=== PATIENT | female | born 1950 | race Caucasian/White ===

== ENCOUNTER → 2016-12-15 | Outpatient (CLI) | payer MEDICARE, BC ==
--- NOTE | 2016-12-15 15:48 | US ---
EXAMINATION: Renal ultrasound HISTORY: Urinary tract infection COMPARISON: CT dated 11/09/2016 TECHNIQUE: Grayscale and color Doppler images obtained of the kidneys and bladder. FINDINGS: The right kidney measures at least 11.4 cm and the left kidney measures at least 11.1 cm p ole-to-pole without evidence of hydronephrosis. No perinephric fluid collections or renal masses kimani aterally. Renal cortical echotexture is normal. Normal color Doppler flow. Bilateral urine jets are noted. IMPRESSION: Unremarkable renal ultrasound.
== END ==
LOC: MW.US 09:24
PROVIDERS: ATTEND Internal Medicine Infectious Disease
DX: N39.0 Urinary tract infection, site not specified (principal)
CPT/HCPCS: 76775; 76775-26

== ENCOUNTER 2017-03-19 16:16 | Emergency (ER) | payer MEDICARE, BC ==
[2017-03-19 16:35] VITALS: BP 159/82
[2017-03-19] MEDS ORDERED: Proparacaine 0.5% Ophth Soln 15 ML Bottle ONE (16:36)
[2017-03-19] MEDS ORDERED: Erythromycin Base 0.5% Ophth Oint 1 GM Tube EYEBOTH ONE (16:46)
--- NOTE | 2017-03-19 16:46 | EDM.PDOC ---
ED HPI GENERAL MEDICAL PROBLEM - General Chief Complaint: Eye Problems Stated Complaint: PT RT EYE SWOLLEN Time Seen by Provider: 03/19/17 16:36 - History of Present Illness INITIAL COMMENTS - FREE TEXT/NARRATIVE: HISTORY AND PHYSICAL: History of present illness: Patient 66-year-old white female presents with concern of possible corneal abrasion right eye she does not recall any trauma or any foreign body but states she awoke with this discomfort in her right eye since then the whole day. Review of systems: As per history of present illness and below otherwise all systems reviewed and negative. Past medical history: As per history of present illness and as reviewed below otherwise noncontributory. Surgical history: As per history of present illness and as reviewed below otherwise noncontributory. Social history: No reported history of drug or alcohol abuse. Family history: As per history of present illness and as reviewed below otherwise noncontributory. Physical exam: HEENT: Atraumatic, normocephalic, pupils reactive, negative for conjunctival pallor or scleral icterus, mucous membranes moist, throat clear, neck supple, nontender, trachea midline. Patient is noted to have a corneal abrasion at the 9 :00 position with fluoroscein uptake anterior chambers clear lid eversion was negative for foreign Lungs: Clear to auscultation, breath sounds equal bilaterally, chest nontender. Heart: S1S2, regular, negative for clicks, rubs, or JVD. Abdomen: Soft, nondistended, nontender. Negative for masses or hepatosplenomegaly. Negative for costovertebral tenderness. Pelvis: Stable nontender. Genitourinary: Deferred. Rectal: Deferred. Extremities: Atraumatic, negative for cords or calf pain. Neurovascular unremarkable. Neuro: Awake, alert, oriented. Cranial nerves II through XII unremarkable. Cerebellum unremarkable. Motor and sensory unremarkable throughout. Exam nonfocal. Diagnostics: See above Therapeutics: Erythromycin ophthalmic ointment Impression: #1 corneal abrasion right eye Definitive disposition and diagnosis as appropriate pending reevaluation and review of above. Right Eye Pain Score (Numeric/FACES): 4 - Related Data Allergies Allergy/AdvReac Type Severity Reaction Status Date / Time cefuroxime axetil Allergy Intermediate Rash Verified 03/19/17 16:29 [From Ceftin] celecoxib [From Celebrex] Allergy Rash Verified 03/19/17 16:29 ciprofloxacin Allergy Rash Verified 03/19/17 16:29 codeine Allergy Rash Verified 03/19/17 16:29 hydrocodone Allergy Rash Verified 03/19/17 16:29 Penicillins Allergy Cannot Verified 03/19/17 16:29 Remember Home Meds: Home Meds ALPRAZolam [Xanax] 0.25 mg PO BID 11/09/16 [History] Meloxicam 15 mg PO DAILY 11/09/16 [History] Omeprazole 40 mg PO DAILY 11/09/16 [History] Ondansetron [Zofran ODT] 8 mg PO Q4H 11/09/16 [History] Triamterene/Hydrochlorothiazid [Triamterene-HCTZ 37.5-25 MG] 37.5 each PO DAILY 11/09/16 [History] Zolpidem [Ambien] 5 mg PO BEDTIME 11/09/16 [History] buPROPion [Wellbutrin SR] 300 mg PO DAILY 11/09/16 [History] traMADol HCl [Tramadol HCl] 50 mg PO Q4HR PRN 11/09/16 [History] Doxycycline Calcium [IMW: Doxycycline] 100 mg PO BID 7 Days 11/11/16 [Rx] Loperamide [Imodium] 2 mg PO ASDIRECTED PRN #10 cap 11/11/16 [Rx] metroNIDAZOLE 500 mg PO TID 10 Days 11/11/16 [Rx] Estradiol [Estrace Vaginal] 1 applic VAG BEDTIME 03/19/17 [History] Past Medical History HEENT History: Reports: Cataract Cardiovascular History: Reports: Hypertension Gastrointestinal History: Reports: Irritable Bowel Syndrome Musculoskeletal History: Reports: Osteoarthritis Other Musculoskeletal History: joint pain, polyneuropathy, Psychiatric History: Reports: Anxiety Endocrine/Metabolic History: Reports: None Hematologic History: Reports: None Immunologic History: Reports: None Oncologic (Cancer) History: Reports: None Dermatologic History: Reports: Eczema - Infectious Disease History Infectious Disease History: Reports: Chicken Pox - Past Surgical History Head Surgeries/Procedures: Reports: None HEENT Surgical History: Reports: Cataract Surgery GI Surgical History: Reports: None Female Surgical History: Reports: Hysterectomy, Tubal Ligation Oncologic Surgical History: Reports: None Dermatological Surgical History: Reports: Skin Biopsy Social & Family History - Family History Family Medical History: Noncontributory Neurological: Reports: Neuropathy, Peripheral, Other (See Below) Other Neurological Family History: Temporal arteritis- Polymyalgic Giant cell. Polymyositis Immunologic: Reports: None Dermatologic: Reports: None Oncologic: Reports: None - Tobacco Use Smoking Status *Q: Former Smoker Used Tobacco, but Quit: No Second Hand Smoke Exposure: No - Caffeine Use Caffeine Use: Reports: Soda, Tea - Recreational Drug Use Recreational Drug Use: No ED ROS GENERAL - Review of Systems Review Of Systems: ROS reveals no pertinent complaints other than HPI. ED EXAM GENERAL W FULL EYE - Physical Exam Exam: See Below (See dictation) Course - Vital Signs Last Recorded V/S: Last Vital Signs Temp 36.7 C 03/19/17 16:32 Pulse 76 03/19/17 16:32 Resp 16 03/19/17 16:32 BP 159/82 H 03/19/17 16:32 Pulse Ox 95 03/19/17 16:32 - Orders/Labs/Meds Meds: Medications Discontinued Medications Generic Name Dose Route Start Last Admin Trade Name Freq PRN Reason Stop Dose Admin Proparacaine HCl Confirm 03/19/17 16:36 Proparacaine 0.5% Ophth Soln Administered 03/19/17 16:37 Dose 15 ml .ROUTE .STK-MED ONE Departure - Departure Time of Disposition: 16:45 Disposition: Home, Self-Care 01 Condition: good Clinical Impression: Corneal abrasion - Discharge Information Forms: ED Department Discharge Additional Instructions: The following information is given to patients seen in the emergency department who are being discharged to home. This information is to outline your options for follow-up care. We provide all patients seen in our emergency department with a follow-up referral. The need for follow-up, as well as the timing and circumstances, are variable depending upon the specifics of your emergency department visit. If you don't have a primary care physician on staff, we will provide you with a referral. We always advise you to contact your personal physician following an emergency department visit to inform them of the circumstance of the visit and for follow-up with them and/or the need for any referrals to a consulting specialist. The emergency department will also refer you to a specialist when appropriate. This referral assures that you have the opportunity for followup care with a specialist. All of these measure are taken in an effort to provide you with optimal care, which includes your followup. Under all circumstances we always encourage you to contact your private physician who remains a resource for coordinating your care. When calling for followup care, please make the office aware that this follow-up is from your recent emergency room visit. If for any reason you are refused follow-up, please contact the [facility] emergency department at and asked to speak to the emergency department charge nurse. Erythromycin ophthalmic ointment as direct Followup ophthalmology on Tuesday Motrin or Tylenol as directed return as needed as discussed
[2017-03-19] MEDS ORDERED: Proparacaine 0.5% Ophth Soln 15 ML Bottle EYERT ONE (17:14)
== END 2017-03-19 17:16 | disposition home or self-care (01) ==
LOC: MW.ED 16:16
DX: S05.01XA Injury of conjunctiva and corneal abrasion without foreign body, right eye, initial encounter (principal); I10 Essential (primary) hypertension; F41.9 Anxiety disorder, unspecified; Z98.51 Tubal ligation status; Z98.49 Cataract extraction status, unspecified eye; Z90.710 Acquired absence of both cervix and uterus; Z87.891 Personal history of nicotine dependence; Z79.899 Other long term (current) drug therapy; Z88.0 Allergy status to penicillin; Z88.1 Allergy status to other antibiotic agents; Z88.5 Allergy status to narcotic agent; Z88.8 Allergy status to other drugs, medicaments and biological substances; X58.XXXA Exposure to other specified factors, initial encounter
CPT/HCPCS: 99283; A9270

== ENCOUNTER 2017-04-27 16:08 | Emergency (ER) | payer MEDICARE, BC ==
--- NOTE | 2017-04-27 16:41 | EDM.PDOC ---
ED HPI GENERAL MEDICAL PROBLEM - General Chief Complaint: ENT Problem Stated Complaint: EAR PAIN/POSSIBLE BLADDER INFECTION Time Seen by Provider: 04/27/17 16:20 Source of Information: Reports: Patient History Limitations: Reports: No Limitations - History of Present Illness INITIAL COMMENTS - FREE TEXT/NARRATIVE: History of present illness: 66 year old female comes in complaining of bilateral ear pain as well as concern that she might have a UTI. Patient indicates that she has chronic arthritis and so it's hard to determine if she has one now she started to feel generally unwell and has a bit of a backache. Review of systems: As per history of present illness and below otherwise all systems reviewed and negative. Past medical history: As per history of present illness and as reviewed below otherwise noncontributory. Surgical history: As per history of present illness and as reviewed below otherwise noncontributory. Social history: No reported history of drug or alcohol abuse. Family history: As per history of present illness and as reviewed below otherwise noncontributory. Physical exam: HEENT: Atraumatic, normocephalic, pupils reactive, negative for conjunctival pallor or scleral icterus, mucous membranes moist, bilateral TMs noted to be red and dull with canals irritated, throat clear, neck supple, nontender, trachea midline. Lungs: Clear to auscultation, breath sounds equal bilaterally, chest nontender. Heart: S1S2, regular, negative for clicks, rubs, or JVD. Abdomen: Soft, nondistended, nontender. Negative for masses or hepatosplenomegaly. Positive for costovertebral tenderness. Pelvis: Stable nontender. Genitourinary: Deferred. Rectal: Deferred. Extremities: Atraumatic, negative for cords or calf pain. Neurovascular unremarkable. Neuro: Awake, alert, oriented. Cranial nerves II through XII unremarkable. Cerebellum unremarkable. Motor and sensory unremarkable throughout. Exam nonfocal. Diagnostics: [UA,] Therapeutics: [] Impression: [UTI, bilateral otitis media] Plan: [antiBiotics] Definitive disposition and diagnosis as appropriate pending reevaluation and review of above. lower back Pain Score (Numeric/FACES): 3 - Related Data Allergies Allergy/AdvReac Type Severity Reaction Status Date / Time cefuroxime axetil Allergy Intermediate Rash Verified 04/27/17 16:23 [From Ceftin] celecoxib [From Celebrex] Allergy Rash Verified 04/27/17 16:23 ciprofloxacin Allergy Rash Verified 04/27/17 16:23 codeine Allergy Rash Verified 04/27/17 16:23 hydrocodone Allergy Rash Verified 04/27/17 16:23 Penicillins Allergy Cannot Verified 04/27/17 16:23 Remember Home Meds: Home Meds ALPRAZolam [Xanax] 0.25 mg PO BID 11/09/16 [History] Meloxicam 15 mg PO DAILY 11/09/16 [History] Omeprazole 40 mg PO DAILY 11/09/16 [History] Ondansetron [Zofran ODT] 8 mg PO Q4H 11/09/16 [History] Triamterene/Hydrochlorothiazid [Triamterene-HCTZ 37.5-25 MG] 37.5 each PO DAILY 11/09/16 [History] Zolpidem [Ambien] 5 mg PO BEDTIME 11/09/16 [History] buPROPion [Wellbutrin SR] 300 mg PO DAILY 11/09/16 [History] traMADol HCl [Tramadol HCl] 50 mg PO Q4HR PRN 11/09/16 [History] Doxycycline Calcium [IMW: Doxycycline] 100 mg PO BID 7 Days 11/11/16 [Rx] Loperamide [Imodium] 2 mg PO ASDIRECTED PRN #10 cap 11/11/16 [Rx] metroNIDAZOLE 500 mg PO TID 10 Days 11/11/16 [Rx] Estradiol [Estrace Vaginal] 1 applic VAG BEDTIME 03/19/17 [History] Azithromycin [IJD: Azithromycin] 250 mg PO DAILY #6 tab 04/27/17 [Rx] Nitrofurantoin Monohyd/M-Cryst [Macrobid 100 mg Capsule] 100 mg PO BID #20 capsule 04/27/17 [Rx] Past Medical History - Past Health History Medical/Surgical History: Denies Medical/Surgical History HEENT History: Reports: Cataract Cardiovascular History: Reports: Hypertension Gastrointestinal History: Reports: Irritable Bowel Syndrome [employer] History: Reports: Musculoskeletal History: Reports: Osteoarthritis Other Musculoskeletal History: joint pain, polyneuropathy, Psychiatric History: Reports: Anxiety Endocrine/Metabolic History: Reports: None Hematologic History: Reports: None Immunologic History: Reports: None Oncologic (Cancer) History: Reports: None Dermatologic History: Reports: Eczema - Infectious Disease History Infectious Disease History: Reports: Chicken Pox - Past Surgical History Head Surgeries/Procedures: Reports: None HEENT Surgical History: Reports: Cataract Surgery GI Surgical History: Reports: None Female Surgical History: Reports: Hysterectomy, Tubal Ligation Oncologic Surgical History: Reports: None Dermatological Surgical History: Reports: Skin Biopsy Social & Family History - Family History Family Medical History: Noncontributory Neurological: Reports: Neuropathy, Peripheral, Other (See Below) Other Neurological Family History: Temporal arteritis- Polymyalgic Giant cell. Polymyositis Immunologic: Reports: None Dermatologic: Reports: None Oncologic: Reports: None - Tobacco Use Smoking Status *Q: Never Smoker Used Tobacco, but Quit: No Second Hand Smoke Exposure: No - Caffeine Use Caffeine Use: Reports: Tea - Recreational Drug Use Recreational Drug Use: No ED ROS GENERAL - Review of Systems Review Of Systems: See Below (History of present illness) ED EXAM, GENERAL - Physical Exam Exam: See Below (See history of present illness) Course - Vital Signs Last Recorded V/S: Last Vital Signs Temp 36.4 C 04/27/17 16:24 Pulse 71 04/27/17 16:24 Resp 18 04/27/17 16:24 BP 156/79 H 04/27/17 16:24 Pulse Ox 95 04/27/17 16:24 - Orders/Labs/Meds Labs: Laboratory Tests 04/27/17 04/27/17 04/27/17 Range/Units 16:30 18:00 18:00 WBC 13.75 H (4.0-11.0) K/uL RBC 4.67 (4.30-5.90) M/uL Hgb 14.0 (12.0-16.0) g/dL Hct 41.1 (36.0-46.0) % MCV 88.0 (80.0-98.0) fL MCH 30.0 (27.0-32.0) pg MCHC 34.1 (31.0-37.0) g/dL RDW Std Deviation 40.6 (28.0-62.0) fl RDW Coeff of Samson 13 (11.0-15.0) % Plt Count 120 L (150-400) K/uL MPV 10.30 (7.40-12.00) fL Neut % (Auto) 70.3 (48.0-80.0) % Lymph % (Auto) 20.7 (16.0-40.0) % Duval % (Auto) 5.2 (0.0-15.0) % Eos % (Auto) 3.5 (0.0-7.0) % Baso % (Auto) 0.3 (0.0-1.5) % Neut # (Auto) 9.7 H (1.4-5.7) K/uL Lymph # (Auto) 2.9 H (0.6-2.4) K/uL Duval # (Auto) 0.7 (0.0-0.8) K/uL Eos # (Auto) 0.5 (0.0-0.7) K/uL Baso # (Auto) 0.0 (0.0-0.1) K/uL Nucleated RBC % 0.0 /100WBC Nucleated RBCs # 0 K/uL Sodium 139 (136-146) mmol/L Potassium 3.5 (3.5-5.1) mmol/L Chloride 105 (98-110) mmol/L Carbon Dioxide 26 (21-31) mmol/L BUN 22 (6.0-23.0) mg/dL Creatinine 0.8 (0.6-1.5) mg/dL Est Cr Clr Drug Dosing 64.76 mL/min Estimated GFR (MDRD) > 60.0 ml/min Glucose 88 (60-110) mg/dL Calcium 8.8 (8.8-10.8) mg/dL Total Bilirubin 0.3 (0.1-1.5) mg/dL AST 51 H (5-40) IU/L ALT 69 H (8-54) IU/L Alkaline Phosphatase 125 (40-150) Total Protein 7.0 (6.0-8.0) g/dL Albumin 4.0 (3.4-4.8) g/dL Globulin 3.0 (2.0-3.5) g/dL Albumin/Globulin Ratio 1.3 (1.3-2.8) Urine Color YELLOW Urine Appearance CLEAR Urine pH 6.0 (5.0-8.0) Ur Specific Paisley 1.020 (1.001-1.035) Urine Protein NEGATIVE (NEGATIVE) mg/dL Urine Glucose (UA) NEGATIVE (NEGATIVE) mg/dL Urine Ketones NEGATIVE (NEGATIVE) mg/dL Urine Occult Blood SMALL H (NEGATIVE) Urine Nitrite POSITIVE H (NEGATIVE) Urine Bilirubin NEGATIVE (NEGATIVE) Urine Urobilinogen 0.2 (<2.0) EU/dL Ur Leukocyte Esterase NEGATIVE (NEGATIVE) Urine RBC 0-2 (0-2/HPF) Urine WBC 1-3 (0-5/HPF) Ur Epithelial Cells MANY (NONE-FEW) Urine Bacteria 1+ H (NEGATIVE) 04/27/17 Range/Units 18:55 WBC (4.0-11.0) K/uL RBC (4.30-5.90) M/uL Hgb (12.0-16.0) g/dL Hct (36.0-46.0) % MCV (80.0-98.0) fL MCH (27.0-32.0) pg MCHC (31.0-37.0) g/dL RDW Std Deviation (28.0-62.0) fl RDW Coeff of Samson (11.0-15.0) % Plt Count (150-400) K/uL MPV (7.40-12.00) fL Neut % (Auto) (48.0-80.0) % Lymph % (Auto) (16.0-40.0) % Duval % (Auto) (0.0-15.0) % Eos % (Auto) (0.0-7.0) % Baso % (Auto) (0.0-1.5) % Neut # (Auto) (1.4-5.7) K/uL Lymph # (Auto) (0.6-2.4) K/uL Duval # (Auto) (0.0-0.8) K/uL Eos # (Auto) (0.0-0.7) K/uL Baso # (Auto) (0.0-0.1) K/uL Nucleated RBC % /100WBC Nucleated RBCs # K/uL Sodium (136-146) mmol/L Potassium (3.5-5.1) mmol/L Chloride (98-110) mmol/L Carbon Dioxide (21-31) mmol/L BUN (6.0-23.0) mg/dL Creatinine (0.6-1.5) mg/dL Est Cr Clr Drug Dosing mL/min Estimated GFR (MDRD) ml/min Glucose (60-110) mg/dL Calcium (8.8-10.8) mg/dL Total Bilirubin (0.1-1.5) mg/dL AST (5-40) IU/L ALT (8-54) IU/L Alkaline Phosphatase (40-150) Total Protein (6.0-8.0) g/dL Albumin (3.4-4.8) g/dL Globulin (2.0-3.5) g/dL Albumin/Globulin Ratio (1.3-2.8) Urine Color YELLOW Urine Appearance CLEAR Urine pH 6.0 (5.0-8.0) Ur Specific Paisley 1.015 (1.001-1.035) Urine Protein NEGATIVE (NEGATIVE) mg/dL Urine Glucose (UA) NEGATIVE (NEGATIVE) mg/dL Urine Ketones NEGATIVE (NEGATIVE) mg/dL Urine Occult Blood SMALL H (NEGATIVE) Urine Nitrite POSITIVE H (NEGATIVE) Urine Bilirubin NEGATIVE (NEGATIVE) Urine Urobilinogen 0.2 (<2.0) EU/dL Ur Leukocyte Esterase NEGATIVE (NEGATIVE) Urine RBC 1-3 (0-2/HPF) Urine WBC 0-1 (0-5/HPF) Ur Epithelial Cells FEW (NONE-FEW) Urine Bacteria FEW (NEGATIVE) Meds: Medications Discontinued Medications Generic Name Dose Route Start Last Admin Trade Name Freq PRN Reason Stop Dose Admin Sodium Chloride 1,000 mls @ 999 mls/hr 04/27/17 17:40 04/27/17 18:01 Normal Saline IV 04/27/17 18:40 999 mls/hr STAT ONE Administration Departure - Departure Time of Disposition: 19:40 Disposition: Home, Self-Care 01 Condition: Good Clinical Impression: Otitis media - Discharge Information Prescriptions: Azithromycin [IJD: Azithromycin] 250 mg PO DAILY #6 tab Nitrofurantoin Monohyd/M-Cryst [Macrobid 100 mg Capsule] 100 mg PO BID #20 capsule Forms: ED Department Discharge Additional Instructions: The following information is given to patients seen in the emergency department who are being discharged to home. This information is to outline your options for follow-up care. We provide all patients seen in our emergency department with a follow-up referral. The need for follow-up, as well as the timing and circumstances, are variable depending upon the specifics of your emergency department visit. If you don't have a primary care physician on staff, we will provide you with a referral. We always advise you to contact your personal physician following an emergency department visit to inform them of the circumstance of the visit and for follow-up with them and/or the need for any referrals to a consulting specialist. The emergency department will also refer you to a specialist when appropriate. This referral assures that you have the opportunity for follow-up care with a specialist. All of these measure are taken in an effort to provide you with optimal care, which includes your follow-up. Under all circumstances we always encourage you to contact your private physician who remains a resource for coordinating your care. When calling for follow-up care, please make the office aware that this follow-up is from your recent emergency room visit. If for any reason you are refused follow-up, please contact the [facility] Emergency Department at and asked to speak to the emergency department charge nurse. Take medication as directed Hydrate as much as possible Follow up with primary care provider one to 2 days Return to ED as needed as discussed
[2017-04-27] MEDS ORDERED: Sodium Chloride 0.9% 1,000 ML IV ONE (17:40)
[2017-04-27 18:36] LABS: CHLORIDE,CL 105 mmol/L (98-110); SODIUM,NA 139 mmol/L (136-146)
[2017-04-27 20:14] VITALS: BP 168/83
== END 2017-04-27 20:02 | disposition home or self-care (01) ==
LOC: MW.ED 16:08
DX: N39.0 Urinary tract infection, site not specified (principal); H66.93 Otitis media, unspecified, bilateral; I10 Essential (primary) hypertension; M19.90 Unspecified osteoarthritis, unspecified site; F32.9 Major depressive disorder, single episode, unspecified; Z98.49 Cataract extraction status, unspecified eye; Z98.51 Tubal ligation status; Z90.710 Acquired absence of both cervix and uterus; Z79.899 Other long term (current) drug therapy; Z88.0 Allergy status to penicillin; Z88.1 Allergy status to other antibiotic agents; Z88.8 Allergy status to other drugs, medicaments and biological substances; Z88.5 Allergy status to narcotic agent
CPT/HCPCS: 80053; 81001; 85025; 96360; 99283; J7040

== ENCOUNTER 2017-10-28 12:48 | Emergency (ER) | payer MEDICARE, BC ==
[2017-10-28 13:02] VITALS: BP 168/84
--- NOTE | 2017-10-28 13:44 | EDM.PDOC ---
ED HPI GENERAL MEDICAL PROBLEM - General Chief Complaint: ENT Problem Stated Complaint: NOSE BLEED Time Seen by Provider: 10/28/17 13:30 Source of Information: Reports: Patient History Limitations: Reports: No Limitations - History of Present Illness INITIAL COMMENTS - FREE TEXT/NARRATIVE: HISTORY AND PHYSICAL: History of present illness: [Patient comes to the emergency room complaining of a bloody nose that started about 90 minutes ago. She has been unable to get the bleeding to stop. Has a history of nasal hemorrhage several years ago. Does not have a headache. Does not take any blood thinners. Has not made any medication changes. Denies blurred vision and double vision. Has no other complaints or concerns.] Review of systems: As per history of present illness and below otherwise all systems reviewed and negative. Past medical history: As per history of present illness and as reviewed below otherwise noncontributory. Surgical history: As per history of present illness and as reviewed below otherwise noncontributory. Social history: No reported history of drug or alcohol abuse. Family history: As per history of present illness and as reviewed below otherwise noncontributory. Physical exam: HEENT: Atraumatic, normocephalic. Due to the amount of bleeding from L nare, am unable to accurately identify the area of bleeding. Heart: RRR, normal S1, S2. Lungs: CTA bilaterally. Extremities: Atraumatic. Neurovascular unremarkable. Neuro: Awake, alert, oriented. Motor and sensory unremarkable throughout. Exam nonfocal. Impression: [epistaxis] Plan: [Case is discussed with Dr. Melissa Gonzalez who is on-call for ENT. She agrees to see the patient in her clinic for evaluation. The patient is given directions to Dr. Gonzalez's clinic and instructed to follow-up immediately. She is in agreement with today's plan.] Definitive disposition and diagnosis as appropriate pending reevaluation and review of above. - Related Data Allergies Allergy/AdvReac Type Severity Reaction Status Date / Time cefuroxime axetil Allergy Intermediate Rash Verified 04/27/17 16:23 [From Ceftin] celecoxib [From Celebrex] Allergy Rash Verified 04/27/17 16:23 ciprofloxacin Allergy Rash Verified 04/27/17 16:23 codeine Allergy Rash Verified 04/27/17 16:23 hydrocodone Allergy Rash Verified 04/27/17 16:23 Home Meds: Home Meds Meloxicam 15 mg PO DAILY 11/09/16 [History] Triamterene/Hydrochlorothiazid [Triamterene-HCTZ 37.5-25 MG] 37.5 each PO DAILY 11/09/16 [History] Zolpidem [Ambien] 5 mg PO BEDTIME 11/09/16 [History] buPROPion [Wellbutrin SR] 300 mg PO DAILY 11/09/16 [History] traMADol HCl [Tramadol HCl] 50 mg PO Q4HR PRN 11/09/16 [History] Loperamide [Imodium] 2 mg PO ASDIRECTED PRN #10 cap 11/11/16 [Rx] Estradiol [Estrace Vaginal] 1 applic VAG BEDTIME 03/19/17 [History] Diclofenac Sodium [Voltaren] 75 mg PO BIDMEALS 10/28/17 [History] Diclofenac/Benzalkonium Chlor [Ds Prep Seb] 1 unit TOP ASDIRECTED 10/28/17 [ History] Fluticasone Propionate [Flonase Allergy Relief] 9.9 ml NS BID 10/28/17 [History] Past Medical History - Past Health History Medical/Surgical History: Denies Medical/Surgical History HEENT History: Reports: Cataract Cardiovascular History: Reports: Hypertension Gastrointestinal History: Reports: Irritable Bowel Syndrome Genitourinary History: Reports: UTI, Recurrent 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: Musculoskeletal History: Reports: Osteoarthritis Other Musculoskeletal History: joint pain, polyneuropathy, Psychiatric History: Reports: Anxiety Endocrine/Metabolic History: Reports: None Hematologic History: Reports: None Immunologic History: Reports: None Oncologic (Cancer) History: Reports: None Dermatologic History: Reports: Eczema - Infectious Disease History Infectious Disease History: Reports: Chicken Pox - Past Surgical History Head Surgeries/Procedures: Reports: None HEENT Surgical History: Reports: Cataract Surgery GI Surgical History: Reports: Appendectomy Female Surgical History: Reports: Hysterectomy, Tubal Ligation Oncologic Surgical History: Reports: None Dermatological Surgical History: Reports: Skin Biopsy Social & Family History - Family History Family Medical History: Noncontributory Neurological: Reports: Neuropathy, Peripheral, Other (See Below) Other Neurological Family History: Temporal arteritis- Polymyalgic Giant cell. Polymyositis Immunologic: Reports: None Dermatologic: Reports: None Oncologic: Reports: None - Tobacco Use Smoking Status *Q: Former Smoker Used Tobacco, but Quit: Yes Month Tobacco Last Used: 1997 Second Hand Smoke Exposure: No - Caffeine Use Caffeine Use: Reports: Tea - Recreational Drug Use Recreational Drug Use: No ED ROS ENT - Review of Systems Review Of Systems: ROS reveals no pertinent complaints other than HPI. ED EXAM, ENT - Physical Exam Exam: See Below Course - Vital Signs Last Recorded V/S: Last Vital Signs Temp 98.2 F 10/28/17 13:00 Pulse 87 10/28/17 13:00 Resp 12 10/28/17 13:00 BP 168/84 H 10/28/17 13:00 Pulse Ox 97 10/28/17 13:00 Departure - Departure Time of Disposition: 13:50 Disposition: Home, Self-Care 01 Condition: Good Clinical Impression: Epistaxis - Discharge Information Instructions: Nosebleed, [id number] Referrals: Josh Jane MD [Primary Care Provider] - Forms: ED Department Discharge Additional Instructions: The following information is given to patients seen in the emergency department who are being discharged to home. This information is to outline your options for follow-up care. We provide all patients seen in our emergency department with a follow-up referral. The need for follow-up, as well as the timing and circumstances, are variable depending upon the specifics of your emergency department visit. If you don't have a primary care physician on staff, we will provide you with a referral. We always advise you to contact your personal physician following an emergency department visit to inform them of the circumstance of the visit and for follow-up with them and/or the need for any referrals to a consulting specialist. The emergency department will also refer you to a specialist when appropriate. This referral assures that you have the opportunity for follow-up care with a specialist. All of these measure are taken in an effort to provide you with optimal care, which includes your follow-up. Under all circumstances we always encourage you to contact your private physician who remains a resource for coordinating your care. When calling for follow-up care, please make the office aware that this follow-up is from your recent emergency room visit. If for any reason you are refused follow-up, please contact the [facility] emergency department at and asked to speak to the emergency department charge nurse. [facility] Specialty care- ENT [address] [place] [id number] Follow-up with Dr. Gonzalez at the above listed clinic immediately for evaluation.
== END 2017-10-28 13:57 | disposition home or self-care (01) ==
LOC: MW.ED 12:48
DX: R04.0 Epistaxis (principal); I10 Essential (primary) hypertension; F41.9 Anxiety disorder, unspecified; Z87.891 Personal history of nicotine dependence; Z79.899 Other long term (current) drug therapy; Z88.1 Allergy status to other antibiotic agents; Z88.5 Allergy status to narcotic agent; Z88.8 Allergy status to other drugs, medicaments and biological substances
CPT/HCPCS: 99282; 99283

== ENCOUNTER 2017-12-15 14:28 | Emergency (ER) | payer MEDICARE, BC ==
[2017-12-15] MEDS ORDERED: Bacitracin Oint 1 GM U/D Packet TOP ONE (14:59)
[2017-12-15] MEDS ORDERED: Diphtheria,Pertussis(Acell),Tetanus Vaccine 0.5 ML Syringe IM ONE (14:59)
[2017-12-15 15:04] VITALS: BP 174/99
--- NOTE | 2017-12-15 15:08 | EDM.PDOC ---
ED HPI GENERAL MEDICAL PROBLEM - General Chief Complaint: Laceration Stated Complaint: SCISSORS THROUGH HAND Time Seen by Provider: 12/15/17 14:54 - History of Present Illness INITIAL COMMENTS - FREE TEXT/NARRATIVE: HISTORY AND PHYSICAL: History of present illness: The patient is a 67-year-old female who is unsure of her last tetanus shot and believes it was in 2007 and presents after puncturing her left index finger with a wire spinner. She was cutting plastic stays off something and slipped off of one of the plastic stays and the tool went into her left index finger near the PIP joint. There was some bleeding but is currently well controlled and she was concerned about the wound. The patient says she has no other injuries and is right-hand dominant. Patient is currently on Augmentin for a sinus infection and has 8 days left of this antibiotic. She otherwise has been in good health and eating and drinking normally. The patient has some slight tingling to the ulnar aspect of her index finger where the wound is but she is able to flex and extend and has normal strength. Review of systems: As per history of present illness and below otherwise all systems reviewed and negative. Past medical history: As per history of present illness and as reviewed below otherwise noncontributory. Surgical history: As per history of present illness and as reviewed below otherwise noncontributory. Social history: No reported history of drug or alcohol abuse. Family history: As per history of present illness and as reviewed below otherwise noncontributory. Physical exam: Gen.: Well-developed well-nourished female who is nontoxic and has nasal quality to voice. Vital signs are noted by me HEENT: Atraumatic, normocephalic, negative for conjunctival pallor or scleral icterus, mucous membranes moist, throat clear, neck supple, nontender, trachea midline. Lungs: Clear to auscultation, breath sounds equal bilaterally, chest nontender. Heart: S1S2, regular rhythm slightly tachycardic rate on my evaluation Abdomen: Soft, nondistended, nontender. NABS Pelvis: Deferred Genitourinary: Deferred. Rectal: Deferred. Extremities: Atraumatic full range of motion of all extremities with the exception of the left index finger where there are 2 puncture marley seen on the ulnar aspect of the left index finger at the PIP joint, there is no gross bleeding or swelling appreciated and there is only minimal tenderness in this region. The bones appear to be intact with no defects or tenderness and the patient is able to flex and extend against resistance without deficits. The legs are, negative for cords or calf pain. Neurovascular unremarkable. Neuro: Awake, alert, oriented. Cranial nerves II through XII unremarkable. Cerebellum unremarkable. Motor and sensory unremarkable throughout. Exam nonfocal. Diagnostics: X-ray left index finger Therapeutics: Tdap, wound care I discussed with the patient that she would normally have to be placed on antibiotics but as she is on Augmentin and that will cover the puncture wound and I advised her to continue and finish the next 8 days of this antibiotic. I will also give her referral to our hand specialist Impression: Puncture wound of left index finger, already on antibiotics for sinusitis Definitive disposition and diagnosis as appropriate pending reevaluation and review of above. Left 2-Index finger Pain Score (Numeric/FACES): 3 - Related Data Allergies Allergy/AdvReac Type Severity Reaction Status Date / Time cefuroxime axetil Allergy Intermediate Rash Verified 12/15/17 14:55 [From Ceftin] celecoxib [From Celebrex] Allergy Rash Verified 12/15/17 14:55 ciprofloxacin Allergy Rash Verified 12/15/17 14:55 codeine Allergy Rash Verified 12/15/17 14:55 hydrocodone Allergy Rash Verified 12/15/17 14:55 Home Meds: Home Meds Meloxicam 15 mg PO DAILY 11/09/16 [History] Triamterene/Hydrochlorothiazid [Triamterene-HCTZ 37.5-25 MG] 37.5 each PO DAILY 11/09/16 [History] Zolpidem [Ambien] 5 mg PO BEDTIME 11/09/16 [History] buPROPion [Wellbutrin SR] 300 mg PO DAILY 11/09/16 [History] traMADol HCl [Tramadol HCl] 50 mg PO Q4HR PRN 11/09/16 [History] Loperamide [Imodium] 2 mg PO ASDIRECTED PRN #10 cap 11/11/16 [Rx] Estradiol [Estrace Vaginal] 1 applic VAG BEDTIME 03/19/17 [History] Diclofenac Sodium [Voltaren] 75 mg PO BIDMEALS 10/28/17 [History] Diclofenac/Benzalkonium Chlor [Ds Prep Seb] 1 unit TOP ASDIRECTED 10/28/17 [ History] Fluticasone Propionate [Flonase Allergy Relief] 9.9 ml NS BID 10/28/17 [History] Past Medical History - Past Health History Medical/Surgical History: Denies Medical/Surgical History HEENT History: Reports: Cataract Cardiovascular History: Reports: Hypertension Gastrointestinal History: Reports: Irritable Bowel Syndrome Genitourinary History: Reports: UTI, Recurrent 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: Musculoskeletal History: Reports: Osteoarthritis Other Musculoskeletal History: joint pain, polyneuropathy, Psychiatric History: Reports: Anxiety Endocrine/Metabolic History: Reports: None Hematologic History: Reports: None Immunologic History: Reports: None Oncologic (Cancer) History: Reports: None Dermatologic History: Reports: Eczema - Infectious Disease History Infectious Disease History: Reports: Chicken Pox - Past Surgical History Head Surgeries/Procedures: Reports: None HEENT Surgical History: Reports: Cataract Surgery GI Surgical History: Reports: Appendectomy Female Surgical History: Reports: Hysterectomy, Tubal Ligation Oncologic Surgical History: Reports: None Dermatological Surgical History: Reports: Skin Biopsy Social & Family History - Family History Family Medical History: Noncontributory Neurological: Reports: Neuropathy, Peripheral, Other (See Below) Other Neurological Family History: Temporal arteritis- Polymyalgic Giant cell. Polymyositis Immunologic: Reports: None Dermatologic: Reports: None Oncologic: Reports: None - Tobacco Use Smoking Status *Q: Former Smoker Used Tobacco, but Quit: Yes Month Tobacco Last Used: 1997 Second Hand Smoke Exposure: No - Caffeine Use Caffeine Use: Reports: Tea - Recreational Drug Use Recreational Drug Use: No ED ROS GENERAL - Review of Systems Review Of Systems: ROS reveals no pertinent complaints other than HPI. ED EXAM, SKIN/RASH Exam: See Below (See dictation) Course - Vital Signs Last Recorded V/S: Last Vital Signs Temp 36.2 C 12/15/17 14:49 Pulse 75 12/15/17 14:49 Resp 20 12/15/17 14:49 BP 174/99 H 12/15/17 15:03 Pulse Ox 95 12/15/17 14:49 - Orders/Labs/Meds Orders: Active Orders 24 hr Category Date Time Status Communication Order [RC] STAT Care 12/15/17 14:59 Active Vaccines to be Administered [RC] PER UNIT ROUTINE Care 12/15/17 14:59 Active Meds: Medications Discontinued Medications Generic Name Dose Route Start Last Admin Trade Name Freq PRN Reason Stop Dose Admin Bacitracin 1 dose 12/15/17 14:59 12/15/17 15:12 Bacitracin Oint 1 Gm TOP 12/15/17 15:00 1 dose ONETIME ONE Administration Diphtheria/Tetanus/Acell Pertussis 0.5 ml 12/15/17 14:59 12/15/17 15:12 Adacel IM 12/15/17 15:00 0.5 ml .ONCE ONE Administration Departure - Departure Time of Disposition: 15:38 Disposition: Home, Self-Care 01 Condition: Good Clinical Impression: Puncture wound of left index finger - Discharge Information Referrals: Josh Jane MD [Primary Care Provider] - Forms: ED Department Discharge Additional Instructions: The following information is given to patients seen in the emergency department who are being discharged to home. This information is to outline your options for follow-up care. We provide all patients seen in our emergency department with a follow-up referral. The need for follow-up, as well as the timing and circumstances, are variable depending upon the specifics of your emergency department visit. If you don't have a primary care physician on staff, we will provide you with a referral. We always advise you to contact your personal physician following an emergency department visit to inform them of the circumstance of the visit and for follow-up with them and/or the need for any referrals to a consulting specialist. The emergency department will also refer you to a specialist when appropriate. This referral assures that you have the opportunity for followup care with a specialist. All of these measure are taken in an effort to provide you with optimal care, which includes your followup. Under all circumstances we always encourage you to contact your private physician who remains a resource for coordinating your care. When calling for followup care, please make the office aware that this follow-up is from your recent emergency room visit. If for any reason you are refused follow-up, please contact the [facility] emergency department at and ask to speak to the emergency department charge nurse. [facility] Specialty clinic-Plastic Surgery and Hand Surgery [address] [id number] Please keep finger clean and dry, cleanse with mild soap and water pat dry and apply bacitracin to the puncture wounds. Please continue and finish the Augmentin that you're on for years sinusitis as this will also cover any potential finger infection. Please call and follow-up with our hand specialist Dr. Garcia next few days and return to ER as needed and as discussed. - My Orders Last 24 Hours: My Active Orders 12/15/17 14:59 Communication Order [RC] STAT Vaccines to be Administered [RC] PER UNIT ROUTINE - Assessment/Plan Last 24 Hours: My Active Orders 12/15/17 14:59 Communication Order [RC] STAT Vaccines to be Administered [RC] PER UNIT ROUTINE
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
== END 2017-12-15 15:48 | disposition home or self-care (01) ==
LOC: MW.ED 14:28
DX: S61.231A Puncture wound without foreign body of left index finger without damage to nail, initial encounter (principal); I10 Essential (primary) hypertension; Z88.8 Allergy status to other drugs, medicaments and biological substances; Z88.1 Allergy status to other antibiotic agents; Z88.5 Allergy status to narcotic agent; Z79.899 Other long term (current) drug therapy; Z23 Encounter for immunization; Z87.891 Personal history of nicotine dependence; W26.8XXA Contact with other sharp object(s), not elsewhere classified, initial encounter
CPT/HCPCS: 73140-26-F1; 73140-F1; 90471; 90715; 99283; 99283-25

== ENCOUNTER 2017-12-28 18:55 | Emergency (ER) | payer MEDICARE, BC ==
--- NOTE | 2017-12-28 19:29 | EDM.PDOC ---
ED HPI GENERAL MEDICAL PROBLEM - General Chief Complaint: ENT Problem Stated Complaint: SINUS INFECTION Time Seen by Provider: 12/28/17 19:29 - History of Present Illness INITIAL COMMENTS - FREE TEXT/NARRATIVE: HISTORY AND PHYSICAL: History of present illness: [67-year-old female was in emergency department with chief complaint of headache and sinus congestion 2 days with past medical history of chronic sinus disease. Patient states that approximately a week and half ago she went [facility]. She was given a prescription for Bactrim. States that she seemed to be doing somewhat better on the Bactrim but finished prescription approximate 2 days ago. Since then she has had return of her sinus congestion and headache. Patient states that she has a history of chronic sinus disease and has had repeated episodes of sinusitis. She denies any fever, chills, malaise, nausea, diarrhea, sore throat, abdominal pain, leg pain, calf swelling , chest pain, palpitations, shortness of breath, syncopal episodes, or focal neurologic deficits. On exam bilateral tympanic membranes are retracted and she did have a little bit of old dark blood present in the left ear canal.] Review of systems: As per history of present illness and below otherwise all systems reviewed and negative. Past medical history: As per history of present illness and as reviewed below otherwise noncontributory. Surgical history: As per history of present illness and as reviewed below otherwise noncontributory. Social history: No reported history of drug or alcohol abuse. Family history: As per history of present illness and as reviewed below otherwise noncontributory. Physical exam: HEENT: Atraumatic, normocephalic, pupils reactive, negative for conjunctival pallor or scleral icterus, mucous membranes moist, throat clear, neck supple, nontender, trachea midline. Retracted TM's bilaterally. Lungs: Clear to auscultation, breath sounds equal bilaterally, chest nontender. Heart: S1S2, regular, negative for clicks, rubs, or JVD. Abdomen: Soft, nondistended, nontender. Negative for masses or hepatosplenomegaly. Negative for costovertebral tenderness. Pelvis: Stable nontender. Genitourinary: Deferred. Rectal: Deferred. Extremities: Atraumatic, negative for cords or calf pain. Neurovascular unremarkable. Neuro: Awake, alert, oriented. Cranial nerves II through XII unremarkable. Cerebellum unremarkable. Motor and sensory unremarkable throughout. Exam nonfocal. Diagnostics: [] Therapeutics: [Flonase and Afrin 2 puffs each nostril twice daily and Augmentin.] Impression: [Sinusitis] Plan: [Will treat with Augmentin secondary to history of chronic sinus infections and most likely recent failure of Bactrim. Advised patient to see her PCP Dr. Jane and possibly schedule a follow-up with an early childhood director. She should take her Afrin and Flonase twice daily 2 puffs each nostril. Did advise patient that if she continues to use the Afrin on a daily basis she will have rebound congestion. She should return to emergency department if she has any new or worsening symptoms.] headache Pain Score (Numeric/FACES): 8 - Related Data Allergies Allergy/AdvReac Type Severity Reaction Status Date / Time cefuroxime axetil Allergy Intermediate Rash Verified 12/15/17 14:55 [From Ceftin] azithromycin Allergy Rash Verified 12/28/17 19:08 celecoxib [From Celebrex] Allergy Rash Verified 12/15/17 14:55 ciprofloxacin Allergy Rash Verified 12/15/17 14:55 codeine Allergy Vomiting Verified 12/28/17 19:08 hydrocodone Allergy Rash Verified 12/15/17 14:55 Home Meds: Home Meds Meloxicam 15 mg PO DAILY 11/09/16 [History] Triamterene/Hydrochlorothiazid [Triamterene-HCTZ 37.5-25 MG] 37.5 mg PO DAILY [History] Zolpidem [Ambien] 5 mg PO BEDTIME 11/09/16 [History] traMADol HCl [Tramadol HCl] 50 mg PO Q4HR PRN 11/09/16 [History] Loperamide [Imodium] 2 mg PO ASDIRECTED PRN #10 cap 11/11/16 [Rx] Estradiol [Estrace Vaginal] 1 applic VAG BEDTIME 03/19/17 [History] Diclofenac/Benzalkonium Chlor [Ds Prep Seb] 1 unit TOP ASDIRECTED 10/28/17 [ History] Amoxicillin/Clavulanate K [Augmentin 500-125 MG] 1 tab PO BID #14 tab 12/28/17 [ Rx] Past Medical History - Past Health History Medical/Surgical History: Denies Medical/Surgical History HEENT History: Reports: Cataract Cardiovascular History: Reports: Hypertension Gastrointestinal History: Reports: Irritable Bowel Syndrome Genitourinary History: Reports: UTI, Recurrent 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: Musculoskeletal History: Reports: Osteoarthritis Other Musculoskeletal History: joint pain, polyneuropathy, Psychiatric History: Reports: Anxiety Endocrine/Metabolic History: Reports: None Hematologic History: Reports: None Immunologic History: Reports: None Oncologic (Cancer) History: Reports: None Dermatologic History: Reports: Eczema - Infectious Disease History Infectious Disease History: Reports: Chicken Pox - Past Surgical History Head Surgeries/Procedures: Reports: None HEENT Surgical History: Reports: Cataract Surgery Cardiovascular Surgical History: Reports: None GI Surgical History: Reports: Appendectomy, Cholecystectomy Female Surgical History: Reports: Hysterectomy, Tubal Ligation Oncologic Surgical History: Reports: None Dermatological Surgical History: Reports: Skin Biopsy Social & Family History - Family History Family Medical History: Noncontributory Neurological: Reports: Neuropathy, Peripheral, Other (See Below) Other Neurological Family History: Temporal arteritis- Polymyalgic Giant cell. Polymyositis Immunologic: Reports: None Dermatologic: Reports: None Oncologic: Reports: None - Tobacco Use Smoking Status *Q: Former Smoker Used Tobacco, but Quit: Yes Month/Year Tobacco Last Used: 20years Second Hand Smoke Exposure: No - Caffeine Use Caffeine Use: Reports: Tea - Recreational Drug Use Recreational Drug Use: No ED ROS GENERAL - Review of Systems Review Of Systems: See Below ED EXAM, GENERAL - Physical Exam Exam: See Below Course - Vital Signs Last Recorded V/S: Last Vital Signs Temp 97.4 F 12/28/17 19:04 Pulse 93 12/28/17 19:04 Resp 20 12/28/17 19:04 BP 164/91 H 12/28/17 19:04 Pulse Ox 93 L 12/28/17 19:04 Departure - Departure Time of Disposition: 20:06 Disposition: Home, Self-Care 01 Condition: Good Clinical Impression: Sinusitis, acute - Discharge Information Prescriptions: Amoxicillin/Clavulanate K [Augmentin 500-125 MG] 1 tab PO BID #14 tab Referrals: PCP,None [Primary Care Provider] - Forms: ED Department Discharge Additional Instructions: My general discharge The following information is given to patients seen in the emergency department who are being discharged to home. This information is to outline your options for follow-up care. We provide all patients seen in our emergency department with a follow-up referral. The need for follow-up, as well as the timing and circumstances, are variable depending upon the specifics of your emergency department visit. If you don't have a primary care physician on staff, we will provide you with a referral. We always advise you to contact your personal physician following an emergency department visit to inform them of the circumstance of the visit and for follow-up with them and/or the need for any referrals to a consulting specialist. The emergency department will also refer you to a specialist when appropriate. This referral assures that you have the opportunity for follow-up care with a specialist. All of these measure are taken in an effort to provide you with optimal care, which includes your follow-up. Under all circumstances we always encourage you to contact your private physician who remains a resource for coordinating your care. When calling for follow-up care, please make the office aware that this follow-up is from your recent emergency room visit. If for any reason you are refused follow-up, please contact the [facility] Emergency Department at and asked to speak to the emergency department charge nurse. [address] [address]
[2017-12-28 20:35] VITALS: BP 149/88
== END 2017-12-28 20:37 | disposition home or self-care (01) ==
LOC: MW.ED 18:55
DX: J01.90 Acute sinusitis, unspecified (principal); I10 Essential (primary) hypertension; Z79.899 Other long term (current) drug therapy; Z88.5 Allergy status to narcotic agent; Z87.891 Personal history of nicotine dependence
CPT/HCPCS: 99283

== ENCOUNTER 2018-12-04 14:42 | Emergency (ER) | payer MEDICARE, BC ==
[2018-12-04 14:50] VITALS: BP 176/87
--- NOTE | 2018-12-04 14:50 | EDM.PDOC ---
ED HPI GENERAL MEDICAL PROBLEM - General Chief Complaint: Lower Extremity Injury/Pain Stated Complaint: AMB LEFT KNEE ISSUE Time Seen by Provider: 12/04/18 14:48 Source of Information: Reports: Patient History Limitations: Reports: No Limitations - History of Present Illness INITIAL COMMENTS - FREE TEXT/NARRATIVE: HISTORY AND PHYSICAL: History of present illness: Patient is a 68-year-old female brought in by the EMS with concerns of her left knee locking up while walking outside prior to arrival. She states she has a known history of knee issues and is in the process of workup right now for a total knee replacement. She states that she does not desire imaging she's had this done recently and just would like an knee immobilizer. Patient denies injury to the area, inflammation/swelling of the area, fever, chills. Denies any numbness or tingling to the distal extremity. Upon arrival to the ED she states that it "unlocked" and she is able to move it but does have pain. She states she is able to ambulate normally without difficulty. Patient denies any health history. Review of systems: As per history of present illness and below otherwise all systems reviewed and negative. Past medical history: As per history of present illness and as reviewed below otherwise noncontributory. Surgical history: As per history of present illness and as reviewed below otherwise noncontributory. Social history: See social history for further information Family history: As per history of present illness and as reviewed below otherwise noncontributory. Physical exam: General: Patient is alert, oriented, and in no acute distress. She is lying comfortably on exam table. HEENT: Atraumatic, normocephalic, pupils equal and reactive bilaterally, negative for conjunctival pallor or scleral icterus, mucous membranes moist, TMs normal bilaterally, throat clear, neck supple, nontender, trachea midline. No drooling or trismus noted. No meningeal signs. No hot potato voice noted. Lungs: Clear to auscultation, breath sounds equal bilaterally, chest nontender. Heart: S1S2, regular rate and rhythm without overt murmur Abdomen: Soft, nondistended, nontender. Negative for masses or hepatosplenomegaly. Negative for costovertebral tenderness. Pelvis: Stable nontender. Genitourinary: Deferred. Rectal: Deferred. Skin: Intact, warm, dry. No lesions or rashes noted. Extremities: Patient does have pain with range of motion of the left knee but is able to perform this. There is no swelling or erythema. Patient has full sensation upper extremities bilaterally to light touch. Dorsalis pedis and posterior tibial pulses are grossly intact bilaterally. There is no swelling to either knee. Atraumatic, negative for cords or calf pain. Neurovascular unremarkable. Neuro: Awake, alert, oriented. Cranial nerves II through XII unremarkable. Cerebellum unremarkable. Motor and sensory unremarkable throughout. Exam nonfocal. Notes: On exam, patient does have pain with range of motion but is able to do this. On conversation with patient and she does not desire any imaging as she is already had recent imaging. She states she just desires a knee immobilizer. Patient is up and ambulating in room, weightbearing appropriately. Supportive care measures were reviewed and discussed. Voices understanding and is agreeable to plan of care. Denies any further questions or concerns at this time. Diagnostics: none Therapeutics: knee immobilizer Prescription: none Impression: Left knee pain, unspecified Plan: 1. You can use knee immobilizer in order to help with discomfort of knee. 2. Continue to use her home pain medications for pain or discomfort. He could also use Tylenol or ibuprofen. 3. You can ice the knee 15 minutes on 15 minutes off as needed for pain or discomfort. 4. Follow-up with your primary care provider or your orthopedic's for definitive treatment. 5. Return to the ED as needed and as discussed. Definitive disposition and diagnosis as appropriate pending reevaluation and review of above. left knee Pain Score (Numeric/FACES): 0 - Related Data Allergies Allergy/AdvReac Type Severity Reaction Status Date / Time cefuroxime axetil Allergy Intermediate Rash Verified 12/04/18 14:49 [From Ceftin] azithromycin Allergy Rash Verified 12/04/18 14:49 celecoxib [From Celebrex] Allergy Rash Verified 12/04/18 14:49 ciprofloxacin Allergy Rash Verified 12/04/18 14:49 codeine Allergy Vomiting Verified 12/04/18 14:49 hydrocodone Allergy Hives Verified 12/04/18 14:49 some metals Allergy Hives Uncoded 12/04/18 14:49 Home Meds: Home Meds Meloxicam 15 mg PO DAILY 11/09/16 [History] Zolpidem [Ambien] 5 mg PO BEDTIME PRN 11/09/16 [History] traMADol HCl [Tramadol HCl] 50 mg PO Q4HR PRN 11/09/16 [History] Loperamide [Imodium] 2 mg PO ASDIRECTED PRN #10 cap 11/11/16 [Rx] Estradiol [Estrace 0.01% Vaginal Crm] 1 applic VAG BEDTIME 03/19/17 [History] Acetaminophen [Tylenol] 1 - 2 tab PO ASDIRECTED PRN 08/21/18 [History] Betamethasone Valerate [Valisone 0.1% Crm] 1 applic TOP ASDIRECTED 08/21/18 [ History] Diclofenac Sodium [Voltaren 1% Gel] 1 applic TOP ASDIRECTED PRN 08/21/18 [ History] Fluticasone Propionate [Flonase Allergy Relief] 1 spray NASBOTH DAILY PRN [History] Losartan Potassium 100 mg PO DAILY 08/21/18 [History] Otc Acid Video Coordinator 1 dose PO ASDIRECTED PRN 08/21/18 [History] Sertraline HCl 50 mg PO DAILY 08/21/18 [History] Past Medical History - Past Health History Medical/Surgical History: Denies Medical/Surgical History HEENT History: Reports: Cataract Other HEENT History: wears reading glasses, top denture, 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 Cardiovascular History: Reports: Hypertension Respiratory History: Reports: None Gastrointestinal History: Reports: Irritable Bowel Syndrome Other Gastrointestinal History: occasional heartburn Genitourinary History: Reports: UTI, Recurrent 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: Musculoskeletal History: Reports: Osteoarthritis Other Musculoskeletal History: joint pain, polyneuropathy, Neurological History: Reports: None Psychiatric History: Reports: Anxiety Endocrine/Metabolic History: Reports: None Hematologic History: Reports: None Immunologic History: Reports: None Oncologic (Cancer) History: Reports: None Dermatologic History: Reports: Eczema - Infectious Disease History Infectious Disease History: Reports: Chicken Pox - Past Surgical History Other Female Surgeries/Procedures: adhesions Social & Family History - Family History Family Medical History: Noncontributory Neurological: Reports: Neuropathy, Peripheral, Other (See Below) Other Neurological Family History: Temporal arteritis- Polymyalgic Giant cell. Polymyositis Immunologic: Reports: None Dermatologic: Reports: None Oncologic: Reports: None - Caffeine Use Caffeine Use: Reports: None Review of Systems - Review of Systems Review Of Systems: ROS reveals no pertinent complaints other than HPI. ED EXAM, GENERAL - Physical Exam Exam: See Below (see dictation) Course - Vital Signs Last Recorded V/S: Last Vital Signs Temp 98.3 F 12/04/18 14:47 Pulse 77 12/04/18 14:47 Resp 16 12/04/18 14:47 BP 176/87 H 12/04/18 14:47 Pulse Ox 94 L 12/04/18 14:47 - Orders/Labs/Meds Orders: Active Orders 24 hr Category Date Time Status DME for Discharge [COMM] Stat Oth 12/04/18 14:58 Ordered Departure - Departure Time of Disposition: 15:10 Disposition: Home, Self-Care 01 Clinical Impression: Knee pain Qualifiers: Chronicity: unspecified Laterality: left Qualified Code(s): M25.562 - Pain in left knee - Discharge Information Instructions: Knee Pain, Adult Referrals: Josh Jane MD [Primary Care Provider] - Forms: ED Department Discharge Additional Instructions: The following information is given to patients seen in the emergency department who are being discharged to home. This information is to outline your options for follow-up care. We provide all patients seen in our emergency department with a follow-up referral. The need for follow-up, as well as the timing and circumstances, are variable depending upon the specifics of your emergency department visit. If you don't have a primary care physician on staff, we will provide you with a referral. We always advise you to contact your personal physician following an emergency department visit to inform them of the circumstance of the visit and for follow-up with them and/or the need for any referrals to a consulting specialist. The emergency department will also refer you to a specialist when appropriate. This referral assures that you have the opportunity for follow-up care with a specialist. All of these measure are taken in an effort to provide you with optimal care, which includes your follow-up. Under all circumstances we always encourage you to contact your private physician who remains a resource for coordinating your care. When calling for follow-up care, please make the office aware that this follow-up is from your recent emergency room visit. If for any reason you are refused follow-up, please contact the [facility] Emergency Department at and asked to speak to the emergency department charge nurse. JESSICA [facility] [address] [place] [address] [facility] [address] [place] [id number] [facility] Professional Building [address], [address] [place] [address] 1. You can use knee immobilizer in order to help with discomfort of knee. 2. Continue to use her home pain medications for pain or discomfort. He could also use Tylenol or ibuprofen. 3. You can ice the knee 15 minutes on 15 minutes off as needed for pain or discomfort. 4. Follow-up with your primary care provider or your orthopedic's for definitive treatment. 5. Return to the ED as needed and as discussed. - My Orders Last 24 Hours: My Active Orders 12/04/18 14:58 DME for Discharge [COMM] Stat - Assessment/Plan Last 24 Hours: My Active Orders 12/04/18 14:58 DME for Discharge [COMM] Stat
== END 2018-12-04 15:18 | disposition home or self-care (01) ==
LOC: MW.ED 14:42
DX: M25.562 Pain in left knee (principal); I10 Essential (primary) hypertension; F41.9 Anxiety disorder, unspecified; Z88.5 Allergy status to narcotic agent; Z88.8 Allergy status to other drugs, medicaments and biological substances; Z88.1 Allergy status to other antibiotic agents; Z79.899 Other long term (current) drug therapy
CPT/HCPCS: 99283

== ENCOUNTER 2019-01-15 16:51 | Emergency (ER) | payer MEDICARE, BC ==
--- NOTE | 2019-01-15 17:12 | EDM.PDOC ---
ED HPI GENERAL MEDICAL PROBLEM - General Chief Complaint: Upper Extremity Injury/Pain Stated Complaint: SPOKE TO NURSE Time Seen by Provider: 01/15/19 17:00 Source of Information: Reports: Patient History Limitations: Reports: No Limitations - History of Present Illness INITIAL COMMENTS - FREE TEXT/NARRATIVE: History of present illness: []Patient noticed left hand swelling yesterday that has as colored and worsened today. She called her doctor who recommended she come in to the emergency room to rule out a blood clot. She denies any trauma she states she does have low platelets and denies any pain. She has not had any trauma to that hand. Review of systems: As per history of present illness and below otherwise all systems reviewed and negative. Past medical history: As per history of present illness and as reviewed below otherwise noncontributory. Surgical history: As per history of present illness and as reviewed below otherwise noncontributory. Social history: No reported history of drug or alcohol abuse. Family history: As per history of present illness and as reviewed below otherwise noncontributory. Physical exam: General: Well developed, well nourished in NAD HEENT: Atraumatic, normocephalic, pupils reactive, negative for conjunctival pallor or scleral icterus, mucous membranes moist, throat clear, neck supple, nontender, trachea midline. Lungs: Clear to auscultation, breath sounds equal bilaterally, chest nontender. Heart: S1S2, regular, negative for clicks, rubs, or JVD. Abdomen: NABS, Soft, nondistended, nontender. Negative for masses or hepatosplenomegaly. Negative for costovertebral tenderness. Pelvis: Stable nontender. Genitourinary: Deferred. Rectal: Deferred. Extremities: Dorsal left hand with bluish discoloration, no tenderness to palpation, no edema, moves fingers and sensation is intact. negative for cords or calf pain. Neurovascular unremarkable. Neuro: Awake, alert, oriented. Cranial nerves II through XII unremarkable. Cerebellum unremarkable. Motor and sensory unremarkable throughout. Exam nonfocal. Skin:warm and dry Diagnostics: CBC platelet count stable at 83 Therapeutics: Tone wrap to hand ED Course: Unremarkable Impression: Hematoma left hand, thrombocytopenia Prescriptions: None Plan: Elevate hand use compression dressing to control bleeding follow-up with primary care later this week. Your symptoms worsen or change. Definitive disposition and diagnosis as appropriate pending reevaluation and review of above. - Related Data Allergies Allergy/AdvReac Type Severity Reaction Status Date / Time cefuroxime axetil Allergy Intermediate Rash Verified 01/15/19 17:06 [From Ceftin] azithromycin Allergy Rash Verified 01/15/19 17:06 celecoxib [From Celebrex] Allergy Rash Verified 01/15/19 17:06 ciprofloxacin Allergy Rash Verified 01/15/19 17:06 codeine Allergy Vomiting Verified 01/15/19 17:06 hydrocodone Allergy Hives Verified 01/15/19 17:06 some metals Allergy Hives Uncoded 01/15/19 17:06 Home Meds: Home Meds Meloxicam 15 mg PO DAILY 11/09/16 [History] Zolpidem [Ambien] 5 mg PO BEDTIME PRN 11/09/16 [History] traMADol HCl [Tramadol HCl] 50 mg PO Q4HR PRN 11/09/16 [History] Loperamide [Imodium] 2 mg PO ASDIRECTED PRN #10 cap 11/11/16 [Rx] Estradiol [Estrace 0.01% Vaginal Crm] 1 applic VAG BEDTIME 03/19/17 [History] Acetaminophen [Tylenol] 1 - 2 tab PO ASDIRECTED PRN 08/21/18 [History] Betamethasone Valerate [Valisone 0.1% Crm] 1 applic TOP ASDIRECTED 08/21/18 [ History] Diclofenac Sodium [Voltaren 1% Gel] 1 applic TOP ASDIRECTED PRN 08/21/18 [ History] Fluticasone Propionate [Flonase Allergy Relief] 1 spray NASBOTH DAILY PRN [History] Losartan Potassium 100 mg PO DAILY 08/21/18 [History] Otc Acid Shoemaker Custom 1 dose PO ASDIRECTED PRN 08/21/18 [History] Sertraline HCl 50 mg PO DAILY 08/21/18 [History] Past Medical History - Past Health History Medical/Surgical History: Denies Medical/Surgical History HEENT History: Reports: Cataract Other HEENT History: wears reading glasses, top denture, 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 Cardiovascular History: Reports: Hypertension Respiratory History: Reports: None Gastrointestinal History: Reports: Irritable Bowel Syndrome Other Gastrointestinal History: occasional heartburn Genitourinary History: Reports: UTI, Recurrent 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: Musculoskeletal History: Reports: Osteoarthritis Other Musculoskeletal History: joint pain, polyneuropathy, Neurological History: Reports: None Psychiatric History: Reports: Anxiety Endocrine/Metabolic History: Reports: None Hematologic History: Reports: None Immunologic History: Reports: None Oncologic (Cancer) History: Reports: None Dermatologic History: Reports: Eczema - Infectious Disease History Infectious Disease History: Reports: Chicken Pox - Past Surgical History Other Female Surgeries/Procedures: adhesions Social & Family History - Family History Family Medical History: Noncontributory Neurological: Reports: Neuropathy, Peripheral, Other (See Below) Other Neurological Family History: Temporal arteritis- Polymyalgic Giant cell. Polymyositis Immunologic: Reports: None Dermatologic: Reports: None Oncologic: Reports: None - Caffeine Use Caffeine Use: Reports: None Review of Systems - Review of Systems Review Of Systems: ROS reveals no pertinent complaints other than HPI. ED EXAM, GENERAL - Physical Exam Exam: See Below (See history of present illness) Course - Vital Signs Last Recorded V/S: Last Vital Signs Temp 97.8 F 01/15/19 17:06 Pulse 81 01/15/19 17:06 Resp 16 01/15/19 17:06 BP 170/100 H 01/15/19 17:06 Pulse Ox 92 L 01/15/19 17:06 - Orders/Labs/Meds Labs: Laboratory Tests 01/15/19 Range/Units 17:13 WBC 12.45 H (4.0-11.0) K/uL RBC 5.19 (4.30-5.90) M/uL Hgb 15.2 (12.0-16.0) g/dL Hct 44.0 (36.0-46.0) % MCV 84.8 (80.0-98.0) fL MCH 29.3 (27.0-32.0) pg MCHC 34.5 (31.0-37.0) g/dL RDW Std Deviation 40.6 (28.0-62.0) fl RDW Coeff of Samson 13 (11.0-15.0) % Plt Count 83 L (150-400) K/uL MPV 10.60 (7.40-12.00) fL Neut % (Auto) 69.4 (48.0-80.0) % Lymph % (Auto) 22.9 (16.0-40.0) % [place] % (Auto) 4.7 (0.0-15.0) % Eos % (Auto) 2.6 (0.0-7.0) % Baso % (Auto) 0.4 (0.0-1.5) % Neut # (Auto) 8.7 H (1.4-5.7) K/uL Lymph # (Auto) 2.9 H (0.6-2.4) K/uL [place] # (Auto) 0.6 (0.0-0.8) K/uL Eos # (Auto) 0.3 (0.0-0.7) K/uL Baso # (Auto) 0.1 (0.0-0.1) K/uL Nucleated RBC % 0.0 /100WBC Nucleated RBCs # 0 K/uL Departure - Departure Time of Disposition: 17:41 Disposition: Home, Self-Care 01 Condition: Good Clinical Impression: Hematoma and contusion, Thrombocytopenia - Discharge Information *PRESCRIPTION DRUG MONITORING PROGRAM REVIEWED*: No *COPY OF PRESCRIPTION DRUG MONITORING REPORT IN PATIENT CLARIBEL: No Referrals: PCP,Unknown [Primary Care Provider] - Forms: ED Department Discharge Additional Instructions: The following information is given to patients seen in the emergency department who are being discharged to home. This information is to outline your options for follow-up care. We provide all patients seen in our emergency department with a follow-up referral. The need for follow-up, as well as the timing and circumstances, are variable depending upon the specifics of your emergency department visit. If you don't have a primary care physician on staff, we will provide you with a referral. We always advise you to contact your personal physician following an emergency department visit to inform them of the circumstance of the visit and for follow-up with them and/or the need for any referrals to a consulting specialist. The emergency department will also refer you to a specialist when appropriate. This referral assures that you have the opportunity for follow-up care with a specialist. All of these measure are taken in an effort to provide you with optimal care, which includes your follow-up. Under all circumstances we always encourage you to contact your private physician who remains a resource for coordinating your care. When calling for follow-up care, please make the office aware that this follow-up is from your recent emergency room visit. If for any reason you are refused follow-up, please contact the [facility] Emergency Department at and asked to speak to the emergency department charge nurse. [facility] [place] [id number]
[2019-01-15 17:52] VITALS: BP 149/96
== END 2019-01-15 17:50 | disposition home or self-care (01) ==
LOC: MW.ED 16:51
DX: D69.6 Thrombocytopenia, unspecified (principal); I10 Essential (primary) hypertension; F41.9 Anxiety disorder, unspecified; M19.90 Unspecified osteoarthritis, unspecified site; Z79.899 Other long term (current) drug therapy; Z88.1 Allergy status to other antibiotic agents; Z88.5 Allergy status to narcotic agent
CPT/HCPCS: 36415; 85025; 99282

== ENCOUNTER 2019-01-17 21:22 | Inpatient (IN) | payer MEDICARE, BC ==
[2019-01-17] MEDS ORDERED: Sodium Chloride 0.9% 2.5 ML Syringe FLUSH PRN (21:33)
[2019-01-17] MEDS ORDERED: Ondansetron 4 MG/2 ML SDV IVPUSH ONE (21:33)
[2019-01-17] MEDS ORDERED: Sodium Chloride 0.9% 1,000 ML IV ONE (21:33)
[2019-01-17] MEDS ORDERED: Sodium Chloride 0.9% 10 ML Syringe FLUSH PRN (21:33)
--- NOTE | 2019-01-17 21:39 | EDM.PDOC ---
ED HPI GENERAL MEDICAL PROBLEM - General Chief Complaint: Gastrointestinal Problem Stated Complaint: VOMITING Time Seen by Provider: 01/17/19 21:23 - History of Present Illness INITIAL COMMENTS - FREE TEXT/NARRATIVE: HISTORY AND PHYSICAL: History of present illness: The patient is a 60-year-old female with a history of thrombocytopenia since 2016 for which she has never been given a reason why she has it despite multiple tests including a recent bone marrow biopsy in November and follow-up with our oncology clinic and who was seen here 3 days ago for swelling of her left hand. On that date she did have labs drawn which showed a platelet count of 83 which was stable from a prior test results and according to the patient she was told by a provider that she had a urinary tract infection and was given antibiotics. She thinks it was nitrofurantoin and she has been taking that antibiotic. She states she's also taking an [id number] medication for UTI symptoms. According to the computer that was not done by Dr. Carmona. Please see below for more information regarding this antibiotic treatment The patient says she was very busy yesterday helping a friend and she did feel hot and felt somewhat run down and thinks she probably had a fever yesterday. Today she still has had fevers along with a dry cough but no runny nose or sore throat. She has no chest pain and no shortness of breath and no abdominal pain but she has had nausea and vomiting 4 times and each time she throws up she has some watery stools with it. She is not having diarrhea without vomiting. The stool was not black or bloody and she has had 4 episodes of each today. She has not taken any [id number] medications for these symptoms. She says she has no urinary complaints currently and no abdominal pain no flank pain and she is not lightheaded or dizzy. On my evaluation her O2 sat on room air is 88-89 but she says she does not feel short of breath and when she is doing activities. She has no discrete chest pain and with her dry cough she has no discomfort. The patient did get her flu shot this year The patient did not formally take her temperature at home that she can give me an exact number but she just said that she felt hot. Upon further investigation by nursing the patient was given the antibiotic, Macrobid, by a provider at [facility] Review of systems: As per history of present illness and below otherwise all systems reviewed and negative. Past medical history: As per history of present illness and as reviewed below otherwise noncontributory. Surgical history: As per history of present illness and as reviewed below otherwise noncontributory. Social history: No reported history of drug or alcohol abuse. Family history: As per history of present illness and as reviewed below otherwise noncontributory. Physical exam: General: Well-developed well-nourished female who is not breathless on my evaluation vital signs are noted by me. It was reported to us by EMS that her temp was 103 on the thermometer but when it was retaken here in the ED it was only 99. O2 sat on room air on my evaluation was 88-89% but on oxygen came up to 93% HEENT: Atraumatic, normocephalic, pupils reactive, negative for conjunctival pallor or scleral icterus, mucous membranes moist, throat clear, neck supple, nontender, trachea midline. There is no cervical adenopathy or nuchal rigidity Lungs: Clear to auscultation, breath sounds equal bilaterally, chest nontender. There is no wheezing stridor or work of breathing Heart: S1S2, regular rhythm and subtly tachycardic rate of my evaluation but no overt murmurs Abdomen: Soft, nondistended, nontender. Negative for masses or hepatosplenomegaly. Negative for costovertebral tenderness. Pelvis: Stable nontender. Genitourinary: Deferred. Rectal: Deferred. Extremities: Atraumatic, negative for cords or calf pain. Neurovascular unremarkable. Neuro: Awake, alert, oriented. Cranial nerves II through XII unremarkable. Cerebellum unremarkable. Motor and sensory unremarkable throughout. Exam nonfocal. Diagnostics: CBC CMP amylase lipase UA with reflex test x-ray influenza swab lactic acid stool for culture blood cultures 2 Therapeutics: IV IV fluids Zosyn The patient has not produced a stool sample here in the ED so I will inform the hospitalist of that and according to the lab they are having difficulties with the lactic acid assay and that is also still pending. Discussed with the patient all testing results and my concerns. Currently her tachycardia has resolved but her O2 sat on 3 L is still 92%. She overall looks improved but in light of her jump a WBC count and her clinical presentation and we'll plan for admission. I will discuss with the hospitalist antibiotic therapy as the patient has an allergy to fluoroquinolones and cephalosporins. 2318: Case is discussed with Dr. Valdez who would like me to give Zosyn. He is aware that the patient did not produce a stool sample and he is concerned about her history of C. difficile and would like those precautions to be in place for this admission. He is also aware the lactic acid assay is not working at this time. The patient is comfortable with admission and I will give Zosyn and maintenance fluids here as well as oral fluids Impression: Fever/early left lower lobe pneumonia, persistent UTI, vomiting and diarrhea, leukocytosis, history of thrombocytopenia stable Definitive disposition and diagnosis as appropriate pending reevaluation and review of above. - Related Data Allergies Allergy/AdvReac Type Severity Reaction Status Date / Time cefuroxime axetil Allergy Intermediate Rash Verified 01/17/19 23:00 [From Ceftin] azithromycin Allergy Rash Verified 01/17/19 23:00 celecoxib [From Celebrex] Allergy Rash Verified 01/17/19 23:00 ciprofloxacin Allergy Rash Verified 01/17/19 23:00 codeine Allergy Vomiting Verified 01/17/19 23:00 hydrocodone Allergy Hives Verified 01/17/19 23:00 some metals Allergy Hives Uncoded 01/17/19 23:00 Home Meds: Home Meds Meloxicam 15 mg PO DAILY 11/09/16 [History] Zolpidem [Ambien] 5 mg PO BEDTIME PRN 11/09/16 [History] traMADol HCl [Tramadol HCl] 50 mg PO Q4HR PRN 11/09/16 [History] Loperamide [Imodium] 2 mg PO ASDIRECTED PRN #10 cap 11/11/16 [Rx] Estradiol [Estrace 0.01% Vaginal Crm] 1 applic VAG BEDTIME 03/19/17 [History] Betamethasone Valerate [Valisone 0.1% Crm] 1 applic TOP ASDIRECTED 08/21/18 [ History] Diclofenac Sodium [Voltaren 1% Gel] 1 applic TOP ASDIRECTED PRN 08/21/18 [ History] Fluticasone Propionate [Flonase Allergy Relief] 1 spray NASBOTH DAILY PRN [History] Losartan Potassium 100 mg PO DAILY 08/21/18 [History] Otc Acid Desk Operator 1 dose PO ASDIRECTED PRN 08/21/18 [History] Desvenlafaxine [Khedezla] 50 mg PO DAILY 01/17/19 [History] Past Medical History - Past Health History Medical/Surgical History: Denies Medical/Surgical History HEENT History: Reports: Cataract Other HEENT History: wears reading glasses, top denture, 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 Cardiovascular History: Reports: Hypertension Respiratory History: Reports: None Gastrointestinal History: Reports: Irritable Bowel Syndrome Other Gastrointestinal History: occasional heartburn Genitourinary History: Reports: UTI, Recurrent 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: Musculoskeletal History: Reports: Osteoarthritis Other Musculoskeletal History: joint pain, polyneuropathy, Neurological History: Reports: None Psychiatric History: Reports: Anxiety Endocrine/Metabolic History: Reports: None Hematologic History: Reports: None Immunologic History: Reports: None Oncologic (Cancer) History: Reports: None Dermatologic History: Reports: Eczema - Infectious Disease History Infectious Disease History: Reports: Chicken Pox - Past Surgical History Other Female Surgeries/Procedures: adhesions Social & Family History - Family History Family Medical History: Noncontributory Neurological: Reports: Neuropathy, Peripheral, Other (See Below) Other Neurological Family History: Temporal arteritis- Polymyalgic Giant cell. Polymyositis Immunologic: Reports: None Dermatologic: Reports: None Oncologic: Reports: None - Caffeine Use Caffeine Use: Reports: None ED ROS GENERAL - Review of Systems Review Of Systems: ROS reveals no pertinent complaints other than HPI. ED EXAM, GENERAL - Physical Exam Exam: See Below (See dictation) Course - Vital Signs Last Recorded V/S: Last Vital Signs Temp 37.6 C 01/17/19 23:02 Pulse 93 01/17/19 23:02 Resp 18 01/17/19 23:02 BP 117/70 01/17/19 23:02 Pulse Ox 92 L 01/17/19 23:02 - Orders/Labs/Meds Orders: Active Orders 24 hr Category Date Time Status Patient Status [ADT] Stat ADT 01/17/19 23:21 Ordered Cardiac Monitoring [RC] . DIRECTED Care 01/17/19 21:32 Active Oxygen Therapy, ED [RC] ASDIRECTED Care 01/17/19 21:32 Active Pulse Oximetry [RC] ASDIRECTED Care 01/17/19 21:32 Active CULTURE BLOOD [BC] Stat Lab 01/17/19 21:55 Received CULTURE BLOOD [BC] Stat Lab 01/17/19 22:01 Received CULTURE STOOL + CAMPY+SHIGATOX [RM] Stat Lab 01/17/19 21:35 Ordered CULTURE URINE [RM] Stat Lab 01/17/19 22:12 Received LACTATE WITH REFLEX [BG] Stat Lab 01/17/19 21:21 Received Piperacillin/Tazobactam [Piperacil-Tazobact] 3.375 gm Med 01/17/19 23:21 Ordered Sodium Chloride 0.9% [Normal Saline] 50 ml IV ONETIME Sodium Chloride 0.9% @ 125 MLS/HR (1,000ml) Med 01/17/19 23:30 Ordered Sodium Chloride 0.9% [Normal Saline] 1,000 ml IV ASDIRECTED Sodium Chloride 0.9% [Saline Flush] Med 01/17/19 21:33 Active 10 ml FLUSH ASDIRECTED PRN Sodium Chloride 0.9% [Saline Flush] Med 01/17/19 21:33 Active 2.5 ml FLUSH ASDIRECTED PRN Blood Culture x2 Reflex Set [OM.PC] Stat Oth 01/17/19 21:33 Ordered Saline Lock Insert [OM.PC] Stat Oth 01/17/19 21:32 Ordered Medication Orders Sodium Chloride (Saline Flush) 10 ml FLUSH ASDIRECTED PRN PRN Reason: Keep Vein Open Sodium Chloride (Saline Flush) 2.5 ml FLUSH ASDIRECTED PRN PRN Reason: Keep Vein Open Labs: Laboratory Tests 01/17/19 01/17/19 01/17/19 Range/Units 21:21 21:21 22:12 WBC 21.31 H (4.0-11.0) K/uL RBC 5.04 (4.30-5.90) M/uL Hgb 14.7 (12.0-16.0) g/dL Hct 43.3 (36.0-46.0) % MCV 85.9 (80.0-98.0) fL MCH 29.2 (27.0-32.0) pg MCHC 33.9 (31.0-37.0) g/dL RDW Std Deviation 42.2 (28.0-62.0) fl RDW Coeff of Samson 14 (11.0-15.0) % Plt Count 84 L (150-400) K/uL MPV 10.90 (7.40-12.00) fL Neut % (Auto) 90.5 H (48.0-80.0) % Lymph % (Auto) 1.9 L (16.0-40.0) % [place] % (Auto) 4.0 (0.0-15.0) % Eos % (Auto) 3.6 (0.0-7.0) % Baso % (Auto) 0.0 (0.0-1.5) % Neut # (Auto) 19.3 H (1.4-5.7) K/uL Lymph # (Auto) 0.4 L (0.6-2.4) K/uL [place] # (Auto) 0.9 H (0.0-0.8) K/uL Eos # (Auto) 0.8 H (0.0-0.7) K/uL Baso # (Auto) 0.0 (0.0-0.1) K/uL Nucleated RBC % 0.0 /100WBC Nucleated RBCs # 0 K/uL Sodium 136 (136-145) mmol/L Potassium 3.9 (3.5-5.1) mmol/L Chloride 102 (98-107) mmol/L Carbon Dioxide 22.6 (21.0-32.0) mmol/L BUN 23 H (7.0-18.0) mg/dL Creatinine 1.1 H (0.6-1.0) mg/dL Est Cr Clr Drug Dosing 45.82 mL/min Estimated GFR (MDRD) 49.4 ml/min Glucose 113 H (74-106) mg/dL Calcium 8.5 (8.5-10.1) mg/dL Total Bilirubin 0.5 (0.2-1.0) mg/dL AST 28 (15-37) IU/L ALT 29 (14-63) IU/L Alkaline Phosphatase 101 (46-116) U/L Total Protein 6.4 (6.4-8.2) g/dL Albumin 3.3 L (3.4-5.0) g/dL Globulin 3.1 (2.6-4.0) g/dL Albumin/Globulin Ratio 1.1 (0.9-1.6) Amylase 17 L (25-115) U/L Lipase 53 L (73-393) U/L Urine Color ORANGE Urine Appearance SLT CLOUDY Urine pH 5.0 (5.0-8.0) Ur Specific [place] <= 1.005 (1.001-1.035) Urine Protein 100 H (NEGATIVE) mg/dL Urine Glucose (UA) 250 H (NEGATIVE) mg/dL Urine Ketones TRACE H (NEGATIVE) mg/dL Urine Occult Blood NEGATIVE (NEGATIVE) Urine Nitrite POSITIVE H (NEGATIVE) Urine Bilirubin NEGATIVE (NEGATIVE) Urine Urobilinogen >=8.0 H (<2.0) EU/dL Ur Leukocyte Esterase SMALL H (NEGATIVE) Urine RBC 1-3 (0-2/HPF) Urine WBC 1-3 (0-5/HPF) Ur Epithelial Cells MANY (NONE-FEW) Urine Bacteria RARE (NEGATIVE) Urinalysis Comment Meds: Medications Generic Name Dose Route Start Last Admin Trade Name Freq PRN Reason Stop Dose Admin Sodium Chloride 10 ml 01/17/19 21:33 Saline Flush FLUSH ASDIRECTED PRN Keep Vein Open Sodium Chloride 2.5 ml 01/17/19 21:33 Saline Flush FLUSH ASDIRECTED PRN Keep Vein Open Discontinued Medications Generic Name Dose Route Start Last Admin Trade Name Freq PRN Reason Stop Dose Admin Sodium Chloride 1,000 mls @ 999 mls/hr 01/17/19 21:33 01/17/19 21:59 Normal Saline IV 01/17/19 22:33 999 mls/hr STAT ONE Administration Ondansetron HCl 4 mg 01/17/19 21:33 01/17/19 21:59 Zofran IVPUSH 01/17/19 21:34 4 mg ONETIME ONE Administration Departure - Departure Time of Disposition: 23:13 Disposition: Admitted As Inpatient 66 Condition: Good Clinical Impression: UTI, Urinary tract infectious disease Pneumonia Qualifiers: Pneumonia type: due to unspecified organism Laterality: left Lung location: lower lobe of lung Qualified Code(s): J18.1 - Lobar pneumonia, unspecified organism - Discharge Information Referrals: Josh Jane MD [Primary Care Provider] - Forms: ED Department Discharge - My Orders Last 24 Hours: My Active Orders 01/17/19 21:21 LACTATE WITH REFLEX [BG] Stat 01/17/19 21:32 Cardiac Monitoring [RC] . DIRECTED Oxygen Therapy, ED [RC] ASDIRECTED Pulse Oximetry [RC] ASDIRECTED Saline Lock Insert [OM.PC] Stat 01/17/19 21:33 Sodium Chloride 0.9% [Saline Flush] 10 ml FLUSH ASDIRECTED PRN Sodium Chloride 0.9% [Saline Flush] 2.5 ml FLUSH ASDIRECTED PRN Blood Culture x2 Reflex Set [OM.PC] Stat 01/17/19 21:35 CULTURE STOOL + CAMPY+SHIGATOX [RM] Stat 01/17/19 21:55 CULTURE BLOOD [BC] Stat 01/17/19 22:01 CULTURE BLOOD [BC] Stat 01/17/19 22:12 CULTURE URINE [RM] Stat 01/17/19 23:21 Patient Status [ADT] Stat Piperacillin/Tazobactam [Piperacil-Tazobact] 3.375 gm Sodium Chloride 0.9% [ Normal Saline] 50 ml IV ONETIME 01/17/19 23:30 Sodium Chloride 0.9% @ 125 MLS/HR (1,000ml) Sodium Chloride 0.9% [Normal Saline ] 1,000 ml IV ASDIRECTED - Assessment/Plan Last 24 Hours: My Active Orders 01/17/19 21:21 LACTATE WITH REFLEX [BG] Stat 01/17/19 21:32 Cardiac Monitoring [RC] . DIRECTED Oxygen Therapy, ED [RC] ASDIRECTED Pulse Oximetry [RC] ASDIRECTED Saline Lock Insert [OM.PC] Stat 01/17/19 21:33 Sodium Chloride 0.9% [Saline Flush] 10 ml FLUSH ASDIRECTED PRN Sodium Chloride 0.9% [Saline Flush] 2.5 ml FLUSH ASDIRECTED PRN Blood Culture x2 Reflex Set [OM.PC] Stat 01/17/19 21:35 CULTURE STOOL + CAMPY+SHIGATOX [RM] Stat 01/17/19 21:55 CULTURE BLOOD [BC] Stat 01/17/19 22:01 CULTURE BLOOD [BC] Stat 01/17/19 22:12 CULTURE URINE [RM] Stat 01/17/19 23:21 Patient Status [ADT] Stat Piperacillin/Tazobactam [Piperacil-Tazobact] 3.375 gm Sodium Chloride 0.9% [ Normal Saline] 50 ml IV ONETIME 01/17/19 23:30 Sodium Chloride 0.9% @ 125 MLS/HR (1,000ml) Sodium Chloride 0.9% [Normal Saline ] 1,000 ml IV ASDIRECTED
--- NOTE | 2019-01-17 22:05 | CR ---
INDICATION: vomiting, diarrhea CHEST, PA AND LATERAL Upright PA and lateral radiographs of the chest were performed. Comparison: 11/09/2016. The lungs appear clear and there are no definite pleural effusions. Heart size and pulmonary vasculature appear normal. Visualized bones show no acute findings. IMPRESSION: No acute intrathoracic abnormality identified. HANNAH HUIZAR MD [facility] Dictated by: Bryan Huizar MD @ 01/17/2019 22:04:28 (Electronically Signed)
[2019-01-17] MEDS ORDERED: Piperacillin/Tazobactam 3.375 GM in Sodium Chloride 0.9% 50 ML IV ONE (23:21)
[2019-01-17] MEDS: Sodium Chloride 0.9% 1,000 ML IV SCH (23:33)
[2019-01-18] MEDS ORDERED: Ondansetron 4 MG/2 ML SDV IVPUSH PRN (00:21)
[2019-01-18] MEDS: traMADol 50 MG Tab PO PRN ×4 (00:46→23:38)
[2019-01-18] MEDS: Piperacillin/Tazobactam 3.375 GM in Sodium Chloride 0.9% 50 ML IV SCH ×4 (05:22→23:38)
[2019-01-18] MEDS: Sodium Chloride 0.9% 1,000 ML IV SCH (08:40)
--- NOTE | 2019-01-18 08:46 | PCM.HP ---
H&P History of Present Illness - General Date of Service: 01/18/19 Admit Problem/Dx: Admission Diagnosis/Problem Admission Diagnosis/Problem Pneumonia Source of Information: Patient History Limitations: Reports: No Limitations - History of Present Illness Initial Comments - Free Text/Narative: This 68 year old female with pmh of thrombocytopenia, HTN and hx of c diff infection presented to the ED last evening with complaints of N/V, diarrhea and overall not feeling well. She reports on Tuesday she was seen at a walk in clinic and given Macrobid for UTI and she started taking that. Over the weekend she started feeling hot flashes and just overall not feeling well. He friend felt she was labored in breathing when they were walking. She reports she started having nausea and vomiting on Tuesday along with loose stools. She denies abdominal pain. No urinary symptoms. Denies cough. But rpeorts generalized malaise and body aches. She denies recent travel and no questionable foods. She denies sob or chest pain. In the ED significant leukocytosis noted at 21,310. Platelets 83,000 (baseline) , Lactate 2.1. BUN 23, Cr 1.1 UA reealed +nitrite small leukoctye esterase, WBC 1-3 and rare bacteria. BP 110-115/50s. CXR negative. Influenza swab negative. Stool cultures pending.She was treated with IVFs and started on Zosyn due to allergies for possible UTI and acute respiratory failure due to hypoxia noted on arrival and throughout ED stay andCAP. Thrombocytopenia is being worked up by Dr Fowler. Left Leg Pain Score (Numeric/FACES): 5 - Related Data Allergies/Adverse Reactions: Allergies Allergy/AdvReac Type Severity Reaction Status Date / Time cefuroxime axetil Allergy Intermediate Rash Verified 01/17/19 23:00 [From Ceftin] azithromycin Allergy Rash Verified 01/17/19 23:00 celecoxib [From Celebrex] Allergy Rash Verified 01/17/19 23:00 ciprofloxacin Allergy Rash Verified 01/17/19 23:00 codeine Allergy Vomiting Verified 01/17/19 23:00 hydrocodone Allergy Hives Verified 01/17/19 23:00 some metals Allergy Hives Uncoded 01/17/19 23:00 Home Medications: Home Meds Meloxicam 15 mg PO DAILY 11/09/16 [History] Zolpidem [Ambien] 5 mg PO BEDTIME PRN 11/09/16 [History] traMADol HCl [Tramadol HCl] 50 mg PO Q4HR PRN 11/09/16 [History] Loperamide [Imodium] 2 mg PO ASDIRECTED PRN #10 cap 11/11/16 [Rx] Estradiol [Estrace 0.01% Vaginal Crm] 1 applic VAG BEDTIME 03/19/17 [History] Betamethasone Valerate [Valisone 0.1% Crm] 1 applic TOP ASDIRECTED 08/21/18 [ History] Diclofenac Sodium [Voltaren 1% Gel] 1 applic TOP ASDIRECTED PRN 08/21/18 [ History] Fluticasone Propionate [Flonase Allergy Relief] 1 spray NASBOTH DAILY PRN [History] Losartan Potassium 100 mg PO DAILY 08/21/18 [History] Otc Acid Sales Data Analyst 1 dose PO ASDIRECTED PRN 08/21/18 [History] Desvenlafaxine [Khedezla] 50 mg PO DAILY 01/17/19 [History] Past Medical History - Past Health History Medical/Surgical History: Denies Medical/Surgical History HEENT History: Reports: Cataract Other HEENT History: wears reading glasses, top denture, 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 Denies: Afib, Blood Clots/VTE/ DVT, GA Respiratory History: Reports: None. 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 Denies: CVA, TIA Psychiatric History: Reports: Anxiety Endocrine/Metabolic History: Reports: None Hematologic History: Reports: None Other Hematologic History: low platelets Immunologic History: Reports: None Oncologic (Cancer) History: Reports: None Dermatologic History: Reports: Eczema - Infectious Disease History Infectious Disease History: Reports: C-Difficile, Chicken Pox - Past Surgical History Other Female Surgeries/Procedures: adhesions Oncologic Surgical History: Reports: Bone Marrow Aspiration (thrombocytopenia) Social & Family History - Family History Family Medical History: Noncontributory Neurological: Reports: Neuropathy, Peripheral, Other (See Below) Other Neurological Family History: Temporal arteritis- Polymyalgic Giant cell. Polymyositis Immunologic: Reports: None Dermatologic: Reports: None Oncologic: Reports: None - Tobacco Use Smoking Status *Q: Former Smoker Used Tobacco, but Quit: Yes Month/Year Tobacco Last Used: 40 years ago Second Hand Smoke Exposure: No - Caffeine Use Caffeine Use: Reports: Soda, Tea - Recreational Drug Use Recreational Drug Use: No H&P Review of Systems - Review of Systems: Review Of Systems: See Below General: Reports: Fever, Chills, Malaise, Decreased Appetite HEENT: Denies: Headaches, Sinus Congestion, Sore Throat Pulmonary: Reports: No Symptoms. Denies: Shortness of Breath, Cough Cardiovascular: Reports: No Symptoms. Denies: Chest Pain, Palpitations, Orthopnea, Edema Gastrointestinal: Reports: Diarrhea, Nausea, Vomiting. Denies: Abdominal Pain, Black Stool, Bloody Stool Genitourinary: Reports: No Symptoms. Denies: Dysuria, Frequency, Burning Musculoskeletal: Reports: No Symptoms Skin: Reports: Bruising (L hand, ) Neurological: Reports: No Symptoms Hematologic/Lymphatic: Reports: No Symptoms Immunologic: Reports: No Symptoms Exam - Exam Exam: See Below - Vital Signs Vital Signs: Last Vital Signs Temp 99.1 F 01/18/19 08:00 Pulse 87 01/18/19 08:00 Resp 16 01/18/19 08:00 BP 113/53 L 01/18/19 08:00 Pulse Ox 92 L 01/18/19 08:00 Weight: 81.783 kg - Exam General: Alert, Oriented, Cooperative HEENT: Conjunctiva Clear, Mucosa Moist & [place], Posterior Pharynx Clear Neck: Supple, Trachea Midline Lungs: Normal Respiratory Effort, Decreased Breath Sounds (bibasilar). No: Crackles, Wheezing Cardiovascular: Regular Rate, Regular Rhythm, Normal S1, Normal S2 GI/Abdominal Exam: Normal Bowel Sounds, Soft, Non-Tender Extremities: Normal Inspection, Normal Range of Motion, Non-Tender, No Pedal Edema Skin: Ecchymosis (L hand secondary to previous lab draw.) Neuro Extensive - Mental Status: Alert, Oriented x3 Neuro Extensive - Motor, Sensory, Reflexes: CN II-XII Intact Psychiatric: Alert, Normal Affect, Normal Mood - Patient Data Lab Results Last 24 hrs: Laboratory Results - last 24 hr 01/17/19 01/17/19 01/17/19 Range/Units 21:21 21:21 21:21 WBC 21.31 H (4.0-11.0) K/uL RBC 5.04 (4.30-5.90) M/uL Hgb 14.7 (12.0-16.0) g/dL Hct 43.3 (36.0-46.0) % MCV 85.9 (80.0-98.0) fL MCH 29.2 (27.0-32.0) pg MCHC 33.9 (31.0-37.0) g/dL RDW Std Deviation 42.2 (28.0-62.0) fl RDW Coeff of Samson 14 (11.0-15.0) % Plt Count 84 L (150-400) K/uL MPV 10.90 (7.40-12.00) fL Neut % (Auto) 90.5 H (48.0-80.0) % Lymph % (Auto) 1.9 L (16.0-40.0) % [place] % (Auto) 4.0 (0.0-15.0) % Eos % (Auto) 3.6 (0.0-7.0) % Baso % (Auto) 0.0 (0.0-1.5) % Neut # (Auto) 19.3 H (1.4-5.7) K/uL Lymph # (Auto) 0.4 L (0.6-2.4) K/uL [place] # (Auto) 0.9 H (0.0-0.8) K/uL Eos # (Auto) 0.8 H (0.0-0.7) K/uL Baso # (Auto) 0.0 (0.0-0.1) K/uL Nucleated RBC % 0.0 /100WBC Nucleated RBCs # 0 K/uL Lactate 2.1 H (0.20-2.00) mmol/L Sodium 136 (136-145) mmol/L Potassium 3.9 (3.5-5.1) mmol/L Chloride 102 (98-107) mmol/L Carbon Dioxide 22.6 (21.0-32.0) mmol/L BUN 23 H (7.0-18.0) mg/dL Creatinine 1.1 H (0.6-1.0) mg/dL Est Cr Clr Drug Dosing 45.82 mL/min Estimated GFR (MDRD) 49.4 ml/min Glucose 113 H (74-106) mg/dL Calcium 8.5 (8.5-10.1) mg/dL Total Bilirubin 0.5 (0.2-1.0) mg/dL AST 28 (15-37) IU/L ALT 29 (14-63) IU/L Alkaline Phosphatase 101 (46-116) U/L Total Protein 6.4 (6.4-8.2) g/dL Albumin 3.3 L (3.4-5.0) g/dL Globulin 3.1 (2.6-4.0) g/dL Albumin/Globulin Ratio 1.1 (0.9-1.6) Amylase 17 L (25-115) U/L Lipase 53 L (73-393) U/L Urine Color Urine Appearance Urine pH (5.0-8.0) Ur Specific [place] (1.001-1.035) Urine Protein (NEGATIVE) mg/dL Urine Glucose (UA) (NEGATIVE) mg/dL Urine Ketones (NEGATIVE) mg/dL Urine Occult Blood (NEGATIVE) Urine Nitrite (NEGATIVE) Urine Bilirubin (NEGATIVE) Urine Urobilinogen (<2.0) EU/dL Ur Leukocyte Esterase (NEGATIVE) Urine RBC (0-2/HPF) Urine WBC (0-5/HPF) Ur Epithelial Cells (NONE-FEW) Urine Bacteria (NEGATIVE) Urinalysis Comment 01/17/19 01/18/19 01/18/19 Range/Units 22:12 03:35 03:35 WBC 20.94 H (4.0-11.0) K/uL RBC 4.68 (4.30-5.90) M/uL Hgb 13.7 (12.0-16.0) g/dL Hct 41.1 (36.0-46.0) % MCV 87.8 (80.0-98.0) fL MCH 29.3 (27.0-32.0) pg MCHC 33.3 (31.0-37.0) g/dL RDW Std Deviation 42.9 (28.0-62.0) fl RDW Coeff of Samson 13 (11.0-15.0) % Plt Count 85 L (150-400) K/uL MPV 10.50 (7.40-12.00) fL Neut % (Auto) (48.0-80.0) % Lymph % (Auto) (16.0-40.0) % [place] % (Auto) (0.0-15.0) % Eos % (Auto) (0.0-7.0) % Baso % (Auto) (0.0-1.5) % Neut # (Auto) (1.4-5.7) K/uL Lymph # (Auto) (0.6-2.4) K/uL [place] # (Auto) (0.0-0.8) K/uL Eos # (Auto) (0.0-0.7) K/uL Baso # (Auto) (0.0-0.1) K/uL Nucleated RBC % 0.0 /100WBC Nucleated RBCs # 0 K/uL Lactate (0.20-2.00) mmol/L Sodium 138 (136-145) mmol/L Potassium 4.3 (3.5-5.1) mmol/L Chloride 105 (98-107) mmol/L Carbon Dioxide 26.3 (21.0-32.0) mmol/L BUN 18 (7.0-18.0) mg/dL Creatinine 1.1 H (0.6-1.0) mg/dL Est Cr Clr Drug Dosing 45.82 mL/min Estimated GFR (MDRD) 49.4 ml/min Glucose 107 H (74-106) mg/dL Calcium 7.8 L (8.5-10.1) mg/dL Total Bilirubin (0.2-1.0) mg/dL AST (15-37) IU/L ALT (14-63) IU/L Alkaline Phosphatase (46-116) U/L Total Protein (6.4-8.2) g/dL Albumin (3.4-5.0) g/dL Globulin (2.6-4.0) g/dL Albumin/Globulin Ratio (0.9-1.6) Amylase (25-115) U/L Lipase (73-393) U/L Urine Color ORANGE Urine Appearance SLT CLOUDY Urine pH 5.0 (5.0-8.0) Ur Specific [place] <= 1.005 (1.001-1.035) Urine Protein 100 H (NEGATIVE) mg/dL Urine Glucose (UA) 250 H (NEGATIVE) mg/dL Urine Ketones TRACE H (NEGATIVE) mg/dL Urine Occult Blood NEGATIVE (NEGATIVE) Urine Nitrite POSITIVE H (NEGATIVE) Urine Bilirubin NEGATIVE (NEGATIVE) Urine Urobilinogen >=8.0 H (<2.0) EU/dL Ur Leukocyte Esterase SMALL H (NEGATIVE) Urine RBC 1-3 (0-2/HPF) Urine WBC 1-3 (0-5/HPF) Ur Epithelial Cells MANY (NONE-FEW) Urine Bacteria RARE (NEGATIVE) Urinalysis Comment 01/18/19 Range/Units 03:35 WBC (4.0-11.0) K/uL RBC (4.30-5.90) M/uL Hgb (12.0-16.0) g/dL Hct (36.0-46.0) % MCV (80.0-98.0) fL MCH (27.0-32.0) pg MCHC (31.0-37.0) g/dL RDW Std Deviation (28.0-62.0) fl RDW Coeff of Samson (11.0-15.0) % Plt Count (150-400) K/uL MPV (7.40-12.00) fL Neut % (Auto) (48.0-80.0) % Lymph % (Auto) (16.0-40.0) % [place] % (Auto) (0.0-15.0) % Eos % (Auto) (0.0-7.0) % Baso % (Auto) (0.0-1.5) % Neut # (Auto) (1.4-5.7) K/uL Lymph # (Auto) (0.6-2.4) K/uL [place] # (Auto) (0.0-0.8) K/uL Eos # (Auto) (0.0-0.7) K/uL Baso # (Auto) (0.0-0.1) K/uL Nucleated RBC % /100WBC Nucleated RBCs # K/uL Lactate 1.3 (0.20-2.00) mmol/L Sodium (136-145) mmol/L Potassium (3.5-5.1) mmol/L Chloride (98-107) mmol/L Carbon Dioxide (21.0-32.0) mmol/L BUN (7.0-18.0) mg/dL Creatinine (0.6-1.0) mg/dL Est Cr Clr Drug Dosing mL/min Estimated GFR (MDRD) ml/min Glucose (74-106) mg/dL Calcium (8.5-10.1) mg/dL Total Bilirubin (0.2-1.0) mg/dL AST (15-37) IU/L ALT (14-63) IU/L Alkaline Phosphatase (46-116) U/L Total Protein (6.4-8.2) g/dL Albumin (3.4-5.0) g/dL Globulin (2.6-4.0) g/dL Albumin/Globulin Ratio (0.9-1.6) Amylase (25-115) U/L Lipase (73-393) U/L Urine Color Urine Appearance Urine pH (5.0-8.0) Ur Specific [place] (1.001-1.035) Urine Protein (NEGATIVE) mg/dL Urine Glucose (UA) (NEGATIVE) mg/dL Urine Ketones (NEGATIVE) mg/dL Urine Occult Blood (NEGATIVE) Urine Nitrite (NEGATIVE) Urine Bilirubin (NEGATIVE) Urine Urobilinogen (<2.0) EU/dL Ur Leukocyte Esterase (NEGATIVE) Urine RBC (0-2/HPF) Urine WBC (0-5/HPF) Ur Epithelial Cells (NONE-FEW) Urine Bacteria (NEGATIVE) Urinalysis Comment Result Diagrams: 01/18/19 03:35 01/18/19 03:35 Michael Results Last 24 hrs: Microbiology 01/17/19 22:03 Influenza Type A Antigen Screen - Final Nasopharyngeal Swab NEGATIVE INFLUENZA A VIRUS AG Influenza Type B Antigen Screen - Final NEGATIVE INFLUENZA B VIRUS AG *Q Meaningful Use (ADM) - VTE *Q VTE Pharmacological Contraindications *Q: Thrombocytopenia - Problem List (1) Nausea & vomiting SNOMED Code(s): 49516401 ICD Code: R11.2 - NAUSEA WITH VOMITING, UNSPECIFIED Status: Acute Current Visit: Yes Qualifiers: Vomiting Intractability: unspecified (2) Diarrhea SNOMED Code(s): 42946761 ICD Code: R19.7 - DIARRHEA, UNSPECIFIED Status: Acute Current Visit: Yes (3) Pneumonia SNOMED Code(s): 568470544 ICD Code: J18.9 - PNEUMONIA, UNSPECIFIED ORGANISM Status: Acute Priority : High Current Visit: Yes Qualifiers: Pneumonia type: due to unspecified organism Laterality: left Lung location: lower lobe of lung Qualified Code(s): J18.1 - Lobar pneumonia, unspecified organism (4) UTI, Urinary tract infectious disease SNOMED Code(s): 05341089 ICD Code: N39.0 - URINARY TRACT INFECTION, SITE NOT SPECIFIED Status: Acute Current Visit: Yes (5) C. difficile diarrhea SNOMED Code(s): 7204449775371 ICD Code: A04.7 - ENTEROCOLITIS DUE TO CLOSTRIDIUM DIFFICILE * DO NOT USE * Status: Acute Priority: High Current Visit: No (6) Dehydration SNOMED Code(s): 72711426 ICD Code: E86.0 - DEHYDRATION Status: Acute Priority: High Current Visit: No Problem List Initiated/Reviewed/Updated: Yes Orders Last 24hrs: Active Orders 24 hr Category Date Time Status Patient Status [ADT] Stat ADT 01/17/19 23:21 Active Cardiac Monitoring [RC] . DIRECTED Care 01/17/19 21:32 Active Oxygen Therapy [RC] PRN Care 01/18/19 00:21 Active Oxygen Therapy, ED [RC] ASDIRECTED Care 01/17/19 21:32 Active Pulse Oximetry [RC] ASDIRECTED Care 01/17/19 21:32 Active Up ad Rose [RC] ASDIRECTED Care 01/18/19 00:21 Active VTE/DVT Education [RC] PER UNIT ROUTINE Care 01/18/19 00:21 Active Vital Signs [RC] Q4H Care 01/18/19 00:21 Active Clear Liquid Diet [DIET] Diet 01/18/19 Breakfast Active CULTURE BLOOD [BC] Stat Lab 01/17/19 21:55 Received CULTURE BLOOD [BC] Stat Lab 01/17/19 22:01 Received CULTURE STOOL + CAMPY+SHIGATOX [RM] Stat Lab 01/17/19 21:35 Ordered CULTURE URINE [RM] Stat Lab 01/17/19 22:12 Received Clostridium Difficile [CDIFF TOX A+B] [OP] Routine Lab 01/18/19 00:19 Ordered Ondansetron [Zofran] Med 01/18/19 00:21 Active 4 mg IVPUSH Q4H PRN Piperacillin/Tazobactam [Piperacil-Tazobact] 3.375 gm Med 01/18/19 06:00 Active Sodium Chloride 0.9% [Normal Saline] 50 ml IV Q6H Sodium Chloride 0.9% [Normal Saline] 1,000 ml Med 01/17/19 23:30 Active IV ASDIRECTED Sodium Chloride 0.9% [Saline Flush] Med 01/17/19 21:33 Active 10 ml FLUSH ASDIRECTED PRN Sodium Chloride 0.9% [Saline Flush] Med 01/17/19 21:33 Active 2.5 ml FLUSH ASDIRECTED PRN Zaleplon [Sonata] Med 01/18/19 00:40 Active 5 mg PO BEDTIME PRN traMADol [Ultram] Med 01/18/19 00:35 Active 50 mg PO Q4HR PRN Blood Culture x2 Reflex Set [OM.PC] Stat Ot 01/17/19 21:33 Ordered Saline Lock Insert [OM.PC] Stat Ot 01/17/19 21:32 Ordered Medication Orders Sodium Chloride (Normal Saline) 1,000 mls @ 125 mls/hr IV ASDIRECTED [facility] Last Admin: 01/18/19 08:40 Dose: 125 mls/hr Infusion: 01/18/19 07:33 Dose: 125 mls/hr Admin: 01/17/19 23:33 Dose: 125 mls/hr Piperacillin Sod/Tazobactam (Sod 3.375 gm/ Sodium Chloride) 50 mls @ 100 mls/ hr IV Q6H [facility] Last Admin: 01/18/19 05:22 Dose: 100 mls/hr Ondansetron HCl (Zofran) 4 mg IVPUSH Q4H PRN PRN Reason: Nausea Sodium Chloride (Saline Flush) 10 ml FLUSH ASDIRECTED PRN PRN Reason: Keep Vein Open Sodium Chloride (Saline Flush) 2.5 ml FLUSH ASDIRECTED PRN PRN Reason: Keep Vein Open Tramadol HCl (Ultram) 50 mg PO Q4HR PRN PRN Reason: Pain Last Admin: 01/18/19 08:37 Dose: 50 mg Admin: 01/18/19 00:46 Dose: 50 mg Zaleplon (Sonata) 5 mg PO BEDTIME PRN PRN Reason: Insomnia Last Admin: 01/18/19 00:47 Dose: 5 mg Assessment/Plan Comment:: This 68 year old female admitted with leukocytosis, N/V diarrhea and suspected UTI acute respiratory failure and CAP 1. CAP: CT reveals possible consolidation to LLL, continue Zosyn due to multiple abx allergies. Denies cough or SOB. Hypoxia improved, on RA this afternoon. BC pending. Monitor 2. UTI: UC pending. No symptoms. Monitor. Zosyn as above 3. Diarrhea: still awaiting sample to be collected, mixed with urine each time. Will empirically treat with Vancomycin PO due to hx of Cdiff and recent antibiotic use. Vanco PO 125 mg QID started today. Abdominal CT negative. 4. HTN: Holding PO meds, monitor. Dehydration, continue IVFs for now. 5. Thrombocytopenia: Stable, will monitor. VTE prophylaxis: SCDS only. Dispo: 2 days pending improvement.
--- NOTE | 2019-01-18 11:48 | CT ---
CT of the abdomen and pelvis without contrast. HISTORY: Nausea and vomiting TECHNIQUE: Axial CT images were obtained of the abdomen and pelvis without contrast. Coronal and sagittal reconstructions obtained. FINDINGS: There is atelectasis within the lung bases, and a component of consolidation within the left lung base is not excluded. Trace bilateral pleural effusions. The liver, spleen, adrenal glands, and pancreas appear unremarkable for noncontrast examination. Cholecystectomy clips are noted. There is no bulky retroperitoneal lymphadenopathy. No abdominal ascites. Punctate nonobstructing right renal stone. Stable prominent right extrarenal pelvis. The large and small bowel are normal in caliber without evidence of obstruction. There is no bulky pelvic lymphadenopathy. No free fluid. No free air. The urinary bladder appears normal. Grade 1 anterolisthesis of L5 on S1. Otherwise no suspicious osseous abnormalities identified. IMPRESSION: 1. Left basilar atelectasis and/or infiltrate with trace bilateral pleural effusions. 2. Punctate nonobstructing right renal stone.
[2019-01-18] MEDS: Vancomycin 25 MG/ML Compounding Kit PO SCH ×3 (13:24→23:38)
[2019-01-19] MEDS: Sodium Chloride 0.9% 1,000 ML IV SCH (04:32)
[2019-01-19] MEDS: Vancomycin 25 MG/ML Compounding Kit PO SCH (06:03)
[2019-01-19] MEDS: Piperacillin/Tazobactam 3.375 GM in Sodium Chloride 0.9% 50 ML IV SCH ×2 (06:03→11:31)
[2019-01-19 06:46] LABS: CHLORIDE,CL 109 mmol/L (98-107); SODIUM,NA 143 mmol/L (136-145)
[2019-01-19 09:39] VITALS: BP 94/49
[2019-01-19] MEDS: traMADol 50 MG Tab PO PRN (10:55)
--- NOTE | 2019-01-19 11:27 | PCM.DCSUM1 ---
<Marisela Rodriguez M - Last Filed: 01/19/19 12:25> Discharge Summary - Hospital Course Brief History: This 68 year old female with pmh of thrombocytopenia, HTN and hx of c diff infection presented to the ED last evening with complaints of N/V, diarrhea and overall not feeling well. She reports on Tuesday she was seen at a walk in clinic and given Macrobid for UTI and she started taking that. Over the weekend she started feeling hot flashes and just overall not feeling well. He friend felt she was labored in breathing when they were walking. She reports she started having nausea and vomiting on Tuesday along with loose stools. She denies abdominal pain. No urinary symptoms. Denies cough. But rpeorts generalized malaise and body aches. She denies recent travel and no questionable foods. She denies sob or chest pain. In the ED significant leukocytosis noted at 21,310. Platelets 83,000 (baseline), Lactate 2.1. BUN 23, Cr 1.1 UA reealed +nitrite small leukoctye esterase, WBC 1-3 and rare bacteria. BP 110-115/50s. CXR negative. Influenza swab negative. Stool cultures pending.She was treated with IVFs and started on Zosyn due to allergies for possible UTI and acute respiratory failure due to hypoxia noted on arrival and throughout ED stay andCAP. Thrombocytopenia is being worked up by Dr Fowler. Diagnosis: Stroke: No - Discharge Data Discharge Date: 01/19/19 Discharge Disposition: Home, Self-Care 01 Condition: Good - Discharge Diagnosis/Problem(s) (1) Nausea & vomiting SNOMED Code(s): 96120008 ICD Code: R11.2 - NAUSEA WITH VOMITING, UNSPECIFIED Status: Acute Qualifiers: Vomiting Intractability: unspecified (2) Diarrhea SNOMED Code(s): 47526415 ICD Code: R19.7 - DIARRHEA, UNSPECIFIED Status: Acute (3) Pneumonia SNOMED Code(s): 076784453 ICD Code: J18.9 - PNEUMONIA, UNSPECIFIED ORGANISM Status: Acute Priority : High Qualifiers: Pneumonia type: due to unspecified organism Laterality: left Lung location: lower lobe of lung Qualified Code(s): J18.1 - Lobar pneumonia, unspecified organism (4) UTI, Urinary tract infectious disease SNOMED Code(s): 26932407 ICD Code: N39.0 - URINARY TRACT INFECTION, SITE NOT SPECIFIED Status: Acute (5) C. difficile diarrhea SNOMED Code(s): 5217738124834 ICD Code: A04.7 - ENTEROCOLITIS DUE TO CLOSTRIDIUM DIFFICILE * DO NOT USE * Status: Acute Priority: High (6) Dehydration SNOMED Code(s): 11423330 ICD Code: E86.0 - DEHYDRATION Status: Acute Priority: High - Patient Instructions Diet: Regular Diet as Tolerated Activity: As Tolerated Other/Special Instructions: Hold Losartan for now, check BP daily. Once it starts to elevated, restart - Discharge Plan *PRESCRIPTION DRUG MONITORING PROGRAM REVIEWED*: Not Applicable *COPY OF PRESCRIPTION DRUG MONITORING REPORT IN PATIENT CLARIBEL: Not Applicable Prescriptions/Med Rec: Amoxicillin/Clavulanate K [Augmentin 875-125 MG] 1 tab PO BID #14 tablet Home Medications: Home Meds Meloxicam 15 mg PO DAILY 11/09/16 [History] Zolpidem [Ambien] 5 mg PO BEDTIME PRN 11/09/16 [History] traMADol HCl [Tramadol HCl] 50 mg PO Q4HR PRN 11/09/16 [History] Loperamide [Imodium] 2 mg PO ASDIRECTED PRN #10 cap 11/11/16 [Rx] Estradiol [Estrace 0.01% Vaginal Crm] 1 applic VAG BEDTIME 03/19/17 [History] Betamethasone Valerate [Valisone 0.1% Crm] 1 applic TOP ASDIRECTED 08/21/18 [ History] Diclofenac Sodium [Voltaren 1% Gel] 1 applic TOP ASDIRECTED PRN 08/21/18 [ History] Fluticasone Propionate [Flonase Allergy Relief] 1 spray NASBOTH DAILY PRN [History] Otc Acid Timber Sizer 1 dose PO ASDIRECTED PRN 08/21/18 [History] Desvenlafaxine [Khedezla] 50 mg PO DAILY 01/17/19 [History] Amoxicillin/Clavulanate K [Augmentin 875-125 MG] 1 tab PO BID #14 tablet [Rx] Losartan Potassium 100 mg PO DAILY #0 01/19/19 [Rx] Patient Handouts: Amoxicillin; Clavulanic Acid tablets, Urinary Tract Infection , Adult, [id number], Community-Acquired Pneumonia, Adult, [id number] Referrals: [facility] [Outside] Josh Jane MD [Primary Care Provider] - 01/29/19 12:30 pm - Discharge Summary/Plan Comment DC Time >30 min.: No Discharge Summary/Plan Comment: Discahrge Diagnoses: CAP Diarrhea Dehydration Thrombocytopenia HTN Hx Cdiff Baylee was admited secondary to leukocytosis and hypoxia. Hypoxia resolved, she has been weaned to RA. Leukocytosis has improved from 21,000 to 15,000. She is afebrile. She is tolerating diet well and is requesting discharge home today. Stool cultures all negative, including Cdiff. She is feeling better. She denies dizziness or lightheadedness when up. BP has been 100 SBP, she was instructed during acute illness to hold her Losartan and monitor BP at home, which she verbalized understanding and agreed to do. CT was completed yesterday, which showed LLL infiltrate and no acute findings in her abdomen, she was kept on Zosyn due to allergies. Today she will be discharged home on Augmentin for 6 more days. She is to return to ED or clinic if concerns should arise. Follow up with PCP as scheduled. - General Info Date of Service: 01/19/19 Admission Dx/Problem (Free Text: Admission Diagnosis/Problem Admission Diagnosis/Problem Pneumonia Subjective Update: Feeling better today and is requesting discharge home. No chest pain, SOB or palpitations. No lightheadedness or dizziness. She is sitting on the edge of her bed fixing her hair. Diarrhea continues slightly, but is improving. Functional Status: Reports: Pain Controlled, Tolerating Diet, Ambulating, Urinating - Review of Systems General: Reports: No Symptoms. Denies: Fever, Weakness, Fatigue, Malaise Pulmonary: Reports: No Symptoms. Denies: Shortness of Breath Cardiovascular: Reports: No Symptoms. Denies: Chest Pain Gastrointestinal: Reports: Diarrhea, Flatus. Denies: Abdominal Pain, Nausea, Vomiting Genitourinary: Reports: No Symptoms. Denies: Dysuria, Frequency, Burning Musculoskeletal: Reports: No Symptoms Skin: Reports: No Symptoms Neurological: Reports: No Symptoms Psychiatric: Reports: No Symptoms - Patient Data Vitals - Most Recent: Last Vital Signs Temp 97.5 F 01/19/19 08:00 Pulse 65 04/05/19 08:00 Resp 18 01/19/19 08:00 BP 94/49 L 01/19/19 08:00 Pulse Ox 92 L 01/19/19 08:00 Weight - Most Recent: 81.783 kg I&O - Last 24 hours: Intake & Output 01/18/19 01/19/19 01/19/19 22:59 06:59 14:59 Intake Total 1200 600 Output Total 1400 Balance -200 600 Lab Results - Last 24 hrs: Laboratory Results - last 24 hr 01/19/19 01/19/19 Range/Units 05:50 05:50 WBC 15.30 H (4.0-11.0) K/uL RBC 4.22 L (4.30-5.90) M/uL Hgb 12.1 (12.0-16.0) g/dL Hct 36.9 (36.0-46.0) % MCV 87.4 (80.0-98.0) fL MCH 28.7 (27.0-32.0) pg MCHC 32.8 (31.0-37.0) g/dL RDW Std Deviation 43.6 (28.0-62.0) fl RDW Coeff of Samson 14 (11.0-15.0) % Plt Count 76 L (150-400) K/uL MPV 10.00 (7.40-12.00) fL Neut % (Auto) 78.8 (48.0-80.0) % Lymph % (Auto) 7.2 L (16.0-40.0) % Villalba % (Auto) 4.3 (0.0-15.0) % Eos % (Auto) 9.6 H (0.0-7.0) % Baso % (Auto) 0.1 (0.0-1.5) % Neut # (Auto) 12.1 H (1.4-5.7) K/uL Lymph # (Auto) 1.1 (0.6-2.4) K/uL [place] # (Auto) 0.7 (0.0-0.8) K/uL Eos # (Auto) 1.5 H (0.0-0.7) K/uL Baso # (Auto) 0.0 (0.0-0.1) K/uL Nucleated RBC % 0.0 /100WBC Nucleated RBCs # 0 K/uL Sodium 143 (136-145) mmol/L Potassium 3.7 (3.5-5.1) mmol/L Chloride 109 H (98-107) mmol/L Carbon Dioxide 27.0 (21.0-32.0) mmol/L BUN 10 (7.0-18.0) mg/dL Creatinine 0.9 (0.6-1.0) mg/dL Est Cr Clr Drug Dosing 56.00 mL/min Estimated GFR (MDRD) > 60.0 ml/min Glucose 106 (74-106) mg/dL Calcium 7.9 L (8.5-10.1) mg/dL Magnesium 2.3 (1.8-2.4) mg/dL DONTE Results - Last 24 hrs: Microbiology 01/17/19 22:12 Urine Culture - Final Urine, Clean Catch MIXED NISHA 10,000-100,000 CFU/ML 01/17/19 22:01 Aerobic Blood Culture - Preliminary Blood - Venous - Lab Draw NO GROWTH AFTER 1 DAY Anaerobic Blood Culture - Preliminary NO GROWTH AFTER 1 DAY 01/17/19 21:55 Aerobic Blood Culture - Preliminary Blood - Venous NO GROWTH AFTER 1 DAY Anaerobic Blood Culture - Preliminary NO GROWTH AFTER 1 DAY 01/17/19 19:05 Campylobacter Antigen Assay - Final Stool / Feces NEGATIVE CAMPYLOBACTER AG 01/18/19 19:05 Clostridium difficile Toxin A & B - Final Stool / Feces Negative for C.Diff Toxin/AG Med Orders - Current: Current Medications Sodium Chloride (Normal Saline) 1,000 mls @ 125 mls/hr IV ASDIRECTED [facility] Last Admin: 01/19/19 04:32 Dose: 125 mls/hr Piperacillin Sod/Tazobactam (Sod 3.375 gm/ Sodium Chloride) 50 mls @ 100 mls/ hr IV Q6H [facility] Last Admin: 01/19/19 06:03 Dose: 100 mls/hr Ondansetron HCl (Zofran) 4 mg IVPUSH Q4H PRN PRN Reason: Nausea Sodium Chloride (Saline Flush) 10 ml FLUSH ASDIRECTED PRN PRN Reason: Keep Vein Open Sodium Chloride (Saline Flush) 2.5 ml FLUSH ASDIRECTED PRN PRN Reason: Keep Vein Open Tramadol HCl (Ultram) 50 mg PO Q4HR PRN PRN Reason: Pain Last Admin: 01/19/19 10:55 Dose: 50 mg Zaleplon (Sonata) 5 mg PO BEDTIME PRN PRN Reason: Insomnia Last Admin: 01/18/19 00:47 Dose: 5 mg Discontinued Medications Sodium Chloride (Normal Saline) 1,000 mls @ 999 mls/hr IV STAT ONE Stop: 01/17/19 22:33 Last Admin: 01/17/19 21:59 Dose: 999 mls/hr Piperacillin Sod/Tazobactam (Sod 3.375 gm/ Sodium Chloride) 50 mls @ 100 mls/ hr IV ONETIME ONE Stop: 01/17/19 23:50 Last Admin: 01/17/19 23:34 Dose: 100 mls/hr Ondansetron HCl (Zofran) 4 mg IVPUSH ONETIME ONE Stop: 01/17/19 21:34 Last Admin: 01/17/19 21:59 Dose: 4 mg Vancomycin HCl (First-Vancomycin 25 Compounding Kit) 125 mg PO QID TAY Last Admin: 01/19/19 06:03 Dose: 125 mg - Exam General: Reports: Alert, Oriented, Cooperative, No Acute Distress Lungs: Reports: Clear to Auscultation, Normal Respiratory Effort Cardiovascular: Reports: Regular Rate, Regular Rhythm GI/Abdominal Exam: Normal Bowel Sounds, Soft, Non-Tender Back Exam: Reports: Normal Inspection, Full Range of Motion Extremities: Normal Inspection, Normal Range of Motion, Non-Tender, No Pedal Edema Skin: Reports: Ecchymosis (L hand bruise) Neurological: Reports: No New Focal Deficit Psy/Mental Status: Reports: Alert, Normal Affect, Normal Mood *Q Meaningful Use (DIS) - VTE *Q VTE Pharmacological Contraindications *Q: Thrombocytopenia <Michoacano Valdez J - Last Filed: 01/22/19 19:07> - Patient Data Vitals - Most Recent: Last Vital Signs Temp 36.4 C 01/19/19 08:00 Pulse 65 01/19/19 08:00 Resp 18 01/19/19 08:00 BP 94/49 L 01/19/19 08:00 Pulse Ox 92 L 01/19/19 08:00 DONTE Results - Last 24 hrs: Microbiology 01/17/19 22:01 Aerobic Blood Culture - Preliminary Blood - Venous - Lab Draw NO GROWTH AFTER 4 DAYS Anaerobic Blood Culture - Preliminary NO GROWTH AFTER 4 DAYS 01/17/19 21:55 Aerobic Blood Culture - Preliminary Blood - Venous NO GROWTH AFTER 4 DAYS Anaerobic Blood Culture - Preliminary NO GROWTH AFTER 4 DAYS Med Orders - Current: Current Medications Discontinued Medications Sodium Chloride (Normal Saline) 1,000 mls @ 999 mls/hr IV STAT ONE Stop: 01/17/19 22:33 Last Admin: 01/17/19 21:59 Dose: 999 mls/hr Piperacillin Sod/Tazobactam (Sod 3.375 gm/ Sodium Chloride) 50 mls @ 100 mls/ hr IV ONETIME ONE Stop: 01/17/19 23:50 Last Admin: 01/17/19 23:34 Dose: 100 mls/hr Sodium Chloride (Normal Saline) 1,000 mls @ 125 mls/hr IV ASDIRECTED TAY Last Admin: 01/19/19 04:32 Dose: 125 mls/hr Piperacillin Sod/Tazobactam (Sod 3.375 gm/ Sodium Chloride) 50 mls @ 100 mls/ hr IV Q6H TAY Last Admin: 01/19/19 11:31 Dose: 100 mls/hr Ondansetron HCl (Zofran) 4 mg IVPUSH ONETIME ONE Stop: 01/17/19 21:34 Last Admin: 01/17/19 21:59 Dose: 4 mg Ondansetron HCl (Zofran) 4 mg IVPUSH Q4H PRN PRN Reason: Nausea Sodium Chloride (Saline Flush) 10 ml FLUSH ASDIRECTED PRN PRN Reason: Keep Vein Open Sodium Chloride (Saline Flush) 2.5 ml FLUSH ASDIRECTED PRN PRN Reason: Keep Vein Open Tramadol HCl (Ultram) 50 mg PO Q4HR PRN PRN Reason: Pain Last Admin: 01/19/19 10:55 Dose: 50 mg Vancomycin HCl (First-Vancomycin 25 Compounding Kit) 125 mg PO QID TAY Last Admin: 01/19/19 06:03 Dose: 125 mg Zaleplon (Sonata) 5 mg PO BEDTIME PRN PRN Reason: Insomnia Last Admin: 01/18/19 00:47 Dose: 5 mg - Free Text/Narrative Note: I have examined the patient. I have discussed findings and treatment plan with resident. I agree with the assessment and plan outlined in the following resident's note.
== END 2019-01-19 12:45 | disposition home or self-care (01) | DRG 371 ==
LOC: MW.ED 21:22 → MW.MS 23:28
PROVIDERS: ADMIT Internal Medicine; ATTEND Internal Medicine
DX: A04.72 Enterocolitis due to Clostridium difficile, not specified as recurrent (principal); J18.1 Lobar pneumonia, unspecified organism; J96.01 Acute respiratory failure with hypoxia; N39.0 Urinary tract infection, site not specified; E86.0 Dehydration; I10 Essential (primary) hypertension; D69.6 Thrombocytopenia, unspecified; H91.91 Unspecified hearing loss, right ear; M19.90 Unspecified osteoarthritis, unspecified site; F41.9 Anxiety disorder, unspecified; M19.91 Primary osteoarthritis, unspecified site; Z88.1 Allergy status to other antibiotic agents; Z88.8 Allergy status to other drugs, medicaments and biological substances; Z88.5 Allergy status to narcotic agent; Z91.048 Other nonmedicinal substance allergy status; Z87.440 Personal history of urinary (tract) infections; Z87.891 Personal history of nicotine dependence
CPT/HCPCS: 36415; 71046; 71046-26; 74176; 74176-26; 80048; 80053; 81001; 82150; 83605; 83690; 83735; 85025; 85027; 87040; 87046; 87086; 87324; 87804; 87899; 96361; 96365; 96375; 99285-25; A9270-GY; J2405; J2543; J7040; J7050

== ENCOUNTER 2019-01-25 09:08 | Inpatient (IN) | payer MEDICARE, BC ==
[2019-01-25] MEDS ORDERED: methylPREDNISolone Sodium Succinate 125 MG/2 ML SDV IVPUSH ONE (09:10)
--- NOTE | 2019-01-25 09:12 | EDM.PDOC ---
ED HPI GENERAL MEDICAL PROBLEM - General Stated Complaint: SOB Time Seen by Provider: 01/25/19 09:11 Source of Information: Reports: Patient - History of Present Illness INITIAL COMMENTS - FREE TEXT/NARRATIVE: HISTORY AND PHYSICAL: History of present illness: [Patient arrives via EMS recently discharged from hospital one week prior for pneumonia 82% on room air prior to neb treatments, no current distress while here in the emergency room however with speaking she does drop into the mid 80s ] Review of systems: As per history of present illness and below otherwise all systems reviewed and negative. Past medical history: As per history of present illness and as reviewed below otherwise noncontributory. Surgical history: As per history of present illness and as reviewed below otherwise noncontributory. Social history: No reported history of drug or alcohol abuse. Family history: As per history of present illness and as reviewed below otherwise noncontributory. Physical exam: HEENT: Atraumatic, normocephalic, pupils reactive, negative for conjunctival pallor or scleral icterus, mucous membranes moist, throat clear, neck supple, nontender, trachea midline. Lungs: Clear to auscultation, breath sounds equal bilaterally, chest nontender. Heart: S1S2, regular, negative for clicks, rubs, or JVD. Abdomen: Soft, nondistended, nontender. Negative for masses or hepatosplenomegaly. Negative for costovertebral tenderness. Pelvis: Stable nontender. Genitourinary: Deferred. Rectal: Deferred. Extremities: Atraumatic, negative for cords or calf pain. Neurovascular unremarkable. Neuro: Awake, alert, oriented. Cranial nerves II through XII unremarkable. Cerebellum unremarkable. Motor and sensory unremarkable throughout. Exam nonfocal. Diagnostics: [CBC CMP troponin lipase d-dimer blood cultures 2 EKG Chest 1 view] CT angiography Therapeutics: [Normal saline Solu-Medrol DuoNeb provided via EMS] Zosyn Impression: [Hypoxia Shortness of breath Bibasilar infiltrates Recent admission for pneumonia] Definitive disposition and diagnosis as appropriate pending reevaluation and review of above. - Related Data Allergies Allergy/AdvReac Type Severity Reaction Status Date / Time cefuroxime axetil Allergy Intermediate Rash Verified 01/25/19 09:20 [From Ceftin] azithromycin Allergy Rash Verified 01/25/19 09:20 celecoxib [From Celebrex] Allergy Rash Verified 01/25/19 09:20 ciprofloxacin Allergy Rash Verified 01/25/19 09:20 codeine Allergy Vomiting Verified 01/25/19 09:20 hydrocodone Allergy Hives Verified 01/25/19 09:20 some metals Allergy Hives Uncoded 01/25/19 09:20 Home Meds: Home Meds Amoxicillin/Potassium Clav [Amox-Clav 875-125 mg Tablet] 1 tab PO BID 01/25/19 [ History] Desvenlafaxine [Desvenlafaxine ER] 1 tab PO DAILY 01/25/19 [History] Fluticasone Propionate [Flonase Allergy Relief] 1 spray RONDA BID 01/25/19 [ History] Meloxicam 1 tab PO DAILY 01/25/19 [History] Zolpidem [Ambien] 5 mg PO ASDIRECTED PRN 01/25/19 [History] traMADol [Ultram] 1 tab PO QID 01/25/19 [History] Past Medical History - Past Health History Medical/Surgical History: Denies Medical/Surgical History HEENT History: Reports: Cataract Other HEENT History: wears reading glasses, top denture, 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 Denies: Afib, Blood Clots/VTE/ DVT, MT Respiratory History: Reports: None. Denies: COPD, SOB Gastrointestinal History: Reports: Irritable Bowel Syndrome Other Gastrointestinal History: occasional heartburn Genitourinary History: Reports: UTI, Recurrent [employer]ICIAN History: Reports: Musculoskeletal History: Reports: Osteoarthritis Other Musculoskeletal History: joint pain, polyneuropathy, Neurological History: Reports: None. Denies: CVA, TIA Psychiatric History: Reports: Anxiety Endocrine/Metabolic History: Reports: None Hematologic History: Reports: None Other Hematologic History: low platelets Immunologic History: Reports: None Oncologic (Cancer) History: Reports: None Dermatologic History: Reports: Eczema - Infectious Disease History Infectious Disease History: Reports: C-Difficile, Chicken Pox - Past Surgical History Other Female Surgeries/Procedures: adhesions Oncologic Surgical History: Reports: Bone Marrow Aspiration (thrombocytopenia) Social & Family History - Family History Family Medical History: Noncontributory Neurological: Reports: Neuropathy, Peripheral, Other (See Below) Other Neurological Family History: Temporal arteritis- Polymyalgic Giant cell. Polymyositis Immunologic: Reports: None Dermatologic: Reports: None Oncologic: Reports: None - Caffeine Use Caffeine Use: Reports: Soda, Tea ED ROS GENERAL - Review of Systems Review Of Systems: See Below ED EXAM, GENERAL - Physical Exam Exam: See Below Course - Vital Signs Last Recorded V/S: Last Vital Signs Temp 97.4 F 01/25/19 10:32 Pulse 80 01/25/19 11:28 Resp 20 01/25/19 11:28 BP 106/48 L 01/25/19 11:28 Pulse Ox 94 L 01/25/19 11:28 - Orders/Labs/Meds Orders: Active Orders 24 hr Category Date Time Status EKG Documentation Completion [RC] STAT Care 01/25/19 09:13 Active CULTURE BLOOD [BC] Stat Lab 01/25/19 09:22 Received CULTURE BLOOD [BC] Stat Lab 01/25/19 09:23 Received CULTURE URINE [RM] Stat Lab 01/25/19 10:15 Received Sodium Chloride 0.9% [Normal Saline] 1,000 ml Med 01/25/19 09:15 Active IV STAT Blood Culture x2 Reflex Set [OM.PC] Stat Oth 01/25/19 09:15 Ordered Medication Orders Sodium Chloride (Normal Saline) 1,000 mls @ 125 mls/hr IV STAT TAY Last Admin: 01/25/19 09:27 Dose: 125 mls/hr Labs: Laboratory Tests 01/25/19 01/25/19 01/25/19 Range/Units 09:14 09:14 09:14 WBC 39.38 H (4.0-11.0) K/uL RBC 5.21 (4.30-5.90) M/uL Hgb 15.2 (12.0-16.0) g/dL Hct 44.8 (36.0-46.0) % MCV 86.0 (80.0-98.0) fL MCH 29.2 (27.0-32.0) pg MCHC 33.9 (31.0-37.0) g/dL RDW Std Deviation 41.1 (28.0-62.0) fl RDW Coeff of Samson 13 (11.0-15.0) % Plt Count 109 L (150-400) K/uL MPV 10.00 (7.40-12.00) fL Add Manual Diff YES Neutrophils % (Manual) 51 (48.0-80.0) % Band Neutrophils % 41 % Lymphocytes % (Manual) 1 L (16.0-40.0) % Monocytes % (Manual) 3 (0.0-15.0) % Eosinophils % (Manual) 2 (0.0-7.0) % Metamyelocytes % 2 % Nucleated RBC % 0.0 /100WBC Absolute Seg Neuts 20.1 H (1.4-5.7) Band Neutrophils # 16.1 Lymphocytes # (Manual) 0.4 L (0.6-2.4) Monocytes # (Manual) 1.2 H (0.0-0.8) Eosinophils # (Manual) 0.8 H (0.0-0.7) Absolute Metamyelocyte 0.8 Nucleated RBCs # 0 K/uL Vacuolated Monocytes MODERATE Platelet Estimate DECREASED D-Dimer, Quantitative 3.83 H (0.0-0.50) mg/L FEU Sodium 137 (136-145) mmol/L Potassium 4.0 (3.5-5.1) mmol/L Chloride 102 (98-107) mmol/L Carbon Dioxide 23.0 (21.0-32.0) mmol/L BUN 24 H (7.0-18.0) mg/dL Creatinine 1.4 H (0.6-1.0) mg/dL Est Cr Clr Drug Dosing TNP Estimated GFR (MDRD) 37.4 ml/min Glucose 101 (74-106) mg/dL Calcium 8.6 (8.5-10.1) mg/dL Total Bilirubin 0.6 (0.2-1.0) mg/dL AST 20 (15-37) IU/L ALT 28 (14-63) IU/L Alkaline Phosphatase 88 (46-116) U/L Troponin I < 0.050 (0.000-0.056) ng/mL Total Protein 6.3 L (6.4-8.2) g/dL Albumin 3.0 L (3.4-5.0) g/dL Globulin 3.3 (2.6-4.0) g/dL Albumin/Globulin Ratio 0.9 (0.9-1.6) Lipase 71 L (73-393) U/L Urine Color Urine Appearance Urine pH (5.0-8.0) Ur Specific [place] (1.001-1.035) Urine Protein (NEGATIVE) mg/dL Urine Glucose (UA) (NEGATIVE) mg/dL Urine Ketones (NEGATIVE) mg/dL Urine Occult Blood (NEGATIVE) Urine Nitrite (NEGATIVE) Urine Bilirubin (NEGATIVE) Urine Ictotest Urine Urobilinogen (<2.0) EU/dL Ur Leukocyte Esterase (NEGATIVE) Urine RBC (0-2/HPF) Urine WBC (0-5/HPF) Ur Epithelial Cells (NONE-FEW) Amorphous Sediment (NEGATIVE) Urine Bacteria (NEGATIVE) Urine Mucus (NONE-MOD) 01/25/19 Range/Units 10:15 WBC (4.0-11.0) K/uL RBC (4.30-5.90) M/uL Hgb (12.0-16.0) g/dL Hct (36.0-46.0) % MCV (80.0-98.0) fL MCH (27.0-32.0) pg MCHC (31.0-37.0) g/dL RDW Std Deviation (28.0-62.0) fl RDW Coeff of Samson (11.0-15.0) % Plt Count (150-400) K/uL MPV (7.40-12.00) fL Add Manual Diff Neutrophils % (Manual) (48.0-80.0) % Band Neutrophils % % Lymphocytes % (Manual) (16.0-40.0) % Monocytes % (Manual) (0.0-15.0) % Eosinophils % (Manual) (0.0-7.0) % Metamyelocytes % % Nucleated RBC % /100WBC Absolute Seg Neuts (1.4-5.7) Band Neutrophils # Lymphocytes # (Manual) (0.6-2.4) Monocytes # (Manual) (0.0-0.8) Eosinophils # (Manual) (0.0-0.7) Absolute Metamyelocyte Nucleated RBCs # K/uL Vacuolated Monocytes Platelet Estimate D-Dimer, Quantitative (0.0-0.50) mg/L FEU Sodium (136-145) mmol/L Potassium (3.5-5.1) mmol/L Chloride (98-107) mmol/L Carbon Dioxide (21.0-32.0) mmol/L BUN (7.0-18.0) mg/dL Creatinine (0.6-1.0) mg/dL Est Cr Clr Drug Dosing Estimated GFR (MDRD) ml/min Glucose (74-106) mg/dL Calcium (8.5-10.1) mg/dL Total Bilirubin (0.2-1.0) mg/dL AST (15-37) IU/L ALT (14-63) IU/L Alkaline Phosphatase (46-116) U/L Troponin I (0.000-0.056) ng/mL Total Protein (6.4-8.2) g/dL Albumin (3.4-5.0) g/dL Globulin (2.6-4.0) g/dL Albumin/Globulin Ratio (0.9-1.6) Lipase (73-393) U/L Urine Color YELLOW Urine Appearance CLEAR Urine pH 5.5 (5.0-8.0) Ur Specific [place] 1.015 (1.001-1.035) Urine Protein TRACE H (NEGATIVE) mg/dL Urine Glucose (UA) NEGATIVE (NEGATIVE) mg/dL Urine Ketones TRACE H (NEGATIVE) mg/dL Urine Occult Blood NEGATIVE (NEGATIVE) Urine Nitrite POSITIVE H (NEGATIVE) Urine Bilirubin SMALL H (NEGATIVE) Urine Ictotest POSITIVE Urine Urobilinogen 1.0 (<2.0) EU/dL Ur Leukocyte Esterase NEGATIVE (NEGATIVE) Urine RBC RARE (0-2/HPF) Urine WBC 2-4 (0-5/HPF) Ur Epithelial Cells MANY (NONE-FEW) Amorphous Sediment LIGHT (NEGATIVE) Urine Bacteria 1+ H (NEGATIVE) Urine Mucus MODERATE (NONE-MOD) Meds: Medications Generic Name Dose Route Start Last Admin Trade Name Freq PRN Reason Stop Dose Admin Sodium Chloride 1,000 mls @ 125 mls/hr 01/25/19 09:15 01/25/19 09:27 Normal Saline IV 125 mls/hr STAT TAY Administration Discontinued Medications Generic Name Dose Route Start Last Admin Trade Name Freq PRN Reason Stop Dose Admin Piperacillin Sod/Tazobactam 50 mls @ 100 mls/hr 01/25/19 09:24 01/25/19 09:44 Sod 3.375 gm/ Sodium Chloride IV 01/25/19 09:53 100 mls/hr ONETIME ONE Administration Iopamidol 100 ml 01/25/19 11:27 01/25/19 11:28 Isovue Multipack-370 (76%) IVPUSH 01/25/19 11:28 40 ml ONETIME STA Administration Ketorolac Tromethamine 30 mg 01/25/19 10:30 01/25/19 10:36 Toradol IVPUSH 01/25/19 10:31 30 mg ONETIME ONE Administration Methylprednisolone Sodium Succinate 125 mg 01/25/19 09:10 01/25/19 09:27 Solu-Medrol IVPUSH 01/25/19 09:11 125 mg ONETIME ONE Administration Departure - Departure Time of Disposition: 12:04 Disposition: Admitted As Inpatient 66 Condition: Fair Clinical Impression: Hypoxia Pneumonia Qualifiers: Pneumonia type: due to unspecified organism Laterality: left Lung location: lower lobe of lung Qualified Code(s): J18.1 - Lobar pneumonia, unspecified organism - Discharge Information Referrals: Josh Jane MD [Primary Care Provider] - - My Orders Last 24 Hours: My Active Orders 01/25/19 09:13 EKG Documentation Completion [RC] STAT 01/25/19 09:15 Sodium Chloride 0.9% [Normal Saline] 1,000 ml IV STAT Blood Culture x2 Reflex Set [OM.PC] Stat 01/25/19 09:22 CULTURE BLOOD [BC] Stat 01/25/19 09:23 CULTURE BLOOD [BC] Stat 01/25/19 10:15 CULTURE URINE [RM] Stat - Assessment/Plan Last 24 Hours: My Active Orders 01/25/19 09:13 EKG Documentation Completion [RC] STAT 01/25/19 09:15 Sodium Chloride 0.9% [Normal Saline] 1,000 ml IV STAT Blood Culture x2 Reflex Set [OM.PC] Stat 01/25/19 09:22 CULTURE BLOOD [BC] Stat 01/25/19 09:23 CULTURE BLOOD [BC] Stat 01/25/19 10:15 CULTURE URINE [RM] Stat
[2019-01-25] MEDS ORDERED: Sodium Chloride 0.9% 1,000 ML IV SCH (09:15)
[2019-01-25] MEDS ORDERED: Piperacillin/Tazobactam 3.375 GM in Sodium Chloride 0.9% 50 ML IV ONE (09:24)
--- NOTE | 2019-01-25 09:59 | CR ---
EXAMINATION: Portable chest radiograph. HISTORY: Shortness of breath. FINDINGS: The trachea is midline. The cardiomediastinal silhouette is within normal limits. Mild left basilar atelectasis and/or infiltrate. No pleural effusion or pneumothorax. Osseous structures appear unremarkable. IMPRESSION: Mild left basilar atelectasis and/or infiltrate.
[2019-01-25 10:15] LABS: CHLORIDE,CL 102 mmol/L (98-107); SODIUM,NA 137 mmol/L (136-145)
[2019-01-25] MEDS ORDERED: Ketorolac 30 MG/ML SDV IVPUSH ONE (10:30)
[2019-01-25] MEDS ORDERED: Iopamidol 755 MG/ML 500 ML Multipack Bottle IVPUSH STA (11:27)
--- NOTE | 2019-01-25 11:41 | CT ---
EXAMINATION: CTA chest HISTORY: Positive d-dimer COMPARISON: Radiographs dated 01/25/2019 TECHNIQUE: Axial CT imaging obtained through the chest following the administration of 40 mL of Isovue-370 in the right antecubital fossa. Coronal and sagittal reconstructions obtained. FINDINGS: There is atelectasis/infiltrate within the lung bases, left greater than right. Trace left pleural effusion is noted. No pneumothorax. The heart is normal in size without a pericardial effusion. Thoracic aorta is normal in caliber. The main and central pulmonary arteries are patent without evidence of a pulmonary embolism. Mildly prominent mediastinal and hilar lymph nodes are noted, possibly reactive. No axillary lymphadenopathy. The visualized images of the upper abdomen appear normal. No suspicious osseous abnormalities identified. Visualized images of the upper abdomen appear normal. IMPRESSION: 1. Bibasilar atelectasis/infiltrate, left greater than right. 2. Trace left pleural effusion. 3. No pulmonary embolism identified. 4. Borderline mediastinal and hilar lymphadenopathy, possibly reactive.
[2019-01-25] MEDS ORDERED: Ondansetron 4 MG/2 ML SDV IVPUSH PRN (13:21)
[2019-01-25] MEDS ORDERED: Meropenem 1 GM in Sodium Chloride 0.9% 100 ML IV SCH (13:30)
--- NOTE | 2019-01-25 13:35 | PCM.HP ---
<Marisela Rodriguez M - Last Filed: 01/25/19 13:50> H&P History of Present Illness - General Date of Service: 01/25/19 Admit Problem/Dx: Admission Diagnosis/Problem Admission Diagnosis/Problem Hypoxia Source of Information: Patient History Limitations: Reports: No Limitations - History of Present Illness Initial Comments - Free Text/Narative: This 68 year old female with pmh of recent CAP, thrombocytopenia, HTN, and hx of cdiff infection presented the ED today with concerns of not feeling well. She was discharged from the hospital 6 days ago with antibiotics for CAP. She reports she initially felt ok, then started feeling ill again. She reports she has been having some fever chills at home, cough, and shortness of breath along with fatigue. She reports diarrhea is gone and she is having her normal loose stools. She denies sinus congestion, no neck pain, no sore throat. She denies chest pain or palpitations. No abdominal pain. She does report mild dysuria and frequency. No skin rashes. She reports she feels she is eating ok and drinking ok. No Nausea or vomiting. She has known thrombocytopenia and is being evaluated by Dr Fowler [facility]. In the ED, leukocytosis noted at 39,308, platelets 109,000, D Dimer 3.83. BUN 24 , and Cr 1.4. Ua +nitrite, + bacteria, many epithelial cells. CXR revealed mild L basilar atelectasis/infiltrate. CT angio obtained due to D dimer being elevated, this revealed bibasilar infiltrate L >R, with trace L pleural effusion and NO PE noted. BC and UC pending in ED. She was treated with Zosyn, IVFs. She was noted to be hypoxic in the 80s on arrival. Place on Oxygen via FL with improvement of sats to mid 90s. She will be admitted with acute hypoxic respiratory failure and pneumonia. PCP, Dr Jane. - Related Data Allergies/Adverse Reactions: Allergies Allergy/AdvReac Type Severity Reaction Status Date / Time cefuroxime axetil Allergy Intermediate Rash Verified 01/25/19 09:20 [From Ceftin] azithromycin Allergy Rash Verified 01/25/19 09:20 celecoxib [From Celebrex] Allergy Rash Verified 01/25/19 09:20 ciprofloxacin Allergy Rash Verified 01/25/19 09:20 codeine Allergy Vomiting Verified 01/25/19 09:20 hydrocodone Allergy Hives Verified 01/25/19 09:20 some metals Allergy Hives Uncoded 01/25/19 09:20 Home Medications: Home Meds Amoxicillin/Potassium Clav [Amox-Clav 875-125 mg Tablet] 1 tab PO BID 01/25/19 [ History] Desvenlafaxine [Desvenlafaxine ER] 1 tab PO DAILY 01/25/19 [History] Diclofenac Sodium [Voltaren 1%] 1 gram TOP BID PRN 01/25/19 [History] Fluticasone Propionate [Flonase Allergy Relief] 1 spray RONDA DAILY 01/25/19 [ History] Meloxicam 1 tab PO DAILY 01/25/19 [History] Zolpidem [Ambien] 5 mg PO ASDIRECTED PRN 01/25/19 [History] traMADol [Ultram] 1 tab PO QID PRN 01/25/19 [History] Past Medical History - Past Health History Medical/Surgical History: Denies Medical/Surgical History HEENT History: Reports: Cataract Other HEENT History: wears reading glasses, top denture, 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 Denies: Afib, Blood Clots/VTE/ DVT, GA Respiratory History: Reports: None. Denies: COPD, SOB Gastrointestinal History: Reports: Irritable Bowel Syndrome Other Gastrointestinal History: occasional heartburn Genitourinary History: Reports: UTI, Recurrent [employer] History: Reports: Musculoskeletal History: Reports: Osteoarthritis Other Musculoskeletal History: joint pain, polyneuropathy, Neurological History: Reports: None. Denies: CVA, TIA Psychiatric History: Reports: Anxiety Endocrine/Metabolic History: Reports: None Hematologic History: Reports: None Other Hematologic History: low platelets Immunologic History: Reports: None Oncologic (Cancer) History: Reports: None Dermatologic History: Reports: Eczema - Infectious Disease History Infectious Disease History: Reports: C-Difficile, Chicken Pox - Past Surgical History Other Female Surgeries/Procedures: adhesions Oncologic Surgical History: Reports: Bone Marrow Aspiration (thrombocytopenia) Social & Family History - Family History Family Medical History: Noncontributory Neurological: Reports: Neuropathy, Peripheral, Other (See Below) Other Neurological Family History: Temporal arteritis- Polymyalgic Giant cell. Polymyositis Immunologic: Reports: None Dermatologic: Reports: None Oncologic: Reports: None - Tobacco Use Smoking Status *Q: Former Smoker Used Tobacco, but Quit: Yes Month/Year Tobacco Last Used: 1984 - Caffeine Use Caffeine Use: Reports: Soda, Tea - Alcohol Use Alcohol Use History: No - Recreational Drug Use Recreational Drug Use: No - Living Situation & Occupation Living situation: Reports: with Family Occupation: Retired H&P Review of Systems - Review of Systems: Review Of Systems: See Below General: Reports: Fever, Chills, Malaise, Fatigue HEENT: Reports: No Symptoms. Denies: Headaches, Sinus Congestion, Sore Throat, Visual Changes Pulmonary: Reports: Shortness of Breath, Cough. Denies: Sputum, Hemoptysis Cardiovascular: Reports: No Symptoms. Denies: Chest Pain, Palpitations, Edema, Lightheadedness Gastrointestinal: Reports: No Symptoms. Denies: Abdominal Pain, Black Stool, Bloody Stool, Diarrhea, Decreased Appetite, Nausea, Vomiting Genitourinary: Reports: Dysuria, Frequency, Burning Musculoskeletal: Reports: No Symptoms Skin: Reports: Bruising (L hand, continues to heal) Psychiatric: Reports: No Symptoms Neurological: Reports: No Symptoms Hematologic/Lymphatic: Reports: No Symptoms Immunologic: Reports: No Symptoms Exam - Exam Exam: See Below - Vital Signs Vital Signs: Last Vital Signs Temp 97.4 F 01/25/19 10:32 Pulse 80 01/25/19 11:28 Resp 20 01/25/19 11:28 BP 106/48 L 01/25/19 11:28 Pulse Ox 94 L 01/25/19 11:28 Weight: 81.647 kg - Exam Quality Assessment: Supplemental Oxygen General: Alert, Oriented, Cooperative HEENT: Conjunctiva Clear, Mucosa Moist & [place], Posterior Pharynx Clear, Pupils Reactive Neck: Supple, Full Range of Motion (no nuchal rigidity) Lungs: Normal Respiratory Effort, Decreased Breath Sounds, Crackles (fine crackle bibasilar). No: Wheezing Cardiovascular: Regular Rate, Regular Rhythm GI/Abdominal Exam: Normal Bowel Sounds, Soft, Non-Tender, No Distention, No Mass Back Exam: Normal Inspection, Full Range of Motion Extremities: Normal Inspection, Normal Range of Motion, Non-Tender, No Pedal Edema, Normal Capillary Refill Skin: Ecchymosis (L hand bruising from previous lab poke, healing.) Neuro Extensive - Mental Status: Alert, Oriented x3 Neuro Extensive - Motor, Sensory, Reflexes: CN II-XII Intact Psychiatric: Alert, Normal Affect, Normal Mood - Patient Data Lab Results Last 24 hrs: Laboratory Results - last 24 hr 01/25/19 01/25/19 01/25/19 Range/Units 09:14 09:14 09:14 WBC 39.38 H (4.0-11.0) K/uL RBC 5.21 (4.30-5.90) M/uL Hgb 15.2 (12.0-16.0) g/dL Hct 44.8 (36.0-46.0) % MCV 86.0 (80.0-98.0) fL MCH 29.2 (27.0-32.0) pg MCHC 33.9 (31.0-37.0) g/dL RDW Std Deviation 41.1 (28.0-62.0) fl RDW Coeff of Samson 13 (11.0-15.0) % Plt Count 109 L (150-400) K/uL MPV 10.00 (7.40-12.00) fL Add Manual Diff YES Neutrophils % (Manual) 51 (48.0-80.0) % Band Neutrophils % 41 % Lymphocytes % (Manual) 1 L (16.0-40.0) % Monocytes % (Manual) 3 (0.0-15.0) % Eosinophils % (Manual) 2 (0.0-7.0) % Metamyelocytes % 2 % Nucleated RBC % 0.0 /100WBC Absolute Seg Neuts 20.1 H (1.4-5.7) Band Neutrophils # 16.1 Lymphocytes # (Manual) 0.4 L (0.6-2.4) Monocytes # (Manual) 1.2 H (0.0-0.8) Eosinophils # (Manual) 0.8 H (0.0-0.7) Absolute Metamyelocyte 0.8 Nucleated RBCs # 0 K/uL Vacuolated Monocytes MODERATE Platelet Estimate DECREASED D-Dimer, Quantitative 3.83 H (0.0-0.50) mg/L FEU Sodium 137 (136-145) mmol/L Potassium 4.0 (3.5-5.1) mmol/L Chloride 102 (98-107) mmol/L Carbon Dioxide 23.0 (21.0-32.0) mmol/L BUN 24 H (7.0-18.0) mg/dL Creatinine 1.4 H (0.6-1.0) mg/dL Est Cr Clr Drug Dosing TNP Estimated GFR (MDRD) 37.4 ml/min Glucose 101 (74-106) mg/dL Calcium 8.6 (8.5-10.1) mg/dL Total Bilirubin 0.6 (0.2-1.0) mg/dL AST 20 (15-37) IU/L ALT 28 (14-63) IU/L Alkaline Phosphatase 88 (46-116) U/L Troponin I < 0.050 (0.000-0.056) ng/mL Total Protein 6.3 L (6.4-8.2) g/dL Albumin 3.0 L (3.4-5.0) g/dL Globulin 3.3 (2.6-4.0) g/dL Albumin/Globulin Ratio 0.9 (0.9-1.6) Lipase 71 L (73-393) U/L Urine Color Urine Appearance Urine pH (5.0-8.0) Ur Specific [place] (1.001-1.035) Urine Protein (NEGATIVE) mg/dL Urine Glucose (UA) (NEGATIVE) mg/dL Urine Ketones (NEGATIVE) mg/dL Urine Occult Blood (NEGATIVE) Urine Nitrite (NEGATIVE) Urine Bilirubin (NEGATIVE) Urine Ictotest Urine Urobilinogen (<2.0) EU/dL Ur Leukocyte Esterase (NEGATIVE) Urine RBC (0-2/HPF) Urine WBC (0-5/HPF) Ur Epithelial Cells (NONE-FEW) Amorphous Sediment (NEGATIVE) Urine Bacteria (NEGATIVE) Urine Mucus (NONE-MOD) 01/25/19 Range/Units 10:15 WBC (4.0-11.0) K/uL RBC (4.30-5.90) M/uL Hgb (12.0-16.0) g/dL Hct (36.0-46.0) % MCV (80.0-98.0) fL MCH (27.0-32.0) pg MCHC (31.0-37.0) g/dL RDW Std Deviation (28.0-62.0) fl RDW Coeff of Samson (11.0-15.0) % Plt Count (150-400) K/uL MPV (7.40-12.00) fL Add Manual Diff Neutrophils % (Manual) (48.0-80.0) % Band Neutrophils % % Lymphocytes % (Manual) (16.0-40.0) % Monocytes % (Manual) (0.0-15.0) % Eosinophils % (Manual) (0.0-7.0) % Metamyelocytes % % Nucleated RBC % /100WBC Absolute Seg Neuts (1.4-5.7) Band Neutrophils # Lymphocytes # (Manual) (0.6-2.4) Monocytes # (Manual) (0.0-0.8) Eosinophils # (Manual) (0.0-0.7) Absolute Metamyelocyte Nucleated RBCs # K/uL Vacuolated Monocytes Platelet Estimate D-Dimer, Quantitative (0.0-0.50) mg/L FEU Sodium (136-145) mmol/L Potassium (3.5-5.1) mmol/L Chloride (98-107) mmol/L Carbon Dioxide (21.0-32.0) mmol/L BUN (7.0-18.0) mg/dL Creatinine (0.6-1.0) mg/dL Est Cr Clr Drug Dosing Estimated GFR (MDRD) ml/min Glucose (74-106) mg/dL Calcium (8.5-10.1) mg/dL Total Bilirubin (0.2-1.0) mg/dL AST (15-37) IU/L ALT (14-63) IU/L Alkaline Phosphatase (46-116) U/L Troponin I (0.000-0.056) ng/mL Total Protein (6.4-8.2) g/dL Albumin (3.4-5.0) g/dL Globulin (2.6-4.0) g/dL Albumin/Globulin Ratio (0.9-1.6) Lipase (73-393) U/L Urine Color YELLOW Urine Appearance CLEAR Urine pH 5.5 (5.0-8.0) Ur Specific [place] 1.015 (1.001-1.035) Urine Protein TRACE H (NEGATIVE) mg/dL Urine Glucose (UA) NEGATIVE (NEGATIVE) mg/dL Urine Ketones TRACE H (NEGATIVE) mg/dL Urine Occult Blood NEGATIVE (NEGATIVE) Urine Nitrite POSITIVE H (NEGATIVE) Urine Bilirubin SMALL H (NEGATIVE) Urine Ictotest POSITIVE Urine Urobilinogen 1.0 (<2.0) EU/dL Ur Leukocyte Esterase NEGATIVE (NEGATIVE) Urine RBC RARE (0-2/HPF) Urine WBC 2-4 (0-5/HPF) Ur Epithelial Cells MANY (NONE-FEW) Amorphous Sediment LIGHT (NEGATIVE) Urine Bacteria 1+ H (NEGATIVE) Urine Mucus MODERATE (NONE-MOD) Result Diagrams: 01/25/19 09:14 01/25/19 09:14 - Problem List (1) Acute respiratory failure with hypoxia SNOMED Code(s): 32238176, 717202959 ICD Code: J96.01 - ACUTE RESPIRATORY FAILURE WITH HYPOXIA Status: Acute Current Visit: Yes (2) Healthcare-associated pneumonia SNOMED Code(s): 639325141, 115270978 ICD Code: J18.9 - PNEUMONIA, UNSPECIFIED ORGANISM Status: Acute Current Visit: Yes (3) Dehydration SNOMED Code(s): 05376358 ICD Code: E86.0 - DEHYDRATION Status: Acute Priority: High Current Visit: No (4) Hypotension SNOMED Code(s): 15816327 ICD Code: I95.9 - HYPOTENSION, UNSPECIFIED Status: Acute Current Visit: Yes (5) DOROTHY (acute kidney injury) SNOMED Code(s): 78443195 ICD Code: N17.9 - ACUTE KIDNEY FAILURE, UNSPECIFIED Status: Acute Current Visit: Yes (6) Thrombocytopenia SNOMED Code(s): 577656591 ICD Code: D69.6 - THROMBOCYTOPENIA, UNSPECIFIED Status: Chronic Current Visit: No (7) HTN (hypertension) SNOMED Code(s): 34682669 ICD Code: I10 - ESSENTIAL (PRIMARY) HYPERTENSION Status: Chronic Current Visit: Yes Qualifiers: Hypertension type: essential hypertension Qualified Code(s): I10 - Essential (primary) hypertension Problem List Initiated/Reviewed/Updated: Yes Orders Last 24hrs: Active Orders 24 hr Category Date Time Status Admission Status [Patient Status] [ADT] Stat ADT 01/25/19 12:07 Active EKG Documentation Completion [RC] STAT Care 01/25/19 09:13 Active Intake and Output [RC] QSHIFT Care 01/25/19 13:22 Ordered May Shower [RC] ASDIRECTED Care 01/25/19 13:21 Ordered Oxygen Therapy [RC] PRN Care 01/25/19 13:21 Ordered RT Aerosol Therapy [RC] ASDIRECTED Care 01/25/19 13:23 Ordered RT Incentive Spirometry [RC] Q2HWA Care 01/25/19 13:21 Ordered Up ad Rose [RC] ASDIRECTED Care 01/25/19 13:21 Ordered VTE/DVT Education [RC] PER UNIT ROUTINE Care 01/25/19 13:21 Ordered Vital Signs [RC] Q4H Care 01/25/19 13:21 Ordered Respiratory Care Assess and Treatment [CONS] Routine Cons 01/25/19 13:21 Ordered Regular Diet [DIET] Diet 01/25/19 Lunch Ordered BASIC METABOLIC PANEL,BMP [CHEM] AM Lab 01/26/19 05:11 Ordered BASIC METABOLIC PANEL,BMP [CHEM] AM Lab 01/27/19 05:11 Ordered BASIC METABOLIC PANEL,BMP [CHEM] AM Lab 01/28/19 05:11 Ordered CBC WITH AUTO DIFF [HEME] AM Lab 01/26/19 05:11 Ordered CBC WITH AUTO DIFF [HEME] AM Lab 01/27/19 05:11 Ordered CBC WITH AUTO DIFF [HEME] AM Lab 01/28/19 05:11 Ordered CULTURE BLOOD [BC] Stat Lab 01/25/19 09:22 Received CULTURE BLOOD [BC] Stat Lab 01/25/19 09:23 Received CULTURE SPUTUM + SMEAR [RM] Stat Lab 01/25/19 13:21 Ordered CULTURE URINE [RM] Stat Lab 01/25/19 10:15 Received Acetaminophen [Tylenol] Med 01/25/19 13:21 Ordered 650 mg PO Q4H PRN Albuterol/Ipratropium [DuoNeb 3.0-0.5 MG/3 ML] Med 01/25/19 13:21 Ordered 3 ml NEB Q4HRRT PRN Desvenlafaxine [Desvenlafaxine ER] Med 01/26/19 09:00 Ordered 1 tab PO DAILY Fluticasone Propionate [Flonase Allergy Relief] Med 01/25/19 21:00 Ordered 1 spray RONDA BID Meropenem [Merrem] 1 gm Med 01/25/19 13:30 Ordered Sodium Chloride 0.9% [Normal Saline] 100 ml IV Q8H Ondansetron [Zofran] Med 01/25/19 13:21 Ordered 4 mg IVPUSH Q4H PRN Sodium Chloride 0.9% [Normal Saline] 1,000 ml Med 01/25/19 09:15 Active IV STAT Zolpidem Med 01/25/19 13:27 Ordered 5 mg PO ASDIRECTED PRN traMADol [Ultram] Med 01/25/19 18:00 Ordered 50 mg PO QID Blood Culture x2 Reflex Set [OM.PC] Stat Oth 01/25/19 09:15 Ordered Resuscitation Status Routine Resus Stat 01/25/19 13:21 Ordered Medication Orders Acetaminophen (Tylenol) 650 mg PO Q4H PRN PRN Reason: Pain (mild 1-3) Albuterol/Ipratropium (Duoneb 3.0-0.5 Mg/3 Ml) 3 ml NEB Q4HRRT PRN PRN Reason: Shortness Of Breath/wheezing Sodium Chloride (Normal Saline) 1,000 mls @ 125 mls/hr IV STAT TAY Last Admin: 01/25/19 09:27 Dose: 125 mls/hr Meropenem 1 gm/ Sodium (Chloride) 100 mls @ 200 mls/hr IV Q8H TAY Non-Formulary Medication (Desvenlafaxine [Desvenlafaxine Er]) 1 tab PO DAILY TAY Non-Formulary Medication (Fluticasone Propionate [Flonase Allergy Relief]) 1 spray RONDA BID TAY Non-Formulary Medication (Zolpidem) 5 mg PO ASDIRECTED PRN PRN Reason: Sleep Ondansetron HCl (Zofran) 4 mg IVPUSH Q4H PRN PRN Reason: Nausea Tramadol HCl (Ultram) 50 mg PO QID [facility] Assessment/Plan Comment:: This 68 year old female admitted with acute hypoxic respiratory failure and health care associated pneumonia 1. Acute hypoxic respiratory failure: Continue oxygen therapy. Stable currently on High flow NC. Nebulizers PRN, IS. Denies lung disease such as asthma, COPD or inhalation injury. 2. HCAP: Was treated with Zosyn last admission and sent home on Augmentin. Will start Meropenem 1 g every 8 hours and Vancomycin. BC pending. Sputum culture to be obtained 3. UTI: Sample has many epithelial cells, UC pending. Meropenem will cover as well. Monitor 4. DOROTHY: likely secondary to dehydration. NS 125 for now. monitor labwork in am. 5. Hypotension: related to dehydration, Hold antihypertensives. She reports she has not taken Losartan since discharge and reports BPs at home have been 130 SBP unsure of diastolic and HR in the 70s. 6. Thrombocytopenia: baseline is near 80,000. Will monitor with hydration. Again , work up with Dr Fowler. She reports bone marrow biopsy showed nothing. She is seeking a 2nd opinion per her report. VTE prophyalxis: No pharmacologic due to thrombocytopenia. SCDs and ambulation Dispo: 2-3 days pending improvement. Code Status: FULL CODE <Nabor Lee - Last Filed: 01/26/19 15:41> H&P History of Present Illness - General Admit Problem/Dx: Admission Diagnosis/Problem Admission Diagnosis/Problem Hypoxia - History of Present Illness Initial Comments - Free Text/Narative: I have seen and examined the patient independently of Marisela Rodriguez CNP. I have discussed the case with her. I have reviewed and agreed with the plan of treatment as outlined for this patient by her. Please see orders. Bilateral Foot Pain Score (Numeric/FACES): 2 Exam - Vital Signs Vital Signs: Last Vital Signs Temp 36.7 C 01/26/19 15:40 Pulse 83 01/26/19 15:40 Resp 16 01/26/19 15:40 BP 125/72 01/26/19 15:40 Pulse Ox 96 01/26/19 15:40 - Patient Data Lab Results Last 24 hrs: Laboratory Results - last 24 hr 01/26/19 01/26/19 Range/Units 05:00 05:00 WBC 41.82 H (4.0-11.0) K/uL RBC 4.22 L (4.30-5.90) M/uL Hgb 12.0 (12.0-16.0) g/dL Hct 36.4 (36.0-46.0) % MCV 86.3 (80.0-98.0) fL MCH 28.4 (27.0-32.0) pg MCHC 33.0 (31.0-37.0) g/dL RDW Std Deviation 42.5 (28.0-62.0) fl RDW Coeff of Samson 14 (11.0-15.0) % Plt Count 96 L (150-400) K/uL MPV 10.20 (7.40-12.00) fL Add Manual Diff YES Neutrophils % (Manual) 76 (48.0-80.0) % Band Neutrophils % 14 % Lymphocytes % (Manual) 9 L (16.0-40.0) % Eosinophils % (Manual) 1 (0.0-7.0) % Nucleated RBC % 0.0 /100WBC Absolute Seg Neuts 31.8 H (1.4-5.7) Band Neutrophils # 5.9 Lymphocytes # (Manual) 3.8 H (0.6-2.4) Eosinophils # (Manual) 0.4 (0.0-0.7) Nucleated RBCs # 0 K/uL Sodium 141 (136-145) mmol/L Potassium 4.4 (3.5-5.1) mmol/L Chloride 109 H (98-107) mmol/L Carbon Dioxide 22.2 (21.0-32.0) mmol/L BUN 26 H (7.0-18.0) mg/dL Creatinine 1.0 (0.6-1.0) mg/dL Est Cr Clr Drug Dosing 50.41 mL/min Estimated GFR (MDRD) 55.1 ml/min Glucose 168 H (74-106) mg/dL Calcium 8.1 L (8.5-10.1) mg/dL Result Diagrams: 01/26/19 05:00 01/26/19 05:00 Michael Results Last 24 hrs: Microbiology 01/25/19 09:23 Aerobic Blood Culture - Preliminary Blood - Venous - Lab Draw NO GROWTH AFTER 1 DAY Anaerobic Blood Culture - Preliminary NO GROWTH AFTER 1 DAY 01/25/19 09:22 Aerobic Blood Culture - Preliminary Blood - Venous NO GROWTH AFTER 1 DAY Anaerobic Blood Culture - Preliminary NO GROWTH AFTER 1 DAY Orders Last 24hrs: Active Orders 24 hr Category Date Time Status BASIC METABOLIC PANEL,BMP [CHEM] AM Lab 01/27/19 05:11 Ordered BASIC METABOLIC PANEL,BMP [CHEM] AM Lab 01/28/19 05:11 Ordered CBC WITH AUTO DIFF [HEME] AM Lab 01/27/19 05:11 Ordered CBC WITH AUTO DIFF [HEME] AM Lab 01/28/19 05:11 Ordered VANCOMYCIN TROUGH [CHEM] Routine Lab 01/27/19 01:30 Ordered Fluticasone Propionate [Flonase] Med 01/25/19 21:00 Active 0 gm RONDA BID Nicotine [Habitrol] Med 01/25/19 20:45 Active 14 mg TRDERM DAILY Patient's Own Medication [Ptom] Med 01/26/19 09:00 Active 1 each PO DAILY Patient's Own Medication [Ptom] Med 01/26/19 18:00 Active 1 each TOP QID PRN Medication Orders Acetaminophen (Tylenol) 650 mg PO Q4H PRN PRN Reason: Pain (mild 1-3) Last Admin: 01/25/19 18:43 Dose: 650 mg Albuterol/Ipratropium (Duoneb 3.0-0.5 Mg/3 Ml) 3 ml NEB Q4HRRT PRN PRN Reason: Shortness Of Breath/wheezing Last Admin: 01/26/19 09:08 Dose: 3 ml Admin: 01/25/19 20:19 Dose: 3 ml Fluticasone Propionate (Flonase) 0 gm RONDA BID [facility] Last Admin: 01/26/19 08:59 Dose: 1 spray Admin: 01/25/19 20:18 Dose: 1 spray Meropenem 1 gm/ Sodium (Chloride) 100 mls @ 200 mls/hr IV Q8H [facility] Last Admin: 01/26/19 14:18 Dose: 200 mls/hr Infusion: 01/26/19 05:40 Dose: 200 mls/hr Admin: 01/26/19 05:10 Dose: 200 mls/hr Infusion: 01/25/19 21:49 Dose: 200 mls/hr Admin: 01/25/19 21:19 Dose: 200 mls/hr Infusion: 01/25/19 14:56 Dose: 200 mls/hr Admin: 01/25/19 14:26 Dose: 200 mls/hr Sodium Chloride (Normal Saline) 1,000 mls @ 125 mls/hr IV ASDIRECTED [facility] Last Admin: 01/26/19 10:14 Dose: 125 mls/hr Infusion: 01/26/19 08:05 Dose: 125 mls/hr Admin: 01/26/19 00:05 Dose: 125 mls/hr Infusion: 01/25/19 22:29 Dose: 125 mls/hr Admin: 01/25/19 14:29 Dose: 125 mls/hr Vancomycin HCl 1.25 gm/ Sodium (Chloride) 250 mls @ 166.667 mls/hr IV Q12H [facility] Last Admin: 01/26/19 15:00 Dose: 166.667 mls/hr Infusion: 01/26/19 04:55 Dose: 166.667 mls/hr Admin: 01/26/19 03:25 Dose: 166.667 mls/hr Infusion: 01/25/19 16:45 Dose: 166.667 mls/hr Admin: 01/25/19 15:15 Dose: 166.667 mls/hr Nicotine (Habitrol) 14 mg TRDERM DAILY [facility] Last Admin: 01/26/19 08:58 Dose: 14 mg Admin: 01/25/19 21:18 Dose: 14 mg Ondansetron HCl (Zofran) 4 mg IVPUSH Q4H PRN PRN Reason: Nausea Desvenlafaxine [ Desvenlafaxine Er] 1 Tab 1 each PO DAILY [facility] Last Admin: 01/26/19 09:00 Dose: 1 each Zolpidem 5 Mg 1 each PO ASDIRECTED PRN PRN Reason: Sleep Last Admin: 01/26/19 00:04 Dose: 1 each Diclofenac Sodium 1% (Gel) 1 each TOP QID PRN PRN Reason: neuropathy Tramadol HCl (Ultram) 50 mg PO QID PRN PRN Reason: Pain Last Admin: 01/26/19 14:20 Dose: 50 mg Admin: 01/26/19 00:59 Dose: 50 mg Admin: 01/25/19 14:46 Dose: 50 mg Vancomycin HCl (Pharmacy To Dose - Vancomycin) 1 dose .XX ASDIRECTED [facility]
[2019-01-25] MEDS: Meropenem 1 GM in Sodium Chloride 0.9% 100 ML IV SCH ×2 (14:26→21:19)
[2019-01-25] MEDS: Sodium Chloride 0.9% 1,000 ML IV SCH (14:29)
[2019-01-25] MEDS: traMADol 50 MG Tab PO PRN (14:46)
[2019-01-25] MEDS ORDERED: traMADol 50 MG Tab PO SCH (18:00)
[2019-01-25] MEDS: Acetaminophen 325 MG Tab PO PRN (18:43)
[2019-01-25] MEDS ORDERED: Non-Formulary Medication 1 Each (Diclofenac Sodium 1 APPLIC) TOP PRN (19:47)
[2019-01-25] MEDS: Fluticasone Propionate Nasal Spray 16 GM Bottle NAS SCH (20:18)
[2019-01-25] MEDS: Albuterol/Ipratropium 3.0-0.5 MG/3 ML Neb Soln NEB PRN (20:19)
[2019-01-25] MEDS: Nicotine 14 MG/24 Hr Patch TRDERM SCH (21:18)
[2019-01-26] MEDS: Sodium Chloride 0.9% 1,000 ML IV SCH ×3 (00:05→20:52)
[2019-01-26] MEDS: traMADol 50 MG Tab PO PRN ×3 (00:59→20:05)
[2019-01-26] MEDS: Meropenem 1 GM in Sodium Chloride 0.9% 100 ML IV SCH ×3 (05:10→21:23)
[2019-01-26] MEDS: Nicotine 14 MG/24 Hr Patch TRDERM SCH (08:58)
[2019-01-26] MEDS: Fluticasone Propionate Nasal Spray 16 GM Bottle NAS SCH ×2 (08:59→20:05)
[2019-01-26] MEDS: DESVENLAFAXINE PO SCH (09:00)
[2019-01-26] MEDS: Albuterol/Ipratropium 3.0-0.5 MG/3 ML Neb Soln NEB PRN (09:08)
--- NOTE | 2019-01-26 11:22 | PCM.PN ---
- General Info Date of Service: 01/26/19 Admission Dx/Problem (Free Text): Admission Diagnosis/Problem Admission Diagnosis/Problem Hypoxia Subjective Update: The patient is a 68-year-old lady who had been admitted yesterday secondary to pneumonia. He also had a history of thrombocytopenia, hypertension and previous C. difficile infection. The patient had presented to the emergency department and was subsequently admitted as inpatient. The patient was discharged approximately one week ago with antibiotics. Today the patient says that she is feeling much better than she was yesterday and has denied any shortness of breath. She is also denied any fever or chills. The patient also says that she has been able to get some rest. She has denied any chest pain. She is also concerned about her history of chronic urinary tract infections. Functional Status: Reports: Pain Controlled - Review of Systems General: Reports: No Symptoms HEENT: Reports: No Symptoms Pulmonary: Reports: No Symptoms Cardiovascular: Reports: No Symptoms Gastrointestinal: Reports: No Symptoms Genitourinary: Reports: No Symptoms Musculoskeletal: Reports: No Symptoms Skin: Reports: No Symptoms Neurological: Reports: No Symptoms Psychiatric: Reports: No Symptoms - Patient Data Vitals - Most Recent: Last Vital Signs Temp 36.0 C 01/26/19 07:30 Pulse 79 01/26/19 07:30 Resp 14 01/26/19 07:30 BP 94/50 L 01/26/19 07:30 Pulse Ox 94 L 01/26/19 07:30 Weight - Most Recent: 81.647 kg I&O - Last 24 Hours: Intake & Output 01/25/19 01/26/19 01/26/19 22:59 06:59 14:59 Intake Total 664 2173 Output Total 1080 Balance 664 1093 Lab Results Last 24 Hours: Laboratory Results - last 24 hr 01/26/19 01/26/19 Range/Units 05:00 05:00 WBC 41.82 H (4.0-11.0) K/uL RBC 4.22 L (4.30-5.90) M/uL Hgb 12.0 (12.0-16.0) g/dL Hct 36.4 (36.0-46.0) % MCV 86.3 (80.0-98.0) fL MCH 28.4 (27.0-32.0) pg MCHC 33.0 (31.0-37.0) g/dL RDW Std Deviation 42.5 (28.0-62.0) fl RDW Coeff of Samson 14 (11.0-15.0) % Plt Count 96 L (150-400) K/uL MPV 10.20 (7.40-12.00) fL Add Manual Diff YES Neutrophils % (Manual) 76 (48.0-80.0) % Band Neutrophils % 14 % Lymphocytes % (Manual) 9 L (16.0-40.0) % Eosinophils % (Manual) 1 (0.0-7.0) % Nucleated RBC % 0.0 /100WBC Absolute Seg Neuts 31.8 H (1.4-5.7) Band Neutrophils # 5.9 Lymphocytes # (Manual) 3.8 H (0.6-2.4) Eosinophils # (Manual) 0.4 (0.0-0.7) Nucleated RBCs # 0 K/uL Sodium 141 (136-145) mmol/L Potassium 4.4 (3.5-5.1) mmol/L Chloride 109 H (98-107) mmol/L Carbon Dioxide 22.2 (21.0-32.0) mmol/L BUN 26 H (7.0-18.0) mg/dL Creatinine 1.0 (0.6-1.0) mg/dL Est Cr Clr Drug Dosing 50.41 mL/min Estimated GFR (MDRD) 55.1 ml/min Glucose 168 H (74-106) mg/dL Calcium 8.1 L (8.5-10.1) mg/dL Michael Results Last 24 Hours: Microbiology 01/25/19 09:23 Aerobic Blood Culture - Preliminary Blood - Venous - Lab Draw NO GROWTH AFTER 1 DAY Anaerobic Blood Culture - Preliminary NO GROWTH AFTER 1 DAY 01/25/19 09:22 Aerobic Blood Culture - Preliminary Blood - Venous NO GROWTH AFTER 1 DAY Anaerobic Blood Culture - Preliminary NO GROWTH AFTER 1 DAY Med Orders - Current: Current Medications Acetaminophen (Tylenol) 650 mg PO Q4H PRN PRN Reason: Pain (mild 1-3) Last Admin: 01/25/19 18:43 Dose: 650 mg Albuterol/Ipratropium (Duoneb 3.0-0.5 Mg/3 Ml) 3 ml NEB Q4HRRT PRN PRN Reason: Shortness Of Breath/wheezing Last Admin: 01/26/19 09:08 Dose: 3 ml Fluticasone Propionate (Flonase) 0 gm RONDA BID TAY Last Admin: 01/26/19 08:59 Dose: 1 spray Meropenem 1 gm/ Sodium (Chloride) 100 mls @ 200 mls/hr IV Q8H [facility]AY Last Admin: 01/26/19 05:10 Dose: 200 mls/hr Sodium Chloride (Normal Saline) 1,000 mls @ 125 mls/hr IV ASDIRECTED [facility] Last Admin: 01/26/19 10:14 Dose: 125 mls/hr Vancomycin HCl 1.25 gm/ Sodium (Chloride) 250 mls @ 166.667 mls/hr IV Q12H [facility] Last Admin: 01/26/19 03:25 Dose: 166.667 mls/hr Nicotine (Habitrol) 14 mg TRDERM DAILY [facility] Last Admin: 01/26/19 08:58 Dose: 14 mg Non-Formulary Medication (Diclofenac Sodium) 1 gram TOP BID PRN PRN Reason: neuropathy Ondansetron HCl (Zofran) 4 mg IVPUSH Q4H PRN PRN Reason: Nausea Desvenlafaxine [ Desvenlafaxine Er] 1 Tab 1 each PO DAILY [facility] Last Admin: 01/26/19 09:00 Dose: 1 each Zolpidem 5 Mg 1 each PO ASDIRECTED PRN PRN Reason: Sleep Last Admin: 01/26/19 00:04 Dose: 1 each Tramadol HCl (Ultram) 50 mg PO QID PRN PRN Reason: Pain Last Admin: 01/26/19 00:59 Dose: 50 mg Vancomycin HCl (Pharmacy To Dose - Vancomycin) 1 dose .XX ASDIRECTED [facility] Discontinued Medications Sodium Chloride (Normal Saline) 1,000 mls @ 125 mls/hr IV STAT [facility] Last Admin: 01/25/19 09:27 Dose: 125 mls/hr Piperacillin Sod/Tazobactam (Sod 3.375 gm/ Sodium Chloride) 50 mls @ 100 mls/ hr IV ONETIME ONE Stop: 01/25/19 09:53 Last Admin: 01/25/19 09:44 Dose: 100 mls/hr Meropenem 1 gm/ Sodium (Chloride) 100 mls @ 200 mls/hr IV Q8H [facility] Last Admin: 01/25/19 14:31 Dose: Not Given Iopamidol (Isovue Multipack-370 (76%)) 100 ml IVPUSH ONETIME STA Stop: 01/25/19 11:28 Last Admin: 01/25/19 11:28 Dose: 40 ml Ketorolac Tromethamine (Toradol) 30 mg IVPUSH ONETIME ONE Stop: 01/25/19 10:31 Last Admin: 01/25/19 10:36 Dose: 30 mg Methylprednisolone Sodium Succinate (Solu-Medrol) 125 mg IVPUSH ONETIME ONE Stop: 01/25/19 09:11 Last Admin: 01/25/19 09:27 Dose: 125 mg Non-Formulary Medication (Diclofenac Sodium) 1 applic TOP BID PRN PRN Reason: neuropathy Tramadol HCl (Ultram) 50 mg PO QID TAY - Exam Quality Assessment: No: Supplemental Oxygen General: Alert, Oriented, Cooperative, No Acute Distress HEENT: Pupils Equal, Pupils Reactive, EOMI. No: Mucous Membr. Moist/Burwell (Dry) Neck: Supple, Trachea Midline Lungs: Normal Respiratory Effort, Rales (Bibasilar) Cardiovascular: Regular Rate, Regular Rhythm GI/Abdominal Exam: Normal Bowel Sounds, Soft, No Distention (Female) Exam: Deferred Back Exam: Normal Inspection, Full Range of Motion Extremities: Normal Inspection, Normal Range of Motion, No Pedal Edema Skin: Warm, Dry, Intact Neurological: No New Focal Deficit Psy/Mental Status: Alert, Normal Affect, Normal Mood - Problem List & Annotations (1) Acute respiratory failure with hypoxia SNOMED Code(s): 14547045, 021855238 Code(s): J96.01 - ACUTE RESPIRATORY FAILURE WITH HYPOXIA Status: Resolved Priority: High Current Visit: Yes (2) Healthcare-associated pneumonia SNOMED Code(s): 013311077, 122913579 Code(s): J18.9 - PNEUMONIA, UNSPECIFIED ORGANISM Status: Acute Priority: High Current Visit: Yes (3) Hypotension SNOMED Code(s): 71273281 Code(s): I95.9 - HYPOTENSION, UNSPECIFIED Status: Resolved Current Visit : Yes Qualifiers: Hypotension type: orthostatic hypotension Qualified Code(s): I95.1 - Orthostatic hypotension (4) UTI, Urinary tract infectious disease SNOMED Code(s): 05535864 Code(s): N39.0 - URINARY TRACT INFECTION, SITE NOT SPECIFIED Status: Chronic Priority: Medium Current Visit: No - Problem List Review Problem List Initiated/Reviewed/Updated: Yes - My Orders Last 24 Hours: My Active Orders 01/25/19 14:30 Vancomycin 1.25 gm Sodium Chloride 0.9% [Normal Saline] 250 ml IV Q12H 01/25/19 20:45 Nicotine [Habitrol] 14 mg TRDERM DAILY 01/26/19 02:37 Diclofenac Sodium 1 gram TOP BID PRN 01/27/19 01:30 VANCOMYCIN TROUGH [CHEM] Routine - Plan Plan:: The patient is a 68-year-old lady who had been admitted secondary to acute hypoxic respiratory failure. The hypoxic respiratory failure has resolved. She is currently on room air. She will continue to be monitored for recurrence of her hypoxia. Also, the patient will be kept on her current antibiotics consisting of meropenem and vancomycin and his antibiotics will be descalated depending on cultures. She has been encouraged to ambulate. She will also be on SCD's for DVT prophylaxis and she has a history of thrombocytopenia which is chronic. She will be kept on her current diet as tolerated. I suspect discharge in 1-2 days. The patient also is on antibiotics which should take care of any sign of urinary tract infection as well. She'll likely need to have close follow -up with urology and/or primary care physician with regards to her chronic urinary tract infections. Repeat laboratory studies have been ordered.
[2019-01-27] MEDS: Meropenem 1 GM in Sodium Chloride 0.9% 100 ML IV SCH ×3 (05:09→22:17)
[2019-01-27] MEDS: Sodium Chloride 0.9% 1,000 ML IV SCH ×2 (05:13→14:19)
--- NOTE | 2019-01-27 06:40 | PCM.PN ---
- General Info Date of Service: 01/27/19 Admission Dx/Problem (Free Text): Admission Diagnosis/Problem Admission Diagnosis/Problem Hypoxia, UTI, PNA Subjective Update: The patient is a 68-year-old lady who had been admitted to acute hospitalization secondary to pneumonia. She has been doing much better today. The patient says that she has been breathing better. She feels like she can go home. The patient has denied any pain. No fever or chills. Her daughter is with her. The patient is still primarily concerned about chronic urinary tract infections and she is currently on antibiotics for that. Functional Status: Reports: Pain Controlled - Review of Systems General: Reports: No Symptoms HEENT: Reports: No Symptoms Pulmonary: Reports: No Symptoms Cardiovascular: Reports: No Symptoms Gastrointestinal: Reports: No Symptoms Genitourinary: Reports: No Symptoms Musculoskeletal: Reports: No Symptoms Skin: Reports: No Symptoms Neurological: Reports: No Symptoms Psychiatric: Reports: No Symptoms - Patient Data Vitals - Most Recent: Last Vital Signs Temp 36.4 C 01/27/19 03:08 Pulse 65 01/27/19 03:08 Resp 16 01/27/19 03:08 BP 123/74 01/27/19 03:08 Pulse Ox 91 L 01/27/19 03:08 Weight - Most Recent: 81.647 kg I&O - Last 24 Hours: Intake & Output 01/26/19 01/26/19 01/27/19 14:59 22:59 06:59 Intake Total 100 2096 1498 Output Total 1450 Balance 734 099 6393 Lab Results Last 24 Hours: Laboratory Results - last 24 hr 01/26/19 01/27/19 01/27/19 Range/Units 05:04 01:29 06:08 Smear Path Review SENT TO PATHOLOGY Sodium 145 (136-145) mmol/L Potassium 4.0 (3.5-5.1) mmol/L Chloride 111 H (98-107) mmol/L Carbon Dioxide 25.3 (21.0-32.0) mmol/L BUN 17 (7.0-18.0) mg/dL Creatinine 1.0 (0.6-1.0) mg/dL Est Cr Clr Drug Dosing 50.41 mL/min Estimated GFR (MDRD) 55.1 ml/min Glucose 93 (74-106) mg/dL Calcium 7.5 L (8.5-10.1) mg/dL Vancomycin Trough 14.9 H (5.0-10.0) ug/mL Michael Results Last 24 Hours: Microbiology 01/25/19 09:23 Aerobic Blood Culture - Preliminary Blood - Venous - Lab Draw NO GROWTH AFTER 1 DAY Anaerobic Blood Culture - Preliminary NO GROWTH AFTER 1 DAY 01/25/19 09:22 Aerobic Blood Culture - Preliminary Blood - Venous NO GROWTH AFTER 1 DAY Anaerobic Blood Culture - Preliminary NO GROWTH AFTER 1 DAY Med Orders - Current: Current Medications Acetaminophen (Tylenol) 650 mg PO Q4H PRN PRN Reason: Pain (mild 1-3) Last Admin: 01/25/19 18:43 Dose: 650 mg Albuterol/Ipratropium (Duoneb 3.0-0.5 Mg/3 Ml) 3 ml NEB Q4HRRT PRN PRN Reason: Shortness Of Breath/wheezing Last Admin: 01/26/19 09:08 Dose: 3 ml Fluticasone Propionate (Flonase) 0 gm RONDA BID [facility] Last Admin: 01/26/19 20:05 Dose: 1 spray Meropenem 1 gm/ Sodium (Chloride) 100 mls @ 200 mls/hr IV Q8H [facility] Last Admin: 01/27/19 05:09 Dose: 200 mls/hr Sodium Chloride (Normal Saline) 1,000 mls @ 125 mls/hr IV ASDIRECTED [facility] Last Admin: 01/27/19 05:13 Dose: 125 mls/hr Vancomycin HCl 1.25 gm/ Sodium (Chloride) 250 mls @ 166.667 mls/hr IV Q12H [facility] Last Admin: 01/27/19 03:06 Dose: 166.667 mls/hr Nicotine (Habitrol) 14 mg TRDERM DAILY [facility] Last Admin: 01/26/19 08:58 Dose: 14 mg Ondansetron HCl (Zofran) 4 mg IVPUSH Q4H PRN PRN Reason: Nausea Desvenlafaxine [ Desvenlafaxine Er] 1 Tab 1 each PO DAILY [facility] Last Admin: 01/26/19 09:00 Dose: 1 each Zolpidem 5 Mg 1 each PO ASDIRECTED PRN PRN Reason: Sleep Last Admin: 01/26/19 23:01 Dose: 1 each Diclofenac Sodium 1% (Gel) 1 each TOP QID PRN PRN Reason: neuropathy Tramadol HCl (Ultram) 50 mg PO QID PRN PRN Reason: Pain Last Admin: 01/26/19 20:05 Dose: 50 mg Vancomycin HCl (Pharmacy To Dose - Vancomycin) 1 dose .XX ASDIRECTED [facility] Discontinued Medications Sodium Chloride (Normal Saline) 1,000 mls @ 125 mls/hr IV STAT [facility] Last Admin: 01/25/19 09:27 Dose: 125 mls/hr Piperacillin Sod/Tazobactam (Sod 3.375 gm/ Sodium Chloride) 50 mls @ 100 mls/ hr IV ONETIME ONE Stop: 01/25/19 09:53 Last Admin: 01/25/19 09:44 Dose: 100 mls/hr Meropenem 1 gm/ Sodium (Chloride) 100 mls @ 200 mls/hr IV Q8H [facility] Last Admin: 01/25/19 14:31 Dose: Not Given Iopamidol (Isovue Multipack-370 (76%)) 100 ml IVPUSH ONETIME STA Stop: 01/25/19 11:28 Last Admin: 01/25/19 11:28 Dose: 40 ml Ketorolac Tromethamine (Toradol) 30 mg IVPUSH ONETIME ONE Stop: 01/25/19 10:31 Last Admin: 01/25/19 10:36 Dose: 30 mg Methylprednisolone Sodium Succinate (Solu-Medrol) 125 mg IVPUSH ONETIME ONE Stop: 01/25/19 09:11 Last Admin: 01/25/19 09:27 Dose: 125 mg Non-Formulary Medication (Diclofenac Sodium) 1 applic TOP BID PRN PRN Reason: neuropathy Tramadol HCl (Ultram) 50 mg PO QID [facility] - Exam Quality Assessment: No: Supplemental Oxygen General: Alert, Oriented, Cooperative, No Acute Distress HEENT: Pupils Equal, Pupils Reactive, EOMI, Mucous Membr. Moist/Marie Neck: Supple, Trachea Midline Lungs: Clear to Auscultation, Normal Respiratory Effort Cardiovascular: Regular Rate, Regular Rhythm GI/Abdominal Exam: Normal Bowel Sounds, Soft, Non-Tender, No Distention (Female) Exam: Deferred Back Exam: Normal Inspection, Full Range of Motion Extremities: Normal Inspection, Normal Range of Motion, No Pedal Edema Skin: Warm, Dry, Intact Neurological: No New Focal Deficit Psy/Mental Status: Alert, Normal Affect, Normal Mood - Problem List & Annotations (1) UTI, Urinary tract infectious disease SNOMED Code(s): 95945376 Code(s): N39.0 - URINARY TRACT INFECTION, SITE NOT SPECIFIED Status: Chronic Priority: Medium Current Visit: Yes (2) Acute respiratory failure with hypoxia SNOMED Code(s): 97128464, 831657001 Code(s): J96.01 - ACUTE RESPIRATORY FAILURE WITH HYPOXIA Status: Resolved Priority: High Current Visit: Yes (3) Healthcare-associated pneumonia SNOMED Code(s): 159352362, 822361683 Code(s): J18.9 - PNEUMONIA, UNSPECIFIED ORGANISM Status: Resolved Priority: High Current Visit: Yes (4) Hypotension SNOMED Code(s): 01414898 Code(s): I95.9 - HYPOTENSION, UNSPECIFIED Status: Resolved Current Visit : Yes Qualifiers: Hypotension type: orthostatic hypotension Qualified Code(s): I95.1 - Orthostatic hypotension - Problem List Review Problem List Initiated/Reviewed/Updated: Yes - My Orders Last 24 Hours: My Active Orders 01/26/19 18:00 Patient's Own Medication [Ptom] 1 each TOP QID PRN - Plan Plan:: The patient is a 68-year-old lady who had been admitted secondary to acute hypoxic respiratory failure. This is improved. The patient is concerned with regards to chronic urinary tract infection and her microbiology has grown out Enterobacter cloacae which is sensitive to multiple antibiotics. Patient unfortunately has allergies to most of the antibiotics which should be appropriate for this bacteria. For now the patient we continued on meropenem for now as she has been tolerating this antibiotic well. The patient is currently not on oxygen but she will have her vital signs monitored every shift. The patient did have marked leukocytosis and is currently pending a review of her peripheral blood smear. The patient will be discharged once her white blood cell count is normalized. The patient has also been recommended to continue with high doses of vitamin C to help prevent urinary tract infections. She should be appropriate for discharge tomorrow.
[2019-01-27] MEDS: Nicotine 14 MG/24 Hr Patch TRDERM SCH (09:07)
[2019-01-27] MEDS: Fluticasone Propionate Nasal Spray 16 GM Bottle NAS SCH ×2 (09:07→20:29)
[2019-01-27] MEDS: DESVENLAFAXINE PO SCH (09:08)
[2019-01-27] MEDS: traMADol 50 MG Tab PO PRN (19:12)
[2019-01-27] MEDS: Acetaminophen 325 MG Tab PO PRN (20:26)
[2019-01-28] MEDS: traMADol 50 MG Tab PO PRN (02:18)
[2019-01-28] MEDS: Sodium Chloride 0.9% 1,000 ML IV SCH (02:21)
[2019-01-28] MEDS: Meropenem 1 GM in Sodium Chloride 0.9% 100 ML IV SCH (05:51)
[2019-01-28 06:46] LABS: CHLORIDE,CL 108 mmol/L (98-107); SODIUM,NA 143 mmol/L (136-145)
[2019-01-28] MEDS: Nicotine 14 MG/24 Hr Patch TRDERM SCH (09:43)
[2019-01-28] MEDS: DESVENLAFAXINE PO SCH (09:45)
[2019-01-28] MEDS: Fluticasone Propionate Nasal Spray 16 GM Bottle NAS SCH (09:46)
[2019-01-28 09:48] VITALS: BP 152/58
--- NOTE | 2019-01-28 10:35 | PCM.DCSUM1 ---
Discharge Summary - Hospital Course HPI Initial Comments: Admitted secondary to respiratory failure and chronic urinary tract infection. Diagnosis: Stroke: No - Discharge Data Discharge Date: 01/28/19 Discharge Disposition: Home, Self-Care 01 Condition: Good - Discharge Diagnosis/Problem(s) (1) UTI, Urinary tract infectious disease SNOMED Code(s): 72490221 ICD Code: N39.0 - URINARY TRACT INFECTION, SITE NOT SPECIFIED Status: Chronic Priority: Medium (2) Acute respiratory failure with hypoxia SNOMED Code(s): 64668209, 452302317 ICD Code: J96.01 - ACUTE RESPIRATORY FAILURE WITH HYPOXIA Status: Resolved Priority: High (3) Healthcare-associated pneumonia SNOMED Code(s): 067740781, 267467461 ICD Code: J18.9 - PNEUMONIA, UNSPECIFIED ORGANISM Status: Resolved Priority: High (4) Hypotension SNOMED Code(s): 76197427 ICD Code: I95.9 - HYPOTENSION, UNSPECIFIED Status: Resolved Qualifiers: Hypotension type: orthostatic hypotension Qualified Code(s): I95.1 - Orthostatic hypotension - Patient Summary/Data Consults: Consultations 01/25/19 13:21 Respiratory Care Assess and Treatment [CONS] Routine Hospital Course: The patient is a 68-year-old lady who had a recent history of community- acquired pneumonia and a history of C. difficile infection. She also has a history of multiple urinary tract infections and is currently pending an evaluation with specialist at a tertiary care center for this. The patient is concerned with regards to chronic urinary tract infection and her microbiology has grown out Enterobacter cloacae which is sensitive to multiple antibiotics. Patient unfortunately has allergies to most of the antibiotics which should be appropriate for this bacteria. For now the patient we continued on meropenem for now as she has been tolerating this antibiotic well. The patient is currently not on oxygen but she will have her vital signs monitored every shift. The patient did have marked leukocytosis and is currently pending a review of her peripheral blood smear. The patient will be discharged once her white blood cell count is normalized. The patient has also been recommended to continue with high doses of vitamin C to help prevent urinary tract infections. She should be appropriate for discharge tomorrow. During hospitalization the patient had been kept on meropenem secondary to urinary culture which was growing out Enterobacter cloacae which was sensitive to meropenem. The sensitivity of the bacteria felt that other antibiotics would be effective as well. However, the most effective antibiotics could not be used secondary to the patient's allergy issues. The patient also has a history of intolerance of Bactrim. The bacteria did show resistance to Bactrim however, it is thought that the in vivo action of the Bactrim should be appropriate. He was also recommended that the patient give a try of anywhere between 2-5 g of ascorbic acid per day. This was recommended to help with acidification of her urinary tract. The patient has been placed on this with a recommendation to follow-up with her specialist. The patient had been doing well during hospitalization and she felt like she can go home safely. She is to have activity as tolerated. The patient also has been hemodynamically stable and her leukocytosis had improved to 15,000. She should follow-up with her primary care physician for this. She is stable and she is discharged from acute hospitalization with recommendations listed above. - Patient Instructions Diet: Heart Healthy Diet Activity: As Tolerated - Discharge Plan *PRESCRIPTION DRUG MONITORING PROGRAM REVIEWED*: No *COPY OF PRESCRIPTION DRUG MONITORING REPORT IN PATIENT CLARIBEL: No Prescriptions/Med Rec: Ascorbic Acid/Ascorbate Sodium [Vit C-Orin Hips 500 mg Chew Tb] 2 gm PO DAILY # 30 tab.chew Sulfamethoxazole/Trimethoprim [Bactrim 400-80 MG] 1 each PO BID #10 tablet Home Medications: Home Meds Desvenlafaxine [Desvenlafaxine ER] 1 tab PO DAILY 01/25/19 [History] Diclofenac Sodium [Voltaren 1% Gel] 1 gram TOP BID PRN 01/25/19 [History] Fluticasone Propionate [Flonase Allergy Relief] 1 spray RONDA DAILY 01/25/19 [ History] Meloxicam 1 tab PO DAILY 01/25/19 [History] Zolpidem [Ambien] 5 mg PO ASDIRECTED PRN 01/25/19 [History] traMADol [Ultram] 1 tab PO QID PRN 01/25/19 [History] Ascorbic Acid/Ascorbate Sodium [Vit C-Orin Hips 500 mg Chew Tb] 2 gm PO DAILY # 30 tab.chew 01/28/19 [Rx] Sulfamethoxazole/Trimethoprim [Bactrim 400-80 MG] 1 each PO BID #10 tablet 01/28 [Rx] Patient Handouts: Hypoxia, Ascorbic Acid, Vitamin C tablet, Leukocytosis, Urinary Tract Infection, Adult, Sulfamethoxazole; Trimethoprim, SMX-TMP tablets Referrals: [facility] [Outside] Dee Elmore DO [Ordering Only Provider] - (Please call on Tuesday, January 29 and schedule a follow up appointment. ) Josh Jane MD [Primary Care Provider] - (Please call on Tuesday, January 29 and schedule a follow up appointment for 5-7 days.) - Discharge Summary/Plan Comment DC Time >30 min.: Yes - General Info Date of Service: 01/28/19 Admission Dx/Problem (Free Text: Admission Diagnosis/Problem Admission Diagnosis/Problem Hypoxia, UTI, PNA Subjective Update: Doing much better today. She is anxious to go home. Functional Status: Reports: Pain Controlled - Review of Systems General: Reports: No Symptoms HEENT: Reports: No Symptoms Pulmonary: Reports: No Symptoms Cardiovascular: Reports: No Symptoms Gastrointestinal: Reports: No Symptoms Genitourinary: Reports: No Symptoms Musculoskeletal: Reports: No Symptoms Skin: Reports: No Symptoms Neurological: Reports: No Symptoms Psychiatric: Reports: No Symptoms - Patient Data Vitals - Most Recent: Last Vital Signs Temp 36.4 C 01/28/19 08:00 Pulse 56 L 01/28/19 08:00 Resp 16 01/28/19 08:00 BP 152/58 H 01/28/19 08:00 Pulse Ox 96 01/28/19 08:00 Weight - Most Recent: 81.647 kg I&O - Last 24 hours: Intake & Output 01/27/19 01/28/19 01/28/19 22:59 06:59 14:59 Intake Total 3374 2810 Output Total 2600 3350 Balance 774 -540 Lab Results - Last 24 hrs: Laboratory Results - last 24 hr 01/28/19 01/28/19 Range/Units 06:28 06:28 WBC 15.37 H (4.0-11.0) K/uL RBC 4.20 L (4.30-5.90) M/uL Hgb 12.1 (12.0-16.0) g/dL Hct 36.6 (36.0-46.0) % MCV 87.1 (80.0-98.0) fL MCH 28.8 (27.0-32.0) pg MCHC 33.1 (31.0-37.0) g/dL RDW Std Deviation 44.2 (28.0-62.0) fl RDW Coeff of Samson 14 (11.0-15.0) % Plt Count 108 L (150-400) K/uL MPV 9.60 (7.40-12.00) fL Add Manual Diff YES Neutrophils % (Manual) 48 (48.0-80.0) % Band Neutrophils % 3 % Lymphocytes % (Manual) 25 (16.0-40.0) % Monocytes % (Manual) 3 (0.0-15.0) % Eosinophils % (Manual) 20 H (0.0-7.0) % Basophils % (Manual) 1 (0.0-1.5) % Nucleated RBC % 0.0 /100WBC Absolute Seg Neuts 7.4 H (1.4-5.7) Band Neutrophils # 0.5 Lymphocytes # (Manual) 3.8 H (0.6-2.4) Monocytes # (Manual) 0.5 (0.0-0.8) Eosinophils # (Manual) 3.1 H (0.0-0.7) Basophils # (Manual) 0.2 H (0.0-0.1) Nucleated RBCs # 0 K/uL Sodium 143 (136-145) mmol/L Potassium 4.0 (3.5-5.1) mmol/L Chloride 108 H (98-107) mmol/L Carbon Dioxide 29.8 (21.0-32.0) mmol/L BUN 16 (7.0-18.0) mg/dL Creatinine 0.9 (0.6-1.0) mg/dL Est Cr Clr Drug Dosing 56.00 mL/min Estimated GFR (MDRD) > 60.0 ml/min Glucose 101 (74-106) mg/dL Calcium 7.8 L (8.5-10.1) mg/dL DONTE Results - Last 24 hrs: Microbiology 01/25/19 09:23 Aerobic Blood Culture - Preliminary Blood - Venous - Lab Draw NO GROWTH AFTER 3 DAYS Anaerobic Blood Culture - Preliminary NO GROWTH AFTER 3 DAYS 01/25/19 09:22 Aerobic Blood Culture - Preliminary Blood - Venous NO GROWTH AFTER 3 DAYS Anaerobic Blood Culture - Preliminary NO GROWTH AFTER 3 DAYS 01/25/19 10:15 Urine Culture - Final Urine, Clean Catch Enterobacter Cloacae Normal Urogenital Maria D Med Orders - Current: Current Medications Acetaminophen (Tylenol) 650 mg PO Q4H PRN PRN Reason: Pain (mild 1-3) Last Admin: 01/27/19 20:26 Dose: 650 mg Albuterol/Ipratropium (Duoneb 3.0-0.5 Mg/3 Ml) 3 ml NEB Q4HRRT PRN PRN Reason: Shortness Of Breath/wheezing Last Admin: 01/26/19 09:08 Dose: 3 ml Fluticasone Propionate (Flonase) 0 gm RONDA BID [facility] Last Admin: 01/28/19 09:46 Dose: 1 spray Meropenem 1 gm/ Sodium (Chloride) 100 mls @ 200 mls/hr IV Q8H [facility] Last Admin: 01/28/19 05:51 Dose: 200 mls/hr Sodium Chloride (Normal Saline) 1,000 mls @ 125 mls/hr IV ASDIRECTED [facility] Last Admin: 01/28/19 02:21 Dose: 125 mls/hr Vancomycin HCl 1.25 gm/ Sodium (Chloride) 250 mls @ 166.667 mls/hr IV Q12H [facility] Last Admin: 01/28/19 02:23 Dose: 166.667 mls/hr Nicotine (Habitrol) 14 mg TRDERM DAILY [facility] Last Admin: 01/28/19 09:43 Dose: Not Given Ondansetron HCl (Zofran) 4 mg IVPUSH Q4H PRN PRN Reason: Nausea Desvenlafaxine [ Desvenlafaxine Er] 1 Tab 1 each PO DAILY [facility] Last Admin: 01/28/19 09:45 Dose: 1 each Zolpidem 5 Mg 1 each PO ASDIRECTED PRN PRN Reason: Sleep Last Admin: 01/27/19 22:17 Dose: 1 each Diclofenac Sodium 1% (Gel) 1 each TOP QID PRN PRN Reason: neuropathy Tramadol HCl (Ultram) 50 mg PO QID PRN PRN Reason: Pain Last Admin: 01/28/19 02:18 Dose: 50 mg Vancomycin HCl (Pharmacy To Dose - Vancomycin) 1 dose .XX ASDIRECTED [facility] Discontinued Medications Sodium Chloride (Normal Saline) 1,000 mls @ 125 mls/hr IV STAT [facility] Last Admin: 01/25/19 09:27 Dose: 125 mls/hr Piperacillin Sod/Tazobactam (Sod 3.375 gm/ Sodium Chloride) 50 mls @ 100 mls/ hr IV ONETIME ONE Stop: 01/25/19 09:53 Last Admin: 01/25/19 09:44 Dose: 100 mls/hr Meropenem 1 gm/ Sodium (Chloride) 100 mls @ 200 mls/hr IV Q8H [facility] Last Admin: 01/25/19 14:31 Dose: Not Given Iopamidol (Isovue Multipack-370 (76%)) 100 ml IVPUSH ONETIME STA Stop: 01/25/19 11:28 Last Admin: 01/25/19 11:28 Dose: 40 ml Ketorolac Tromethamine (Toradol) 30 mg IVPUSH ONETIME ONE Stop: 01/25/19 10:31 Last Admin: 01/25/19 10:36 Dose: 30 mg Methylprednisolone Sodium Succinate (Solu-Medrol) 125 mg IVPUSH ONETIME ONE Stop: 01/25/19 09:11 Last Admin: 01/25/19 09:27 Dose: 125 mg Non-Formulary Medication (Diclofenac Sodium) 1 applic TOP BID PRN PRN Reason: neuropathy Tramadol HCl (Ultram) 50 mg PO QID [facility]AY - Exam Quality Assessment: Denies: Supplemental Oxygen General: Reports: Alert, Oriented, Cooperative, No Acute Distress HEENT: Reports: Pupils Equal, Pupils Reactive, EOMI Neck: Reports: Supple, Trachea Midline Lungs: Reports: Clear to Auscultation, Normal Respiratory Effort Cardiovascular: Reports: Regular Rate, Regular Rhythm GI/Abdominal Exam: Normal Bowel Sounds, Soft, Non-Tender, No Distention (Female) Exam: Deferred Rectal (Female) Exam: Deferred Back Exam: Reports: Normal Inspection, Full Range of Motion Extremities: Normal Inspection, Normal Range of Motion, No Pedal Edema Skin: Reports: Warm, Dry, Intact Neurological: Reports: No New Focal Deficit Psy/Mental Status: Reports: Alert, Normal Affect, Normal Mood
== END 2019-01-28 11:56 | disposition home or self-care (01) | DRG 193 ==
LOC: MW.ED 09:08 → MW.MS 12:33
PROVIDERS: ADMIT Internal Medicine; ATTEND Internal Medicine
DX: J18.1 Lobar pneumonia, unspecified organism (principal); R09.02 Hypoxemia; J96.01 Acute respiratory failure with hypoxia; N17.9 Acute kidney failure, unspecified; N39.0 Urinary tract infection, site not specified; B96.89 Other specified bacterial agents as the cause of diseases classified elsewhere; D69.6 Thrombocytopenia, unspecified; Y95 Nosocomial condition; E86.0 Dehydration; I95.1 Orthostatic hypotension; K58.9 Irritable bowel syndrome, unspecified; I10 Essential (primary) hypertension; M19.90 Unspecified osteoarthritis, unspecified site; G62.9 Polyneuropathy, unspecified; R06.02 Shortness of breath; F41.9 Anxiety disorder, unspecified; L30.9 Dermatitis, unspecified; Z88.1 Allergy status to other antibiotic agents; Z88.5 Allergy status to narcotic agent; Z88.8 Allergy status to other drugs, medicaments and biological substances; Z87.440 Personal history of urinary (tract) infections; Z91.048 Other nonmedicinal substance allergy status; Z79.899 Other long term (current) drug therapy; Z86.19 Personal history of other infectious and parasitic diseases; Z87.891 Personal history of nicotine dependence
CPT/HCPCS: 36415; 71045; 71275; 80053; 81001; 83690; 84484; 85025; 85379; 87040 ×2; 87086; 87088; 87186; 93005; 96361; 96365; 96375; 99285; J1885; J2543; J2930; J7040; J7050; Q9967; 80048; 80202; 88104; 94640; A9270-GY; J2185; J3370; J7030; J7620-GY

== ENCOUNTER 2019-02-02 21:32 | Emergency (ER) | payer MEDICARE, BC ==
--- NOTE | 2019-02-02 22:00 | EDM.PDOC ---
ED HPI GENERAL MEDICAL PROBLEM - General Chief Complaint: Gastrointestinal Problem Stated Complaint: UTI Time Seen by Provider: 02/02/19 22:00 Source of Information: Reports: Patient - History of Present Illness INITIAL COMMENTS - FREE TEXT/NARRATIVE: HISTORY AND PHYSICAL: History of present illness: [Patient with recent hospital admission for pneumonia on Bactrim for UTI is completed all antibiotics feeling better from that standpoint however is watery diarrhea no fever nausea vomiting chills sweats no chest pain shortness breath headache dizziness palpitation no urine symptoms ] Review of systems: As per history of present illness and below otherwise all systems reviewed and negative. Past medical history: As per history of present illness and as reviewed below otherwise noncontributory. Surgical history: As per history of present illness and as reviewed below otherwise noncontributory. Social history: No reported history of drug or alcohol abuse. Family history: As per history of present illness and as reviewed below otherwise noncontributory. Physical exam: HEENT: Atraumatic, normocephalic, pupils reactive, negative for conjunctival pallor or scleral icterus, mucous membranes moist, throat clear, neck supple, nontender, trachea midline. Lungs: Clear to auscultation, breath sounds equal bilaterally, chest nontender. Heart: S1S2, regular, negative for clicks, rubs, or JVD. Abdomen: Soft, nondistended, nontender. Negative for masses or hepatosplenomegaly. Negative for costovertebral tenderness. Pelvis: Stable nontender. Genitourinary: Deferred. Rectal: Deferred. Extremities: Atraumatic, negative for cords or calf pain. Neurovascular unremarkable. Neuro: Awake, alert, oriented. Cranial nerves II through XII unremarkable. Cerebellum unremarkable. Motor and sensory unremarkable throughout. Exam nonfocal. Diagnostics: [UA stool culture C. difficile guaiac ] Therapeutics:Trauma dissolved 500 by mouth 3 times a day #30 no refill first dose now Impression: C. difficile Recent history of pneumonia and UTI Chronic history of baseline [] Definitive disposition and diagnosis as appropriate pending reevaluation and review of above. - Related Data Allergies Allergy/AdvReac Type Severity Reaction Status Date / Time cefuroxime axetil Allergy Intermediate Rash Verified 02/02/19 21:51 [From Ceftin] azithromycin Allergy Rash Verified 02/02/19 21:51 celecoxib [From Celebrex] Allergy Rash Verified 02/02/19 21:51 ciprofloxacin Allergy Rash Verified 02/02/19 21:51 codeine Allergy Vomiting Verified 02/02/19 21:51 hydrocodone Allergy Hives Verified 02/02/19 21:51 some metals Allergy Hives Uncoded 02/02/19 21:51 Home Meds: Home Meds Desvenlafaxine [Desvenlafaxine ER] 1 tab PO DAILY 01/25/19 [History] Diclofenac Sodium [Voltaren 1% Gel] 1 gram TOP BID PRN 01/25/19 [History] Fluticasone Propionate [Flonase Allergy Relief] 1 spray RONDA DAILY 01/25/19 [ History] Meloxicam 0 tab PO DAILY 01/25/19 [History] Zolpidem [Ambien] 5 mg PO ASDIRECTED PRN 01/25/19 [History] traMADol [Ultram] 0 mg PO QID PRN 01/25/19 [History] Ascorbic Acid/Ascorbate Sodium [Vit C-Orin Hips 500 mg Chew Tb] 2 gm PO DAILY # 30 tab.chew 01/28/19 [Rx] Past Medical History - Past Health History Medical/Surgical History: Denies Medical/Surgical History HEENT History: Reports: Cataract Other HEENT History: wears reading glasses, top denture, 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 Denies: Afib, Blood Clots/VTE/ DVT, IN Respiratory History: Reports: None. Denies: COPD, SOB Gastrointestinal History: Reports: Irritable Bowel Syndrome Other Gastrointestinal History: occasional heartburn Genitourinary History: Reports: UTI, Recurrent GASTROENTEROLOGY NURSE History: Reports: Musculoskeletal History: Reports: Osteoarthritis Other Musculoskeletal History: joint pain, polyneuropathy, Neurological History: Reports: None. Denies: CVA, TIA Psychiatric History: Reports: Anxiety Endocrine/Metabolic History: Reports: None Hematologic History: Reports: None Other Hematologic History: low platelets Immunologic History: Reports: None Oncologic (Cancer) History: Reports: None Dermatologic History: Reports: Eczema - Infectious Disease History Infectious Disease History: Reports: C-Difficile, Chicken Pox - Past Surgical History Other Female Surgeries/Procedures: adhesions Oncologic Surgical History: Reports: Bone Marrow Aspiration (thrombocytopenia) Social & Family History - Family History Family Medical History: Noncontributory Neurological: Reports: Neuropathy, Peripheral, Other (See Below) Other Neurological Family History: Temporal arteritis- Polymyalgic Giant cell. Polymyositis Immunologic: Reports: None Dermatologic: Reports: None Oncologic: Reports: None - Caffeine Use Caffeine Use: Reports: Soda, Tea - Living Situation & Occupation Living situation: Reports: with Family Occupation: Retired ED ROS GENERAL - Review of Systems Review Of Systems: See Below ED EXAM, GENERAL - Physical Exam Exam: See Below Course - Vital Signs Last Recorded V/S: Last Vital Signs Temp 96.3 F 02/02/19 21:44 Pulse 77 02/02/19 22:49 Resp 18 02/02/19 22:49 BP 134/79 02/02/19 22:49 Pulse Ox 95 02/02/19 22:49 - Orders/Labs/Meds Orders: Active Orders 24 hr Category Date Time Status CULTURE STOOL + CAMPY+SHIGATOX [RM] Stat Lab 02/02/19 21:48 Results Isolation [COMM] Stat Oth 02/02/19 21:54 Ordered Labs: Laboratory Tests 02/02/19 Range/Units 22:00 Urine Color YELLOW Urine Appearance CLEAR Urine pH 5.5 (5.0-8.0) Ur Specific [place] 1.010 (1.001-1.035) Urine Protein NEGATIVE (NEGATIVE) mg/dL Urine Glucose (UA) NEGATIVE (NEGATIVE) mg/dL Urine Ketones NEGATIVE (NEGATIVE) mg/dL Urine Occult Blood TRACE-INTACT H (NEGATIVE) Urine Nitrite NEGATIVE (NEGATIVE) Urine Bilirubin NEGATIVE (NEGATIVE) Urine Urobilinogen 0.2 (<2.0) EU/dL Ur Leukocyte Esterase NEGATIVE (NEGATIVE) Urine RBC 0-2 (0-2/HPF) Urine WBC 0-1 (0-5/HPF) Ur Squamous Epith Cells FEW Urine Bacteria RARE (NEGATIVE) Urine Mucus LIGHT (NONE-MOD) Meds: Medications Discontinued Medications Generic Name Dose Route Start Last Admin Trade Name Freq PRN Reason Stop Dose Admin Metronidazole 500 mg 02/02/19 23:17 02/02/19 23:22 Metronidazole PO 02/02/19 23:18 500 mg ONETIME ONE Administration Departure - Departure Time of Disposition: 23:49 Disposition: Home, Self-Care 01 Condition: Good Clinical Impression: Clostridium difficile infection - Discharge Information Referrals: Josh Jane MD [Primary Care Provider] - Forms: ED Department Discharge Additional Instructions: Medications as prescribed Return if symptoms persist or worsen Follow-up with primary care in one week sooner as needed The following information is given to patients seen in the emergency department who are being discharged to home. This information is to outline your options for follow-up care. We provide all patients seen in our emergency department with a follow-up referral. The need for follow-up, as well as the timing and circumstances, are variable depending upon the specifics of your emergency department visit. If you don't have a primary care physician on staff, we will provide you with a referral. We always advise you to contact your personal physician following an emergency department visit to inform them of the circumstance of the visit and for follow-up with them and/or the need for any referrals to a consulting specialist. The emergency department will also refer you to a specialist when appropriate. This referral assures that you have the opportunity for follow-up care with a specialist. All of these measure are taken in an effort to provide you with optimal care, which includes your follow-up. Under all circumstances we always encourage you to contact your private physician who remains a resource for coordinating your care. When calling for follow-up care, please make the office aware that this follow-up is from your recent emergency room visit. If for any reason you are refused follow-up, please contact the [facility] emergency department at and asked to speak to the emergency department charge nurse. - My Orders Last 24 Hours: My Active Orders 02/02/19 21:48 CULTURE STOOL + CAMPY+SHIGATOX [RM] Stat 02/02/19 21:54 Isolation [COMM] Stat - Assessment/Plan Last 24 Hours: My Active Orders 02/02/19 21:48 CULTURE STOOL + CAMPY+SHIGATOX [RM] Stat 02/02/19 21:54 Isolation [COMM] Stat
[2019-02-02] MEDS ORDERED: metroNIDAZOLE 250 MG Tab PO ONE (23:17)
[2019-02-03 01:00] VITALS: BP 140/70
== END 2019-02-03 00:05 | disposition home or self-care (01) ==
LOC: MW.ED 21:32
DX: B96.89 Other specified bacterial agents as the cause of diseases classified elsewhere (principal); I10 Essential (primary) hypertension; Z87.01 Personal history of pneumonia (recurrent); Z87.440 Personal history of urinary (tract) infections; Z88.5 Allergy status to narcotic agent; Z88.1 Allergy status to other antibiotic agents; Z88.8 Allergy status to other drugs, medicaments and biological substances; Z79.899 Other long term (current) drug therapy
CPT/HCPCS: 81001; 82272; 87046; 87324; 99284; A9270; 87899

== ENCOUNTER 2019-02-21 14:31 | Observation (INO) | payer MEDICARE, BC ==
[2019-02-21] MEDS ORDERED: Albuterol/Ipratropium 3.0-0.5 MG/3 ML Neb Soln NEB ONE (14:46)
[2019-02-21] MEDS ORDERED: Sodium Chloride 0.9% 1,000 ML IV ONE (14:52)
[2019-02-21] MEDS ORDERED: methylPREDNISolone Sodium Succinate 125 MG/2 ML SDV IVPUSH ONE (14:53)
[2019-02-21] MEDS ORDERED: Ondansetron 4 MG/2 ML SDV IVPUSH ONE (15:08)
--- NOTE | 2019-02-21 15:08 | EDM.PDOC ---
ED HPI GENERAL MEDICAL PROBLEM - General Chief Complaint: General Stated Complaint: UTI Time Seen by Provider: 02/21/19 14:39 Source of Information: Reports: Patient History Limitations: Reports: No Limitations - History of Present Illness INITIAL COMMENTS - FREE TEXT/NARRATIVE: HISTORY AND PHYSICAL: History of present illness: Patient is a 68-year-old female presents to the ED today with concern of shortness of breath, cough 3 days. Patient states she was diagnosed with a urinary tract infection 3 days ago and is currently on Macrobid for this. Patient states she still has some burning with urination but there has been improvement of her symptoms since starting the antibiotic. Patient states she's also had some nausea but denies vomiting or abdominal pain. Patient states she does not currently smoke but she does have a history of heavy smoking in her past. Patient has been in the ED on several occasions over the past month for urinary tract infection, pneumonia, pancytopenia, and C. difficile infection. She has had a recent hospitalization stay for these. Patient states after her last ED appointment she has been feeling better with improvement of her symptoms, however, over the past 3 days she says her symptoms are returning. Patient denies fever, chills, chest pain. Denies headache, neck stiff ness, change in vision, syncope, or near syncope. Denies vomiting, abdominal pain, diarrhea, constipation, or dysuria. Has not noted any blood in urine or stool. Patient has been eating and drinking appropriately. Review of systems: As per history of present illness and below otherwise all systems reviewed and negative. Past medical history: As per history of present illness and as reviewed below otherwise noncontributory. Surgical history: As per history of present illness and as reviewed below otherwise noncontributory. Social history: See social history for further information Family history: As per history of present illness and as reviewed below otherwise noncontributory. Physical exam: General: Patient is alert, oriented, and in no acute distress. Patient laying comfortably on exam table. HEENT: Atraumatic, normocephalic, pupils equal and reactive bilaterally, negative for conjunctival pallor or scleral icterus, mucous membranes moist, TMs normal bilaterally, throat clear, neck supple, nontender, trachea midline. No drooling or trismus noted. No meningeal signs. No hot potato voice noted. Lungs: Clear to auscultation, breath sounds equal bilaterally, chest nontender. Dry cough elicited throughout exam. Heart: S1S2, regular rate and rhythm without overt murmur Abdomen: Soft, nondistended, nontender. Negative for masses or hepatosplenomegaly. Negative for costovertebral tenderness. Pelvis: Stable nontender. Genitourinary: Deferred. Rectal: Deferred. Skin: Intact, warm, dry. No lesions or rashes noted. Extremities: Atraumatic, negative for cords or calf pain. Neurovascular unremarkable. Neuro: Awake, alert, oriented. Cranial nerves II through XII unremarkable. Cerebellum unremarkable. Motor and sensory unremarkable throughout. Exam nonfocal. Notes: Dr. Carmona verbally involved in patient care. Patient is a 85% on room air prior to nebulizer, and in no acute distress and able to speak in full sentences clearly. Patient's oxygen increased to 92% on [address] Valdez consultation on patient and will admit to observation. Voices understanding and is agreeable to plan of care. Denies any further questions or concerns at this time. Diagnostics: CBC, CMP, influenza, troponin, UA, CTA, chest x-ray, EKG, lactate, blood cultures Therapeutics: DuoNeb, Solu-Medrol, saline, Zofran, Zosyn Impression: Hypoxia Shortness of breath Chronic history of baseline Urinary tract infection Pneumonia versus atelectasis History of recent C. difficile infection, pneumonia, urinary tract infection Plan: 1. Admit to observation to Dr. Valdez Definitive disposition and diagnosis as appropriate pending reevaluation and review of above. - Related Data Allergies Allergy/AdvReac Type Severity Reaction Status Date / Time cefuroxime axetil Allergy Intermediate Rash Verified 02/21/19 14:45 [From Ceftin] azithromycin Allergy Rash Verified 02/21/19 14:45 celecoxib [From Celebrex] Allergy Rash Verified 02/21/19 14:45 ciprofloxacin Allergy Rash Verified 02/21/19 14:45 codeine Allergy Vomiting Verified 02/21/19 14:45 hydrocodone Allergy Hives Verified 02/21/19 14:45 some metals Allergy Hives Uncoded 02/02/19 21:51 Home Meds: Home Meds Desvenlafaxine [Desvenlafaxine ER] 1 tab PO DAILY 01/25/19 [History] Diclofenac Sodium [Voltaren 1% Gel] 1 gram TOP BID PRN 01/25/19 [History] Fluticasone Propionate [Flonase Allergy Relief] 1 spray RONDA DAILY 01/25/19 [ History] Meloxicam 0 tab PO DAILY 01/25/19 [History] Zolpidem [Ambien] 5 mg PO ASDIRECTED PRN 01/25/19 [History] traMADol [Ultram] 0 mg PO QID PRN 01/25/19 [History] Ascorbic Acid/Ascorbate Sodium [Vit C-Orin Hips 500 mg Chew Tb] 2 gm PO DAILY # 30 tab.chew 01/28/19 [Rx] Past Medical History - Past Health History Medical/Surgical History: Denies Medical/Surgical History HEENT History: Reports: Cataract Other HEENT History: wears reading glasses, top denture, 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 Cardiovascular History: Reports: Hypertension Respiratory History: Reports: None Gastrointestinal History: Reports: Irritable Bowel Syndrome Other Gastrointestinal History: occasional heartburn Genitourinary History: Reports: UTI, Recurrent 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: Musculoskeletal History: Reports: Osteoarthritis Other Musculoskeletal History: joint pain, polyneuropathy, Neurological History: Reports: None Psychiatric History: Reports: Anxiety Endocrine/Metabolic History: Reports: None Hematologic History: Reports: None Other Hematologic History: low platelets Immunologic History: Reports: None Oncologic (Cancer) History: Reports: None Dermatologic History: Reports: Eczema - Infectious Disease History Infectious Disease History: Reports: Chicken Pox - Past Surgical History Other Female Surgeries/Procedures: adhesions Oncologic Surgical History: Reports: Bone Marrow Aspiration Social & Family History - Family History Family Medical History: Noncontributory Neurological: Reports: Neuropathy, Peripheral, Other (See Below) Other Neurological Family History: Temporal arteritis- Polymyalgic Giant cell. Polymyositis Immunologic: Reports: None Dermatologic: Reports: None Oncologic: Reports: None - Tobacco Use Smoking Status *Q: Never Smoker - Caffeine Use Caffeine Use: Reports: Soda, Tea - Recreational Drug Use Recreational Drug Use: No - Living Situation & Occupation Living situation: Reports: with Family Occupation: Retired ED ROS GENERAL - Review of Systems Review Of Systems: ROS reveals no pertinent complaints other than HPI. ED EXAM, GENERAL - Physical Exam Exam: See Below (See dictation) Course - Vital Signs Last Recorded V/S: Last Vital Signs Temp 36.6 C 02/21/19 15:20 Pulse 97 02/21/19 17:18 Resp 12 02/21/19 17:18 BP 126/55 L 02/21/19 17:18 Pulse Ox 94 L 02/21/19 17:18 - Orders/Labs/Meds Orders: Active Orders 24 hr Category Date Time Status Admission Status [Patient Status] [ADT] Stat ADT 02/21/19 17:25 Active EKG Documentation Completion [RC] STAT Care 02/21/19 14:52 Active RT Aerosol Therapy [RC] ASDIRECTED Care 02/21/19 14:46 Active CULTURE BLOOD [BC] Stat Lab 02/21/19 15:46 Received CULTURE BLOOD [BC] Stat Lab 02/21/19 16:10 Received CULTURE URINE [RM] Stat Lab 02/21/19 15:12 Received Piperacillin/Tazobactam [Piperacil-Tazobact] 3.375 gm Med 02/21/19 17:29 Active Sodium Chloride 0.9% [Normal Saline] 50 ml IV ONETIME Blood Culture x2 Reflex Set [OM.PC] Stat Oth 02/21/19 15:20 Ordered Medication Orders Piperacillin Sod/Tazobactam (Sod 3.375 gm/ Sodium Chloride) 50 mls @ 100 mls/ hr IV ONETIME ONE Stop: 02/21/19 17:58 Labs: Laboratory Tests 02/21/19 02/21/19 02/21/19 Range/Units 15:00 15:00 15:12 WBC 23.02 H (4.0-11.0) K/uL RBC 5.04 (4.30-5.90) M/uL Hgb 14.7 (12.0-16.0) g/dL Hct 44.5 (36.0-46.0) % MCV 88.3 (80.0-98.0) fL MCH 29.2 (27.0-32.0) pg MCHC 33.0 (31.0-37.0) g/dL RDW Std Deviation 43.9 (28.0-62.0) fl RDW Coeff of Samson 14 (11.0-15.0) % Plt Count 85 L (150-400) K/uL MPV 10.30 (7.40-12.00) fL Add Manual Diff YES Neutrophils % (Manual) 80 (48.0-80.0) % Band Neutrophils % 7 % Lymphocytes % (Manual) 1 L (16.0-40.0) % Eosinophils % (Manual) 12 H (0.0-7.0) % Nucleated RBC % 0.0 /100WBC Absolute Seg Neuts 18.4 H (1.4-5.7) Band Neutrophils # 1.6 Lymphocytes # (Manual) 0.2 L (0.6-2.4) Eosinophils # (Manual) 2.8 H (0.0-0.7) Nucleated RBCs # 0 K/uL Lactate (0.20-2.00) mmol/L Sodium 135 L (136-145) mmol/L Potassium 3.6 (3.5-5.1) mmol/L Chloride 98 (98-107) mmol/L Carbon Dioxide 25.8 (21.0-32.0) mmol/L BUN 20 H (7.0-18.0) mg/dL Creatinine 1.0 (0.6-1.0) mg/dL Est Cr Clr Drug Dosing 50.41 mL/min Estimated GFR (MDRD) 55.1 ml/min Glucose 105 (74-106) mg/dL Calcium 8.8 (8.5-10.1) mg/dL Total Bilirubin 1.3 H (0.2-1.0) mg/dL AST 16 (15-37) IU/L ALT 19 (14-63) IU/L Alkaline Phosphatase 79 (46-116) U/L Troponin I < 0.050 (0.000-0.056) ng/mL Total Protein 6.7 (6.4-8.2) g/dL Albumin 3.3 L (3.4-5.0) g/dL Globulin 3.4 (2.6-4.0) g/dL Albumin/Globulin Ratio 1.0 (0.9-1.6) Urine Color ORANGE Urine Appearance CLEAR Urine pH 5.0 (5.0-8.0) Ur Specific Silex <= 1.005 (1.001-1.035) Urine Protein 100 H (NEGATIVE) mg/dL Urine Glucose (UA) 250 H (NEGATIVE) mg/dL Urine Ketones TRACE H (NEGATIVE) mg/dL Urine Occult Blood NEGATIVE (NEGATIVE) Urine Nitrite POSITIVE H (NEGATIVE) Urine Bilirubin NEGATIVE (NEGATIVE) Urine Urobilinogen >=8.0 H (<2.0) EU/dL Ur Leukocyte Esterase SMALL H (NEGATIVE) Urine RBC 0-1 (0-2/HPF) Urine WBC 2-4 (0-5/HPF) Ur Epithelial Cells FEW (NONE-FEW) Urine Bacteria RARE (NEGATIVE) 02/21/19 Range/Units 15:46 WBC (4.0-11.0) K/uL RBC (4.30-5.90) M/uL Hgb (12.0-16.0) g/dL Hct (36.0-46.0) % MCV (80.0-98.0) fL MCH (27.0-32.0) pg MCHC (31.0-37.0) g/dL RDW Std Deviation (28.0-62.0) fl RDW Coeff of Samson (11.0-15.0) % Plt Count (150-400) K/uL MPV (7.40-12.00) fL Add Manual Diff Neutrophils % (Manual) (48.0-80.0) % Band Neutrophils % % Lymphocytes % (Manual) (16.0-40.0) % Eosinophils % (Manual) (0.0-7.0) % Nucleated RBC % /100WBC Absolute Seg Neuts (1.4-5.7) Band Neutrophils # Lymphocytes # (Manual) (0.6-2.4) Eosinophils # (Manual) (0.0-0.7) Nucleated RBCs # K/uL Lactate 1.9 (0.20-2.00) mmol/L Sodium (136-145) mmol/L Potassium (3.5-5.1) mmol/L Chloride (98-107) mmol/L Carbon Dioxide (21.0-32.0) mmol/L BUN (7.0-18.0) mg/dL Creatinine (0.6-1.0) mg/dL Est Cr Clr Drug Dosing mL/min Estimated GFR (MDRD) ml/min Glucose (74-106) mg/dL Calcium (8.5-10.1) mg/dL Total Bilirubin (0.2-1.0) mg/dL AST (15-37) IU/L ALT (14-63) IU/L Alkaline Phosphatase (46-116) U/L Troponin I (0.000-0.056) ng/mL Total Protein (6.4-8.2) g/dL Albumin (3.4-5.0) g/dL Globulin (2.6-4.0) g/dL Albumin/Globulin Ratio (0.9-1.6) Urine Color Urine Appearance Urine pH (5.0-8.0) Ur Specific Silex (1.001-1.035) Urine Protein (NEGATIVE) mg/dL Urine Glucose (UA) (NEGATIVE) mg/dL Urine Ketones (NEGATIVE) mg/dL Urine Occult Blood (NEGATIVE) Urine Nitrite (NEGATIVE) Urine Bilirubin (NEGATIVE) Urine Urobilinogen (<2.0) EU/dL Ur Leukocyte Esterase (NEGATIVE) Urine RBC (0-2/HPF) Urine WBC (0-5/HPF) Ur Epithelial Cells (NONE-FEW) Urine Bacteria (NEGATIVE) Meds: Medications Generic Name Dose Route Start Last Admin Trade Name Freq PRN Reason Stop Dose Admin Piperacillin Sod/Tazobactam 50 mls @ 100 mls/hr 02/21/19 17:29 Sod 3.375 gm/ Sodium Chloride IV 02/21/19 17:58 ONETIME ONE Discontinued Medications Generic Name Dose Route Start Last Admin Trade Name Freq PRN Reason Stop Dose Admin Albuterol/Ipratropium 3 ml 02/21/19 14:46 02/21/19 15:00 Duoneb 3.0-0.5 Mg/3 Ml NEB 02/21/19 14:47 3 ml ONETIME ONE Administration Sodium Chloride 1,000 mls @ 999 mls/hr 02/21/19 14:52 02/21/19 15:11 Normal Saline IV 02/21/19 15:52 999 mls/hr BOLUS ONE Administration Iopamidol 50 ml 02/21/19 16:36 02/21/19 16:37 Isovue Multipack-370 (76%) IVPUSH 02/21/19 16:37 50 ml ONETIME ONE Administration Methylprednisolone Sodium Succinate 125 mg 02/21/19 14:53 02/21/19 15:11 Solu-Medrol IVPUSH 02/21/19 14:54 125 mg ONETIME ONE Administration Ondansetron HCl 4 mg 02/21/19 15:08 02/21/19 15:18 Zofran IVPUSH 02/21/19 15:09 4 mg ONETIME ONE Administration Departure - Departure Time of Disposition: 17:28 Disposition: Refer to Observation Clinical Impression: Hypoxia, History of Clostridium difficile colitis Urinary tract infection Qualifiers: Urinary tract infection type: acute cystitis Hematuria presence: with hematuria Qualified Code(s): N30.01 - Acute cystitis with hematuria Pneumonia Qualifiers: Pneumonia type: due to unspecified organism Laterality: unspecified laterality Lung location: unspecified part of lung Qualified Code(s): J18.9 - Pneumonia, unspecified organism - Discharge Information Referrals: PCP,Unknown [Primary Care Provider] - Forms: ED Department Discharge - My Orders Last 24 Hours: My Active Orders 02/21/19 14:46 RT Aerosol Therapy [RC] ASDIRECTED 02/21/19 14:52 EKG Documentation Completion [RC] STAT 02/21/19 15:12 CULTURE URINE [RM] Stat 02/21/19 15:20 Blood Culture x2 Reflex Set [OM.PC] Stat 02/21/19 15:46 CULTURE BLOOD [BC] Stat 02/21/19 16:10 CULTURE BLOOD [BC] Stat 02/21/19 17:25 Admission Status [Patient Status] [ADT] Stat 02/21/19 17:29 Piperacillin/Tazobactam [Piperacil-Tazobact] 3.375 gm Sodium Chloride 0.9% [ Normal Saline] 50 ml IV ONETIME - Assessment/Plan Last 24 Hours: My Active Orders 02/21/19 14:46 RT Aerosol Therapy [RC] ASDIRECTED 02/21/19 14:52 EKG Documentation Completion [RC] STAT 02/21/19 15:12 CULTURE URINE [RM] Stat 02/21/19 15:20 Blood Culture x2 Reflex Set [OM.PC] Stat 02/21/19 15:46 CULTURE BLOOD [BC] Stat 02/21/19 16:10 CULTURE BLOOD [BC] Stat 02/21/19 17:25 Admission Status [Patient Status] [ADT] Stat 02/21/19 17:29 Piperacillin/Tazobactam [Piperacil-Tazobact] 3.375 gm Sodium Chloride 0.9% [ Normal Saline] 50 ml IV ONETIME
[2019-02-21 15:34] LABS: CHLORIDE,CL 98 mmol/L (98-107); SODIUM,NA 135 mmol/L (136-145)
[2019-02-21] MEDS ORDERED: Iopamidol 755 MG/ML 200 ML Multipack Bottle IVPUSH ONE (16:36)
--- NOTE | 2019-02-21 17:08 | CR ---
INDICATION: Chest pain. Shortness of breath. Dyspnea. COMPARISON: CT of the chest from earlier today and plain film of the chest from 01/25/2019 FINDINGS: PA and lateral views of the chest were obtained. There is a mild patchy infiltrate in the posterior left lung base, atelectasis versus pneumonia. This is consistent with appearance on CT and is increased compared to the previous chest radiograph. The minimal patchy infiltrate seen in the posterior right lung base on the CT is evident only on the lateral view. The heart remains normal in size. The mediastinum is normal in appearance. The osseous structures are normal in appearance for the patient`s age. IMPRESSION: Mild patchy infiltrate in the posterior left lung base and minimal patchy infiltrate in the posterior right lung base, consistent with appearance on today`s CT. Infiltrate in the posterior left lung base is increased compared to the chest radiograph from 01/25/2019. Dictated by Inder Mata MD @ Feb 21 2019 5:02PM Signed by Dr. Inder Mata @ Feb 21 2019 5:06PM
--- NOTE | 2019-02-21 17:13 | CT ---
INDICATION: Pain, shortness of breath TECHNIQUE: CT chest pulmonary angiogram acquired with IV contrast. 50 cc Isovue 370 COMPARISON: 01/25/2019 FINDINGS: Cardiovascular structures: Normal vascular enhancement of the pulmonary arteries, no sign of pulmonary embolism. Heart size is normal. No sign of aneurysm or dissection in the thoracic aorta. Mediastinum and sea: Mediastinal adenopathy. Lungs: Bilateral lower lobe airspace opacities. Pleura and pericardium: No effusions. Chest wall and axilla: No mass or adenopathy. Bones: No significant findings. Upper abdomen: Unremarkable. IMPRESSION: No evidence of pulmonary embolus. Bilateral lower lobe airspace opacities not significantly changed compared to 01/25/2019 and most likely represents atelectasis. Mediastinal adenopathy. Dictated by Abiodun Kurtz MD @ 02/21/2019 5:10:55 PM Please note that all CT scans at this facility use dose modulation, iterative reconstruction, and/or weight-based dosing when appropriate to reduce radiation dose to as low as reasonably achievable. Dictated by: Abiodun Kurtz MD @ 02/21/2019 17:11:03 (Electronically Signed)
[2019-02-21] MEDS ORDERED: Piperacillin/Tazobactam 3.375 GM in Sodium Chloride 0.9% 50 ML IV ONE (17:29)
[2019-02-21] MEDS ORDERED: Heparin Sodium 5,000 Units/ML Vial SUBCUT SCH (18:15)
[2019-02-21] MEDS ORDERED: Meropenem 1 GM in Sodium Chloride 0.9% 100 ML IV SCH ×2 (18:30→19:00)
[2019-02-21] MEDS ORDERED: Levofloxacin/Dextrose 5%-Water 750 MG in Premix Bag 1 BAG IV SCH (18:30)
--- NOTE | 2019-02-21 18:50 | PCM.HP ---
H&P History of Present Illness - General Date of Service: 02/21/19 Admit Problem/Dx: Admission Diagnosis/Problem Admission Diagnosis/Problem Urinary tract infection Source of Information: Patient History Limitations: Reports: No Limitations - History of Present Illness Initial Comments - Free Text/Narative: 68F hx of recurrent UTI, recent hospitalization for pneumonia, C. Diff infection that presented to the hospital for persistent dysuria. She was being treated as an outpatient for this issue by provider for macrobid. She tells me that this isn't working for her and her dysuria has persisted. She also now complains of cough, shortness of breath. No fever. No productive sputum, abdominal pain, nausea or vomiting. ER work up significant for leukocytosis, CXR for a R lung pneumonia, UA significant for UTI. Platelets 85. no pain Pain Score (Numeric/FACES): 0 - Related Data Allergies/Adverse Reactions: Allergies Allergy/AdvReac Type Severity Reaction Status Date / Time cefuroxime axetil Allergy Intermediate Rash Verified 02/21/19 14:45 [From Ceftin] azithromycin Allergy Rash Verified 02/21/19 14:45 celecoxib [From Celebrex] Allergy Rash Verified 02/21/19 14:45 ciprofloxacin Allergy Rash Verified 02/21/19 14:45 codeine Allergy Vomiting Verified 02/21/19 14:45 hydrocodone Allergy Hives Verified 02/21/19 14:45 some metals Allergy Hives Uncoded 02/02/19 21:51 Home Medications: Home Meds Desvenlafaxine [Desvenlafaxine ER] 50 mg PO DAILY 01/25/19 [History] Diclofenac Sodium [Voltaren 1% Gel] 1 gram TOP BID PRN 01/25/19 [History] Meloxicam 15 mg PO DAILY 01/25/19 [History] Zolpidem [Ambien] 5 mg PO ASDIRECTED PRN 01/25/19 [History] traMADol [Ultram] 50 mg PO QID PRN 01/25/19 [History] Estradiol [Estrace 0.01% Vaginal Crm] 1 applic VAG BEDTIME 02/21/19 [History] Losartan Potassium [Cozaar] 100 mg PO DAILY 02/21/19 [History] Past Medical History - Past Health History Medical/Surgical History: Denies Medical/Surgical History HEENT History: Reports: Cataract Other HEENT History: wears reading glasses, top denture, 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 Cardiovascular History: Reports: Hypertension Respiratory History: Reports: None Gastrointestinal History: Reports: Irritable Bowel Syndrome Other Gastrointestinal History: occasional heartburn Genitourinary History: Reports: UTI, Recurrent 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: Musculoskeletal History: Reports: Osteoarthritis Other Musculoskeletal History: joint pain, polyneuropathy, Neurological History: Reports: None Psychiatric History: Reports: Anxiety Endocrine/Metabolic History: Reports: None Hematologic History: Reports: None Other Hematologic History: low platelets Immunologic History: Reports: None Oncologic (Cancer) History: Reports: None Dermatologic History: Reports: Eczema - Infectious Disease History Infectious Disease History: Reports: Chicken Pox - Past Surgical History Other Female Surgeries/Procedures: adhesions Oncologic Surgical History: Reports: Bone Marrow Aspiration Social & Family History - Family History Family Medical History: Noncontributory Neurological: Reports: Neuropathy, Peripheral, Other (See Below) Other Neurological Family History: Temporal arteritis- Polymyalgic Giant cell. Polymyositis Immunologic: Reports: None Dermatologic: Reports: None Oncologic: Reports: None - Tobacco Use Smoking Status *Q: Never Smoker - Caffeine Use Caffeine Use: Reports: Soda, Tea - Recreational Drug Use Recreational Drug Use: No - Living Situation & Occupation Living situation: Reports: with Family Occupation: Retired H&P Review of Systems - Review of Systems: Review Of Systems: See Below General: Reports: No Symptoms HEENT: Reports: No Symptoms Pulmonary: Reports: Shortness of Breath, Cough. Denies: Pleuritic Chest Pain Cardiovascular: Reports: No Symptoms Gastrointestinal: Reports: No Symptoms Genitourinary: Reports: Dysuria, Burning Musculoskeletal: Reports: No Symptoms Skin: Reports: No Symptoms Neurological: Reports: No Symptoms Hematologic/Lymphatic: Reports: No Symptoms Immunologic: Reports: No Symptoms Exam - Exam Exam: See Below - Vital Signs Vital Signs: Last Vital Signs Temp 37.1 C 02/21/19 17:59 Pulse 87 02/21/19 17:59 Resp 20 02/21/19 17:59 BP 112/63 02/21/19 17:59 Pulse Ox 93 L 02/21/19 17:59 Weight: 83.4 kg - Exam General: Alert, Oriented, 4 HEENT: PERRLA, Hearing Intact, Mucosa Moist & [place], Nares Patent, Normal Nasal Septum, Posterior Pharynx Clear, Conjunctiva Clear, EOMI, EACs Clear, TMs Clear Neck: Supple, Trachea Midline, 2 Lungs: Clear to Auscultation, Normal Respiratory Effort Cardiovascular: Regular Rate, Regular Rhythm GI/Abdominal Exam: Normal Bowel Sounds, Soft, Non-Tender, No Organomegaly, No Distention, No Abnormal Bruit, No Mass, Pelvis Stable Back Exam: Normal Inspection, Full Range of Motion, NT Extremities: Normal Inspection Peripheral Pulses: 2+: Dorsalis Pedis (L), Dorsalis Pedis (R) Skin: Warm, Dry, Intact Neurological: Cranial Nerves Intact, Reflexes Equal Bilateral Neuro Extensive - Mental Status: Alert, Oriented x3, Normal Mood/Affect, Normal Cognition Neuro Extensive - Motor, Sensory, Reflexes: CN II-XII Intact, Normal Gait, Normal Reflexes DTR: 2+: Achilles (L), Achilles (R) Psychiatric: Alert - Patient Data Lab Results Last 24 hrs: Laboratory Results - last 24 hr 02/21/19 02/21/19 02/21/19 Range/Units 15:00 15:00 15:12 WBC 23.02 H (4.0-11.0) K/uL RBC 5.04 (4.30-5.90) M/uL Hgb 14.7 (12.0-16.0) g/dL Hct 44.5 (36.0-46.0) % MCV 88.3 (80.0-98.0) fL MCH 29.2 (27.0-32.0) pg MCHC 33.0 (31.0-37.0) g/dL RDW Std Deviation 43.9 (28.0-62.0) fl RDW Coeff of Samson 14 (11.0-15.0) % Plt Count 85 L (150-400) K/uL MPV 10.30 (7.40-12.00) fL Add Manual Diff YES Neutrophils % (Manual) 80 (48.0-80.0) % Band Neutrophils % 7 % Lymphocytes % (Manual) 1 L (16.0-40.0) % Eosinophils % (Manual) 12 H (0.0-7.0) % Nucleated RBC % 0.0 /100WBC Absolute Seg Neuts 18.4 H (1.4-5.7) Band Neutrophils # 1.6 Lymphocytes # (Manual) 0.2 L (0.6-2.4) Eosinophils # (Manual) 2.8 H (0.0-0.7) Nucleated RBCs # 0 K/uL Lactate (0.20-2.00) mmol/L Sodium 135 L (136-145) mmol/L Potassium 3.6 (3.5-5.1) mmol/L Chloride 98 (98-107) mmol/L Carbon Dioxide 25.8 (21.0-32.0) mmol/L BUN 20 H (7.0-18.0) mg/dL Creatinine 1.0 (0.6-1.0) mg/dL Est Cr Clr Drug Dosing 50.41 mL/min Estimated GFR (MDRD) 55.1 ml/min Glucose 105 (74-106) mg/dL Calcium 8.8 (8.5-10.1) mg/dL Total Bilirubin 1.3 H (0.2-1.0) mg/dL AST 16 (15-37) IU/L ALT 19 (14-63) IU/L Alkaline Phosphatase 79 (46-116) U/L Troponin I < 0.050 (0.000-0.056) ng/mL Total Protein 6.7 (6.4-8.2) g/dL Albumin 3.3 L (3.4-5.0) g/dL Globulin 3.4 (2.6-4.0) g/dL Albumin/Globulin Ratio 1.0 (0.9-1.6) Urine Color ORANGE Urine Appearance CLEAR Urine pH 5.0 (5.0-8.0) Ur Specific Palmer <= 1.005 (1.001-1.035) Urine Protein 100 H (NEGATIVE) mg/dL Urine Glucose (UA) 250 H (NEGATIVE) mg/dL Urine Ketones TRACE H (NEGATIVE) mg/dL Urine Occult Blood NEGATIVE (NEGATIVE) Urine Nitrite POSITIVE H (NEGATIVE) Urine Bilirubin NEGATIVE (NEGATIVE) Urine Urobilinogen >=8.0 H (<2.0) EU/dL Ur Leukocyte Esterase SMALL H (NEGATIVE) Urine RBC 0-1 (0-2/HPF) Urine WBC 2-4 (0-5/HPF) Ur Epithelial Cells FEW (NONE-FEW) Urine Bacteria RARE (NEGATIVE) 02/21/19 02/21/19 Range/Units 15:46 18:25 WBC (4.0-11.0) K/uL RBC (4.30-5.90) M/uL Hgb (12.0-16.0) g/dL Hct (36.0-46.0) % MCV (80.0-98.0) fL MCH (27.0-32.0) pg MCHC (31.0-37.0) g/dL RDW Std Deviation (28.0-62.0) fl RDW Coeff of Samson (11.0-15.0) % Plt Count (150-400) K/uL MPV (7.40-12.00) fL Add Manual Diff Neutrophils % (Manual) (48.0-80.0) % Band Neutrophils % % Lymphocytes % (Manual) (16.0-40.0) % Eosinophils % (Manual) (0.0-7.0) % Nucleated RBC % /100WBC Absolute Seg Neuts (1.4-5.7) Band Neutrophils # Lymphocytes # (Manual) (0.6-2.4) Eosinophils # (Manual) (0.0-0.7) Nucleated RBCs # K/uL Lactate 1.9 0.9 (0.20-2.00) mmol/L Sodium (136-145) mmol/L Potassium (3.5-5.1) mmol/L Chloride (98-107) mmol/L Carbon Dioxide (21.0-32.0) mmol/L BUN (7.0-18.0) mg/dL Creatinine (0.6-1.0) mg/dL Est Cr Clr Drug Dosing mL/min Estimated GFR (MDRD) ml/min Glucose (74-106) mg/dL Calcium (8.5-10.1) mg/dL Total Bilirubin (0.2-1.0) mg/dL AST (15-37) IU/L ALT (14-63) IU/L Alkaline Phosphatase (46-116) U/L Troponin I (0.000-0.056) ng/mL Total Protein (6.4-8.2) g/dL Albumin (3.4-5.0) g/dL Globulin (2.6-4.0) g/dL Albumin/Globulin Ratio (0.9-1.6) Urine Color Urine Appearance Urine pH (5.0-8.0) Ur Specific Palmer (1.001-1.035) Urine Protein (NEGATIVE) mg/dL Urine Glucose (UA) (NEGATIVE) mg/dL Urine Ketones (NEGATIVE) mg/dL Urine Occult Blood (NEGATIVE) Urine Nitrite (NEGATIVE) Urine Bilirubin (NEGATIVE) Urine Urobilinogen (<2.0) EU/dL Ur Leukocyte Esterase (NEGATIVE) Urine RBC (0-2/HPF) Urine WBC (0-5/HPF) Ur Epithelial Cells (NONE-FEW) Urine Bacteria (NEGATIVE) Result Diagrams: 02/21/19 15:00 02/21/19 15:00 Michael Results Last 24 hrs: Microbiology 02/21/19 15:05 Influenza Type A Antigen Screen - Final Nasopharyngeal Swab NEGATIVE INFLUENZA A VIRUS AG REFERENCE RANGE: NEGATIVE Influenza Type B Antigen Screen - Final NEGATIVE INFLUENZA B VIRUS AG REFERENCE RANGE: NEGATIVE Problem List Initiated/Reviewed/Updated: Yes Orders Last 24hrs: Active Orders 24 hr Category Date Time Status Admission Status [Patient Status] [ADT] Stat ADT 02/21/19 17:25 Active Antiembolic Devices [RC] PER UNIT ROUTINE Care 02/21/19 18:16 Active Cardiac Monitoring [RC] CONTINUOUS Care 02/21/19 18:15 Active EKG Documentation Completion [RC] STAT Care 02/21/19 14:52 Active Oxygen Therapy [RC] PRN Care 02/21/19 18:15 Active RT Aerosol Therapy [RC] ASDIRECTED Care 02/21/19 14:46 Active Up ad Rose [RC] ASDIRECTED Care 02/21/19 18:15 Active VTE/DVT Education [RC] PER UNIT ROUTINE Care 02/21/19 18:15 Active Vital Signs [RC] Q4H Care 02/21/19 18:15 Active Regular Diet [DIET] Diet 02/21/19 Breakfast Active BASIC METABOLIC PANEL,BMP [CHEM] AM Lab 02/22/19 05:11 Ordered CBC W/O DIFF,HEMOGRAM [HEME] AM Lab 02/22/19 05:11 Ordered CULTURE BLOOD [BC] Stat Lab 02/21/19 15:46 Received CULTURE BLOOD [BC] Stat Lab 02/21/19 16:10 Received CULTURE URINE [RM] Stat Lab 02/21/19 15:12 Received VANCOMYCIN TROUGH [CHEM] Timed Lab 02/23/19 07:00 Ordered Acetaminophen [Tylenol] Med 02/21/19 18:15 Active 650 mg PO Q4H PRN Heparin Sodium Med 02/21/19 18:15 Pending 5,000 units SUBCUT Q8H Levofloxacin/Dextrose 5%-Water [Levaquin in D5W 750 MG/ Med 02/21/19 18:30 Pending 150 ML] 750 mg Premix Bag 1 bag IV Q24H Pharmacy to Dose - Vancomycin Med 02/21/19 18:30 Pending 1 dose .XX ASDIRECTED Piperacillin/Tazobactam [Piperacil-Tazobact] 4.5 gm Med 02/22/19 00:00 Active Sodium Chloride 0.9% [Normal Saline] 100 ml IV Q6H Sodium Chloride 0.9% [Normal Saline] 1,000 ml Med 02/21/19 18:15 Active IV ASDIRECTED Vancomycin 2 gm Med 02/21/19 19:30 Active Sodium Chloride 0.9% [Normal Saline] 500 ml IV ONETIME Vancomycin [Vancocin] 1 gm Med 02/22/19 07:30 Active Sodium Chloride 0.9% [Normal Saline] 250 ml IV Q12H Blood Culture x2 Reflex Set [OM.PC] Stat Oth 02/21/19 15:20 Ordered Sequential Compression Device [OM.PC] Per Unit Routine Oth 02/21/19 18:16 Ordered Resuscitation Status Routine Resus Stat 02/21/19 18:15 Ordered Medication Orders Acetaminophen (Tylenol) 650 mg PO Q4H PRN PRN Reason: Pain (Mild 1-3)/fever Heparin Sodium (Porcine) (Heparin Sodium) 5,000 units SUBCUT Q8H [facility] Levofloxacin/Dextrose 750 mg/ (Premix) 150 mls @ 100 mls/hr IV Q24H [facility] Sodium Chloride (Normal Saline) 1,000 mls @ 125 mls/hr IV ASDIRECTED [facility] Piperacillin Sod/Tazobactam (Sod 4.5 gm/ Sodium Chloride) 100 mls @ 100 mls/hr IV Q6H [facility] Vancomycin HCl 2 gm/ Sodium (Chloride) 500 mls @ 250 mls/hr IV ONETIME ONE Stop: 02/21/19 21:29 Vancomycin HCl 1 gm/ Sodium (Chloride) 250 mls @ 166 mls/hr IV Q12H [facility] Vancomycin HCl (Pharmacy To Dose - Vancomycin) 1 dose .XX ASDIRECTED [facility] Assessment/Plan Comment:: Assessment: #1. R Lung pneumonia - Healthcare associated pneumonia #2. Hypoxic respiratory failure #3. UTI #4. History of recent hospitalization, C. diff infection #5. Leukocytosis #6. Thrombocytopenia Plan: #1. Admit for observation. Vitals per floor #2. IV Vanc, Zosyn, Levaquin. To cover UTI and Pneumonia. F/u on blood/urine cultures. IV NS 100m/h #3. Lactic acid repeat is 0.9 #4. Hold off on anticoagulation given thrombocytopenia #5. CBC/BMP tomorrow AM
[2019-02-21] MEDS ORDERED: Vancomycin 2 GM in Sodium Chloride 0.9% 500 ML IV ONE (19:30)
[2019-02-21] MEDS: Sodium Chloride 0.9% 1,000 ML IV SCH (19:32)
[2019-02-21] MEDS: Levofloxacin/Dextrose 5%-Water 750 MG in Premix Bag 1 BAG IV SCH (21:31)
[2019-02-21] MEDS: Acetaminophen 325 MG Tab PO PRN (22:54)
[2019-02-22] MEDS ORDERED: Piperacillin/Tazobactam 4.5 GM in Sodium Chloride 0.9% 100 ML IV SCH ×2
[2019-02-22] MEDS ORDERED: Vancomycin 2 GM in Sodium Chloride 0.9% 500 ML IV ONE (01:00)
[2019-02-22] MEDS: Piperacillin/Tazobactam 4.5 GM in Sodium Chloride 0.9% 100 ML IV SCH ×4 (05:31→20:40)
[2019-02-22] MEDS: traMADol 50 MG Tab PO PRN ×2 (10:31→20:39)
[2019-02-22] MEDS: Sodium Chloride 0.9% 1,000 ML IV SCH (13:39)
--- NOTE | 2019-02-22 15:36 | PCM.PN ---
- General Info Date of Service: 02/22/19 Subjective Update: Says she wasnt able to sleep over night because she doesn't like hospital beds. However, dysuria has subsided. She is on room air. denies any SOB. Mild cough persisting - Review of Systems General: Reports: Other (see hpi) - Patient Data Vitals - Most Recent: Last Vital Signs Temp 36 C 02/22/19 08:53 Pulse 62 02/22/19 08:53 Resp 18 02/22/19 08:53 BP 118/66 02/22/19 08:53 Pulse Ox 94 L 02/22/19 08:53 Weight - Most Recent: 83.733 kg I&O - Last 24 Hours: Intake & Output 02/22/19 02/22/19 02/22/19 06:59 14:59 22:59 Intake Total 1627 350 Output Total 1300 Balance 327 350 Lab Results Last 24 Hours: Laboratory Results - last 24 hr 02/21/19 02/21/19 02/21/19 Range/Units 15:00 15:12 15:46 WBC (4.0-11.0) K/uL RBC (4.30-5.90) M/uL Hgb (12.0-16.0) g/dL Hct (36.0-46.0) % MCV (80.0-98.0) fL MCH (27.0-32.0) pg MCHC (31.0-37.0) g/dL RDW Std Deviation (28.0-62.0) fl RDW Coeff of Samson (11.0-15.0) % Plt Count (150-400) K/uL MPV (7.40-12.00) fL Nucleated RBC % /100WBC Nucleated RBCs # K/uL Lactate 1.9 (0.20-2.00) mmol/L Sodium 135 L (136-145) mmol/L Potassium 3.6 (3.5-5.1) mmol/L Chloride 98 (98-107) mmol/L Carbon Dioxide 25.8 (21.0-32.0) mmol/L BUN 20 H (7.0-18.0) mg/dL Creatinine 1.0 (0.6-1.0) mg/dL Est Cr Clr Drug Dosing 50.41 mL/min Estimated GFR (MDRD) 55.1 ml/min Glucose 105 (74-106) mg/dL Calcium 8.8 (8.5-10.1) mg/dL Total Bilirubin 1.3 H (0.2-1.0) mg/dL AST 16 (15-37) IU/L ALT 19 (14-63) IU/L Alkaline Phosphatase 79 (46-116) U/L Troponin I < 0.050 (0.000-0.056) ng/mL Total Protein 6.7 (6.4-8.2) g/dL Albumin 3.3 L (3.4-5.0) g/dL Globulin 3.4 (2.6-4.0) g/dL Albumin/Globulin Ratio 1.0 (0.9-1.6) Urine RBC 0-1 (0-2/HPF) Urine WBC 2-4 (0-5/HPF) Ur Epithelial Cells FEW (NONE-FEW) Urine Bacteria RARE (NEGATIVE) 02/21/19 02/22/19 02/22/19 Range/Units 18:25 04:58 04:58 WBC 23.36 H (4.0-11.0) K/uL RBC 4.56 (4.30-5.90) M/uL Hgb 13.3 (12.0-16.0) g/dL Hct 40.7 (36.0-46.0) % MCV 89.3 (80.0-98.0) fL MCH 29.2 (27.0-32.0) pg MCHC 32.7 (31.0-37.0) g/dL RDW Std Deviation 44.3 (28.0-62.0) fl RDW Coeff of Samson 14 (11.0-15.0) % Plt Count 85 L (150-400) K/uL MPV 10.90 (7.40-12.00) fL Nucleated RBC % 0.0 /100WBC Nucleated RBCs # 0 K/uL Lactate 0.9 (0.20-2.00) mmol/L Sodium 139 (136-145) mmol/L Potassium 3.9 (3.5-5.1) mmol/L Chloride 105 (98-107) mmol/L Carbon Dioxide 20.7 L (21.0-32.0) mmol/L BUN 22 H (7.0-18.0) mg/dL Creatinine 1.1 H (0.6-1.0) mg/dL Est Cr Clr Drug Dosing 45.82 mL/min Estimated GFR (MDRD) 49.4 ml/min Glucose 209 H (74-106) mg/dL Calcium 8.6 (8.5-10.1) mg/dL Total Bilirubin (0.2-1.0) mg/dL AST (15-37) IU/L ALT (14-63) IU/L Alkaline Phosphatase (46-116) U/L Troponin I (0.000-0.056) ng/mL Total Protein (6.4-8.2) g/dL Albumin (3.4-5.0) g/dL Globulin (2.6-4.0) g/dL Albumin/Globulin Ratio (0.9-1.6) Urine RBC (0-2/HPF) Urine WBC (0-5/HPF) Ur Epithelial Cells (NONE-FEW) Urine Bacteria (NEGATIVE) Michael Results Last 24 Hours: Microbiology 02/21/19 15:05 Influenza Type A Antigen Screen - Final Nasopharyngeal Swab NEGATIVE INFLUENZA A VIRUS AG REFERENCE RANGE: NEGATIVE Influenza Type B Antigen Screen - Final NEGATIVE INFLUENZA B VIRUS AG REFERENCE RANGE: NEGATIVE Med Orders - Current: Current Medications Acetaminophen (Tylenol) 650 mg PO Q4H PRN PRN Reason: Pain (Mild 1-3)/fever Last Admin: 02/21/19 22:54 Dose: 650 mg Sodium Chloride (Normal Saline) 1,000 mls @ 100 mls/hr IV ASDIRECTED [facility] Last Admin: 02/22/19 13:39 Dose: 100 mls/hr Vancomycin HCl 1 gm/ Sodium (Chloride) 250 mls @ 166 mls/hr IV Q12H [facility] Last Admin: 02/22/19 13:31 Dose: 166 mls/hr Levofloxacin/Dextrose 750 mg/ (Premix) 150 mls @ 100 mls/hr IV Q24H [facility] Last Admin: 02/21/19 21:31 Dose: 100 mls/hr Piperacillin Sod/Tazobactam (Sod 4.5 gm/ Sodium Chloride) 100 mls @ 100 mls/hr IV Q6H [facility] Last Admin: 02/22/19 08:47 Dose: 100 mls/hr Zolpidem 5 Mg 5 each PO ASDIRECTED PRN PRN Reason: Sleep Tramadol HCl (Ultram) 50 mg PO QID PRN PRN Reason: Pain Last Admin: 02/22/19 10:31 Dose: 50 mg Vancomycin HCl (Pharmacy To Dose - Vancomycin) 1 dose .XX ASDIRECTED [facility] Discontinued Medications Albuterol/Ipratropium (Duoneb 3.0-0.5 Mg/3 Ml) 3 ml NEB ONETIME ONE Stop: 02/21/19 14:47 Last Admin: 02/21/19 15:00 Dose: 3 ml Heparin Sodium (Porcine) (Heparin Sodium) 5,000 units SUBCUT Q8H [facility] Last Admin: 02/21/19 19:20 Dose: Not Given Sodium Chloride (Normal Saline) 1,000 mls @ 999 mls/hr IV BOLUS ONE Stop: 02/21/19 15:52 Last Admin: 02/21/19 15:11 Dose: 999 mls/hr Piperacillin Sod/Tazobactam (Sod 3.375 gm/ Sodium Chloride) 50 mls @ 100 mls/ hr IV ONETIME ONE Stop: 02/21/19 17:58 Last Admin: 02/21/19 17:54 Dose: 100 mls/hr Meropenem 1 gm/ Sodium (Chloride) 100 mls @ 200 mls/hr IV Q8H [facility] Levofloxacin/Dextrose 750 mg/ (Premix) 150 mls @ 100 mls/hr IV Q24H [facility] Last Admin: 02/21/19 19:20 Dose: Not Given Piperacillin Sod/Tazobactam (Sod 4.5 gm/ Sodium Chloride) 100 mls @ 100 mls/hr IV Q6H [facility] Vancomycin HCl 2 gm/ Sodium (Chloride) 500 mls @ 250 mls/hr IV ONETIME ONE Stop: 02/21/19 21:29 Last Admin: 02/21/19 23:56 Dose: Not Given Meropenem 1 gm/ Sodium (Chloride) 100 mls @ 200 mls/hr IV Q8H [facility] Vancomycin HCl 2 gm/ Sodium (Chloride) 500 mls @ 250 mls/hr IV ONETIME ONE Stop: 02/22/19 02:59 Last Admin: 02/22/19 00:23 Dose: 250 mls/hr Iopamidol (Isovue Multipack-370 (76%)) 50 ml IVPUSH ONETIME ONE Stop: 02/21/19 16:37 Last Admin: 02/21/19 16:37 Dose: 50 ml Methylprednisolone Sodium Succinate (Solu-Medrol) 125 mg IVPUSH ONETIME ONE Stop: 02/21/19 14:54 Last Admin: 02/21/19 15:11 Dose: 125 mg Ondansetron HCl (Zofran) 4 mg IVPUSH ONETIME ONE Stop: 02/21/19 15:09 Last Admin: 02/21/19 15:18 Dose: 4 mg - Exam General: Alert, Oriented HEENT: Pupils Equal, Pupils Reactive, EOMI, Mucous Membr. Moist/[place] Neck: Supple Lungs: Clear to Auscultation, Normal Respiratory Effort Cardiovascular: Regular Rate, Regular Rhythm Extremities: Normal Inspection, Normal Range of Motion, Non-Tender, No Pedal Edema, Normal Capillary Refill Peripheral Pulses: 2+: Dorsalis Pedis (L), Dorsalis Pedis (R) - Problem List Review Problem List Initiated/Reviewed/Updated: Yes - My Orders Last 24 Hours: My Active Orders 02/21/19 18:15 Cardiac Monitoring [RC] CONTINUOUS Oxygen Therapy [RC] PRN Telemetry Monitoring [Cardiac Monitoring] [RC] Q8H Up ad Rose [RC] ASDIRECTED VTE/DVT Education [RC] PER UNIT ROUTINE Vital Signs [RC] Q4H Acetaminophen [Tylenol] 650 mg PO Q4H PRN Sodium Chloride 0.9% [Normal Saline] 1,000 ml IV ASDIRECTED Resuscitation Status Routine 02/21/19 18:16 Antiembolic Devices [RC] PER UNIT ROUTINE Sequential Compression Device [OM.PC] Per Unit Routine 02/21/19 18:30 Pharmacy to Dose - Vancomycin 1 dose .XX ASDIRECTED 02/21/19 19:00 Levofloxacin/Dextrose 5%-Water [Levaquin in D5W 750 MG/150 ML] 750 mg Premix Bag 1 bag IV Q24H 02/22/19 03:00 Piperacillin/Tazobactam [Piperacil-Tazobact] 4.5 gm Sodium Chloride 0.9% [ Normal Saline] 100 ml IV Q6H 02/22/19 10:11 Communication Order [RC] ROUTINE 02/22/19 13:00 Vancomycin [Vancocin] 1 gm Sodium Chloride 0.9% [Normal Saline] 250 ml IV Q12H - Plan Plan:: Assessment: #1. R Lung pneumonia - Healthcare associated pneumonia #2. Hypoxic respiratory failure #3. UTI #4. History of recent hospitalization, C. diff infection #5. Leukocytosis #6. Thrombocytopenia Plan: #1. Continue IV abx given persistent leukocytosis #2. Going through the chart she does have recurrent pneumonia, and an unexplained thrombocytopenia. A peripheral smear is unremarkable. 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
[2019-02-22] MEDS: Acetaminophen 325 MG Tab PO PRN (16:14)
[2019-02-22] MEDS: Levofloxacin/Dextrose 5%-Water 750 MG in Premix Bag 1 BAG IV SCH (18:34)
[2019-02-23] MEDS: Piperacillin/Tazobactam 4.5 GM in Sodium Chloride 0.9% 100 ML IV SCH ×4 (03:15→20:09)
[2019-02-23 05:42] LABS: CHLORIDE,CL 112 mmol/L (98-107); SODIUM,NA 145 mmol/L (136-145)
[2019-02-23] MEDS: Sodium Chloride 0.9% 1,000 ML IV SCH ×2 (07:10→20:09)
[2019-02-23] MEDS: traMADol 50 MG Tab PO PRN ×2 (12:19→18:40)
--- NOTE | 2019-02-23 13:27 | PCM.PN ---
- General Info Date of Service: 02/23/19 Subjective Update: Complaining of soft stool this AM. No abdominal pain. Otherwise feels better. No dysuria or shortness of breath/ cough. - Review of Systems General: Reports: Other (see hpi) - Patient Data Vitals - Most Recent: Last Vital Signs Temp 36.0 C 02/23/19 12:00 Pulse 69 02/23/19 12:00 Resp 20 02/23/19 12:00 BP 155/79 H 02/23/19 12:00 Pulse Ox 95 02/23/19 12:00 Weight - Most Recent: 83.733 kg I&O - Last 24 Hours: Intake & Output 02/22/19 02/23/19 02/23/19 22:59 06:59 14:59 Intake Total 2717 1396 100 Output Total 1500 1925 Balance 1217 -529 100 Lab Results Last 24 Hours: Laboratory Results - last 24 hr 02/23/19 02/23/19 Range/Units 04:55 04:55 WBC 20.90 H (4.0-11.0) K/uL RBC 4.13 L (4.30-5.90) M/uL Hgb 11.7 L (12.0-16.0) g/dL Hct 36.9 (36.0-46.0) % MCV 89.3 (80.0-98.0) fL MCH 28.3 (27.0-32.0) pg MCHC 31.7 (31.0-37.0) g/dL RDW Std Deviation 45.3 (28.0-62.0) fl RDW Coeff of Samson 14 (11.0-15.0) % Plt Count 122 L (150-400) K/uL MPV 10.60 (7.40-12.00) fL Add Manual Diff YES Neutrophils % (Manual) 65 (48.0-80.0) % Band Neutrophils % 11 % Lymphocytes % (Manual) 15 L (16.0-40.0) % Monocytes % (Manual) 6 (0.0-15.0) % Eosinophils % (Manual) 3 (0.0-7.0) % Nucleated RBC % 0.0 /100WBC Absolute Seg Neuts 13.6 H (1.4-5.7) Band Neutrophils # 2.3 Lymphocytes # (Manual) 3.1 H (0.6-2.4) Monocytes # (Manual) 1.3 H (0.0-0.8) Eosinophils # (Manual) 0.6 (0.0-0.7) Nucleated RBCs # 0 K/uL Sodium 145 (136-145) mmol/L Potassium 4.0 (3.5-5.1) mmol/L Chloride 112 H (98-107) mmol/L Carbon Dioxide 23.9 (21.0-32.0) mmol/L BUN 20 H (7.0-18.0) mg/dL Creatinine 0.9 (0.6-1.0) mg/dL Est Cr Clr Drug Dosing 56.00 mL/min Estimated GFR (MDRD) > 60.0 ml/min Glucose 108 H (74-106) mg/dL Calcium 8.0 L (8.5-10.1) mg/dL Michael Results Last 24 Hours: Microbiology 02/23/19 10:15 Clostridium difficile Toxin A & B - Final Stool / Feces Positive C. Diff Antigen 02/21/19 15:12 Urine Culture - Final Urine, Clean Catch MIXED NISHA 1,000-10,000 CFU/ML 02/21/19 16:10 Aerobic Blood Culture - Preliminary Blood - Venous - Lab Draw NO GROWTH AFTER 1 DAY Anaerobic Blood Culture - Preliminary NO GROWTH AFTER 1 DAY 02/21/19 15:46 Aerobic Blood Culture - Preliminary Blood - Venous NO GROWTH AFTER 1 DAY Anaerobic Blood Culture - Preliminary NO GROWTH AFTER 1 DAY Med Orders - Current: Current Medications Acetaminophen (Tylenol) 650 mg PO Q4H PRN PRN Reason: Pain (Mild 1-3)/fever Last Admin: 02/22/19 16:14 Dose: 650 mg Sodium Chloride (Normal Saline) 1,000 mls @ 100 mls/hr IV ASDIRECTED [facility] Last Admin: 02/23/19 07:10 Dose: 100 mls/hr Levofloxacin/Dextrose 750 mg/ (Premix) 150 mls @ 100 mls/hr IV Q24H [facility] Last Admin: 02/22/19 18:34 Dose: 100 mls/hr Piperacillin Sod/Tazobactam (Sod 4.5 gm/ Sodium Chloride) 100 mls @ 100 mls/hr IV Q6H [facility] Last Admin: 02/23/19 08:39 Dose: 100 mls/hr Losartan Potassium (Cozaar) 100 mg PO DAILY [facility] Zolpidem 5 Mg 5 each PO ASDIRECTED PRN PRN Reason: Sleep Last Admin: 02/22/19 22:01 Dose: 5 each Desvenlafaxine Er 50 (Mg) 1 each PO DAILY [facility] Estradiol 1 Applic 1 each VAG BEDTIME [facility] Tramadol HCl (Ultram) 50 mg PO QID PRN PRN Reason: Pain Last Admin: 02/23/19 12:19 Dose: 50 mg Vancomycin HCl (Pharmacy To Dose - Vancomycin) 1 dose .XX ASDIRECTED [facility] Discontinued Medications Albuterol/Ipratropium (Duoneb 3.0-0.5 Mg/3 Ml) 3 ml NEB ONETIME ONE Stop: 02/21/19 14:47 Last Admin: 02/21/19 15:00 Dose: 3 ml Heparin Sodium (Porcine) (Heparin Sodium) 5,000 units SUBCUT Q8H [facility] Last Admin: 02/21/19 19:20 Dose: Not Given Sodium Chloride (Normal Saline) 1,000 mls @ 999 mls/hr IV BOLUS ONE Stop: 02/21/19 15:52 Last Admin: 02/21/19 15:11 Dose: 999 mls/hr Piperacillin Sod/Tazobactam (Sod 3.375 gm/ Sodium Chloride) 50 mls @ 100 mls/ hr IV ONETIME ONE Stop: 02/21/19 17:58 Last Admin: 02/21/19 17:54 Dose: 100 mls/hr Meropenem 1 gm/ Sodium (Chloride) 100 mls @ 200 mls/hr IV Q8H [facility] Levofloxacin/Dextrose 750 mg/ (Premix) 150 mls @ 100 mls/hr IV Q24H [facility] Last Admin: 02/21/19 19:20 Dose: Not Given Piperacillin Sod/Tazobactam (Sod 4.5 gm/ Sodium Chloride) 100 mls @ 100 mls/hr IV Q6H [facility] Vancomycin HCl 2 gm/ Sodium (Chloride) 500 mls @ 250 mls/hr IV ONETIME ONE Stop: 02/21/19 21:29 Last Admin: 02/21/19 23:56 Dose: Not Given Vancomycin HCl 1 gm/ Sodium (Chloride) 250 mls @ 166 mls/hr IV Q12H [facility] Last Admin: 02/23/19 01:30 Dose: 166 mls/hr Meropenem 1 gm/ Sodium (Chloride) 100 mls @ 200 mls/hr IV Q8H [facility] Vancomycin HCl 2 gm/ Sodium (Chloride) 500 mls @ 250 mls/hr IV ONETIME ONE Stop: 02/22/19 02:59 Last Admin: 02/22/19 00:23 Dose: 250 mls/hr Iopamidol (Isovue Multipack-370 (76%)) 50 ml IVPUSH ONETIME ONE Stop: 02/21/19 16:37 Last Admin: 02/21/19 16:37 Dose: 50 ml Methylprednisolone Sodium Succinate (Solu-Medrol) 125 mg IVPUSH ONETIME ONE Stop: 02/21/19 14:54 Last Admin: 02/21/19 15:11 Dose: 125 mg Ondansetron HCl (Zofran) 4 mg IVPUSH ONETIME ONE Stop: 02/21/19 15:09 Last Admin: 02/21/19 15:18 Dose: 4 mg - Exam General: Alert, Oriented HEENT: Pupils Equal, Pupils Reactive, EOMI, Mucous Membr. Moist/[place] Lungs: Clear to Auscultation, Normal Respiratory Effort Cardiovascular: Regular Rate, Regular Rhythm GI/Abdominal Exam: Normal Bowel Sounds, Soft, Non-Tender, No Organomegaly, No Distention, No Abnormal Bruit, No Mass Back Exam: Normal Inspection, Full Range of Motion Extremities: Normal Inspection, Normal Range of Motion, Non-Tender, No Pedal Edema, Normal Capillary Refill Peripheral Pulses: 2+: Dorsalis Pedis (L), Dorsalis Pedis (R) - Problem List Review Problem List Initiated/Reviewed/Updated: Yes - My Orders Last 24 Hours: My Active Orders 02/23/19 09:27 Isolation [COMM] Stat 02/23/19 12:30 Patient's Own Medication [Ptom] 1 each PO DAILY 02/23/19 21:00 Patient's Own Medication [Ptom] 1 each VAG BEDTIME 02/24/19 05:11 BASIC METABOLIC PANEL,BMP [CHEM] AM CBC WITH AUTO DIFF [HEME] AM 02/24/19 09:00 Losartan [Cozaar] 100 mg PO DAILY 02/25/19 05:11 BASIC METABOLIC PANEL,BMP [CHEM] AM CBC WITH AUTO DIFF [HEME] AM - Plan Plan:: Assessment: #1. R Lung pneumonia - Healthcare associated pneumonia #2. Hypoxic respiratory failure #3. UTI #4. History of recent hospitalization, C. diff infection #5. Leukocytosis - improving #6. Thrombocytopenia Plan: #1. Stop vancomycin #2. Obtain stool c diff #3. Patient will require appointment with hematology and pulmonology upon discharge.
[2019-02-23] MEDS ORDERED: Ondansetron 4 MG/2 ML SDV IVPUSH PRN (16:18)
[2019-02-23] MEDS: Vancomycin 25 MG/ML Compounding Kit PO SCH ×2 (18:00→23:08)
[2019-02-23] MEDS: Levofloxacin/Dextrose 5%-Water 750 MG in Premix Bag 1 BAG IV SCH (18:39)
[2019-02-23] MEDS: Gabapentin 300 MG Cap PO SCH ×2 (20:09→21:34)
[2019-02-23] MEDS ORDERED: ESTRADIOL VAG SCH (21:00)
[2019-02-24] MEDS: traMADol 50 MG Tab PO PRN (01:04)
[2019-02-24] MEDS: Piperacillin/Tazobactam 4.5 GM in Sodium Chloride 0.9% 100 ML IV SCH ×2 (03:29→08:12)
[2019-02-24] MEDS: Vancomycin 25 MG/ML Compounding Kit PO SCH (06:01)
[2019-02-24] MEDS: Gabapentin 300 MG Cap PO SCH (06:01)
[2019-02-24 08:08] VITALS: BP 156/74
[2019-02-24] MEDS: Sodium Chloride 0.9% 1,000 ML IV SCH (08:10)
[2019-02-24] MEDS ORDERED: Losartan 50 MG Tab PO SCH (09:00)
--- NOTE | 2019-02-24 09:08 | PCM.DCSUM1 ---
Discharge Summary - Discharge Data Discharge Date: 02/24/19 Discharge Disposition: Home, Self-Care 01 Condition: Good - Patient Summary/Data Hospital Course: Patient was a 68F with history of recurrent UTI, recent hospitalization for pneumonia, C. Diff infection that presented to the hospital for persistent dysuria. She also reported subjective fevers, sweats and loose stools. She was being treated as an outpatient for this issue with macrobid. In the ED her work up was significant for a leukocytosis, CXR for a right lung pneumonia. The UA was suggestive of UTI. Her Platelets were 85 and she has a history or thrombocytopenia. She was treated with broad spectrum antibiotics due to concerns of health care associated pneumonia and gram negative carlin respiratory infection. This was tailored down to Levaquin with cultures did not grow anything specific. Her stool came back positive for C.diff so she was started on oral vancomycin. She is requesting discharge today. She is discharged with seven more days of Levaquin and a longer tapered dose of oral vancomycin. She was referred to hematology due to her history of thrombocytopenia and concern of recurrent infections. She did not want an infectious disease consult but requested a referral to pulmonology. - Patient Instructions Diet: Usual Diet as Tolerated Activity: As Tolerated Notify Provider of: Fever - Discharge Plan Prescriptions/Med Rec: Levofloxacin [Levaquin] 750 mg PO DAILY #7 tablet Vancomycin HCl 125 mg PO ASDIRECTED #68 capsule Home Medications: Home Meds Desvenlafaxine [Desvenlafaxine ER] 50 mg PO DAILY 01/25/19 [History] Diclofenac Sodium [Voltaren 1% Gel] 1 gram TOP BID PRN 01/25/19 [History] Meloxicam 15 mg PO DAILY 01/25/19 [History] Zolpidem [Ambien] 5 mg PO ASDIRECTED PRN 01/25/19 [History] traMADol [Ultram] 50 mg PO QID PRN 01/25/19 [History] Estradiol [Estrace 0.01% Vaginal Crm] 1 applic VAG BEDTIME 02/21/19 [History] Losartan Potassium [Cozaar] 100 mg PO DAILY 02/21/19 [History] Levofloxacin [Levaquin] 750 mg PO DAILY #7 tablet 02/24/19 [Rx] Vancomycin HCl 125 mg PO ASDIRECTED #68 capsule 02/24/19 [Rx] Referrals: [facility] [Outside] Josh Jane MD [Physician] - 03/06/19 10:45 am - Discharge Summary/Plan Comment DC Time >30 min.: No - Patient Data Vitals - Most Recent: Last Vital Signs Temp 36.1 C 02/24/19 08:00 Pulse 60 02/24/19 08:00 Resp 16 02/24/19 08:00 BP 156/74 H 02/24/19 08:08 Pulse Ox 95 02/24/19 08:00 Weight - Most Recent: 83.733 kg I&O - Last 24 hours: Intake & Output 02/23/19 02/24/19 02/24/19 22:59 06:59 14:59 Intake Total 1971 2156 100 Output Total 1350 2200 Balance 621 -44 100 Lab Results - Last 24 hrs: Laboratory Results - last 24 hr 02/24/19 02/24/19 Range/Units 06:14 06:14 WBC 15.35 H (4.0-11.0) K/uL RBC 4.77 (4.30-5.90) M/uL Hgb 13.4 (12.0-16.0) g/dL Hct 42.8 (36.0-46.0) % MCV 89.7 (80.0-98.0) fL MCH 28.1 (27.0-32.0) pg MCHC 31.3 (31.0-37.0) g/dL RDW Std Deviation 45.3 (28.0-62.0) fl RDW Coeff of Samson 14 (11.0-15.0) % Plt Count 142 L (150-400) K/uL MPV 10.00 (7.40-12.00) fL Add Manual Diff YES Neutrophils % (Manual) 46 L (48.0-80.0) % Lymphocytes % (Manual) 33 (16.0-40.0) % Monocytes % (Manual) 3 (0.0-15.0) % Eosinophils % (Manual) 17 H (0.0-7.0) % Metamyelocytes % 1 % Nucleated RBC % 0.0 /100WBC Absolute Seg Neuts 7.1 H (1.4-5.7) Lymphocytes # (Manual) 5.1 H (0.6-2.4) Monocytes # (Manual) 0.5 (0.0-0.8) Eosinophils # (Manual) 2.6 H (0.0-0.7) Absolute Metamyelocyte 0.2 Nucleated RBCs # 0 K/uL Sodium 145 (136-145) mmol/L Potassium 4.4 (3.5-5.1) mmol/L Chloride 108 H (98-107) mmol/L Carbon Dioxide 28.9 (21.0-32.0) mmol/L BUN 18 (7.0-18.0) mg/dL Creatinine 1.0 (0.6-1.0) mg/dL Est Cr Clr Drug Dosing 50.41 mL/min Estimated GFR (MDRD) 55.1 ml/min Glucose 89 (74-106) mg/dL Calcium 8.5 (8.5-10.1) mg/dL DONTE Results - Last 24 hrs: Microbiology 02/21/19 16:10 Aerobic Blood Culture - Preliminary Blood - Venous - Lab Draw NO GROWTH AFTER 2 DAYS Anaerobic Blood Culture - Preliminary NO GROWTH AFTER 2 DAYS 02/21/19 15:46 Aerobic Blood Culture - Preliminary Blood - Venous NO GROWTH AFTER 2 DAYS Anaerobic Blood Culture - Preliminary NO GROWTH AFTER 2 DAYS 02/23/19 10:15 Clostridium difficile Toxin A & B - Final Stool / Feces Positive C. Diff Antigen 02/21/19 15:12 Urine Culture - Final Urine, Clean Catch MIXED NISHA 1,000-10,000 CFU/ML Med Orders - Current: Current Medications Acetaminophen (Tylenol) 650 mg PO Q4H PRN PRN Reason: Pain (Mild 1-3)/fever Last Admin: 02/22/19 16:14 Dose: 650 mg Gabapentin (Neurontin) 300 mg PO TID [facility] Last Admin: 02/24/19 06:01 Dose: 300 mg Sodium Chloride (Normal Saline) 1,000 mls @ 100 mls/hr IV ASDIRECTED [facility] Last Admin: 02/24/19 08:10 Dose: 100 mls/hr Levofloxacin/Dextrose 750 mg/ (Premix) 150 mls @ 100 mls/hr IV Q24H [facility] Last Admin: 02/23/19 18:39 Dose: 100 mls/hr Piperacillin Sod/Tazobactam (Sod 4.5 gm/ Sodium Chloride) 100 mls @ 100 mls/hr IV Q6H [facility] Last Admin: 02/24/19 08:12 Dose: 100 mls/hr Losartan Potassium (Cozaar) 100 mg PO DAILY [facility] Last Admin: 02/24/19 08:08 Dose: 100 mg Ondansetron HCl (Zofran) 4 mg IVPUSH Q4H PRN PRN Reason: Nausea Last Admin: 02/23/19 16:50 Dose: 4 mg Desvenlafaxine Er 50 (Mg) 1 each PO DAILY [facility] Last Admin: 02/24/19 08:17 Dose: 1 each Tramadol HCl (Ultram) 50 mg PO QID PRN PRN Reason: Pain Last Admin: 02/24/19 01:04 Dose: 50 mg Vancomycin HCl (Pharmacy To Dose - Vancomycin) 1 dose .XX ASDIRECTED [facility] Vancomycin HCl (First-Vancomycin 25 Compounding Kit) 125 mg PO QID [facility] Last Admin: 02/24/19 06:01 Dose: 5 ml Zaleplon (Sonata) 5 mg PO BEDTIME PRN PRN Reason: SLEEP Last Admin: 02/23/19 21:37 Dose: 5 mg Discontinued Medications Albuterol/Ipratropium (Duoneb 3.0-0.5 Mg/3 Ml) 3 ml NEB ONETIME ONE Stop: 02/21/19 14:47 Last Admin: 02/21/19 15:00 Dose: 3 ml Heparin Sodium (Porcine) (Heparin Sodium) 5,000 units SUBCUT Q8H [facility] Last Admin: 02/21/19 19:20 Dose: Not Given Sodium Chloride (Normal Saline) 1,000 mls @ 999 mls/hr IV BOLUS ONE Stop: 02/21/19 15:52 Last Admin: 02/21/19 15:11 Dose: 999 mls/hr Piperacillin Sod/Tazobactam (Sod 3.375 gm/ Sodium Chloride) 50 mls @ 100 mls/ hr IV ONETIME ONE Stop: 02/21/19 17:58 Last Admin: 02/21/19 17:54 Dose: 100 mls/hr Meropenem 1 gm/ Sodium (Chloride) 100 mls @ 200 mls/hr IV Q8H [facility] Levofloxacin/Dextrose 750 mg/ (Premix) 150 mls @ 100 mls/hr IV Q24H [facility] Last Admin: 02/21/19 19:20 Dose: Not Given Piperacillin Sod/Tazobactam (Sod 4.5 gm/ Sodium Chloride) 100 mls @ 100 mls/hr IV Q6H [facility] Vancomycin HCl 2 gm/ Sodium (Chloride) 500 mls @ 250 mls/hr IV ONETIME ONE Stop: 02/21/19 21:29 Last Admin: 02/21/19 23:56 Dose: Not Given Vancomycin HCl 1 gm/ Sodium (Chloride) 250 mls @ 166 mls/hr IV Q12H [facility] Last Admin: 02/23/19 01:30 Dose: 166 mls/hr Meropenem 1 gm/ Sodium (Chloride) 100 mls @ 200 mls/hr IV Q8H [facility] Vancomycin HCl 2 gm/ Sodium (Chloride) 500 mls @ 250 mls/hr IV ONETIME ONE Stop: 02/22/19 02:59 Last Admin: 02/22/19 00:23 Dose: 250 mls/hr Iopamidol (Isovue Multipack-370 (76%)) 50 ml IVPUSH ONETIME ONE Stop: 02/21/19 16:37 Last Admin: 02/21/19 16:37 Dose: 50 ml Methylprednisolone Sodium Succinate (Solu-Medrol) 125 mg IVPUSH ONETIME ONE Stop: 02/21/19 14:54 Last Admin: 02/21/19 15:11 Dose: 125 mg Ondansetron HCl (Zofran) 4 mg IVPUSH ONETIME ONE Stop: 02/21/19 15:09 Last Admin: 02/21/19 15:18 Dose: 4 mg Zolpidem 5 Mg 5 each PO ASDIRECTED PRN PRN Reason: Sleep Last Admin: 02/22/19 22:01 Dose: 5 each
== END 2019-02-24 10:25 | disposition home or self-care (01) ==
LOC: MW.ED 14:31 → MW.MS 17:32
PROVIDERS: ADMIT Internal Medicine; ATTEND Internal Medicine
DX: N30.01 Acute cystitis with hematuria (principal); J18.9 Pneumonia, unspecified organism; J96.91 Respiratory failure, unspecified with hypoxia; I10 Essential (primary) hypertension; D69.6 Thrombocytopenia, unspecified; A04.72 Enterocolitis due to Clostridium difficile, not specified as recurrent; Z88.1 Allergy status to other antibiotic agents; Z88.6 Allergy status to analgesic agent; Z88.5 Allergy status to narcotic agent; Z91.09 Other allergy status, other than to drugs and biological substances; Z87.440 Personal history of urinary (tract) infections; Z87.891 Personal history of nicotine dependence; Z79.1 Long term (current) use of non-steroidal anti-inflammatories (NSAID); Z79.899 Other long term (current) drug therapy
CPT/HCPCS: 36415; 71046; 71275; 80048; 80053; 81001; 83605; 84484; 85025; 85027; 87040; 87086; 87324; 87804; 93005; 94640; 96361; 96365; 96366; 96367; 96375; 96376; 99285; A9270; G0378; J1956; J2405; J2543; J2930; J3370; J7030; J7040; J7050; Q9967; J7620-GY

== ENCOUNTER 2019-04-04 11:18 | Observation (INO) | payer MEDICARE, BC ==
[2019-04-04] MEDS ORDERED: Ondansetron 4 MG Tab.DIS PO PRN (11:31)
--- NOTE | 2019-04-04 13:00 | PCM.HP ---
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 She was recently started on Bactrim by her PCP yesterday for a UTI. She presented today to her PCP's clinic complaining of worsening shortness of breath, cough for the past 1-2 days. Endorses subjective fevers and chills. In clinic, she was found with O2 sat of 85% on RA. In addition, chest xray showed a lingular lobe pneumonia. She was directly admitted from clinic. Patient states that she was feeling fine until the past 1-2 days when she started getting more short of breath. She is a former smoker. Does not use inhalers at home. Endorses a non productive cough. No recent sick contacts. Denies any chest pain, abdominal pain. Endorses some dysuria and some loose stools. Lower Back Pain Score (Numeric/FACES): 7 - Related Data Allergies/Adverse Reactions: Allergies Allergy/AdvReac Type Severity Reaction Status Date / Time cefuroxime axetil Allergy Intermediate Rash Verified 04/04/19 13:17 [From Ceftin] azithromycin Allergy Rash Verified 04/04/19 13:17 celecoxib [From Celebrex] Allergy Rash Verified 04/04/19 13:17 ciprofloxacin Allergy Rash Verified 04/04/19 13:17 codeine Allergy Vomiting Verified 04/04/19 13:17 hydrocodone Allergy Hives Verified 04/04/19 13:17 some metals Allergy Hives Uncoded 04/04/19 13:17 Home Medications: Home Meds Desvenlafaxine [Desvenlafaxine ER] 50 mg PO DAILY 01/25/19 [History] Diclofenac Sodium [Voltaren 1% Gel] 1 gram TOP QID PRN 01/25/19 [History] Meloxicam 15 mg PO DAILY 01/25/19 [History] Zolpidem [Ambien] 5 mg PO BEDTIME PRN 01/25/19 [History] traMADol [Ultram] 50 mg PO QID PRN 01/25/19 [History] Estradiol [Estrace 0.01% Vaginal Crm] 1 applic VAG BEDTIME 02/21/19 [History] Losartan Potassium [Cozaar] 100 mg PO DAILY 02/21/19 [History] Betamethasone Valerate [Valisone 0.1% Crm] 15 gm TOP BID PRN MDD to affected area for irritatio 04/04/19 [History] Ciclopirox Olamine [Ciclopirox] 15 gm TP DAILY 04/04/19 [History] Past Medical History - Past Health History Medical/Surgical History: Denies Medical/Surgical History HEENT History: Reports: Cataract Other HEENT History: wears reading glasses, top denture, 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 Cardiovascular History: Reports: Hypertension Respiratory History: Reports: Pneumonia, Recurrent Gastrointestinal History: Reports: Irritable Bowel Syndrome Other Gastrointestinal History: occasional heartburn Genitourinary History: Reports: UTI, Recurrent MEMBER OF TECHNICAL STAFF History: Reports: , Other (See Below) Other OB/BYN History: tubal ligation Musculoskeletal History: Reports: Back Pain, Chronic Other Musculoskeletal History: joint pain, polyneuropathy, Neurological History: Reports: None Psychiatric History: Reports: Anxiety Endocrine/Metabolic History: Reports: None Hematologic History: Reports: None Other Hematologic History: low platelets Immunologic History: Reports: None, Other (See Below) Other Immunologic History: current 6 months treatment of IVIg infusions Oncologic (Cancer) History: Reports: None Dermatologic History: Reports: Eczema - Infectious Disease History Infectious Disease History: Reports: Chicken Pox, Measles - Past Surgical History HEENT Surgical History: Reports: None GI Surgical History: Reports: Appendectomy, Cholecystectomy, Colonoscopy, Other (See Below) Other GI Surgeries/Procedures: adhesions Other Female Surgeries/Procedures: adhesions Musculoskeletal Surgical History: Reports: None Oncologic Surgical History: Reports: Bone Marrow Aspiration Social & Family History - Family History Family Medical History: Noncontributory Neurological: Reports: Neuropathy, Peripheral, Other (See Below) Other Neurological Family History: Temporal arteritis- Polymyalgic Giant cell. Polymyositis Immunologic: Reports: None Dermatologic: Reports: None Oncologic: Reports: None - Tobacco Use Smoking Status *Q: Never Smoker Second Hand Smoke Exposure: No - Caffeine Use Caffeine Use: Reports: Soda, Tea - Alcohol Use Date of Last Drink: 04/04/18 - Recreational Drug Use Recreational Drug Use: No - Living Situation & Occupation Living situation: Reports: with Family Occupation: Retired H&P Review of Systems - Review of Systems: Review Of Systems: ROS reveals no pertinent complaints other than HPI. Exam - Exam Exam: See Below - Vital Signs Vital Signs: Last Vital Signs Temp 36.4 C 04/04/19 11:20 Pulse 91 04/04/19 11:20 Resp 16 04/04/19 11:20 BP 95/52 L 04/04/19 11:20 Pulse Ox 86 L 04/04/19 11:20 Weight: 80.5 kg - Exam Quality Assessment: Supplemental Oxygen General: Alert, Oriented, Cooperative HEENT: Conjunctiva Clear, Posterior Pharynx Clear Lungs: Other (bibasilar crackles. No wheezing. Good airflow bilaterally.) Cardiovascular: Regular Rate, Regular Rhythm GI/Abdominal Exam: Normal Bowel Sounds, Soft, Non-Tender, No Distention Extremities: Normal Inspection, No Pedal Edema Skin: Warm, Dry - Patient Data Result Diagrams: 04/04/19 13:07 04/04/19 13:07 Problem List Initiated/Reviewed/Updated: Yes Orders Last 24hrs: Active Orders 24 hr Category Date Time Status Patient Status [ADT] Routine ADT 04/04/19 11:31 Active Antiembolic Devices [RC] PER UNIT ROUTINE Care 04/04/19 11:33 Active Intake and Output [RC] Q12H Care 04/04/19 11:32 Active Oxygen Therapy [RC] PRN Care 04/04/19 11:31 Active RT Aerosol Therapy [RC] ASDIRECTED Care 04/04/19 11:43 Active Up ad Rose [RC] ASDIRECTED Care 04/04/19 11:31 Active VTE/DVT Education [RC] PER UNIT ROUTINE Care 04/04/19 11:31 Active Vital Signs [RC] Q4H Care 04/04/19 11:31 Active Regular Diet [DIET] Diet 04/04/19 Breakfast Active CXR [Chest 1V Frontal] [CR] Routine Exams 04/04/19 12:55 Ordered CBC WITH AUTO DIFF [HEME] Routine Lab 04/04/19 12:55 Ordered COMPREHENSIVE METABOLIC PN,CMP [CHEM] Routine Lab 04/04/19 12:55 Ordered MAGNESIUM [CHEM] Routine Lab 04/04/19 12:55 Ordered Acetaminophen [Tylenol Extra Strength] Med 04/04/19 11:44 Active 500 mg PO Q4H PRN Albuterol/Ipratropium [DuoNeb 3.0-0.5 MG/3 ML] Med 04/04/19 11:43 Active 3 ml NEB Q6H PRN Ondansetron [Zofran ODT] Med 04/04/19 11:31 Active 4 mg PO Q4H PRN Sequential Compression Device [OM.PC] Per Unit Routine Oth 04/04/19 11:32 Ordered Resuscitation Status Routine Resus Stat 04/04/19 11:31 Ordered Medication Orders Acetaminophen (Tylenol Extra Strength) 500 mg PO Q4H PRN PRN Reason: Pain Albuterol/Ipratropium (Duoneb 3.0-0.5 Mg/3 Ml) 3 ml NEB Q6H PRN PRN Reason: Shortness of Breath Ondansetron HCl (Zofran Odt) 4 mg PO Q4H PRN PRN Reason: nausea, able to take PO Assessment/Plan Comment:: A: 1. Lingular lobe pneumonia 2. Acute hypoxic respiratory failure 3. UTI 4. Leukocytosis 5. Thrombocytopenia 6. Acute kidney injury 7. Hypomagnesemia P: 1. Lingular lobe pneumonia- started levaquin 750 mg IV Q48H. Duonebs PRN. Supplemental O2, wean as tolerated. 2. UTI- will treat with Levaquin. Will get urine culture since UA at [facility] was positive for leukocyte esterase and nitrites. 3. DOROTHY- will hydrate with NS at 100 ml/hr. 4. Hypomagnesemia- will replace with MgS 2 g IV once. recheck tomorrow. dispo; 1-2 days. <Nabor Lee - Last Filed: 04/04/19 16:19> H&P History of Present Illness - General Admit Problem/Dx: Admission Diagnosis/Problem Admission Diagnosis/Problem Hypoxia I have seen and examined to patient independently of medical educator, Stewart Johnson MD. I have discussed the case for care of this patient with him. I have reviewed and approve of the plan of care as outlined by medical educator. Please see orders. Exam - Vital Signs Vital Signs: Last Vital Signs Temp 36.4 C 04/04/19 16:00 Pulse 89 04/04/19 16:00 Resp 16 04/04/19 16:00 BP 112/56 L 04/04/19 16:00 Pulse Ox 86 L 04/04/19 11:20 - Patient Data Lab Results Last 24 hrs: Laboratory Results - last 24 hr 04/04/19 04/04/19 04/04/19 Range/Units 13:07 13:07 13:07 WBC Cancelled 31.56 H RBC Cancelled 4.91 Hgb Cancelled 14.2 Hct Cancelled 42.3 MCV Cancelled 86.2 MCH Cancelled 28.9 MCHC Cancelled 33.6 RDW Std Deviation Cancelled 41.8 RDW Coeff of Samson Cancelled 13 Plt Count Cancelled 76 L MPV Cancelled 10.50 Neut % (Auto) Cancelled Lymph % (Auto) Cancelled [place] % (Auto) Cancelled Eos % (Auto) Cancelled Baso % (Auto) Cancelled Neut # (Auto) Cancelled Lymph # (Auto) Cancelled [place] # (Auto) Cancelled Eos # (Auto) Cancelled Baso # (Auto) Cancelled Add Manual Diff Cancelled YES Neutrophils % (Manual) Cancelled 90 H Band Neutrophils % Cancelled 3 Lymphocytes % (Manual) Cancelled 3 L Atypical Lymphs % Cancelled Immat Monocytes % (Man) Cancelled Monocytes % (Manual) Cancelled 1 Eosinophils % (Manual) Cancelled 2 Basophils % (Manual) Cancelled 1 Metamyelocytes % Cancelled Myelocytes % Cancelled Promyelocytes % Cancelled Blast Cells % Cancelled Plasma Cell % (Manual) Cancelled Nucleated RBC % Cancelled 0.0 Immature Gran # Cancelled Absolute Neutrophils Cancelled Absolute Seg Neuts Cancelled 28.4 H Band Neutrophils # Cancelled 0.9 Lymphocytes # (Manual) Cancelled 0.9 Immat Monocytes # Man Cancelled Monocytes # (Manual) Cancelled 0.3 Eosinophils # (Manual) Cancelled 0.6 Basophils # (Manual) Cancelled 0.3 H Absolute Metamyelocyte Cancelled Absolute Myelocytes Cancelled Absolute Promyelocytes Cancelled Absolute Plasma Cells Cancelled Nucleated RBCs Cancelled Nucleated RBCs # Cancelled 0 Differential Comment Cancelled Pathologist Review Cancelled Bilobed Neuts Cancelled Hypersegmented Neuts Cancelled Variant Lymphocytes Cancelled Atypical Lymphocytes Cancelled Abnormal Lymphocytes Cancelled Plasmacytoid Lymphs Cancelled Reactive Lymphocytes Cancelled Vacuolated Monocytes Cancelled Absolute Blast Cells Cancelled Smudge Cells Cancelled Toxic Granulation Cancelled Dohle Bodies Cancelled Pelger-Huet Cells Cancelled Megakaryocytic Frags Cancelled Ria Rods Cancelled WBC Morphology Comment Cancelled Platelet Estimate Cancelled Hypogranular Platelets Cancelled Platelet Agranulation Cancelled Clumped Platelets Cancelled Giant Platelets Cancelled Platelet Satelliting Cancelled Bizarre Platelets Cancelled Plt Morphology Comment Cancelled Polychromasia Cancelled Hypochromasia Cancelled Poikilocytosis Cancelled Basophilic Stippling Cancelled Anisocytosis Cancelled Microcytosis Cancelled Macrocytosis Cancelled Spherocytes Cancelled Micro Spherocytes Cancelled Pappenheimer Bodies Cancelled Siderocytes Cancelled Sickle Cells Cancelled Target Cells Cancelled Tear Drop Cells Cancelled Ovalocytes Cancelled Stomatocytes Cancelled Helmet Cells Cancelled [place]-Vaughn Bodies Cancelled [place] Rings Cancelled [place] Cells Cancelled Elliptocytes Cancelled Acanthocytes (Spur) Cancelled Rouleaux Cancelled Hemoglobin C Crystals Cancelled Schistocytes Cancelled RBC Morph Comment Cancelled Smear Path Review Cancelled Star Bodies Cancelled Sodium 132 L (136-145) mmol/L Potassium 3.6 (3.5-5.1) mmol/L Chloride 99 (98-107) mmol/L Carbon Dioxide 25.0 (21.0-32.0) mmol/L BUN 20 H (7.0-18.0) mg/dL Creatinine 1.1 H (0.6-1.0) mg/dL Est Cr Clr Drug Dosing 45.82 mL/min Estimated GFR (MDRD) 49.4 ml/min Glucose 99 (74-106) mg/dL Calcium 8.3 L (8.5-10.1) mg/dL Magnesium 1.7 L (1.8-2.4) mg/dL Total Bilirubin 1.0 (0.2-1.0) mg/dL AST 27 (15-37) IU/L ALT 22 (14-63) IU/L Alkaline Phosphatase 78 (46-116) U/L B-Natriuretic Peptide (<100) PG/ML Total Protein 6.2 L (6.4-8.2) g/dL Albumin 3.1 L (3.4-5.0) g/dL Globulin 3.1 (2.6-4.0) g/dL Albumin/Globulin Ratio 1.0 (0.9-1.6) Urine Color Urine Appearance Urine pH (5.0-8.0) Ur Specific [place] (1.001-1.035) Urine Protein (NEGATIVE) mg/dL Urine Glucose (UA) (NEGATIVE) mg/dL Urine Ketones (NEGATIVE) mg/dL Urine Occult Blood (NEGATIVE) Urine Nitrite (NEGATIVE) Urine Bilirubin (NEGATIVE) Urine Urobilinogen (<2.0) EU/dL Ur Leukocyte Esterase (NEGATIVE) Urine RBC (0-2/HPF) Urine WBC (0-5/HPF) Ur Epithelial Cells (NONE-FEW) Urine Bacteria (NEGATIVE) Bld Parasites Quantity Cancelled Slides for Path Review Cancelled 04/04/19 04/04/19 Range/Units 13:07 14:40 WBC RBC Hgb Hct MCV MCH MCHC RDW Std Deviation RDW Coeff of Samson Plt Count MPV Neut % (Auto) Lymph % (Auto) [place] % (Auto) Eos % (Auto) Baso % (Auto) Neut # (Auto) Lymph # (Auto) [place] # (Auto) Eos # (Auto) Baso # (Auto) Add Manual Diff Neutrophils % (Manual) Band Neutrophils % Lymphocytes % (Manual) Atypical Lymphs % Immat Monocytes % (Man) Monocytes % (Manual) Eosinophils % (Manual) Basophils % (Manual) Metamyelocytes % Myelocytes % Promyelocytes % Blast Cells % Plasma Cell % (Manual) Nucleated RBC % Immature Gran # Absolute Neutrophils Absolute Seg Neuts Band Neutrophils # Lymphocytes # (Manual) Immat Monocytes # Man Monocytes # (Manual) Eosinophils # (Manual) Basophils # (Manual) Absolute Metamyelocyte Absolute Myelocytes Absolute Promyelocytes Absolute Plasma Cells Nucleated RBCs Nucleated RBCs # Differential Comment Pathologist Review Bilobed Neuts Hypersegmented Neuts Variant Lymphocytes Atypical Lymphocytes Abnormal Lymphocytes Plasmacytoid Lymphs Reactive Lymphocytes Vacuolated Monocytes Absolute Blast Cells Smudge Cells Toxic Granulation Dohle Bodies Pelger-Huet Cells Megakaryocytic Frags Ria Rods WBC Morphology Comment Platelet Estimate Hypogranular Platelets Platelet Agranulation Clumped Platelets Giant Platelets Platelet Satelliting Bizarre Platelets Plt Morphology Comment Polychromasia Hypochromasia Poikilocytosis Basophilic Stippling Anisocytosis Microcytosis Macrocytosis Spherocytes Micro Spherocytes Pappenheimer Bodies Siderocytes Sickle Cells Target Cells Tear Drop Cells Ovalocytes Stomatocytes Helmet Cells [place]-Vaughn Bodies [place] Rings [place]o Cells Elliptocytes Acanthocytes (Spur) Rouleaux Hemoglobin C Crystals Schistocytes RBC Morph Comment Smear Path Review Star Bodies Sodium (136-145) mmol/L Potassium (3.5-5.1) mmol/L Chloride (98-107) mmol/L Carbon Dioxide (21.0-32.0) mmol/L BUN (7.0-18.0) mg/dL Creatinine (0.6-1.0) mg/dL Est Cr Clr Drug Dosing mL/min Estimated GFR (MDRD) ml/min Glucose (74-106) mg/dL Calcium (8.5-10.1) mg/dL Magnesium (1.8-2.4) mg/dL Total Bilirubin (0.2-1.0) mg/dL AST (15-37) IU/L ALT (14-63) IU/L Alkaline Phosphatase (46-116) U/L B-Natriuretic Peptide 17 (<100) PG/ML Total Protein (6.4-8.2) g/dL Albumin (3.4-5.0) g/dL Globulin (2.6-4.0) g/dL Albumin/Globulin Ratio (0.9-1.6) Urine Color YELLOW Urine Appearance CLEAR Urine pH 6.0 (5.0-8.0) Ur Specific [place] <= 1.005 (1.001-1.035) Urine Protein NEGATIVE (NEGATIVE) mg/dL Urine Glucose (UA) NEGATIVE (NEGATIVE) mg/dL Urine Ketones NEGATIVE (NEGATIVE) mg/dL Urine Occult Blood NEGATIVE (NEGATIVE) Urine Nitrite POSITIVE H (NEGATIVE) Urine Bilirubin NEGATIVE (NEGATIVE) Urine Urobilinogen 0.2 (<2.0) EU/dL Ur Leukocyte Esterase NEGATIVE (NEGATIVE) Urine RBC 0-2 (0-2/HPF) Urine WBC 0-2 (0-5/HPF) Ur Epithelial Cells OCCASIONAL (NONE-FEW) Urine Bacteria RARE (NEGATIVE) Bld Parasites Quantity Slides for Path Review Result Diagrams: 04/04/19 13:07 04/04/19 13:07 Orders Last 24hrs: Active Orders 24 hr Category Date Time Status Patient Status [ADT] Routine ADT 04/04/19 11:31 Active Antiembolic Devices [RC] PER UNIT ROUTINE Care 04/04/19 11:33 Active Intake and Output [RC] Q12H Care 04/04/19 11:32 Active Oxygen Therapy [RC] PRN Care 04/04/19 11:31 Active RT Aerosol Therapy [RC] ASDIRECTED Care 04/04/19 11:43 Active Up ad Rose [RC] ASDIRECTED Care 04/04/19 11:31 Active VTE/DVT Education [RC] PER UNIT ROUTINE Care 04/04/19 11:31 Active Vital Signs [RC] Q4H Care 04/04/19 11:31 Active Regular Diet [DIET] Diet 04/04/19 Breakfast Active Echo Comp wo Cont [US] Routine Exams 04/04/19 14:24 Ordered CBC W/O DIFF,HEMOGRAM [HEME] AM Lab 04/05/19 05:11 Ordered CDIFF TOX A+B [OP] Routine Lab 04/04/19 14:28 Ordered COMPREHENSIVE METABOLIC PN,CMP [CHEM] AM Lab 04/05/19 05:11 Ordered CULTURE BLOOD [BC] Stat Lab 04/04/19 14:45 Received CULTURE BLOOD [BC] Stat Lab 04/04/19 14:56 Received CULTURE URINE [RM] Routine Lab 04/04/19 14:40 Received MAGNESIUM [CHEM] AM Lab 04/05/19 05:11 Ordered Acetaminophen [Tylenol Extra Strength] Med 04/04/19 11:44 Active 500 mg PO Q4H PRN Albuterol/Ipratropium [DuoNeb 3.0-0.5 MG/3 ML] Med 04/04/19 11:43 Active 3 ml NEB Q6H PRN Levofloxacin/Dextrose 5%-Water [Levaquin in D5W 750 MG/ Med 04/04/19 14:00 Active 150 ML] 750 mg Premix Bag 1 bag IV Q48H Losartan [Cozaar] Med 04/04/19 15:30 Active 100 mg PO DAILY Ondansetron [Zofran ODT] Med 04/04/19 11:31 Active 4 mg PO Q4H PRN Patient's Own Medication [Ptom] Med 04/04/19 15:30 Active 1 each PO DAILY Sodium Chloride 0.9% [Normal Saline] 1,000 ml Med 04/04/19 14:39 Active IV NOW Zaleplon [Sonata] Med 04/04/19 14:23 Active 5 mg PO BEDTIME PRN traMADol [Ultram] Med 04/04/19 16:05 Active 50 mg PO QID PRN Blood Culture x2 Reflex Set [OM.PC] Stat Oth 04/04/19 14:28 Ordered Isolation [COMM] Stat Ot 04/04/19 14:28 Ordered Sequential Compression Device [OM.PC] Per Unit Routine Ot 04/04/19 11:32 Ordered Resuscitation Status Routine Resus Stat 04/04/19 11:31 Ordered Medication Orders Acetaminophen (Tylenol Extra Strength) 500 mg PO Q4H PRN PRN Reason: Pain Last Admin: 04/04/19 13:27 Dose: 500 mg Albuterol/Ipratropium (Duoneb 3.0-0.5 Mg/3 Ml) 3 ml NEB Q6H PRN PRN Reason: Shortness of Breath Levofloxacin/Dextrose 750 mg/ (Premix) 150 mls @ 100 mls/hr IV Q48H [facility] Last Admin: 04/04/19 14:48 Dose: 100 mls/hr Sodium Chloride (Normal Saline) 1,000 mls @ 100 mls/hr IV NOW STA Stop: 04/05/19 00:38 Last Admin: 04/04/19 14:48 Dose: 100 mls/hr Losartan Potassium (Cozaar) 100 mg PO DAILY [facility] Last Admin: 04/04/19 15:28 Dose: 100 mg Ondansetron HCl (Zofran Odt) 4 mg PO Q4H PRN PRN Reason: nausea, able to take PO Desvenlafaxine [ Desvenlafaxine Er] 50 Mg 1 each PO DAILY [facility] Last Admin: 04/04/19 15:25 Dose: Tramadol HCl (Ultram) 50 mg PO QID PRN PRN Reason: Pain Last Admin: 04/04/19 16:17 Dose: 50 mg Zaleplon (Sonata) 5 mg PO BEDTIME PRN PRN Reason: Sleep
[2019-04-04] MEDS: Acetaminophen 500 MG Tab PO PRN (13:27)
[2019-04-04] MEDS ORDERED: Levofloxacin/Dextrose 5%-Water 750 MG in Premix Bag 1 BAG IV SCH (14:00)
--- NOTE | 2019-04-04 14:38 | CR ---
EXAMINATION: Portable chest radiograph. HISTORY: Hypoxia. FINDINGS: The trachea is midline. The cardiomediastinal silhouette is within normal limits. Mild left basilar atelectasis/scarring. No pleural effusion or pneumothorax. Osseous structures appear unremarkable. IMPRESSION: No acute cardiopulmonary process.
[2019-04-04] MEDS ORDERED: Sodium Chloride 0.9% 1,000 ML IV STA (14:39)
[2019-04-04] MEDS: Desvenlafaxine [Desvenlafaxine Er] 50 MG PO SCH ×2 (15:25→17:53)
[2019-04-04] MEDS: Losartan 50 MG Tab PO SCH (15:28)
[2019-04-04] MEDS: traMADol 50 MG Tab PO PRN ×2 (16:17→22:17)
[2019-04-04] MEDS: Albuterol/Ipratropium 3.0-0.5 MG/3 ML Neb Soln NEB PRN (16:42)
[2019-04-04] MEDS ORDERED: Magnesium Sulfate/Water 2 GM in Premix Bag 1 BAG IV ONE (17:01)
[2019-04-04] MEDS ORDERED: Ketorolac 15 MG/ML SDV IVPUSH PRN (17:17)
[2019-04-05] MEDS: traMADol 50 MG Tab PO PRN ×2 (04:38→21:53)
[2019-04-05] MEDS ORDERED: Losartan 50 MG Tab PO SCH (09:00)
[2019-04-05] MEDS ORDERED: Desvenlafaxine [Desvenlafaxine Er] 50 MG PO SCH (09:00)
[2019-04-05] MEDS: Losartan 50 MG Tab PO SCH (09:52)
[2019-04-05] MEDS: Desvenlafaxine [Desvenlafaxine Er] 50 MG PO SCH (09:54)
[2019-04-05] MEDS: Albuterol/Ipratropium 3.0-0.5 MG/3 ML Neb Soln NEB PRN (10:04)
--- NOTE | 2019-04-05 10:59 | PCM.PN ---
<Stewart Dunbar - Last Filed: 04/05/19 11:31> - General Info Date of Service: 04/05/19 Subjective Update: No acute events overnight. States she feels better this morning. Breathing is better. No chest pain, abdominal pain, dysuria, diarrhea. - Patient Data Vitals - Most Recent: Last Vital Signs Temp 36.5 C 04/05/19 07:28 Pulse 83 04/05/19 07:28 Resp 16 04/05/19 07:28 BP 143/68 H 04/05/19 09:52 Pulse Ox 91 L 04/05/19 07:28 Weight - Most Recent: 80.5 kg I&O - Last 24 Hours: Intake & Output 04/04/19 04/05/19 04/05/19 22:59 06:59 14:59 Intake Total 732 1819 Output Total 300 1000 Balance 432 819 Lab Results Last 24 Hours: Laboratory Results - last 24 hr 04/04/19 04/04/19 04/04/19 Range/Units 13:07 13:07 13:07 WBC Cancelled 31.56 H RBC Cancelled 4.91 Hgb Cancelled 14.2 Hct Cancelled 42.3 MCV Cancelled 86.2 MCH Cancelled 28.9 MCHC Cancelled 33.6 RDW Std Deviation Cancelled 41.8 RDW Coeff of Samson Cancelled 13 Plt Count Cancelled 76 L MPV Cancelled 10.50 Neut % (Auto) Cancelled Lymph % (Auto) Cancelled [place] % (Auto) Cancelled Eos % (Auto) Cancelled Baso % (Auto) Cancelled Neut # (Auto) Cancelled Lymph # (Auto) Cancelled [place] # (Auto) Cancelled Eos # (Auto) Cancelled Baso # (Auto) Cancelled Add Manual Diff Cancelled YES Neutrophils % (Manual) Cancelled 90 H Band Neutrophils % Cancelled 3 Lymphocytes % (Manual) Cancelled 3 L Atypical Lymphs % Cancelled Immat Monocytes % (Man) Cancelled Monocytes % (Manual) Cancelled 1 Eosinophils % (Manual) Cancelled 2 Basophils % (Manual) Cancelled 1 Metamyelocytes % Cancelled Myelocytes % Cancelled Promyelocytes % Cancelled Blast Cells % Cancelled Plasma Cell % (Manual) Cancelled Nucleated RBC % Cancelled 0.0 Immature Gran # Cancelled Absolute Neutrophils Cancelled Absolute Seg Neuts Cancelled 28.4 H Band Neutrophils # Cancelled 0.9 Lymphocytes # (Manual) Cancelled 0.9 Immat Monocytes # Man Cancelled Monocytes # (Manual) Cancelled 0.3 Eosinophils # (Manual) Cancelled 0.6 Basophils # (Manual) Cancelled 0.3 H Absolute Metamyelocyte Cancelled Absolute Myelocytes Cancelled Absolute Promyelocytes Cancelled Absolute Plasma Cells Cancelled Nucleated RBCs Cancelled Nucleated RBCs # Cancelled 0 Differential Comment Cancelled Pathologist Review Cancelled Bilobed Neuts Cancelled Hypersegmented Neuts Cancelled Variant Lymphocytes Cancelled Atypical Lymphocytes Cancelled Abnormal Lymphocytes Cancelled Plasmacytoid Lymphs Cancelled Reactive Lymphocytes Cancelled Vacuolated Monocytes Cancelled Absolute Blast Cells Cancelled Smudge Cells Cancelled Toxic Granulation Cancelled Dohle Bodies Cancelled Pelger-Huet Cells Cancelled Megakaryocytic Frags Cancelled Ria Rods Cancelled WBC Morphology Comment Cancelled Platelet Estimate Cancelled Hypogranular Platelets Cancelled Platelet Agranulation Cancelled Clumped Platelets Cancelled Giant Platelets Cancelled Platelet Satelliting Cancelled Bizarre Platelets Cancelled Plt Morphology Comment Cancelled Polychromasia Cancelled Hypochromasia Cancelled Poikilocytosis Cancelled Basophilic Stippling Cancelled Anisocytosis Cancelled Microcytosis Cancelled Macrocytosis Cancelled Spherocytes Cancelled Micro Spherocytes Cancelled Pappenheimer Bodies Cancelled Siderocytes Cancelled Sickle Cells Cancelled Target Cells Cancelled Tear Drop Cells Cancelled Ovalocytes Cancelled Stomatocytes Cancelled Helmet Cells Cancelled [place] Bodies Cancelled [place] Rings Cancelled [place] Cells Cancelled Elliptocytes Cancelled Acanthocytes (Spur) Cancelled Rouleaux Cancelled Hemoglobin C Crystals Cancelled Schistocytes Cancelled RBC Morph Comment Cancelled Smear Path Review Cancelled Star Bodies Cancelled Sodium 132 L (136-145) mmol/L Potassium 3.6 (3.5-5.1) mmol/L Chloride 99 (98-107) mmol/L Carbon Dioxide 25.0 (21.0-32.0) mmol/L BUN 20 H (7.0-18.0) mg/dL Creatinine 1.1 H (0.6-1.0) mg/dL Est Cr Clr Drug Dosing 45.82 mL/min Estimated GFR (MDRD) 49.4 ml/min Glucose 99 (74-106) mg/dL Calcium 8.3 L (8.5-10.1) mg/dL Magnesium 1.7 L (1.8-2.4) mg/dL Total Bilirubin 1.0 (0.2-1.0) mg/dL AST 27 (15-37) IU/L ALT 22 (14-63) IU/L Alkaline Phosphatase 78 (46-116) U/L B-Natriuretic Peptide (<100) PG/ML Total Protein 6.2 L (6.4-8.2) g/dL Albumin 3.1 L (3.4-5.0) g/dL Globulin 3.1 (2.6-4.0) g/dL Albumin/Globulin Ratio 1.0 (0.9-1.6) Urine Color Urine Appearance Urine pH (5.0-8.0) Ur Specific [place] (1.001-1.035) Urine Protein (NEGATIVE) mg/dL Urine Glucose (UA) (NEGATIVE) mg/dL Urine Ketones (NEGATIVE) mg/dL Urine Occult Blood (NEGATIVE) Urine Nitrite (NEGATIVE) Urine Bilirubin (NEGATIVE) Urine Urobilinogen (<2.0) EU/dL Ur Leukocyte Esterase (NEGATIVE) Urine RBC (0-2/HPF) Urine WBC (0-5/HPF) Ur Epithelial Cells (NONE-FEW) Urine Bacteria (NEGATIVE) Bld Parasites Quantity Cancelled Slides for Path Review Cancelled 04/04/19 04/04/19 04/05/19 Range/Units 13:07 14:40 05:28 WBC 24.79 H RBC 4.61 Hgb 13.5 Hct 40.4 MCV 87.6 MCH 29.3 MCHC 33.4 RDW Std Deviation 43.4 RDW Coeff of Samson 14 Plt Count 73 L MPV 9.80 Neut % (Auto) Lymph % (Auto) [place] % (Auto) Eos % (Auto) Baso % (Auto) Neut # (Auto) Lymph # (Auto) [place] # (Auto) Eos # (Auto) Baso # (Auto) Add Manual Diff Neutrophils % (Manual) Band Neutrophils % Lymphocytes % (Manual) Atypical Lymphs % Immat Monocytes % (Man) Monocytes % (Manual) Eosinophils % (Manual) Basophils % (Manual) Metamyelocytes % Myelocytes % Promyelocytes % Blast Cells % Plasma Cell % (Manual) Nucleated RBC % 0.0 Immature Gran # Absolute Neutrophils Absolute Seg Neuts Band Neutrophils # Lymphocytes # (Manual) Immat Monocytes # Man Monocytes # (Manual) Eosinophils # (Manual) Basophils # (Manual) Absolute Metamyelocyte Absolute Myelocytes Absolute Promyelocytes Absolute Plasma Cells Nucleated RBCs Nucleated RBCs # 0 Differential Comment Pathologist Review Bilobed Neuts Hypersegmented Neuts Variant Lymphocytes Atypical Lymphocytes Abnormal Lymphocytes Plasmacytoid Lymphs Reactive Lymphocytes Vacuolated Monocytes Absolute Blast Cells Smudge Cells Toxic Granulation Dohle Bodies Pelger-Huet Cells Megakaryocytic Frags Ria Rods WBC Morphology Comment Platelet Estimate Hypogranular Platelets Platelet Agranulation Clumped Platelets Giant Platelets Platelet Satelliting Bizarre Platelets Plt Morphology Comment Polychromasia Hypochromasia Poikilocytosis Basophilic Stippling Anisocytosis Microcytosis Macrocytosis Spherocytes Micro Spherocytes Pappenheimer Bodies Siderocytes Sickle Cells Target Cells Tear Drop Cells Ovalocytes Stomatocytes Helmet Cells [place] Bodies [place] Rings Rodrigo Cells Elliptocytes Acanthocytes (Spur) Rouleaux Hemoglobin C Crystals Schistocytes RBC Morph Comment Smear Path Review Star Bodies Sodium (136-145) mmol/L Potassium (3.5-5.1) mmol/L Chloride (98-107) mmol/L Carbon Dioxide (21.0-32.0) mmol/L BUN (7.0-18.0) mg/dL Creatinine (0.6-1.0) mg/dL Est Cr Clr Drug Dosing mL/min Estimated GFR (MDRD) ml/min Glucose (74-106) mg/dL Calcium (8.5-10.1) mg/dL Magnesium (1.8-2.4) mg/dL Total Bilirubin (0.2-1.0) mg/dL AST (15-37) IU/L ALT (14-63) IU/L Alkaline Phosphatase (46-116) U/L B-Natriuretic Peptide 17 (<100) PG/ML Total Protein (6.4-8.2) g/dL Albumin (3.4-5.0) g/dL Globulin (2.6-4.0) g/dL Albumin/Globulin Ratio (0.9-1.6) Urine Color YELLOW Urine Appearance CLEAR Urine pH 6.0 (5.0-8.0) Ur Specific [place] <= 1.005 (1.001-1.035) Urine Protein NEGATIVE (NEGATIVE) mg/dL Urine Glucose (UA) NEGATIVE (NEGATIVE) mg/dL Urine Ketones NEGATIVE (NEGATIVE) mg/dL Urine Occult Blood NEGATIVE (NEGATIVE) Urine Nitrite POSITIVE H (NEGATIVE) Urine Bilirubin NEGATIVE (NEGATIVE) Urine Urobilinogen 0.2 (<2.0) EU/dL Ur Leukocyte Esterase NEGATIVE (NEGATIVE) Urine RBC 0-2 (0-2/HPF) Urine WBC 0-2 (0-5/HPF) Ur Epithelial Cells OCCASIONAL (NONE-FEW) Urine Bacteria RARE (NEGATIVE) Bld Parasites Quantity Slides for Path Review 04/05/19 Range/Units 05:28 WBC RBC Hgb Hct MCV MCH MCHC RDW Std Deviation RDW Coeff of Samson Plt Count MPV Neut % (Auto) Lymph % (Auto) [place] % (Auto) Eos % (Auto) Baso % (Auto) Neut # (Auto) Lymph # (Auto) [place] # (Auto) Eos # (Auto) Baso # (Auto) Add Manual Diff Neutrophils % (Manual) Band Neutrophils % Lymphocytes % (Manual) Atypical Lymphs % Immat Monocytes % (Man) Monocytes % (Manual) Eosinophils % (Manual) Basophils % (Manual) Metamyelocytes % Myelocytes % Promyelocytes % Blast Cells % Plasma Cell % (Manual) Nucleated RBC % Immature Gran # Absolute Neutrophils Absolute Seg Neuts Band Neutrophils # Lymphocytes # (Manual) Immat Monocytes # Man Monocytes # (Manual) Eosinophils # (Manual) Basophils # (Manual) Absolute Metamyelocyte Absolute Myelocytes Absolute Promyelocytes Absolute Plasma Cells Nucleated RBCs Nucleated RBCs # Differential Comment Pathologist Review Bilobed Neuts Hypersegmented Neuts Variant Lymphocytes Atypical Lymphocytes Abnormal Lymphocytes Plasmacytoid Lymphs Reactive Lymphocytes Vacuolated Monocytes Absolute Blast Cells Smudge Cells Toxic Granulation Dohle Bodies Pelger-Huet Cells Megakaryocytic Frags Ria Rods WBC Morphology Comment Platelet Estimate Hypogranular Platelets Platelet Agranulation Clumped Platelets Giant Platelets Platelet Satelliting Bizarre Platelets Plt Morphology Comment Polychromasia Hypochromasia Poikilocytosis Basophilic Stippling Anisocytosis Microcytosis Macrocytosis Spherocytes Micro Spherocytes Pappenheimer Bodies Siderocytes Sickle Cells Target Cells Tear Drop Cells Ovalocytes Stomatocytes Helmet Cells [place] Bodies [place] Rings [place] Cells Elliptocytes Acanthocytes (Spur) Rouleaux Hemoglobin C Crystals Schistocytes RBC Morph Comment Smear Path Review Star Bodies Sodium 131 L (136-145) mmol/L Potassium 4.1 (3.5-5.1) mmol/L Chloride 100 (98-107) mmol/L Carbon Dioxide 25.4 (21.0-32.0) mmol/L BUN 18 (7.0-18.0) mg/dL Creatinine 1.1 H (0.6-1.0) mg/dL Est Cr Clr Drug Dosing 45.82 mL/min Estimated GFR (MDRD) 49.4 ml/min Glucose 118 H (74-106) mg/dL Calcium 8.3 L (8.5-10.1) mg/dL Magnesium 2.4 (1.8-2.4) mg/dL Total Bilirubin 0.6 (0.2-1.0) mg/dL AST 19 (15-37) IU/L ALT 18 (14-63) IU/L Alkaline Phosphatase 73 (46-116) U/L B-Natriuretic Peptide (<100) PG/ML Total Protein 5.7 L (6.4-8.2) g/dL Albumin 2.6 L (3.4-5.0) g/dL Globulin 3.1 (2.6-4.0) g/dL Albumin/Globulin Ratio 0.8 L (0.9-1.6) Urine Color Urine Appearance Urine pH (5.0-8.0) Ur Specific [place] (1.001-1.035) Urine Protein (NEGATIVE) mg/dL Urine Glucose (UA) (NEGATIVE) mg/dL Urine Ketones (NEGATIVE) mg/dL Urine Occult Blood (NEGATIVE) Urine Nitrite (NEGATIVE) Urine Bilirubin (NEGATIVE) Urine Urobilinogen (<2.0) EU/dL Ur Leukocyte Esterase (NEGATIVE) Urine RBC (0-2/HPF) Urine WBC (0-5/HPF) Ur Epithelial Cells (NONE-FEW) Urine Bacteria (NEGATIVE) Bld Parasites Quantity Slides for Path Review Med Orders - Current: Current Medications Acetaminophen (Tylenol Extra Strength) 500 mg PO Q4H PRN PRN Reason: Pain Last Admin: 04/04/19 13:27 Dose: 500 mg Albuterol/Ipratropium (Duoneb 3.0-0.5 Mg/3 Ml) 3 ml NEB Q6H PRN PRN Reason: Shortness of Breath Last Admin: 04/05/19 10:04 Dose: 3 ml Levofloxacin/Dextrose 750 mg/ (Premix) 150 mls @ 100 mls/hr IV Q48H TAY Last Admin: 04/04/19 14:48 Dose: 100 mls/hr Ketorolac Tromethamine (Toradol) 15 mg IVPUSH Q6H PRN PRN Reason: Pain Stop: 04/09/19 17:17 Losartan Potassium (Cozaar) 100 mg PO DAILY [facility] Last Admin: 04/05/19 09:52 Dose: 100 mg Ondansetron HCl (Zofran Odt) 4 mg PO Q4H PRN PRN Reason: nausea, able to take PO Last Admin: 04/04/19 16:31 Dose: 4 mg Desvenlafaxine [ Desvenlafaxine Er] 50 Mg 1 each PO DAILY [facility] Last Admin: 04/05/19 09:54 Dose: 1 each Tramadol HCl (Ultram) 50 mg PO QID PRN PRN Reason: Pain Last Admin: 04/05/19 04:38 Dose: 50 mg Zaleplon (Sonata) 5 mg PO BEDTIME PRN PRN Reason: Sleep Last Admin: 04/04/19 22:18 Dose: 5 mg Discontinued Medications Sodium Chloride (Normal Saline) 1,000 mls @ 100 mls/hr IV NOW STA Stop: 04/05/19 00:38 Last Admin: 04/04/19 14:48 Dose: 100 mls/hr Magnesium Sulfate 2 gm/ Premix 50 mls @ 25 mls/hr IV ONETIME ONE Stop: 04/04/19 19:00 Last Admin: 04/04/19 17:41 Dose: 25 mls/hr Losartan Potassium (Cozaar) 100 mg PO DAILY [facility] Desvenlafaxine [ Desvenlafaxine Er] 50 Mg 1 each PO DAILY TAY - Exam General: Alert, Oriented, Cooperative, No Acute Distress Lungs: Other (bibasilar crackles, no wheezing) GI/Abdominal Exam: Normal Bowel Sounds, Soft, Non-Tender, No Distention Extremities: Normal Inspection, No Pedal Edema Skin: Warm, Dry - Problem List Review Problem List Initiated/Reviewed/Updated: Yes - My Orders Last 24 Hours: My Active Orders 04/04/19 11:31 Patient Status [ADT] Routine Oxygen Therapy [RC] PRN Up ad Rose [RC] ASDIRECTED VTE/DVT Education [RC] PER UNIT ROUTINE Vital Signs [RC] Q4H Ondansetron [Zofran ODT] 4 mg PO Q4H PRN Resuscitation Status Routine 04/04/19 11:32 Intake and Output [RC] Q12H Sequential Compression Device [OM.PC] Per Unit Routine 04/04/19 11:33 Antiembolic Devices [RC] PER UNIT ROUTINE 04/04/19 11:43 RT Aerosol Therapy [RC] ASDIRECTED Albuterol/Ipratropium [DuoNeb 3.0-0.5 MG/3 ML] 3 ml NEB Q6H PRN 04/04/19 11:44 Acetaminophen [Tylenol Extra Strength] 500 mg PO Q4H PRN 04/04/19 14:00 Levofloxacin/Dextrose 5%-Water [Levaquin in D5W 750 MG/150 ML] 750 mg Premix Bag 1 bag IV Q48H 04/04/19 14:23 Zaleplon [Sonata] 5 mg PO BEDTIME PRN 04/04/19 14:28 Blood Culture x2 Reflex Set [OM.PC] Stat Isolation [COMM] Stat 04/04/19 14:40 CULTURE URINE [RM] Routine 04/04/19 14:45 CULTURE BLOOD [BC] Stat 04/04/19 14:56 CULTURE BLOOD [BC] Stat 04/04/19 15:30 Losartan [Cozaar] 100 mg PO DAILY Patient's Own Medication [Ptom] 1 each PO DAILY 04/04/19 16:05 traMADol [Ultram] 50 mg PO QID PRN 04/04/19 17:17 Ketorolac [Toradol] 15 mg IVPUSH Q6H PRN 04/05/19 14:24 Echo Comp wo Cont [US] Routine - Plan Plan:: A: 1. Lingular lobe pneumonia 2. Acute hypoxic respiratory failure 3. UTI 4. Leukocytosis 5. Thrombocytopenia 6. Acute kidney injury 7. Hypomagnesemia, resolved P: 1. Lingular lobe pneumonia- Continue with Levaquin. Duonebs PRN. titrate O2 as tolerated. 2. UTI- pending urine culture. continue antibiotic. 3. DOROTHY, stable. continue monitoring. dispo: 1-2 days <Nabor Lee - Last Filed: 04/05/19 12:23> - General Info Admission Dx/Problem (Free Text): I have seen and examined to patient independently of medical support specialist, Stewart Johnson MD. I have discussed the case for care of this patient with him. I have reviewed and approve of the plan of care as outlined by medical support specialist. Please see orders. - Patient Data Vitals - Most Recent: Last Vital Signs Temp 36.2 C 04/05/19 11:27 Pulse 76 04/05/19 11:27 Resp 16 04/05/19 11:27 BP 94/48 L 04/05/19 11:27 Pulse Ox 92 L 04/05/19 11:27 I&O - Last 24 Hours: Intake & Output 04/04/19 04/05/19 04/05/19 22:59 06:59 14:59 Intake Total 732 1819 Output Total 300 1000 Balance 432 819 Lab Results Last 24 Hours: Laboratory Results - last 24 hr 04/04/19 04/04/19 04/04/19 Range/Units 13:07 13:07 13:07 WBC Cancelled 31.56 H RBC Cancelled 4.91 Hgb Cancelled 14.2 Hct Cancelled 42.3 MCV Cancelled 86.2 MCH Cancelled 28.9 MCHC Cancelled 33.6 RDW Std Deviation Cancelled 41.8 RDW Coeff of Samson Cancelled 13 Plt Count Cancelled 76 L MPV Cancelled 10.50 Neut % (Auto) Cancelled Lymph % (Auto) Cancelled [place] % (Auto) Cancelled Eos % (Auto) Cancelled Baso % (Auto) Cancelled Neut # (Auto) Cancelled Lymph # (Auto) Cancelled [place] # (Auto) Cancelled Eos # (Auto) Cancelled Baso # (Auto) Cancelled Add Manual Diff Cancelled YES Neutrophils % (Manual) Cancelled 90 H Band Neutrophils % Cancelled 3 Lymphocytes % (Manual) Cancelled 3 L Atypical Lymphs % Cancelled Immat Monocytes % (Man) Cancelled Monocytes % (Manual) Cancelled 1 Eosinophils % (Manual) Cancelled 2 Basophils % (Manual) Cancelled 1 Metamyelocytes % Cancelled Myelocytes % Cancelled Promyelocytes % Cancelled Blast Cells % Cancelled Plasma Cell % (Manual) Cancelled Nucleated RBC % Cancelled 0.0 Immature Gran # Cancelled Absolute Neutrophils Cancelled Absolute Seg Neuts Cancelled 28.4 H Band Neutrophils # Cancelled 0.9 Lymphocytes # (Manual) Cancelled 0.9 Immat Monocytes # Man Cancelled Monocytes # (Manual) Cancelled 0.3 Eosinophils # (Manual) Cancelled 0.6 Basophils # (Manual) Cancelled 0.3 H Absolute Metamyelocyte Cancelled Absolute Myelocytes Cancelled Absolute Promyelocytes Cancelled Absolute Plasma Cells Cancelled Nucleated RBCs Cancelled Nucleated RBCs # Cancelled 0 Differential Comment Cancelled Pathologist Review Cancelled Bilobed Neuts Cancelled Hypersegmented Neuts Cancelled Variant Lymphocytes Cancelled Atypical Lymphocytes Cancelled Abnormal Lymphocytes Cancelled Plasmacytoid Lymphs Cancelled Reactive Lymphocytes Cancelled Vacuolated Monocytes Cancelled Absolute Blast Cells Cancelled Smudge Cells Cancelled Toxic Granulation Cancelled Dohle Bodies Cancelled Pelger-Huet Cells Cancelled Megakaryocytic Frags Cancelled Ria Rods Cancelled WBC Morphology Comment Cancelled Platelet Estimate Cancelled Hypogranular Platelets Cancelled Platelet Agranulation Cancelled Clumped Platelets Cancelled Giant Platelets Cancelled Platelet Satelliting Cancelled Bizarre Platelets Cancelled Plt Morphology Comment Cancelled Polychromasia Cancelled Hypochromasia Cancelled Poikilocytosis Cancelled Basophilic Stippling Cancelled Anisocytosis Cancelled Microcytosis Cancelled Macrocytosis Cancelled Spherocytes Cancelled Micro Spherocytes Cancelled Pappenheimer Bodies Cancelled Siderocytes Cancelled Sickle Cells Cancelled Target Cells Cancelled Tear Drop Cells Cancelled Ovalocytes Cancelled Stomatocytes Cancelled Helmet Cells Cancelled [place] Bodies Cancelled [place] Rings Cancelled [place] Cells Cancelled Elliptocytes Cancelled Acanthocytes (Spur) Cancelled Rouleaux Cancelled Hemoglobin C Crystals Cancelled Schistocytes Cancelled RBC Morph Comment Cancelled Smear Path Review Cancelled Star Bodies Cancelled Sodium 132 L (136-145) mmol/L Potassium 3.6 (3.5-5.1) mmol/L Chloride 99 (98-107) mmol/L Carbon Dioxide 25.0 (21.0-32.0) mmol/L BUN 20 H (7.0-18.0) mg/dL Creatinine 1.1 H (0.6-1.0) mg/dL Est Cr Clr Drug Dosing 45.82 mL/min Estimated GFR (MDRD) 49.4 ml/min Glucose 99 (74-106) mg/dL Calcium 8.3 L (8.5-10.1) mg/dL Magnesium 1.7 L (1.8-2.4) mg/dL Total Bilirubin 1.0 (0.2-1.0) mg/dL AST 27 (15-37) IU/L ALT 22 (14-63) IU/L Alkaline Phosphatase 78 (46-116) U/L B-Natriuretic Peptide (<100) PG/ML Total Protein 6.2 L (6.4-8.2) g/dL Albumin 3.1 L (3.4-5.0) g/dL Globulin 3.1 (2.6-4.0) g/dL Albumin/Globulin Ratio 1.0 (0.9-1.6) Urine Color Urine Appearance Urine pH (5.0-8.0) Ur Specific [place] (1.001-1.035) Urine Protein (NEGATIVE) mg/dL Urine Glucose (UA) (NEGATIVE) mg/dL Urine Ketones (NEGATIVE) mg/dL Urine Occult Blood (NEGATIVE) Urine Nitrite (NEGATIVE) Urine Bilirubin (NEGATIVE) Urine Urobilinogen (<2.0) EU/dL Ur Leukocyte Esterase (NEGATIVE) Urine RBC (0-2/HPF) Urine WBC (0-5/HPF) Ur Epithelial Cells (NONE-FEW) Urine Bacteria (NEGATIVE) Bld Parasites Quantity Cancelled Slides for Path Review Cancelled 04/04/19 04/04/19 04/05/19 Range/Units 13:07 14:40 05:28 WBC 24.79 H RBC 4.61 Hgb 13.5 Hct 40.4 MCV 87.6 MCH 29.3 MCHC 33.4 RDW Std Deviation 43.4 RDW Coeff of Samson 14 Plt Count 73 L MPV 9.80 Neut % (Auto) Lymph % (Auto) [place] % (Auto) Eos % (Auto) Baso % (Auto) Neut # (Auto) Lymph # (Auto) [place] # (Auto) Eos # (Auto) Baso # (Auto) Add Manual Diff Neutrophils % (Manual) Band Neutrophils % Lymphocytes % (Manual) Atypical Lymphs % Immat Monocytes % (Man) Monocytes % (Manual) Eosinophils % (Manual) Basophils % (Manual) Metamyelocytes % Myelocytes % Promyelocytes % Blast Cells % Plasma Cell % (Manual) Nucleated RBC % 0.0 Immature Gran # Absolute Neutrophils Absolute Seg Neuts Band Neutrophils # Lymphocytes # (Manual) Immat Monocytes # Man Monocytes # (Manual) Eosinophils # (Manual) Basophils # (Manual) Absolute Metamyelocyte Absolute Myelocytes Absolute Promyelocytes Absolute Plasma Cells Nucleated RBCs Nucleated RBCs # 0 Differential Comment Pathologist Review Bilobed Neuts Hypersegmented Neuts Variant Lymphocytes Atypical Lymphocytes Abnormal Lymphocytes Plasmacytoid Lymphs Reactive Lymphocytes Vacuolated Monocytes Absolute Blast Cells Smudge Cells Toxic Granulation Dohle Bodies Pelger-Huet Cells Megakaryocytic Frags Ria Rods WBC Morphology Comment Platelet Estimate Hypogranular Platelets Platelet Agranulation Clumped Platelets Giant Platelets Platelet Satelliting Bizarre Platelets Plt Morphology Comment Polychromasia Hypochromasia Poikilocytosis Basophilic Stippling Anisocytosis Microcytosis Macrocytosis Spherocytes Micro Spherocytes Pappenheimer Bodies Siderocytes Sickle Cells Target Cells Tear Drop Cells Ovalocytes Stomatocytes Helmet Cells [place] Bodies [place] Rings Rodrigo Cells Elliptocytes Acanthocytes (Spur) Rouleaux Hemoglobin C Crystals Schistocytes RBC Morph Comment Smear Path Review Star Bodies Sodium (136-145) mmol/L Potassium (3.5-5.1) mmol/L Chloride (98-107) mmol/L Carbon Dioxide (21.0-32.0) mmol/L BUN (7.0-18.0) mg/dL Creatinine (0.6-1.0) mg/dL Est Cr Clr Drug Dosing mL/min Estimated GFR (MDRD) ml/min Glucose (74-106) mg/dL Calcium (8.5-10.1) mg/dL Magnesium (1.8-2.4) mg/dL Total Bilirubin (0.2-1.0) mg/dL AST (15-37) IU/L ALT (14-63) IU/L Alkaline Phosphatase (46-116) U/L B-Natriuretic Peptide 17 (<100) PG/ML Total Protein (6.4-8.2) g/dL Albumin (3.4-5.0) g/dL Globulin (2.6-4.0) g/dL Albumin/Globulin Ratio (0.9-1.6) Urine Color YELLOW Urine Appearance CLEAR Urine pH 6.0 (5.0-8.0) Ur Specific [place] <= 1.005 (1.001-1.035) Urine Protein NEGATIVE (NEGATIVE) mg/dL Urine Glucose (UA) NEGATIVE (NEGATIVE) mg/dL Urine Ketones NEGATIVE (NEGATIVE) mg/dL Urine Occult Blood NEGATIVE (NEGATIVE) Urine Nitrite POSITIVE H (NEGATIVE) Urine Bilirubin NEGATIVE (NEGATIVE) Urine Urobilinogen 0.2 (<2.0) EU/dL Ur Leukocyte Esterase NEGATIVE (NEGATIVE) Urine RBC 0-2 (0-2/HPF) Urine WBC 0-2 (0-5/HPF) Ur Epithelial Cells OCCASIONAL (NONE-FEW) Urine Bacteria RARE (NEGATIVE) Bld Parasites Quantity Slides for Path Review 04/05/19 Range/Units 05:28 WBC RBC Hgb Hct MCV MCH MCHC RDW Std Deviation RDW Coeff of Samson Plt Count MPV Neut % (Auto) Lymph % (Auto) [place] % (Auto) Eos % (Auto) Baso % (Auto) Neut # (Auto) Lymph # (Auto) [place] # (Auto) Eos # (Auto) Baso # (Auto) Add Manual Diff Neutrophils % (Manual) Band Neutrophils % Lymphocytes % (Manual) Atypical Lymphs % Immat Monocytes % (Man) Monocytes % (Manual) Eosinophils % (Manual) Basophils % (Manual) Metamyelocytes % Myelocytes % Promyelocytes % Blast Cells % Plasma Cell % (Manual) Nucleated RBC % Immature Gran # Absolute Neutrophils Absolute Seg Neuts Band Neutrophils # Lymphocytes # (Manual) Immat Monocytes # Man Monocytes # (Manual) Eosinophils # (Manual) Basophils # (Manual) Absolute Metamyelocyte Absolute Myelocytes Absolute Promyelocytes Absolute Plasma Cells Nucleated RBCs Nucleated RBCs # Differential Comment Pathologist Review Bilobed Neuts Hypersegmented Neuts Variant Lymphocytes Atypical Lymphocytes Abnormal Lymphocytes Plasmacytoid Lymphs Reactive Lymphocytes Vacuolated Monocytes Absolute Blast Cells Smudge Cells Toxic Granulation Dohle Bodies Pelger-Huet Cells Megakaryocytic Frags Ria Rods WBC Morphology Comment Platelet Estimate Hypogranular Platelets Platelet Agranulation Clumped Platelets Giant Platelets Platelet Satelliting Bizarre Platelets Plt Morphology Comment Polychromasia Hypochromasia Poikilocytosis Basophilic Stippling Anisocytosis Microcytosis Macrocytosis Spherocytes Micro Spherocytes Pappenheimer Bodies Siderocytes Sickle Cells Target Cells Tear Drop Cells Ovalocytes Stomatocytes Helmet Cells [place] Bodies [place] Rings Rodrigo Cells Elliptocytes Acanthocytes (Spur) Rouleaux Hemoglobin C Crystals Schistocytes RBC Morph Comment Smear Path Review Star Bodies Sodium 131 L (136-145) mmol/L Potassium 4.1 (3.5-5.1) mmol/L Chloride 100 (98-107) mmol/L Carbon Dioxide 25.4 (21.0-32.0) mmol/L BUN 18 (7.0-18.0) mg/dL Creatinine 1.1 H (0.6-1.0) mg/dL Est Cr Clr Drug Dosing 45.82 mL/min Estimated GFR (MDRD) 49.4 ml/min Glucose 118 H (74-106) mg/dL Calcium 8.3 L (8.5-10.1) mg/dL Magnesium 2.4 (1.8-2.4) mg/dL Total Bilirubin 0.6 (0.2-1.0) mg/dL AST 19 (15-37) IU/L ALT 18 (14-63) IU/L Alkaline Phosphatase 73 (46-116) U/L B-Natriuretic Peptide (<100) PG/ML Total Protein 5.7 L (6.4-8.2) g/dL Albumin 2.6 L (3.4-5.0) g/dL Globulin 3.1 (2.6-4.0) g/dL Albumin/Globulin Ratio 0.8 L (0.9-1.6) Urine Color Urine Appearance Urine pH (5.0-8.0) Ur Specific [place] (1.001-1.035) Urine Protein (NEGATIVE) mg/dL Urine Glucose (UA) (NEGATIVE) mg/dL Urine Ketones (NEGATIVE) mg/dL Urine Occult Blood (NEGATIVE) Urine Nitrite (NEGATIVE) Urine Bilirubin (NEGATIVE) Urine Urobilinogen (<2.0) EU/dL Ur Leukocyte Esterase (NEGATIVE) Urine RBC (0-2/HPF) Urine WBC (0-5/HPF) Ur Epithelial Cells (NONE-FEW) Urine Bacteria (NEGATIVE) Bld Parasites Quantity Slides for Path Review Med Orders - Current: Current Medications Acetaminophen (Tylenol Extra Strength) 500 mg PO Q4H PRN PRN Reason: Pain Last Admin: 04/04/19 13:27 Dose: 500 mg Albuterol/Ipratropium (Duoneb 3.0-0.5 Mg/3 Ml) 3 ml NEB Q6H PRN PRN Reason: Shortness of Breath Last Admin: 04/05/19 10:04 Dose: 3 ml Levofloxacin/Dextrose 750 mg/ (Premix) 150 mls @ 100 mls/hr IV Q48H TAY Last Admin: 04/04/19 14:48 Dose: 100 mls/hr Ketorolac Tromethamine (Toradol) 15 mg IVPUSH Q6H PRN PRN Reason: Pain Stop: 04/09/19 17:17 Losartan Potassium (Cozaar) 100 mg PO DAILY [facility] Last Admin: 04/05/19 09:52 Dose: 100 mg Ondansetron HCl (Zofran Odt) 4 mg PO Q4H PRN PRN Reason: nausea, able to take PO Last Admin: 04/04/19 16:31 Dose: 4 mg Desvenlafaxine [ Desvenlafaxine Er] 50 Mg 1 each PO DAILY [facility] Last Admin: 04/05/19 09:54 Dose: 1 each Tramadol HCl (Ultram) 50 mg PO QID PRN PRN Reason: Pain Last Admin: 04/05/19 04:38 Dose: 50 mg Zaleplon (Sonata) 5 mg PO BEDTIME PRN PRN Reason: Sleep Last Admin: 04/04/19 22:18 Dose: 5 mg Discontinued Medications Sodium Chloride (Normal Saline) 1,000 mls @ 100 mls/hr IV NOW STA Stop: 04/05/19 00:38 Last Admin: 04/04/19 14:48 Dose: 100 mls/hr Magnesium Sulfate 2 gm/ Premix 50 mls @ 25 mls/hr IV ONETIME ONE Stop: 04/04/19 19:00 Last Admin: 04/04/19 17:41 Dose: 25 mls/hr Losartan Potassium (Cozaar) 100 mg PO DAILY [facility] Desvenlafaxine [ Desvenlafaxine Er] 50 Mg 1 each PO DAILY [facility]
[2019-04-06 06:20] LABS: CHLORIDE,CL 105 mmol/L (98-107); SODIUM,NA 137 mmol/L (136-145)
[2019-04-06 08:05] VITALS: BP 111/56
--- NOTE | 2019-04-06 08:29 | PCM.DCSUM1 ---
<Stewart Dunbar - Last Filed: 04/06/19 08:24> Discharge Summary - Hospital Course Free Text/Narrative:: 68 y/o female admitted directly from her primary care physician's clinic. She was admitted for Left lingular pneumonia and UTI. Initial WBC of 31 which later went down to 11. She was started on Levaquin 750 mg IV Q48H. Urine culture results were pending. She did relatively well during this hospitalization. Her O2 saturation was in mid 90's on room air and afebrile. She was discharged home on Levaquin 750 mg PO Q48 for 3 doses and advised to follow-up with her PCP. - Discharge Data Discharge Date: 04/06/19 Discharge Disposition: Home, Self-Care 01 Condition: Good - Patient Summary/Data Consults: Consultations 04/05/19 13:57 Consult to Physical Therapy [PT Evaluation and Treatment] [CONS] Routine - Patient Instructions Diet: Regular Diet as Tolerated Activity: As Tolerated Notify Provider of: Fever, Increased Pain, Swelling and Redness, Nausea and/or Vomiting Other/Special Instructions: Discontinue your blood pressure medication for now until you see your primary care doctor and rechecks. - Discharge Plan *PRESCRIPTION DRUG MONITORING PROGRAM REVIEWED*: Not Applicable *COPY OF PRESCRIPTION DRUG MONITORING REPORT IN PATIENT CLARIBEL: Not Applicable Prescriptions/Med Rec: levoFLOXacin [Levaquin] 750 mg PO Q48H #3 tab Home Medications: Home Meds Desvenlafaxine [Desvenlafaxine ER] 50 mg PO DAILY 01/25/19 [History] Diclofenac Sodium [Voltaren 1% Gel] 1 gram TOP QID PRN 01/25/19 [History] Meloxicam 15 mg PO DAILY 01/25/19 [History] Zolpidem [Ambien] 5 mg PO BEDTIME PRN 01/25/19 [History] traMADol [Ultram] 50 mg PO QID PRN 01/25/19 [History] Estradiol [Estrace 0.01% Vaginal Crm] 1 applic VAG BEDTIME 02/21/19 [History] Betamethasone Valerate [Valisone 0.1% Crm] 15 gm TOP BID PRN MDD to affected area for irritatio 04/04/19 [History] Ciclopirox Olamine [Ciclopirox] 15 gm TP DAILY 04/04/19 [History] levoFLOXacin [Levaquin] 750 mg PO Q48H #3 tab 04/06/19 [Rx] Patient Handouts: Urinary Tract Infection, Adult, Levofloxacin tablets, Community-Acquired Pneumonia, Adult, [id number] Referrals: [facility] [Outside] Rochelle Manzano, OPTIMIZATION ANALYST [Ordering Only Provider] - 04/13/19 8:00 am - Discharge Summary/Plan Comment DC Time >30 min.: No - Patient Data Vitals - Most Recent: Last Vital Signs Temp 36.6 C 04/06/19 08:00 Pulse 62 04/06/19 08:00 Resp 17 04/06/19 08:00 BP 111/56 L 04/06/19 08:00 Pulse Ox 96 04/06/19 08:00 Weight - Most Recent: 80.5 kg I&O - Last 24 hours: Intake & Output 04/05/19 04/06/19 04/06/19 22:59 06:59 14:59 Intake Total 1130 500 Output Total 350 1300 Balance 780 -800 Lab Results - Last 24 hrs: Laboratory Results - last 24 hr 04/06/19 04/06/19 Range/Units 05:40 05:40 WBC 11.73 H (4.0-11.0) K/uL RBC 4.77 (4.30-5.90) M/uL Hgb 13.6 (12.0-16.0) g/dL Hct 41.8 (36.0-46.0) % MCV 87.6 (80.0-98.0) fL MCH 28.5 (27.0-32.0) pg MCHC 32.5 (31.0-37.0) g/dL RDW Std Deviation 43.2 (28.0-62.0) fl RDW Coeff of Samson 14 (11.0-15.0) % Plt Count 90 L (150-400) K/uL MPV 10.30 (7.40-12.00) fL Nucleated RBC % 0.0 /100WBC Nucleated RBCs # 0 K/uL Sodium 137 (136-145) mmol/L Potassium 4.2 (3.5-5.1) mmol/L Chloride 105 (98-107) mmol/L Carbon Dioxide 26.0 (21.0-32.0) mmol/L BUN 18 (7.0-18.0) mg/dL Creatinine 0.9 (0.6-1.0) mg/dL Est Cr Clr Drug Dosing 56.00 mL/min Estimated GFR (MDRD) > 60.0 ml/min Glucose 97 (74-106) mg/dL Calcium 8.8 (8.5-10.1) mg/dL DONTE Results - Last 24 hrs: Microbiology 04/04/19 14:56 Aerobic Blood Culture - Preliminary Blood - Venous - Lab Draw NO GROWTH AFTER 1 DAY Anaerobic Blood Culture - Preliminary NO GROWTH AFTER 1 DAY 04/04/19 14:45 Aerobic Blood Culture - Preliminary Blood - Venous NO GROWTH AFTER 1 DAY Anaerobic Blood Culture - Preliminary NO GROWTH AFTER 1 DAY Med Orders - Current: Current Medications Acetaminophen (Tylenol Extra Strength) 500 mg PO Q4H PRN PRN Reason: Pain Last Admin: 04/04/19 13:27 Dose: 500 mg Albuterol/Ipratropium (Duoneb 3.0-0.5 Mg/3 Ml) 3 ml NEB Q6H PRN PRN Reason: Shortness of Breath Last Admin: 04/05/19 10:04 Dose: 3 ml Levofloxacin/Dextrose 750 mg/ (Premix) 150 mls @ 100 mls/hr IV Q48H TAY Last Admin: 04/04/19 14:48 Dose: 100 mls/hr Ketorolac Tromethamine (Toradol) 15 mg IVPUSH Q6H PRN PRN Reason: Pain Stop: 04/09/19 17:17 Ondansetron HCl (Zofran Odt) 4 mg PO Q4H PRN PRN Reason: nausea, able to take PO Last Admin: 04/04/19 16:31 Dose: 4 mg Desvenlafaxine [ Desvenlafaxine Er] 50 Mg 1 each PO DAILY [facility] Last Admin: 04/05/19 09:54 Dose: 1 each Tramadol HCl (Ultram) 50 mg PO QID PRN PRN Reason: Pain Last Admin: 04/05/19 21:53 Dose: 50 mg Zaleplon (Sonata) 5 mg PO BEDTIME PRN PRN Reason: Sleep Last Admin: 04/05/19 21:59 Dose: 5 mg Discontinued Medications Sodium Chloride (Normal Saline) 1,000 mls @ 100 mls/hr IV NOW STA Stop: 04/05/19 00:38 Last Admin: 04/04/19 14:48 Dose: 100 mls/hr Magnesium Sulfate 2 gm/ Premix 50 mls @ 25 mls/hr IV ONETIME ONE Stop: 04/04/19 19:00 Last Admin: 04/04/19 17:41 Dose: 25 mls/hr Losartan Potassium (Cozaar) 100 mg PO DAILY [facility] Losartan Potassium (Cozaar) 100 mg PO DAILY [facility] Last Admin: 04/05/19 09:52 Dose: 100 mg Desvenlafaxine [ Desvenlafaxine Er] 50 Mg 1 each PO DAILY [facility] <Nabor Lee - Last Filed: 04/06/19 09:09> Discharge Summary - Hospital Course HPI Initial Comments: I have seen and examined to patient independently of medical reimbursement manager, Stewart Johnson MD. I have discussed the case for care of this patient with him. I have reviewed and approve of the plan of care as outlined by medical reimbursement manager. Please see orders. Follow-up with PCP. - Patient Summary/Data Consults: Consultations 04/05/19 13:57 Consult to Physical Therapy [PT Evaluation and Treatment] [CONS] Routine - Patient Data Vitals - Most Recent: Last Vital Signs Temp 36.6 C 04/06/19 08:00 Pulse 62 04/06/19 08:00 Resp 17 04/06/19 08:00 BP 111/56 L 04/06/19 08:00 Pulse Ox 96 04/06/19 08:00 I&O - Last 24 hours: Intake & Output 04/05/19 04/06/19 04/06/19 22:59 06:59 14:59 Intake Total 1130 500 Output Total 350 1300 Balance 780 -800 Lab Results - Last 24 hrs: Laboratory Results - last 24 hr 04/06/19 04/06/19 Range/Units 05:40 05:40 WBC 11.73 H (4.0-11.0) K/uL RBC 4.77 (4.30-5.90) M/uL Hgb 13.6 (12.0-16.0) g/dL Hct 41.8 (36.0-46.0) % MCV 87.6 (80.0-98.0) fL MCH 28.5 (27.0-32.0) pg MCHC 32.5 (31.0-37.0) g/dL RDW Std Deviation 43.2 (28.0-62.0) fl RDW Coeff of Samson 14 (11.0-15.0) % Plt Count 90 L (150-400) K/uL MPV 10.30 (7.40-12.00) fL Nucleated RBC % 0.0 /100WBC Nucleated RBCs # 0 K/uL Sodium 137 (136-145) mmol/L Potassium 4.2 (3.5-5.1) mmol/L Chloride 105 (98-107) mmol/L Carbon Dioxide 26.0 (21.0-32.0) mmol/L BUN 18 (7.0-18.0) mg/dL Creatinine 0.9 (0.6-1.0) mg/dL Est Cr Clr Drug Dosing 56.00 mL/min Estimated GFR (MDRD) > 60.0 ml/min Glucose 97 (74-106) mg/dL Calcium 8.8 (8.5-10.1) mg/dL DONTE Results - Last 24 hrs: Microbiology 04/04/19 14:56 Aerobic Blood Culture - Preliminary Blood - Venous - Lab Draw NO GROWTH AFTER 1 DAY Anaerobic Blood Culture - Preliminary NO GROWTH AFTER 1 DAY 04/04/19 14:45 Aerobic Blood Culture - Preliminary Blood - Venous NO GROWTH AFTER 1 DAY Anaerobic Blood Culture - Preliminary NO GROWTH AFTER 1 DAY Med Orders - Current: Current Medications Acetaminophen (Tylenol Extra Strength) 500 mg PO Q4H PRN PRN Reason: Pain Last Admin: 04/04/19 13:27 Dose: 500 mg Albuterol/Ipratropium (Duoneb 3.0-0.5 Mg/3 Ml) 3 ml NEB Q6H PRN PRN Reason: Shortness of Breath Last Admin: 04/05/19 10:04 Dose: 3 ml Levofloxacin/Dextrose 750 mg/ (Premix) 150 mls @ 100 mls/hr IV Q48H TAY Last Admin: 04/04/19 14:48 Dose: 100 mls/hr Ketorolac Tromethamine (Toradol) 15 mg IVPUSH Q6H PRN PRN Reason: Pain Stop: 04/09/19 17:17 Ondansetron HCl (Zofran Odt) 4 mg PO Q4H PRN PRN Reason: nausea, able to take PO Last Admin: 04/04/19 16:31 Dose: 4 mg Desvenlafaxine [ Desvenlafaxine Er] 50 Mg 1 each PO DAILY [facility] Last Admin: 04/05/19 09:54 Dose: 1 each Tramadol HCl (Ultram) 50 mg PO QID PRN PRN Reason: Pain Last Admin: 04/05/19 21:53 Dose: 50 mg Zaleplon (Sonata) 5 mg PO BEDTIME PRN PRN Reason: Sleep Last Admin: 04/05/19 21:59 Dose: 5 mg Discontinued Medications Sodium Chloride (Normal Saline) 1,000 mls @ 100 mls/hr IV NOW STA Stop: 04/05/19 00:38 Last Admin: 04/04/19 14:48 Dose: 100 mls/hr Magnesium Sulfate 2 gm/ Premix 50 mls @ 25 mls/hr IV ONETIME ONE Stop: 04/04/19 19:00 Last Admin: 04/04/19 17:41 Dose: 25 mls/hr Losartan Potassium (Cozaar) 100 mg PO DAILY [facility] Losartan Potassium (Cozaar) 100 mg PO DAILY [facility] Last Admin: 04/05/19 09:52 Dose: 100 mg Desvenlafaxine [ Desvenlafaxine Er] 50 Mg 1 each PO DAILY [facility]
[2019-04-06] MEDS: Acetaminophen 500 MG Tab PO PRN (08:55)
[2019-04-06] MEDS: Desvenlafaxine [Desvenlafaxine Er] 50 MG PO SCH (09:10)
--- NOTE | 2019-04-09 16:01 | ECHO ---
EXAM DATE: 04/04/19 PATIENT'S AGE: 68 The echocardiogram report can be seen in this patient's EMR (Electronic Medical Record) in the Reports section. The report has also been scanned into PACs. OSMEL
== END 2019-04-06 09:30 | disposition home or self-care (01) ==
LOC: MW.MS 11:18
PROVIDERS: ADMIT Internal Medicine; ATTEND Internal Medicine
DX: J96.01 Acute respiratory failure with hypoxia (principal); J18.1 Lobar pneumonia, unspecified organism; N39.0 Urinary tract infection, site not specified; D72.829 Elevated white blood cell count, unspecified; D69.6 Thrombocytopenia, unspecified; N17.9 Acute kidney failure, unspecified; E83.42 Hypomagnesemia; I10 Essential (primary) hypertension; F41.9 Anxiety disorder, unspecified; G62.9 Polyneuropathy, unspecified; Z79.899 Other long term (current) drug therapy; Z87.891 Personal history of nicotine dependence; Z88.1 Allergy status to other antibiotic agents; Z88.5 Allergy status to narcotic agent; Z88.8 Allergy status to other drugs, medicaments and biological substances; Z91.048 Other nonmedicinal substance allergy status; Z98.890 Other specified postprocedural states
CPT/HCPCS: 36415; 71045; 80048; 80053; 81001; 83735; 83880; 85025; 85027; 87040; 87086; 93306; 94640; 97161; A4217; A9270; J1956; J3475; J7040; 85007; 96361; 96365; 96375; G0378; G0379; J7620-GY

== ENCOUNTER 2020-02-22 20:29 | Emergency (ER) | payer MEDICARE, BC ==
--- NOTE | 2020-02-22 20:49 | EDM.PDOC ---
ED HPI GENERAL MEDICAL PROBLEM - General Chief Complaint: ENT Problem Stated Complaint: POSSIBLE RIGHT EYE PROBLEMS Time Seen by Provider: 02/22/20 20:49 Source of Information: Reports: Patient History Limitations: Reports: No Limitations - History of Present Illness INITIAL COMMENTS - FREE TEXT/NARRATIVE: HISTORY AND PHYSICAL: History of present illness: Patient is a 69-year-old female presents to the ED with complaint of right eye redness. Patient states she was talking on the phone this afternoon when she felt something "pop" and some discomfort in her eye. She states she saw that her eye was red and was worried that something was messed up for her cataract surgery 2 years ago and came to the ED. She denies any visual changes and has no other complaints at this time. Review of systems: As per history of present illness and below otherwise all systems reviewed and negative. Past medical history: As per history of present illness and as reviewed below otherwise noncontributory. Surgical history: As per history of present illness and as reviewed below otherwise noncontributory. Social history: No reported history of drug or alcohol abuse. Family history: As per history of present illness and as reviewed below otherwise noncontributory. Physical exam: General: Patient sitting comfortably in no acute distress and nontoxic appearing HEENT: Subconjunctival hemorrhage to the lateral right eye. Atraumatic, normocephalic, pupils reactive, negative for conjunctival pallor or scleral icterus, mucous membranes moist, throat clear, neck supple, nontender, trachea midline. No meningeal signs. Lungs: Clear to auscultation, breath sounds equal bilaterally, chest nontender. Heart: S1S2, regular, negative for clicks, rubs, or overt murmur. Abdomen: Soft, nondistended, nontender. Negative for masses or hepatosplenomegaly. Negative for costovertebral tenderness. No rigidity, rebound , guarding. Pelvis: Stable nontender. Genitourinary: Deferred. Rectal: Deferred. Extremities: Atraumatic, negative for cords or calf pain. Neurovascular unremarkable. Neuro: Awake, alert, oriented. Cranial nerves II through XII unremarkable. Cerebellum unremarkable. Motor and sensory unremarkable throughout. Exam nonfocal. Notes: Diagnostics: normal Therapeutics: none Prescriptions: none Impression: Subconjunctival hemorrhage Plan: Follow up with ophthalmology Return to ED As needed as discussed Definitive disposition and diagnosis as appropriate pending reevaluation and review of above. - Related Data Allergies Allergy/AdvReac Type Severity Reaction Status Date / Time cefuroxime axetil Allergy Intermediate Rash Verified 02/22/20 20:36 [From Ceftin] azithromycin Allergy Rash Verified 02/22/20 20:36 celecoxib [From Celebrex] Allergy Rash Verified 02/22/20 20:36 ciprofloxacin Allergy Rash Verified 02/22/20 20:36 codeine Allergy Vomiting Verified 02/22/20 20:36 hydrocodone Allergy Hives Verified 02/22/20 20:36 some metals Allergy Hives Uncoded 02/22/20 20:36 Home Meds: Home Meds Desvenlafaxine [Desvenlafaxine ER] 50 mg PO DAILY 01/25/19 [History] Diclofenac Sodium [Voltaren 1% Gel] 1 gram TOP QID PRN 01/25/19 [History] Meloxicam 15 mg PO DAILY 01/25/19 [History] Zolpidem [Ambien] 5 mg PO BEDTIME PRN 01/25/19 [History] traMADol [Ultram] 50 mg PO QID PRN 01/25/19 [History] Betamethasone Valerate [Valisone 0.1% Crm] 15 gm TOP BID PRN MDD to affected area for irritatio 04/04/19 [History] Ciclopirox Olamine [Ciclopirox] 15 gm TP DAILY 04/04/19 [History] levoFLOXacin [Levaquin] 750 mg PO Q48H #3 tab 04/06/19 [Rx] Past Medical History - Past Health History Medical/Surgical History: Denies Medical/Surgical History HEENT History: Reports: Cataract Other HEENT History: wears reading glasses, top denture, 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 Cardiovascular History: Reports: Hypertension Respiratory History: Reports: Pneumonia, Recurrent Gastrointestinal History: Reports: Irritable Bowel Syndrome Other Gastrointestinal History: occasional heartburn Genitourinary History: Reports: UTI, Recurrent MOTOR VEH[employer] History: Reports: , Other (See Below) 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 Musculoskeletal History: Reports: Back Pain, Chronic Other Musculoskeletal History: joint pain, polyneuropathy, Neurological History: Reports: None Psychiatric History: Reports: Anxiety Endocrine/Metabolic History: Reports: None Hematologic History: Reports: None Other Hematologic History: low platelets Immunologic History: Reports: None, Other (See Below) Other Immunologic History: current 6 months treatment of IVIg infusions Oncologic (Cancer) History: Reports: None Dermatologic History: Reports: Eczema - Infectious Disease History Infectious Disease History: Reports: Chicken Pox, Measles - Past Surgical History HEENT Surgical History: Reports: None GI Surgical History: Reports: Appendectomy, Cholecystectomy, Colonoscopy, Other (See Below) Other GI Surgeries/Procedures: adhesions Other Female Surgeries/Procedures: adhesions Musculoskeletal Surgical History: Reports: None Oncologic Surgical History: Reports: Bone Marrow Aspiration Social & Family History - Family History Family Medical History: Noncontributory Neurological: Reports: Neuropathy, Peripheral, Other (See Below) Other Neurological Family History: Temporal arteritis- Polymyalgic Giant cell. Polymyositis Immunologic: Reports: None Dermatologic: Reports: None Oncologic: Reports: None - Tobacco Use Smoking Status *Q: Never Smoker - Caffeine Use Caffeine Use: Reports: None - Recreational Drug Use Recreational Drug Use: No - Living Situation & Occupation Living situation: Reports: with Family Occupation: Retired ED ROS GENERAL - Review of Systems Review Of Systems: Comprehensive ROS is negative, except as noted in HPI. ED EXAM GENERAL W FULL EYE - Physical Exam Exam: See Below (see dictation) Course - Vital Signs Last Recorded V/S: Last Vital Signs Temp 97.1 F 02/22/20 20:39 Pulse 86 02/22/20 20:39 Resp 20 02/22/20 20:39 BP 156/88 H 02/22/20 20:39 Pulse Ox 96 02/22/20 20:39 Departure - Departure Time of Disposition: 20:49 Disposition: Home, Self-Care 01 Condition: Good Clinical Impression: Subconjunctival hemorrhage of right eye - Discharge Information Forms: ED Department Discharge Additional Instructions: The following information is given to patients seen in the emergency department who are being discharged to home. This information is to outline your options for follow-up care. We provide all patients seen in our emergency department with a follow-up referral. The need for follow-up, as well as the timing and circumstances, are variable depending upon the specifics of your emergency department visit. If you don't have a primary care physician on staff, we will provide you with a referral. We always advise you to contact your personal physician following an emergency department visit to inform them of the circumstance of the visit and for follow-up with them and/or the need for any referrals to a consulting specialist. The emergency department will also refer you to a specialist when appropriate. This referral assures that you have the opportunity for follow-up care with a specialist. All of these measure are taken in an effort to provide you with optimal care, which includes your follow-up. Under all circumstances we always encourage you to contact your private physician who remains a resource for coordinating your care. When calling for follow-up care, please make the office aware that this follow-up is from your recent emergency room visit. If for any reason you are refused follow-up, please contact the [facility] Emergency Department at and asked to speak to the emergency department charge nurse. [facility] [address] [place] [id number] [facility] [address] [place] [id number] Follow up with ophthalmology Return to ED as needed as discussed Sepsis Event Note - Evaluation Sepsis Screening Result: No Definite Risk - Focused Exam Vital Signs: Vital Signs Temp Pulse Resp BP Pulse Ox 02/22/20 20:39 97.1 F 86 20 156/88 H 96 Date Exam was Performed: 02/22/20 Time Exam was Performed: 20:51
[2020-02-22 21:07] VITALS: BP 136/65; PULSE 83
== END 2020-02-22 21:03 | disposition home or self-care (01) ==
LOC: MW.ED 20:29
DX: H11.31 Conjunctival hemorrhage, right eye (principal); I10 Essential (primary) hypertension; G62.9 Polyneuropathy, unspecified; F41.9 Anxiety disorder, unspecified; Z88.1 Allergy status to other antibiotic agents; Z88.5 Allergy status to narcotic agent; Z91.048 Other nonmedicinal substance allergy status; Z79.899 Other long term (current) drug therapy
CPT/HCPCS: 99283

== ENCOUNTER 2021-06-11 14:22 | Emergency (ER) | payer MEDICARE, BC ==
--- NOTE | 2021-06-11 15:04 | EDM.PDOC ---
ED HPI GENERAL MEDICAL PROBLEM - General Chief Complaint: Upper Extremity Injury/Pain Stated Complaint: LEFT ARM SWELLING/PAIN Time Seen by Provider: 06/11/21 14:41 Source of Information: Reports: Patient History Limitations: Reports: No Limitations - History of Present Illness INITIAL COMMENTS - FREE TEXT/NARRATIVE: 1-year-old female presents today for left elbow pain and swelling. She had a bug bite and was placed on Bactrim by her PMD. She was told that if he got worse come in. She has increased swelling to the arm. She has no fever chills no increased redness to the area. Patient otherwise has no other complaints. - Related Data Allergies Allergy/AdvReac Type Severity Reaction Status Date / Time cefuroxime axetil Allergy Intermediate Rash Verified 06/11/21 14:41 [From Ceftin] azithromycin Allergy Rash Verified 06/11/21 14:41 celecoxib [From Celebrex] Allergy Rash Verified 06/11/21 14:41 ciprofloxacin Allergy Rash Verified 06/11/21 14:41 codeine Allergy Vomiting Verified 06/11/21 14:41 hydrocodone Allergy Hives Verified 06/11/21 14:41 some metals Allergy Hives Uncoded 06/11/21 14:41 Home Meds: Home Meds Desvenlafaxine [Desvenlafaxine ER] 50 mg PO DAILY 01/25/19 [History] Diclofenac Sodium [Voltaren 1% Gel] 1 gram TOP QID PRN 01/25/19 [History] Meloxicam 15 mg PO DAILY 01/25/19 [History] Zolpidem [Ambien] 5 mg PO BEDTIME PRN 01/25/19 [History] traMADol [Ultram] 50 mg PO QID PRN 01/25/19 [History] Betamethasone Valerate [Valisone 0.1% Crm] 15 gm TOP BID PRN MDD to affected area for irritatio 04/04/19 [History] Ciclopirox Olamine [Ciclopirox] 15 gm TP DAILY 04/04/19 [History] levoFLOXacin [Levaquin] 750 mg PO Q48H #3 tab 04/06/19 [Rx] Sulfamethoxazole/Trimethoprim [Sulfamethoxazole-Tmp Ds Tablet] 1 tab PO ASDIRECTED 06/11/21 [History] clindamycin HCL [Clindamycin HCl] 450 mg PO TID 7 Days #21 capsule 06/11/21 [Rx] Past Medical History - Past Health History Medical/Surgical History: Denies Medical/Surgical History HEENT History: Reports: Cataract Other HEENT History: wears reading glasses, top denture, 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 Cardiovascular History: Reports: Hypertension Respiratory History: Reports: Pneumonia, Recurrent Gastrointestinal History: Reports: Irritable Bowel Syndrome Other Gastrointestinal History: occasional heartburn Genitourinary History: Reports: UTI, Recurrent SCREED OPERATOR History: Reports: , Other (See Below) Other SCREED OPERATOR History: tubal ligation Musculoskeletal History: Reports: Back Pain, Chronic Other Musculoskeletal History: joint pain, polyneuropathy, Neurological History: Reports: None Psychiatric History: Reports: Anxiety Endocrine/Metabolic History: Reports: None Hematologic History: Reports: None Other Hematologic History: low platelets Immunologic History: Reports: None, Other (See Below) Other Immunologic History: current 6 months treatment of IVIg infusions Oncologic (Cancer) History: Reports: None Dermatologic History: Reports: Eczema - Infectious Disease History Infectious Disease History: Reports: Chicken Pox, Measles - Past Surgical History Head Surgeries/Procedures: Reports: None HEENT Surgical History: Reports: None Cardiovascular Surgical History: Reports: None GI Surgical History: Reports: Appendectomy, Cholecystectomy, Colonoscopy, Other (See Below) Other GI Surgeries/Procedures: adhesions Female Surgical History: Reports: Hysterectomy, Tubal Ligation Other Female Surgeries/Procedures: adhesions Musculoskeletal Surgical History: Reports: None Oncologic Surgical History: Reports: Bone Marrow Aspiration Dermatological Surgical History: Reports: Skin Biopsy Social & Family History - Family History Family Medical History: No Pertinent Family History Neurological: Reports: Neuropathy, Peripheral, Other (See Below) Other Neurological Family History: Temporal arteritis- Polymyalgic Giant cell. Polymyositis Immunologic: Reports: None Dermatologic: Reports: None Oncologic: Reports: None - Tobacco Use Tobacco Use Status *Q: Never Tobacco User - Caffeine Use Caffeine Use: Reports: None - Recreational Drug Use Recreational Drug Use: No - Living Situation & Occupation Living situation: Reports: with Family Occupation: Retired Review of Systems - Review of Systems Review Of Systems: See Below Constitutional: Reports: No Symptoms Eyes: Reports: No Symptoms Ears: Reports: No Symptoms Nose: Reports: No Symptoms Mouth/Throat: Reports: No Symptoms Respiratory: Reports: No Symptoms Cardiovascular: Reports: No Symptoms GI/Abdominal: Reports: No Symptoms Genitourinary: Reports: No Symptoms Musculoskeletal: Reports: Joint Swelling Skin: Reports: No Symptoms Neurological: Reports: No Symptoms Psychiatric: Reports: No Symptoms ED EXAM, GENERAL - Physical Exam Exam: See Below Exam Limited By: No Limitations General Appearance: Alert, WD/WN, No Apparent Distress Respiratory/Chest: No Respiratory Distress, Lungs Clear, Normal Breath Sounds Cardiovascular: Normal Peripheral Pulses, Regular Rate, Rhythm GI/Abdominal: Normal Bowel Sounds, Soft, Non-Tender Extremities: Normal Inspection, Normal Range of Motion, Non-Tender, Joint Swelling Neurological: Alert, Oriented, Normal Cognition, Normal Gait Course - Vital Signs Last Recorded V/S: Last Vital Signs Temp 97.8 F 06/11/21 14:42 Pulse 76 06/11/21 14:42 Resp 16 06/11/21 14:42 BP 137/74 06/11/21 14:42 Pulse Ox 94 L 06/11/21 14:42 - Orders/Labs/Meds Labs: Laboratory Tests 06/11/21 06/11/21 Range/Units 15:43 15:43 WBC 12.10 H (4.0-11.0) K/uL RBC 5.39 (4.30-5.90) M/uL Hgb 15.5 (12.0-16.0) g/dL Hct 46.0 (36.0-46.0) % MCV 85.3 (80.0-98.0) fL MCH 28.8 (27.0-32.0) pg MCHC 33.7 (31.0-37.0) g/dL RDW Std Deviation 41.5 (28.0-62.0) fl RDW Coeff of Samson 13 (11.0-15.0) % Plt Count 55 L (150-400) K/uL MPV 10.60 (7.40-12.00) fL Neut % (Auto) 73.5 (48.0-80.0) % Lymph % (Auto) 14.7 L (16.0-40.0) % Dundy % (Auto) 6.6 (0.0-15.0) % Eos % (Auto) 5.0 (0.0-7.0) % Baso % (Auto) 0.2 (0.0-1.5) % Neut # (Auto) 8.9 H (1.4-5.7) K/uL Lymph # (Auto) 1.8 (0.6-2.4) K/uL Dundy # (Auto) 0.8 (0.0-0.8) K/uL Eos # (Auto) 0.6 (0.0-0.7) K/uL Baso # (Auto) 0.0 (0.0-0.1) K/uL Nucleated RBC % 0.0 /100WBC Nucleated RBCs # 0 K/uL Sodium 140 (136-145) mmol/L Potassium 4.6 (3.5-5.1) mmol/L Chloride 103 (98-107) mmol/L Carbon Dioxide 30.3 (21.0-32.0) mmol/L BUN 21 H (7.0-18.0) mg/dL Creatinine 0.9 (0.6-1.0) mg/dL Est Cr Clr Drug Dosing 54.45 mL/min Estimated GFR (MDRD) > 60.0 ml/min Glucose 74 (74-106) mg/dL Calcium 8.7 (8.5-10.1) mg/dL - Re-Assessments/Exams Free Text/Narrative Re-Assessment/Exam: 06/11/21 16:32 Ultrasound reviewed no DVT does show some edema around a bug bite area. Patient looks well does not seem to be spreading we will add Keflex and continue outpatient take antibiotics and ice the area as well. Departure - Departure Time of Disposition: 16:32 Disposition: Home, Self-Care 01 Condition: Good Clinical Impression: Bug bite, Cellulitis - Discharge Information *PRESCRIPTION DRUG MONITORING PROGRAM REVIEWED*: Not Applicable *COPY OF PRESCRIPTION DRUG MONITORING REPORT IN PATIENT CLARIBEL: Not Applicable Instructions: Cellulitis, Adult, [id number] Referrals: PCP,None [Primary Care Provider] - Forms: ED Department Discharge Additional Instructions: The following information is given to patients seen in the emergency department who are being discharged to home. This information is to outline your options for follow-up care. We provide all patients seen in our emergency department with a follow-up referral. The need for follow-up, as well as the timing and circumstances, are variable depending upon the specifics of your emergency department visit. If you don't have a primary care physician on staff, we will provide you with a referral. We always advise you to contact your personal physician following an emergency department visit to inform them of the circumstance of the visit and for follow-up with them and/or the need for any referrals to a consulting specialist. The emergency department will also refer you to a specialist when appropriate. This referral assures that you have the opportunity for follow-up care with a specialist. All of these measure are taken in an effort to provide you with optimal care, which includes your follow-up. Under all circumstances we always encourage you to contact your private physician who remains a resource for coordinating your care. When calling for follow-up care, please make the office aware that this follow-up is from your recent emergency room visit. If for any reason you are refused follow-up, please contact the [facility] Emergency Department at and asked to speak to the emergency department charge nurse. Please follow up with your primary care physician. If you do not have a primary care physician, see below: [facility] [address] [place] [phone] [facility] [address] [place] [phone] Seen today for increased swelling to your bug bite area. We have added additional antibiotics that should help treat an infection. You have no clots your arm and redness not swelling you had no systemic symptoms. If you develop any systemic symptoms such as fever chills or increased pain or redness please return to the ED otherwise continue to follow-up to primary care physician. Sepsis Event Note (ED) - Evaluation Sepsis Screening Result: No Definite Risk - Focused Exam Vital Signs: Vital Signs Temp Pulse Resp BP Pulse Ox 06/11/21 14:42 97.8 F 76 16 137/74 94 L - Assessment/Plan Plan: Patient is a 7-year-old female who presents today for left elbow pain and swelling. Patient has good range of motion and no point tenderness. States that the swelling yellow worse. We will obtain a DVT study of the left arm. We likely will add Keflex to patient's antibiotic regimen as well.
[2021-06-11 16:07] LABS: BLOOD UREA NITROGEN,BUN 21 mg/dL (7.0-18.0); CARBON DIOXIDE,CO2 30.3 mmol/L (21.0-32.0); CHLORIDE,CL 103 mmol/L (98-107); GLUCOSE RANDOM 74 mg/dL (74-106); POTASSIUM,K 4.6 mmol/L (3.5-5.1); SODIUM,NA 140 mmol/L (136-145)
--- NOTE | 2021-06-11 16:18 | US ---
INDICATION: Left upper extremity swelling. Bug bite. TECHNIQUE: Ultrasound venous duplex upper left extremity. Compression venous exam was performed using harp scale, color Doppler, and spectral Doppler imaging. COMPARISON: None FINDINGS: The left subclavian, and axillary veins are patent with normal waveforms. The brachial, basilic, and cephalic veins are fully compressible. The radial and ulnar veins are fully compressible. There is edema in the area of patient`s bug bite. No loculated fluid collection to suggest abscess. IMPRESSION: 1. Normal ultrasound of the left upper extremity veins. 2. Edema in the area of bug bite. Dictated by Ruperto Carvajal MD @ 06/11/2021 4:16:[address] Ruperto Carvajal @ Jun 11 2021 4:16PM
[2021-06-11 16:36] VITALS: BP 126/86; PULSE 78
== END 2021-06-11 16:39 | disposition home or self-care (01) ==
LOC: MW.ED 14:22
DX: S50.362A Insect bite (nonvenomous) of left elbow, initial encounter (principal); L03.114 Cellulitis of left upper limb; I10 Essential (primary) hypertension; W57.XXXA Bitten or stung by nonvenomous insect and other nonvenomous arthropods, initial encounter; Z91.048 Other nonmedicinal substance allergy status; Z88.5 Allergy status to narcotic agent; Z88.1 Allergy status to other antibiotic agents; Z79.899 Other long term (current) drug therapy
CPT/HCPCS: 36415; 80048; 85025; 93971-26-LT; 93971-LT; 99283-25

== ENCOUNTER 2021-08-26 08:49 | Inpatient (IN) | payer MEDICARE, BC ==
[2021-08-26] MEDS ORDERED: Sodium Chloride 0.9% 10 ML Syringe FLUSH PRN (09:19)
[2021-08-26] MEDS ORDERED: Lactated Ringers 1,000 ML IV ONE ×2 (09:19→10:27)
[2021-08-26] MEDS ORDERED: Sodium Chloride 0.9% 2.5 ML Syringe FLUSH PRN (09:19)
[2021-08-26] MEDS ORDERED: Piperacillin/Tazobactam 4.5 GM in Sodium Chloride 0.9% 100 ML IV ONE (09:19)
--- NOTE | 2021-08-26 09:28 | EDM.PDOC ---
ED HPI GENERAL MEDICAL PROBLEM - General Chief Complaint: Respiratory Problem Stated Complaint: FEVER,COUGH, SOB Time Seen by Provider: 08/26/21 09:25 Source of Information: Reports: Patient - History of Present Illness INITIAL COMMENTS - FREE TEXT/NARRATIVE: 71-year-old female presents complaining of not feeling well for 6 days in duration. She is having some cough. She has had shortness of breath since 3 days ago. She is also had some diarrhea recently over the last several days. She is currently being treated for a urinary tract infection with Bactrim. Patient was seen at the outside Covid clinic office for evaluation was found to be hypotensive at 88 systolic and hypoxic to 92% on 3 L. Patient has been vaccinated against Covid and booster. Patient denies any chest pain. There are no additional infectious complaints general Pain Score (Numeric/FACES): 4 - Related Data Allergies Allergy/AdvReac Type Severity Reaction Status Date / Time cefuroxime axetil Allergy Intermediate Rash Verified 08/26/21 09:02 [From Ceftin] azithromycin Allergy Rash Verified 08/26/21 09:02 celecoxib [From Celebrex] Allergy Rash Verified 08/26/21 09:02 ciprofloxacin Allergy Rash Verified 08/26/21 09:02 codeine Allergy Vomiting Verified 08/26/21 09:02 hydrocodone Allergy Hives Verified 08/26/21 09:02 some metals Allergy Hives Uncoded 08/26/21 09:02 Home Meds: Home Meds Desvenlafaxine [Desvenlafaxine ER] 50 mg PO DAILY 01/25/19 [History] Diclofenac Sodium [Voltaren 1% Gel] 1 gram TOP QID PRN 01/25/19 [History] Meloxicam 15 mg PO DAILY 01/25/19 [History] Zolpidem [Ambien] 5 mg PO BEDTIME PRN 01/25/19 [History] traMADol [Ultram] 50 mg PO QID PRN 01/25/19 [History] Betamethasone Valerate [Valisone 0.1% Crm] 15 gm TOP BID PRN MDD to affected area for irritatio 04/04/19 [History] Ciclopirox Olamine [Ciclopirox] 15 gm TP DAILY 04/04/19 [History] levoFLOXacin [Levaquin] 750 mg PO Q48H #3 tab 04/06/19 [Rx] Sulfamethoxazole/Trimethoprim [Sulfamethoxazole-Tmp Ds Tablet] 1 tab PO ASDIRECTED 06/11/21 [History] clindamycin HCL [Clindamycin HCl] 450 mg PO TID 7 Days #21 capsule 06/11/21 [Rx] Cyclobenzaprine [Flexeril] 10 mg PO Q8H PRN 08/26/21 [History] Past Medical History - Past Health History Medical/Surgical History: Denies Medical/Surgical History HEENT History: Reports: Cataract Other HEENT History: wears reading glasses, top denture, 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 Cardiovascular History: Reports: Hypertension Respiratory History: Reports: Pneumonia, Recurrent Gastrointestinal History: Reports: Irritable Bowel Syndrome Other Gastrointestinal History: occasional heartburn Genitourinary History: Reports: UTI, Recurrent COMPUGRAPH OPERATOR 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: Reports: , Other (See Below) Other COMPUGRAPH OPERATOR History: tubal ligation Musculoskeletal History: Reports: Back Pain, Chronic Other Musculoskeletal History: joint pain, polyneuropathy, Neurological History: Reports: None Psychiatric History: Reports: Anxiety Endocrine/Metabolic History: Reports: None Hematologic History: Reports: None Other Hematologic History: low platelets Immunologic History: Reports: None, Other (See Below) Other Immunologic History: current 6 months treatment of IVIg infusions Oncologic (Cancer) History: Reports: None Dermatologic History: Reports: Eczema - Infectious Disease History Infectious Disease History: Reports: Chicken Pox, Measles - Past Surgical History Head Surgeries/Procedures: Reports: None HEENT Surgical History: Reports: None Cardiovascular Surgical History: Reports: None GI Surgical History: Reports: Appendectomy, Cholecystectomy, Colonoscopy, Other (See Below) Other GI Surgeries/Procedures: adhesions Female Surgical History: Reports: Hysterectomy, Tubal Ligation Other Female Surgeries/Procedures: adhesions Musculoskeletal Surgical History: Reports: None Oncologic Surgical History: Reports: Bone Marrow Aspiration Dermatological Surgical History: Reports: Skin Biopsy Social & Family History - Family History Family Medical History: No Pertinent Family History Neurological: Reports: Neuropathy, Peripheral, Other (See Below) Other Neurological Family History: Temporal arteritis- Polymyalgic Giant cell. Polymyositis Immunologic: Reports: None Dermatologic: Reports: None Oncologic: Reports: None - Tobacco Use Tobacco Use Status *Q: Former Tobacco User Used Tobacco, but Quit: Yes Month/Year Tobacco Last Used: 1989 - Caffeine Use Caffeine Use: Reports: Soda, Tea - Recreational Drug Use Recreational Drug Use: No - Living Situation & Occupation Living situation: Reports: with Family Occupation: Retired ED ROS GENERAL - Review of Systems Review Of Systems: Comprehensive ROS is negative, except as noted in HPI. ED EXAM, GENERAL - Physical Exam Exam: See Below Free Text/Narrative:: CONSTITUTIONAL: moderate Distress SKIN: Warm, dry, and intact without rash HENT: Normocephalic, atraumatic, PULMONARY: Remittent rales. Mild tachypnea CARDIOVASCULAR: regular rate, No murmur, rubs, or gallops GASTROINTESTINAL: soft, nondistended, nontender NEUROLOGIC: normal speech, II-XII intact. light touch/5/5 power equal and symmetric in upper and lower extremities without deficit MUSCULOSKELETAL: no gross deformities, atraumatic PSYCHIATRIC: normal mood and affect ED RESPIRATORY PROCEDURES - Additional/Other Procedure(s) Other (Free Text) Procedure(s): Right IJ central line placement. The areas was sterilely prepped. 1% lidocaine was used to anesthetize the right side of the neck. Ultrasound guidance was used to place a 7-1/2 Urdu triple-lumen catheter at 15 cm at the skin. Patient tolerated the procedure well and there were no complications. This was placed under modified Seldinger technique. Chest x-ray after line placement shows no pneumothorax and the line in good position #1 Interpretation Time: 08:56 EKG Interpretation Comments: 83, normal sinus rhythm, nonspecific ST/T findings Course - Vital Signs Text/Narrative:: Patient states her allergy to cefuroxime was a little bit of a rash but no difficulty breathing or drop in blood pressure or other serious allergic reaction. Patient states she is not allergic to penicillin 12:[facility], [facility], [facility], [facility], [facility], [facility], [facility], [facility], [facility], [facility], [facility]. Unfortunately, no beds are avaiable at this time. 2:35pm Pt with SBP <70. Levophed started. Pt had already received 500 cc LR beyond 300 cc/kg 2:38: Differential diagnosis: Pneumonia, UTI, Covid, sepsis, volume depletion, C. difficile, gastroenteritis, other. Patient presents to the emergency department sent in for low blood pressure and hypoxia. Patient found to have pneumonia. Patient given 30 cc/kg fluid. Cultures have been sent and empiric antibiotics given. Patient had been treated for UTI and there also is some suggestion of perhaps a urinary infection. Patient with an elevated white blood cell count of 30 and Zosyn and Vanco given for empiric coverage. Patient is allergic to azithromycin and fluoroquinolone so doxycycline was given for atypicals. Patient also found to be in DOROTHY which hopefully will improve with volume resuscitation. Lactic acid is elevated. Patient evaluated multiple times throughout the ED course and did have improvement after IV fluids. The majority of the ED course at this point she has had systolic blood pressures in the 90 range. Patient did have some bouts intermittently when she was moving below 70 and Levophed started. We have contacted all available ICUs and there is nothing that is available [facility]. Patient will continue to be managed here until a bed becomes available Critical care: I spent 45 minutes of critical care time with this patient not including reportable procedures. There was an acute impairment of an organ system with a high probability of imminent or life threatening deterioration in the patient`s condition. Interventions and changes required in the course of therapy are located in the chart. Time involved was spent in direct patient care, reviewing ancillary data, old records, consulting with decision makers, EMS, other doctors, giving orders and documenting. Last Recorded V/S: Last Vital Signs Temp 36.4 C 08/26/21 14:46 Pulse 77 08/26/21 15:28 Resp 18 08/26/21 15:13 BP 111/51 L 08/26/21 15:28 Pulse Ox 97 08/26/21 15:28 - Orders/Labs/Meds Orders: Active Orders 24 hr Category Date Time Status Admission Status [Patient Status] [ADT] Stat ADT 08/26/21 15:48 Active Cardiac Monitoring [RC] . DIRECTED Care 08/26/21 09:19 Active Cardiac Monitoring [RC] . DIRECTED Care 08/26/21 15:48 Active Pulse Oximetry [RC] ASDIRECTED Care 08/26/21 09:19 Active COVID-19/FLU A+B/RSV [MOLEC] Stat Lab 08/26/21 09:21 Results CULTURE BLOOD [BC] Stat Lab 08/26/21 09:16 Received CULTURE BLOOD [BC] Stat Lab 08/26/21 09:40 Received LACTIC ACID [CHEM] Routine Lab 08/26/21 14:51 Received VANCOMYCIN TROUGH [CHEM] Timed Lab 08/29/21 14:15 Ordered Doxycycline [Vibramycin] 100 mg Med 08/26/21 13:42 Active Sodium Chloride 0.9% [Normal Saline AdvBag] 100 ml IV Q12H Norepinephrine Bit/0.9 % NaCl [Norepinephr-0.9% NaCl 4 Med 08/26/21 14:45 Active mg/250] 4 mg in 250 ml IV TITRATE Sodium Chloride 0.9% [Saline Flush] Med 08/26/21 09:19 Active 10 ml FLUSH ASDIRECTED PRN Sodium Chloride 0.9% [Saline Flush] Med 08/26/21 09:19 Active 2.5 ml FLUSH ASDIRECTED PRN VANCOmycin 1.25 GM/250 ML 1.25 gm Med 08/26/21 14:45 Active Premix Bag 1 bag IV Q24H Vancomycin [Vancocin 125 MG Capsule] Med 08/26/21 12:00 Active 250 mg PO QID Blood Culture x2 Reflex Set [OM.PC] Stat Oth 08/26/21 09:20 Ordered Saline Lock Insert [OM.PC] Stat Oth 08/26/21 09:19 Ordered Medication Orders Vancomycin HCl 1.25 gm/ Premix 250 mls @ 166.667 mls/hr IV Q24H [facility] Last Admin: 08/26/21 14:30 Dose: 166.667 mls/hr Documented by: TANNA Doxycycline Hyclate 100 mg/ (Sodium Chloride) 100 mls @ 100 mls/hr IV Q12H [facility] Last Admin: 08/26/21 14:29 Dose: 100 mls/hr Documented by: TANNA Norepinephrine Bitartrate (Norepinephr-0.9% Nacl 4 Mg/250) 4 mg in 250 mls @ 7.5 mls/hr IV TITRATE TAY; Protocol Last Titration: 08/26/21 15:12 Dose: 5 mcg/min, 18.75 mls/hr Documented by: Titration: 08/26/21 15:05 Dose: 4 mcg/min, 15 mls/hr Documented by: Titration: 08/26/21 14:52 Dose: 3 mcg/min, 11.25 mls/hr Documented by: Admin: 08/26/21 14:36 Dose: 2 mcg/min, 7.5 mls/hr Documented by: TANNA Sodium Chloride (Sodium Chloride 0.9% 10 Ml Syringe) 10 ml FLUSH ASDIRECTED PRN PRN Reason: Keep Vein Open Last Admin: 08/26/21 09:26 Dose: 10 ml Documented by: TANNA Sodium Chloride (Sodium Chloride 0.9% 2.5 Ml Syringe) 2.5 ml FLUSH ASDIRECTED PRN PRN Reason: Keep Vein Open Last Admin: 08/26/21 09:27 Dose: 2.5 ml Documented by: TANNA Vancomycin HCl (Vancomycin 125 Mg Cap) 250 mg PO QID TAY Last Admin: 08/26/21 12:39 Dose: 250 mg Documented by: TANNA Labs: Laboratory Tests 08/26/21 08/26/21 08/26/21 Range/Units 09:05 09:05 09:05 WBC 31.84 H (4.0-11.0) K/uL RBC 5.01 (4.30-5.90) M/uL Hgb 14.8 (12.0-16.0) g/dL Hct 44.3 (36.0-46.0) % MCV 88.4 (80.0-98.0) fL MCH 29.5 (27.0-32.0) pg MCHC 33.4 (31.0-37.0) g/dL RDW Std Deviation 45.7 (28.0-62.0) fl RDW Coeff of Samson 14 (11.0-15.0) % Plt Count 134 L (150-400) K/uL MPV 10.70 (7.40-12.00) fL Add Manual Diff YES Neutrophils % (Manual) 88 H (48.0-80.0) % Band Neutrophils % 5 % Lymphocytes % (Manual) 5 L (16.0-40.0) % Monocytes % (Manual) 2 (0.0-15.0) % Nucleated RBC % 0.0 /100WBC Absolute Seg Neuts 28.0 H (1.4-5.7) Band Neutrophils # 1.6 Lymphocytes # (Manual) 1.6 (0.6-2.4) Monocytes # (Manual) 0.6 (0.0-0.8) Nucleated RBCs # 0 K/uL INR Sodium 133 L (136-145) mmol/L Potassium 3.9 (3.5-5.1) mmol/L Chloride 97 L (98-107) mmol/L Carbon Dioxide 24.2 (21.0-32.0) mmol/L BUN 25 H (7.0-18.0) mg/dL Creatinine 2.5 H (0.6-1.0) mg/dL Est Cr Clr Drug Dosing 18.57 mL/min Estimated GFR (MDRD) 19.0 ml/min Glucose 129 H (74-106) mg/dL Lactic Acid (0.4-2.0) mmol/L Calcium 8.3 L (8.5-10.1) mg/dL Total Bilirubin 0.3 (0.2-1.0) mg/dL AST 19 (15-37) IU/L ALT 24 (14-63) IU/L Alkaline Phosphatase 131 H (46-116) U/L Troponin I < 0.050 (0.000-0.056) ng/mL B-Natriuretic Peptide 11 (<100) PG/ML Total Protein 6.7 (6.4-8.2) g/dL Albumin 2.4 L (3.4-5.0) g/dL Globulin 4.3 H (2.6-4.0) g/dL Albumin/Globulin Ratio 0.6 L (0.9-1.6) Lipase 22 L (73-393) U/L Urine Color Urine Appearance Urine pH (5.0-8.0) Ur Specific [place] (1.001-1.035) Urine Protein (NEGATIVE) mg/dL Urine Glucose (UA) (NEGATIVE) mg/dL Urine Ketones (NEGATIVE) mg/dL Urine Occult Blood (NEGATIVE) Urine Nitrite (NEGATIVE) Urine Bilirubin (NEGATIVE) Urine Urobilinogen (<2.0) EU/dL Ur Leukocyte Esterase (NEGATIVE) Urine RBC (0-2/HPF) Urine WBC (0-5/HPF) Ur Epithelial Cells (NONE-FEW) Urine Bacteria (NEGATIVE) Urine Mucus (NONE-MOD) SARS-CoV-2 RNA (LUIS) (NEGATIVE) 08/26/21 08/26/21 08/26/21 Range/Units 09:05 09:05 09:21 WBC (4.0-11.0) K/uL RBC (4.30-5.90) M/uL Hgb (12.0-16.0) g/dL Hct (36.0-46.0) % MCV (80.0-98.0) fL MCH (27.0-32.0) pg MCHC (31.0-37.0) g/dL RDW Std Deviation (28.0-62.0) fl RDW Coeff of Samson (11.0-15.0) % Plt Count (150-400) K/uL MPV (7.40-12.00) fL Add Manual Diff Neutrophils % (Manual) (48.0-80.0) % Band Neutrophils % % Lymphocytes % (Manual) (16.0-40.0) % Monocytes % (Manual) (0.0-15.0) % Nucleated RBC % /100WBC Absolute Seg Neuts (1.4-5.7) Band Neutrophils # Lymphocytes # (Manual) (0.6-2.4) Monocytes # (Manual) (0.0-0.8) Nucleated RBCs # K/uL INR 1.14 Sodium (136-145) mmol/L Potassium (3.5-5.1) mmol/L Chloride (98-107) mmol/L Carbon Dioxide (21.0-32.0) mmol/L BUN (7.0-18.0) mg/dL Creatinine (0.6-1.0) mg/dL Est Cr Clr Drug Dosing mL/min Estimated GFR (MDRD) ml/min Glucose (74-106) mg/dL Lactic Acid 2.5 H* (0.4-2.0) mmol/L Calcium (8.5-10.1) mg/dL Total Bilirubin (0.2-1.0) mg/dL AST (15-37) IU/L ALT (14-63) IU/L Alkaline Phosphatase (46-116) U/L Troponin I (0.000-0.056) ng/mL B-Natriuretic Peptide (<100) PG/ML Total Protein (6.4-8.2) g/dL Albumin (3.4-5.0) g/dL Globulin (2.6-4.0) g/dL Albumin/Globulin Ratio (0.9-1.6) Lipase (73-393) U/L Urine Color Urine Appearance Urine pH (5.0-8.0) Ur Specific [place] (1.001-1.035) Urine Protein (NEGATIVE) mg/dL Urine Glucose (UA) (NEGATIVE) mg/dL Urine Ketones (NEGATIVE) mg/dL Urine Occult Blood (NEGATIVE) Urine Nitrite (NEGATIVE) Urine Bilirubin (NEGATIVE) Urine Urobilinogen (<2.0) EU/dL Ur Leukocyte Esterase (NEGATIVE) Urine RBC (0-2/HPF) Urine WBC (0-5/HPF) Ur Epithelial Cells (NONE-FEW) Urine Bacteria (NEGATIVE) Urine Mucus (NONE-MOD) SARS-CoV-2 RNA (LUIS) NEGATIVE (NEGATIVE) 08/26/21 Range/Units 11:20 WBC (4.0-11.0) K/uL RBC (4.30-5.90) M/uL Hgb (12.0-16.0) g/dL Hct (36.0-46.0) % MCV (80.0-98.0) fL MCH (27.0-32.0) pg MCHC (31.0-37.0) g/dL RDW Std Deviation (28.0-62.0) fl RDW Coeff of Samson (11.0-15.0) % Plt Count (150-400) K/uL MPV (7.40-12.00) fL Add Manual Diff Neutrophils % (Manual) (48.0-80.0) % Band Neutrophils % % Lymphocytes % (Manual) (16.0-40.0) % Monocytes % (Manual) (0.0-15.0) % Nucleated RBC % /100WBC Absolute Seg Neuts (1.4-5.7) Band Neutrophils # Lymphocytes # (Manual) (0.6-2.4) Monocytes # (Manual) (0.0-0.8) Nucleated RBCs # K/uL INR Sodium (136-145) mmol/L Potassium (3.5-5.1) mmol/L Chloride (98-107) mmol/L Carbon Dioxide (21.0-32.0) mmol/L BUN (7.0-18.0) mg/dL Creatinine (0.6-1.0) mg/dL Est Cr Clr Drug Dosing mL/min Estimated GFR (MDRD) ml/min Glucose (74-106) mg/dL Lactic Acid (0.4-2.0) mmol/L Calcium (8.5-10.1) mg/dL Total Bilirubin (0.2-1.0) mg/dL AST (15-37) IU/L ALT (14-63) IU/L Alkaline Phosphatase (46-116) U/L Troponin I (0.000-0.056) ng/mL B-Natriuretic Peptide (<100) PG/ML Total Protein (6.4-8.2) g/dL Albumin (3.4-5.0) g/dL Globulin (2.6-4.0) g/dL Albumin/Globulin Ratio (0.9-1.6) Lipase (73-393) U/L Urine Color YELLOW Urine Appearance CLOUDY Urine pH 5.5 (5.0-8.0) Ur Specific [place] 1.015 (1.001-1.035) Urine Protein NEGATIVE (NEGATIVE) mg/dL Urine Glucose (UA) NEGATIVE (NEGATIVE) mg/dL Urine Ketones NEGATIVE (NEGATIVE) mg/dL Urine Occult Blood TRACE-INTACT H (NEGATIVE) Urine Nitrite NEGATIVE (NEGATIVE) Urine Bilirubin NEGATIVE (NEGATIVE) Urine Urobilinogen 0.2 (<2.0) EU/dL Ur Leukocyte Esterase LARGE H (NEGATIVE) Urine RBC NONE SEEN (0-2/HPF) Urine WBC 12-17 (0-5/HPF) Ur Epithelial Cells FEW (NONE-FEW) Urine Bacteria 2+ H (NEGATIVE) Urine Mucus LIGHT (NONE-MOD) SARS-CoV-2 RNA (LUIS) (NEGATIVE) Meds: Medications Generic Name Dose Route Start Last Admin Trade Name Freq PRN Reason Stop Dose Admin Vancomycin HCl 1.25 gm/ Premix 250 mls @ 166.667 mls/hr 08/26/21 14:45 08/26/21 14:30 IV 166.667 mls/hr Q24H TAY Administration Doxycycline Hyclate 100 mg/ 100 mls @ 100 mls/hr 08/26/21 13:42 08/26/21 14:29 Sodium Chloride IV 100 mls/hr Q12H TAY Administration Norepinephrine Bitartrate 4 mg in 250 mls @ 7.5 mls/hr 08/26/21 14:45 08/26/21 15:12 Norepinephr-0.9% Nacl 4 Mg/250 IV 5 mcg/min TITRATE TAY 18.75 mls/hr Titration Protocol 2 MCG/MIN Sodium Chloride 10 ml 08/26/21 09:19 08/26/21 09:26 Sodium Chloride 0.9% 10 Ml Syringe FLUSH 10 ml ASDIRECTED PRN Administration Keep Vein Open Sodium Chloride 2.5 ml 08/26/21 09:19 08/26/21 09:27 Sodium Chloride 0.9% 2.5 Ml Syringe FLUSH 2.5 ml ASDIRECTED PRN Administration Keep Vein Open Vancomycin HCl 250 mg 08/26/21 12:00 08/26/21 12:39 Vancomycin 125 Mg Cap PO 250 mg QID TAY Administration Discontinued Medications Generic Name Dose Route Start Last Admin Trade Name Freq PRN Reason Stop Dose Admin Acetaminophen 1,000 mg 08/26/21 13:18 08/26/21 13:24 Acetaminophen 500 Mg Tab PO 08/26/21 13:19 1,000 mg ONETIME ONE Administration Lactated Ringer's 1,000 mls @ 999 mls/hr 08/26/21 09:19 08/26/21 09:26 Ringers, Lactated IV 08/26/21 10:19 999 mls/hr .BOLUS ONE Administration Piperacillin Sod/Tazobactam 100 mls @ 100 mls/hr 08/26/21 09:19 08/26/21 09:29 Sod 4.5 gm/ Sodium Chloride IV 08/26/21 10:18 100 mls/hr ONETIME ONE Administration Lactated Ringer's 1,000 mls @ 999 mls/hr 08/26/21 10:27 08/26/21 10:38 Ringers, Lactated IV 08/26/21 11:27 999 mls/hr .BOLUS ONE Administration Lactated Ringer's 500 mls @ 999 mls/hr 08/26/21 10:29 08/26/21 10:38 Ringers, Lactated IV 08/26/21 10:59 999 mls/hr .BOLUS ONE Administration Lactated Ringer's 500 mls @ 999 mls/hr 08/26/21 13:26 08/26/21 14:00 Ringers, Lactated IV 08/26/21 13:56 999 mls/hr .BOLUS ONE Administration Doxycycline Hyclate 100 mg/ 100 mls @ 100 mls/hr 08/26/21 13:30 08/26/21 15:45 Sodium Chloride IV Not Given Q12H [facility] Vancomycin HCl 1.25 gm/ Premix 250 mls @ 166.667 mls/hr 08/26/21 13:45 IV 08/26/21 15:14 ONETIME ONE Vancomycin HCl 1 dose 08/26/21 13:27 08/26/21 14:10 Pharmacy To Dose - Vancomycin .XX 08/26/21 13:28 Not Given ONETIME ONE Departure - Departure Time of Disposition: 15:50 Disposition: Admitted As Inpatient 66 Clinical Impression: Sepsis, Hypotension, Hypoxia, DOROTHY (acute kidney injury) Pneumonia Qualifiers: Pneumonia type: due to unspecified organism Laterality: unspecified laterality Lung location: unspecified part of lung Qualified Code(s): J18.9 - Pneumonia, unspecified organism - Discharge Information Referrals: Yanni Alcocer NP [Primary Care Provider] - Forms: ED Department Discharge Sepsis Event Note (ED) - Evaluation Sepsis Screening Result: No Definite Risk - Focused Exam Vital Signs: Vital Signs Temp Temp Pulse Resp BP Pulse Ox 08/26/21 15:28 77 111/51 L 97 08/26/21 15:22 76 101/52 L 08/26/21 15:13 71 18 94/42 L 98 08/26/21 14:46 36.4 C 74 16 92/47 L 96 08/26/21 14:43 92 L 08/26/21 14:40 81/37 L 88 L 08/26/21 14:37 77 82/31 L 91 L 08/26/21 13:28 86 99/47 L 94 L 08/26/21 13:13 82 92/42 L 94 L 08/26/21 12:43 80 91/49 L 93 L 08/26/21 12:26 80 24 H 85/43 L 95 08/26/21 12:25 81 18 91/47 L 94 L 08/26/21 11:43 80 97/55 L 92 L 08/26/21 11:28 86 91/46 L 92 L 08/26/21 11:13 80 101/46 L 94 L 08/26/21 10:44 94 L 08/26/21 10:42 37.1 C 78 22 H 93/56 L 84 L 08/26/21 10:13 73 94/43 L 92 L 08/26/21 09:58 77 85/48 L 91 L 08/26/21 09:22 78 23 H 74/37 L 91 L 08/26/21 09:04 36.3 C 81 22 H 77/37 L 92 L - My Orders Last 24 Hours: My Active Orders 08/26/21 09:16 CULTURE BLOOD [BC] Stat 08/26/21 09:19 Cardiac Monitoring [RC] . DIRECTED Pulse Oximetry [RC] ASDIRECTED Sodium Chloride 0.9% [Saline Flush] 10 ml FLUSH ASDIRECTED PRN Sodium Chloride 0.9% [Saline Flush] 2.5 ml FLUSH ASDIRECTED PRN Saline Lock Insert [OM.PC] Stat 08/26/21 09:20 Blood Culture x2 Reflex Set [OM.PC] Stat 08/26/21 09:21 COVID-19/FLU A+B/RSV [MOLEC] Stat 08/26/21 09:40 CULTURE BLOOD [BC] Stat 08/26/21 12:00 Vancomycin [Vancocin 125 MG Capsule] 250 mg PO QID 08/26/21 13:42 Doxycycline [Vibramycin] 100 mg Sodium Chloride 0.9% [Normal Saline AdvBag] 100 ml IV Q12H 08/26/21 14:45 Norepinephrine Bit/0.9 % NaCl [Norepinephr-0.9% NaCl 4 mg/250] 4 mg in 250 ml IV TITRATE VANCOmycin 1.25 GM/250 ML 1.25 gm Premix Bag 1 bag IV Q24H 08/26/21 14:51 LACTIC ACID [CHEM] Routine 08/26/21 15:48 Admission Status [Patient Status] [ADT] Stat Cardiac Monitoring [RC] . DIRECTED - Assessment/Plan Last 24 Hours: My Active Orders 08/26/21 09:16 CULTURE BLOOD [BC] Stat 08/26/21 09:19 Cardiac Monitoring [RC] . DIRECTED Pulse Oximetry [RC] ASDIRECTED Sodium Chloride 0.9% [Saline Flush] 10 ml FLUSH ASDIRECTED PRN Sodium Chloride 0.9% [Saline Flush] 2.5 ml FLUSH ASDIRECTED PRN Saline Lock Insert [OM.PC] Stat 08/26/21 09:20 Blood Culture x2 Reflex Set [OM.PC] Stat 08/26/21 09:21 COVID-19/FLU A+B/RSV [MOLEC] Stat 08/26/21 09:40 CULTURE BLOOD [BC] Stat 08/26/21 12:00 Vancomycin [Vancocin 125 MG Capsule] 250 mg PO QID 08/26/21 13:42 Doxycycline [Vibramycin] 100 mg Sodium Chloride 0.9% [Normal Saline AdvBag] 100 ml IV Q12H 08/26/21 14:45 Norepinephrine Bit/0.9 % NaCl [Norepinephr-0.9% NaCl 4 mg/250] 4 mg in 250 ml IV TITRATE VANCOmycin 1.25 GM/250 ML 1.25 gm Premix Bag 1 bag IV Q24H 08/26/21 14:51 LACTIC ACID [CHEM] Routine 08/26/21 15:48 Admission Status [Patient Status] [ADT] Stat Cardiac Monitoring [RC] . DIRECTED
[2021-08-26 09:49] LABS: BLOOD UREA NITROGEN,BUN 25 mg/dL (7.0-18.0); CARBON DIOXIDE,CO2 24.2 mmol/L (21.0-32.0); CHLORIDE,CL 97 mmol/L (98-107); GLUCOSE RANDOM 129 mg/dL (74-106); LIPASE 22 U/L (73-393); POTASSIUM,K 3.9 mmol/L (3.5-5.1); SODIUM,NA 133 mmol/L (136-145)
--- NOTE | 2021-08-26 10:22 | CR ---
Indication: Chest pain and shortness of breath Comparison: Single-view chest April 04, 2019 Technique: Single AP view chest Findings: There is hyperinflation and chronic interstitial change. There is left basilar pleural effusion with adjacent compressive atelectasis versus infiltrates. The cardiac silhouette is mildly prominent. The bony thorax is grossly intact. Impression: Hyperinflation and chronic interstitial change with left basilar pleural effusion with adjacent compressive atelectasis versus infiltrates. Dictated by Louie Tee MD @ 08/26/2021 10:20:49 AM (Electronically Signed)
[2021-08-26] MEDS ORDERED: Lactated Ringers 500 ML IV ONE ×2 (10:29→13:26)
[2021-08-26] MEDS: Vancomycin 125 MG Cap PO SCH ×2 (12:39→18:49)
--- NOTE | 2021-08-26 13:14 | CR ---
INDICATION: Central line placement. TECHNIQUE: Upright portable AP image of the chest. COMPARISON: Chest x-ray from 9:41 a.m. today. FINDINGS: Lordotic projection. Interval placement of right jugular central line with tip in the SVC at the level of the azygos arch. Otherwise unchanged. IMPRESSION: Central line tip in the SVC at the level of the azygos arch. Dictated by Tulio Stallings MD @ 08/26/2021 1:12:28 PM (Electronically Signed)
[2021-08-26] MEDS ORDERED: Acetaminophen 500 MG Tab PO ONE (13:18)
[2021-08-26] MEDS ORDERED: Doxycycline 100 MG in Sodium Chloride 0.9% 100 ML IV SCH ×2 (13:30→13:42)
[2021-08-26] MEDS ORDERED: VANCOmycin 1.25 GM/250 ML 1.25 GM in Premix Bag 1 BAG IV ONE (13:45)
[2021-08-26] MEDS ORDERED: VANCOmycin 1.25 GM/250 ML 1.25 GM in Premix Bag 1 BAG IV SCH (14:45)
[2021-08-26] MEDS ORDERED: Piperacillin/Tazobactam 3.375 GM in Sodium Chloride 0.9% 50 ML IV SCH (17:15)
[2021-08-26] MEDS ORDERED: Piperacillin/Tazobactam 4.5 GM in Sodium Chloride 0.9% 100 ML IV SCH (17:15)
--- NOTE | 2021-08-26 17:42 | PCM.HP.2 ---
H&P History of Present Illness - General Date of Service: 08/26/21 Admit Problem/Dx: Admission Diagnosis/Problem Admission Diagnosis/Problem Sepsis - History of Present Illness Initial Comments - Free Text/Narative: The patient is a 71-year-old female, on day 1 of service, with a significant past medical history of hypertension, irritable bowel syndrome, and depression, who was admitted to the medical floor due to sepsis secondary to pneumonia as well as an ongoing urinary tract infection. On interview with the patient today, she states that for the past 7 days she has had increasing shortness of breath which is associated with an occasional dry cough. These respiratory symptoms are not associated with COVID-19 as she has had both vaccinations and has tested negative recently. She is also complaining of nonbloody diarrhea for the past 72 hours which does not cause any abdominal discomfort and is not associated with any other GI symptoms including nausea, vomiting, belching, bloating. The patient is currently being treated for urinary tract infection with Bactrim and admits that she still has some increased frequency and burning with urination. With respect to the patient's social history, she denies cigarette smoking, alcohol consumption, and recreational drug use. Her family history is noncontributory. She has allergies to cephalosporins, ciprofloxacin, and azithromycin. She has no other health concerns at this time. On CBC, her white blood cell count is 31.84, hemoglobin is 14.8, hematocrit is 44.3, platelet count is 134 On CMP, her sodium is 133, potassium 3.9, chloride is 97, carbon dioxide is 24.2, BUN is 25, creatinine is 2.5, lactic acid is 2.3 On chest x-ray, there is hyperinflation with chronic interstitial changes, compression atelectasis versus infiltrates are also seen representing a most likely pneumonia Urine analysis revealed large numbers of leukocyte esterase Troponins are negative and C. difficile is pending Within the emergency department, the patient was given two 1 L boluses of lactated Ringer's, two 500 mL boluses of lactated Ringer's, Zosyn IV and oral, Tylenol per oral route once, 2 blood cultures were also taken and sent off for analysis, and all the labs and imaging listed above were done. general Pain Score (Numeric/FACES): 4 - Related Data Allergies/Adverse Reactions: Allergies Allergy/AdvReac Type Severity Reaction Status Date / Time cefuroxime axetil Allergy Intermediate Rash Verified 08/26/21 09:02 [From Ceftin] azithromycin Allergy Rash Verified 08/26/21 09:02 celecoxib [From Celebrex] Allergy Rash Verified 08/26/21 09:02 ciprofloxacin Allergy Rash Verified 08/26/21 09:02 codeine Allergy Vomiting Verified 08/26/21 09:02 hydrocodone Allergy Hives Verified 08/26/21 09:02 some metals Allergy Hives Uncoded 08/26/21 09:02 Home Medications: Home Meds Desvenlafaxine [Desvenlafaxine ER] 50 mg PO DAILY 01/25/19 [History] Diclofenac Sodium [Voltaren 1% Gel] 1 gram TOP QID PRN 01/25/19 [History] Meloxicam 15 mg PO DAILY 01/25/19 [History] Zolpidem [Ambien] 5 mg PO BEDTIME PRN 01/25/19 [History] traMADol [Ultram] 50 mg PO QID PRN 01/25/19 [History] Betamethasone Valerate [Valisone 0.1% Crm] 15 gm TOP BID PRN MDD to affected area for irritatio 04/04/19 [History] Ciclopirox Olamine [Ciclopirox] 15 gm TP DAILY 04/04/19 [History] levoFLOXacin [Levaquin] 750 mg PO Q48H #3 tab 04/06/19 [Rx] Sulfamethoxazole/Trimethoprim [Sulfamethoxazole-Tmp Ds Tablet] 1 tab PO ASDIRECTED 06/11/21 [History] clindamycin HCL [Clindamycin HCl] 450 mg PO TID 7 Days #21 capsule 06/11/21 [Rx] Cyclobenzaprine [Flexeril] 10 mg PO Q8H PRN 08/26/21 [History] Past Medical History - Past Health History Medical/Surgical History: Denies Medical/Surgical History HEENT History: Reports: Cataract Other HEENT History: wears reading glasses, top denture, 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 Cardiovascular History: Reports: Hypertension Respiratory History: Reports: Pneumonia, Recurrent Gastrointestinal History: Reports: Irritable Bowel Syndrome Other Gastrointestinal History: occasional heartburn Genitourinary History: Reports: UTI, Recurrent [employer] ADMINISTRATOR History: Reports: , Other (See Below) Other OB/BYN History: tubal ligation Musculoskeletal History: Reports: Back Pain, Chronic Other Musculoskeletal History: joint pain, polyneuropathy, Neurological History: Reports: None Psychiatric History: Reports: Anxiety Endocrine/Metabolic History: Reports: None Hematologic History: Reports: None Other Hematologic History: low platelets Immunologic History: Reports: None, Other (See Below) Other Immunologic History: current 6 months treatment of IVIg infusions Oncologic (Cancer) History: Reports: None Dermatologic History: Reports: Eczema - Infectious Disease History Infectious Disease History: Reports: Chicken Pox, Measles - Past Surgical History Head Surgeries/Procedures: Reports: None HEENT Surgical History: Reports: None Cardiovascular Surgical History: Reports: None GI Surgical History: Reports: Appendectomy, Cholecystectomy, Colonoscopy, Other (See Below) Other GI Surgeries/Procedures: adhesions Female Surgical History: Reports: Hysterectomy, Tubal Ligation Other Female Surgeries/Procedures: adhesions Musculoskeletal Surgical History: Reports: None Oncologic Surgical History: Reports: Bone Marrow Aspiration Dermatological Surgical History: Reports: Skin Biopsy Social & Family History - Family History Family Medical History: No Pertinent Family History Neurological: Reports: Neuropathy, Peripheral, Other (See Below) Other Neurological Family History: Temporal arteritis- Polymyalgic Giant cell. Polymyositis Immunologic: Reports: None Dermatologic: Reports: None Oncologic: Reports: None - Tobacco Use Tobacco Use Status *Q: Former Tobacco User Used Tobacco, but Quit: Yes Month/Year Tobacco Last Used: 1989 - Caffeine Use Caffeine Use: Reports: Soda, Tea - Recreational Drug Use Recreational Drug Use: No - Living Situation & Occupation Living situation: Reports: with Family Occupation: Retired H&P Review of Systems - Review of Systems: Review Of Systems: See Below General: Reports: Chills, Weakness, Fatigue. Denies: Fever HEENT: Denies: Headaches, Sore Throat Pulmonary: Reports: Shortness of Breath, Cough Cardiovascular: Denies: Chest Pain, Palpitations Gastrointestinal: Reports: Diarrhea. Denies: Abdominal Pain Genitourinary: Reports: Dysuria, Frequency, Burning Neurological: Denies: Confusion, Dizziness Exam - Exam Exam: See Below - Vital Signs Vital Signs: Last Vital Signs Temp 97.6 F 08/26/21 14:46 Pulse 78 08/26/21 16:15 Resp 18 08/26/21 15:13 BP 115/54 L 08/26/21 16:15 Pulse Ox 96 08/26/21 16:15 Weight: 183 lb - Exam General: Alert, Oriented, Mild Distress HEENT: EOMI, Posterior Pharynx Clear, Other (Dry mucous membranes) Neck: Trachea Midline. No: Lymphadenopathy Lungs: Rales, Other (Tachypnea) Cardiovascular: Regular Rate, Regular Rhythm GI/Abdominal Exam: Normal Bowel Sounds, Soft, Non-Tender - Patient Data Lab Results Last 24 hrs: Laboratory Results - last 24 hr 08/26/21 08/26/21 08/26/21 Range/Units 09:05 09:05 09:05 WBC 31.84 H (4.0-11.0) K/uL RBC 5.01 (4.30-5.90) M/uL Hgb 14.8 (12.0-16.0) g/dL Hct 44.3 (36.0-46.0) % MCV 88.4 (80.0-98.0) fL MCH 29.5 (27.0-32.0) pg MCHC 33.4 (31.0-37.0) g/dL RDW Std Deviation 45.7 (28.0-62.0) fl RDW Coeff of Samson 14 (11.0-15.0) % Plt Count 134 L (150-400) K/uL MPV 10.70 (7.40-12.00) fL Add Manual Diff YES Neutrophils % (Manual) 88 H (48.0-80.0) % Band Neutrophils % 5 % Lymphocytes % (Manual) 5 L (16.0-40.0) % Monocytes % (Manual) 2 (0.0-15.0) % Nucleated RBC % 0.0 /100WBC Absolute Seg Neuts 28.0 H (1.4-5.7) Band Neutrophils # 1.6 Lymphocytes # (Manual) 1.6 (0.6-2.4) Monocytes # (Manual) 0.6 (0.0-0.8) Nucleated RBCs # 0 K/uL INR Sodium 133 L (136-145) mmol/L Potassium 3.9 (3.5-5.1) mmol/L Chloride 97 L (98-107) mmol/L Carbon Dioxide 24.2 (21.0-32.0) mmol/L BUN 25 H (7.0-18.0) mg/dL Creatinine 2.5 H (0.6-1.0) mg/dL Est Cr Clr Drug Dosing 18.57 mL/min Estimated GFR (MDRD) 19.0 ml/min Glucose 129 H (74-106) mg/dL Lactic Acid (0.4-2.0) mmol/L Calcium 8.3 L (8.5-10.1) mg/dL Total Bilirubin 0.3 (0.2-1.0) mg/dL AST 19 (15-37) IU/L ALT 24 (14-63) IU/L Alkaline Phosphatase 131 H (46-116) U/L Troponin I < 0.050 (0.000-0.056) ng/mL B-Natriuretic Peptide 11 (<100) PG/ML Total Protein 6.7 (6.4-8.2) g/dL Albumin 2.4 L (3.4-5.0) g/dL Globulin 4.3 H (2.6-4.0) g/dL Albumin/Globulin Ratio 0.6 L (0.9-1.6) Lipase 22 L (73-393) U/L Urine Color Urine Appearance Urine pH (5.0-8.0) Ur Specific Garland (1.001-1.035) Urine Protein (NEGATIVE) mg/dL Urine Glucose (UA) (NEGATIVE) mg/dL Urine Ketones (NEGATIVE) mg/dL Urine Occult Blood (NEGATIVE) Urine Nitrite (NEGATIVE) Urine Bilirubin (NEGATIVE) Urine Urobilinogen (<2.0) EU/dL Ur Leukocyte Esterase (NEGATIVE) Urine RBC (0-2/HPF) Urine WBC (0-5/HPF) Ur Epithelial Cells (NONE-FEW) Urine Bacteria (NEGATIVE) Urine Mucus (NONE-MOD) SARS-CoV-2 RNA (LUIS) (NEGATIVE) 08/26/21 08/26/21 08/26/21 Range/Units 09:05 09:05 09:21 WBC (4.0-11.0) K/uL RBC (4.30-5.90) M/uL Hgb (12.0-16.0) g/dL Hct (36.0-46.0) % MCV (80.0-98.0) fL MCH (27.0-32.0) pg MCHC (31.0-37.0) g/dL RDW Std Deviation (28.0-62.0) fl RDW Coeff of Samson (11.0-15.0) % Plt Count (150-400) K/uL MPV (7.40-12.00) fL Add Manual Diff Neutrophils % (Manual) (48.0-80.0) % Band Neutrophils % % Lymphocytes % (Manual) (16.0-40.0) % Monocytes % (Manual) (0.0-15.0) % Nucleated RBC % /100WBC Absolute Seg Neuts (1.4-5.7) Band Neutrophils # Lymphocytes # (Manual) (0.6-2.4) Monocytes # (Manual) (0.0-0.8) Nucleated RBCs # K/uL INR 1.14 Sodium (136-145) mmol/L Potassium (3.5-5.1) mmol/L Chloride (98-107) mmol/L Carbon Dioxide (21.0-32.0) mmol/L BUN (7.0-18.0) mg/dL Creatinine (0.6-1.0) mg/dL Est Cr Clr Drug Dosing mL/min Estimated GFR (MDRD) ml/min Glucose (74-106) mg/dL Lactic Acid 2.5 H* (0.4-2.0) mmol/L Calcium (8.5-10.1) mg/dL Total Bilirubin (0.2-1.0) mg/dL AST (15-37) IU/L ALT (14-63) IU/L Alkaline Phosphatase (46-116) U/L Troponin I (0.000-0.056) ng/mL B-Natriuretic Peptide (<100) PG/ML Total Protein (6.4-8.2) g/dL Albumin (3.4-5.0) g/dL Globulin (2.6-4.0) g/dL Albumin/Globulin Ratio (0.9-1.6) Lipase (73-393) U/L Urine Color Urine Appearance Urine pH (5.0-8.0) Ur Specific Garland (1.001-1.035) Urine Protein (NEGATIVE) mg/dL Urine Glucose (UA) (NEGATIVE) mg/dL Urine Ketones (NEGATIVE) mg/dL Urine Occult Blood (NEGATIVE) Urine Nitrite (NEGATIVE) Urine Bilirubin (NEGATIVE) Urine Urobilinogen (<2.0) EU/dL Ur Leukocyte Esterase (NEGATIVE) Urine RBC (0-2/HPF) Urine WBC (0-5/HPF) Ur Epithelial Cells (NONE-FEW) Urine Bacteria (NEGATIVE) Urine Mucus (NONE-MOD) SARS-CoV-2 RNA (LUIS) NEGATIVE (NEGATIVE) 08/26/21 08/26/21 Range/Units 11:20 14:51 WBC (4.0-11.0) K/uL RBC (4.30-5.90) M/uL Hgb (12.0-16.0) g/dL Hct (36.0-46.0) % MCV (80.0-98.0) fL MCH (27.0-32.0) pg MCHC (31.0-37.0) g/dL RDW Std Deviation (28.0-62.0) fl RDW Coeff of Samson (11.0-15.0) % Plt Count (150-400) K/uL MPV (7.40-12.00) fL Add Manual Diff Neutrophils % (Manual) (48.0-80.0) % Band Neutrophils % % Lymphocytes % (Manual) (16.0-40.0) % Monocytes % (Manual) (0.0-15.0) % Nucleated RBC % /100WBC Absolute Seg Neuts (1.4-5.7) Band Neutrophils # Lymphocytes # (Manual) (0.6-2.4) Monocytes # (Manual) (0.0-0.8) Nucleated RBCs # K/uL INR Sodium (136-145) mmol/L Potassium (3.5-5.1) mmol/L Chloride (98-107) mmol/L Carbon Dioxide (21.0-32.0) mmol/L BUN (7.0-18.0) mg/dL Creatinine (0.6-1.0) mg/dL Est Cr Clr Drug Dosing mL/min Estimated GFR (MDRD) ml/min Glucose (74-106) mg/dL Lactic Acid 2.3 H* (0.4-2.0) mmol/L Calcium (8.5-10.1) mg/dL Total Bilirubin (0.2-1.0) mg/dL AST (15-37) IU/L ALT (14-63) IU/L Alkaline Phosphatase (46-116) U/L Troponin I (0.000-0.056) ng/mL B-Natriuretic Peptide (<100) PG/ML Total Protein (6.4-8.2) g/dL Albumin (3.4-5.0) g/dL Globulin (2.6-4.0) g/dL Albumin/Globulin Ratio (0.9-1.6) Lipase (73-393) U/L Urine Color YELLOW Urine Appearance CLOUDY Urine pH 5.5 (5.0-8.0) Ur Specific Garland 1.015 (1.001-1.035) Urine Protein NEGATIVE (NEGATIVE) mg/dL Urine Glucose (UA) NEGATIVE (NEGATIVE) mg/dL Urine Ketones NEGATIVE (NEGATIVE) mg/dL Urine Occult Blood TRACE-INTACT H (NEGATIVE) Urine Nitrite NEGATIVE (NEGATIVE) Urine Bilirubin NEGATIVE (NEGATIVE) Urine Urobilinogen 0.2 (<2.0) EU/dL Ur Leukocyte Esterase LARGE H (NEGATIVE) Urine RBC NONE SEEN (0-2/HPF) Urine WBC 12-17 (0-5/HPF) Ur Epithelial Cells FEW (NONE-FEW) Urine Bacteria 2+ H (NEGATIVE) Urine Mucus LIGHT (NONE-MOD) SARS-CoV-2 RNA (LUIS) (NEGATIVE) Result Diagrams: 08/26/21 09:05 08/26/21 09:05 Sepsis Event Note - Evaluation Sepsis Screening Result: No Definite Risk - Focused Exam Vital Signs: Vital Signs Temp Temp Pulse Resp BP Pulse Ox 08/26/21 16:15 78 115/54 L 96 08/26/21 15:52 72 111/57 L 95 08/26/21 15:47 71 118/50 L 96 08/26/21 15:37 73 114/53 L 96 08/26/21 15:28 77 111/51 L 97 08/26/21 15:22 76 101/52 L 08/26/21 15:13 71 18 94/42 L 98 08/26/21 14:46 97.6 F 74 16 92/47 L 96 08/26/21 14:43 92 L 08/26/21 14:40 81/37 L 88 L 08/26/21 14:37 77 82/31 L 91 L 08/26/21 13:28 86 99/47 L 94 L 08/26/21 13:13 82 92/42 L 94 L 08/26/21 12:43 80 91/49 L 93 L 08/26/21 12:26 80 24 H 85/43 L 95 08/26/21 12:25 81 18 91/47 L 94 L 08/26/21 11:43 80 97/55 L 92 L 08/26/21 11:28 86 91/46 L 92 L 08/26/21 11:13 80 101/46 L 94 L 08/26/21 10:44 94 L 08/26/21 10:42 98.7 F 78 22 H 93/56 L 84 L 08/26/21 10:13 73 94/43 L 92 L 08/26/21 09:58 77 85/48 L 91 L 08/26/21 09:22 78 23 H 74/37 L 91 L 08/26/21 09:04 97.3 F 81 22 H 77/37 L 92 L - Problem List (1) Urinary tract infection SNOMED Code(s): 21850905 ICD Code: N39.0 - URINARY TRACT INFECTION, SITE NOT SPECIFIED Status: Acute Current Visit: No Qualifiers: Urinary tract infection type: acute cystitis Hematuria presence: with hematuria Qualified Code(s): N30.01 - Acute cystitis with hematuria (2) History of Clostridium difficile colitis SNOMED Code(s): 992236080, 496649540780179 ICD Code: Z86.19 - PERSONAL HISTORY OF OTHER INFECTIOUS AND PARASITIC DISEASES Status: Acute Current Visit: No (3) Sepsis SNOMED Code(s): 86018623 ICD Code: A41.9 - SEPSIS, UNSPECIFIED ORGANISM Status: Acute Current Visit: Yes (4) Hypotension SNOMED Code(s): 16707957 ICD Code: I95.9 - HYPOTENSION, UNSPECIFIED Status: Acute Current Visit: Yes (5) Pneumonia SNOMED Code(s): 452369014 ICD Code: J18.9 - PNEUMONIA, UNSPECIFIED ORGANISM Status: Acute Priority: High Current Visit: Yes Qualifiers: Pneumonia type: due to unspecified organism Laterality: unspecified laterality Lung location: unspecified part of lung Qualified Code(s): J18.9 - Pneumonia, unspecified organism (6) DOROTHY (acute kidney injury) SNOMED Code(s): 68757830, 42013432 ICD Code: N17.9 - ACUTE KIDNEY FAILURE, UNSPECIFIED Status: Acute Current Visit: Yes (7) Depression SNOMED Code(s): 02462036 ICD Code: F32.A - DEPRESSION, UNSPECIFIED Status: Acute Current Visit: Yes Problem List Initiated/Reviewed/Updated: Yes Orders Last 24hrs: Active Orders 24 hr Category Date Time Status Admission Status [Patient Status] [ADT] Stat ADT 08/26/21 15:48 Active Cardiac Monitoring [RC] . DIRECTED Care 08/26/21 09:19 Active Cardiac Monitoring [RC] . DIRECTED Care 08/26/21 15:48 Active Pulse Oximetry [RC] ASDIRECTED Care 08/26/21 09:19 Active Regular Diet [DIET] Diet 08/26/21 Dinner Active CBC WITH AUTO DIFF [HEME] AM Lab 08/27/21 05:11 Ordered CBC WITH AUTO DIFF [HEME] AM Lab 08/28/21 05:11 Ordered CBC WITH AUTO DIFF [HEME] AM Lab 08/29/21 05:11 Ordered CMP [COMPREHENSIVE METABOLIC PN,CMP] [CHEM] AM Lab 08/27/21 05:11 Ordered CMP [COMPREHENSIVE METABOLIC PN,CMP] [CHEM] AM Lab 08/28/21 05:11 Ordered CMP [COMPREHENSIVE METABOLIC PN,CMP] [CHEM] AM Lab 08/29/21 05:11 Ordered COVID-19/FLU A+B/RSV [MOLEC] Stat Lab 08/26/21 09:21 Results CULTURE BLOOD [BC] Stat Lab 08/26/21 09:16 Received CULTURE BLOOD [BC] Stat Lab 08/26/21 09:40 Received CULTURE URINE [MREF] Routine Lab 08/26/21 11:20 Received LACTIC ACID SEPSIS W/ REFLEX [LACTATE SEPSIS W/ REFLEX] Lab 08/26/21 19:00 Ordered [CHEM] Routine VANCOMYCIN TROUGH [CHEM] Timed Lab 08/29/21 14:15 Ordered Doxycycline [Vibramycin] 100 mg Med 08/26/21 13:42 Active Sodium Chloride 0.9% [Normal Saline AdvBag] 100 ml IV Q12H Enoxaparin [Lovenox] Med 08/26/21 17:15 Active 40 mg SUBCUT Q24H Norepinephrine Bit/0.9 % NaCl [Norepinephr-0.9% NaCl 4 Med 08/26/21 14:45 Active mg/250] 4 mg in 250 ml IV TITRATE Pantoprazole [ProTONIX IV] 40 mg Med 08/26/21 17:15 Active Sodium Chloride 0.9% [Normal Saline] 10 ml IV DAILY Patient's Own Medication [Ptom] Med 08/27/21 09:00 Active 1 each PO DAILY Pharmacy to Dose - Vancomycin Med 08/26/21 17:15 Active 1 dose .XX ASDIRECTED Piperacillin/Tazobactam [Piperacil-Tazobact] 3.375 gm Med 08/26/21 17:15 Active Sodium Chloride 0.9% [Normal Saline AdvBag] 50 ml IV Q6H Sodium Chloride 0.9% [Saline Flush] Med 08/26/21 09:19 Active 10 ml FLUSH ASDIRECTED PRN Sodium Chloride 0.9% [Saline Flush] Med 08/26/21 09:19 Active 2.5 ml FLUSH ASDIRECTED PRN VANCOmycin 1.25 GM/250 ML 1.25 gm Med 08/26/21 14:45 Active Premix Bag 1 bag IV Q24H Vancomycin [Vancocin 125 MG Capsule] Med 08/26/21 12:00 Active 250 mg PO QID Blood Culture x2 Reflex Set [OM.PC] Stat Oth 08/26/21 09:20 Ordered Saline Lock Insert [OM.PC] Stat Oth 08/26/21 09:19 Ordered Code Status [Resuscitation Status] Stat Resus Stat 08/26/21 17:00 Ordered Medication Orders Enoxaparin Sodium (Enoxaparin 40 Mg/0.4 Ml Syringe) 40 mg SUBCUT Q24H TAY Vancomycin HCl 1.25 gm/ Premix 250 mls @ 166.667 mls/hr IV Q24H [facility] Last Admin: 08/26/21 14:30 Dose: 166.667 mls/hr Documented by: TANNA Doxycycline Hyclate 100 mg/ (Sodium Chloride) 100 mls @ 100 mls/hr IV Q12H TAY Last Admin: 08/26/21 14:29 Dose: 100 mls/hr Documented by: TANNA Norepinephrine Bitartrate (Norepinephr-0.9% Nacl 4 Mg/250) 4 mg in 250 mls @ 7.5 mls/hr IV TITRATE [facility]; Protocol Last Titration: 08/26/21 15:12 Dose: 5 mcg/min, 18.75 mls/hr Documented by: Titration: 08/26/21 15:05 Dose: 4 mcg/min, 15 mls/hr Documented by: Titration: 08/26/21 14:52 Dose: 3 mcg/min, 11.25 mls/hr Documented by: Admin: 08/26/21 14:36 Dose: 2 mcg/min, 7.5 mls/hr Documented by: TANNA Piperacillin Sod/Tazobactam (Sod 3.375 gm/ Sodium Chloride) 50 mls @ 100 mls/hr IV Q6H [facility] Pantoprazole Sodium 40 mg/ (Sodium Chloride) 10 mls @ 300 mls/hr IV DAILY [facility] Desvenlafacine Er (50mg Tab) 1 each PO DAILY [facility] Sodium Chloride (Sodium Chloride 0.9% 10 Ml Syringe) 10 ml FLUSH ASDIRECTED PRN PRN Reason: Keep Vein Open Last Admin: 08/26/21 09:26 Dose: 10 ml Documented by: TANNA Sodium Chloride (Sodium Chloride 0.9% 2.5 Ml Syringe) 2.5 ml FLUSH ASDIRECTED PRN PRN Reason: Keep Vein Open Last Admin: 08/26/21 09:27 Dose: 2.5 ml Documented by: TANNA Vancomycin HCl (Vancomycin 125 Mg Cap) 250 mg PO QID [facility] Last Admin: 08/26/21 12:39 Dose: 250 mg Documented by: TANNA Vancomycin HCl (Pharmacy To Dose - Vancomycin) 1 dose .XX ASDIRECTED [facility] Assessment/Plan Comment:: Admit the patient to the medical floor, vitals per unit routine, activity up ad lala., regular diet, DVT prophylaxis with Lovenox 40 mg subcutaneously once a day, GI prophylaxis with pantoprazole 40 mg via IV route once a day, the patient is full code 1. Sepsis secondary to pneumonia -The patient is on Levophed, norepinephrine bitartrate drip in order to elevate blood pressure and reduce shock -The patient is on vancomycin 1.25 g per IV route every 24 hours -The patient is on doxycycline 100 mg per IV route every 12 hours -The patient is also been placed on Zosyn per IV route -We will continue to monitor the patient through daily CBC 2. Possible C. difficile infection -We will continue the patient on vancomycin per oral route as this formulation has been known to eradicate this infection -Results pending for C. difficile test 3. Ongoing urinary tract infection -The patient is on multiple antibiotics in hopes to eradicate this infection, list of antibiotics as per #1 4. DOROTHY -Patient has received multiple lactated Ringer boluses and we will monitor kidney function through daily CMP and treat accordingly 5. Past medical history of depression -We will continue the patient on her home dosage of Desvenlafaxine
[2021-08-26] MEDS: Enoxaparin 40 MG/0.4 ML Syringe SUBCUT SCH (18:04)
[2021-08-26] MEDS: Pantoprazole 40 MG in Sodium Chloride 0.9% 10 ML IV SCH (18:06)
[2021-08-26] MEDS ORDERED: Ampicillin/Sulbactam Na 3 GM in Sodium Chloride 0.9% 100 ML IV SCH (19:00)
[2021-08-26] MEDS: Ampicillin/Sulbactam Na 3 GM in Sodium Chloride 0.9% 100 ML IV SCH (19:55)
--- NOTE | 2021-08-26 20:43 | CT ---
Indication: Sepsis. Technique: Multiple contiguous axial images were obtained from the thoracic inlet through the upper abdomen without intravenous contrast enhancement. Please note that all CT scans at this facility use dose modulation, iterative reconstruction, and/or weight-based dosing when appropriate to reduce radiation dose to as low as reasonably achievable. Comparison: February 21, 2019. Findings: Bibasilar atelectasis is identified. Small bilateral pleural effusions are identified. A developing left lower lobe infiltrate is identified. No pneumothorax is identified. Enlarged mediastinal lymph nodes are identified, most likely reactive in nature. No axillary lymphadenopathy is identified. The heart is normal in size. No pericardial effusion is identified. The aorta is normal in caliber. The visualized portions of the unenhanced liver, spleen, pancreas, adrenals, left kidney are normal. Postoperative changes of the cholecystectomy are identified. Impression: Small bilateral pleural effusions. Developing left lower lobe infiltrate. Dependent atelectasis bilaterally. Please note that all CT scans at this facility use dose modulation, iterative reconstruction, and/or weight-based dosing when appropriate to reduce radiation dose to as low as reasonably achievable. Dictated by Dunia Monet MD @ 08/26/2021 8:42:54 PM (Electronically Signed)
--- NOTE | 2021-08-26 20:50 | CT ---
Indication: Sepsis. Technique: Multiple contiguous axial images were obtained from the lung bases through the symphysis pubis without intravenous contrast enhancement. Please note that all CT scans at this facility use dose modulation, iterative reconstruction, and/or weight-based dosing when appropriate to reduce radiation dose to as low as reasonably achievable. Comparison: January 18, 2019 Findings: Small bilateral pleural effusions are identified. Dependent atelectasis is identified. A developing left lower lobe infiltrate is identified. The unenhanced liver, spleen, pancreas, adrenals, and left kidney are normal. Right-sided hydronephrosis is identified. Right-sided hydroureter is identified. A duplicated right renal collecting system is identified. Hydroureter is of the duplicated ureters are identified to the level where they combine into a single ureter in the distal ureter. No ureteral stones are identified. A small nonobstructing right renal calculus is identified in the superior pole of the left superior kidney. In the pelvis, the urinary bladder is normal. No uterus is identified. The small and large bowel are normal in caliber. Mild diverticulosis is identified. There is no evidence of diverticulitis. The aorta is normal in caliber. No free fluid or free air is identified within the abdomen or pelvis. Degenerative changes of the spine are identified. No lytic or blastic lesions are identified. 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 The ureters are dilated to the level of the distal ureters where they become one. No stone or mass is identified. This is unchanged since 2019. Postsurgical changes of a cholecystectomy. Small bilateral pleural effusions. Developing left lower lobe infiltrate Please note that all CT scans at this facility use dose modulation, iterative reconstruction, and/or weight-based dosing when appropriate to reduce radiation dose to as low as reasonably achievable. Dictated by Dunia Monet MD @ 08/26/2021 8:49:05 PM (Electronically Signed)
[2021-08-26] MEDS ORDERED: Albuterol/Ipratropium 3.0-0.5 MG/3 ML Neb Soln NEB PRN (23:06)
[2021-08-26] MEDS: Melatonin 3 MG Tab PO PRN (23:29)
[2021-08-26] MEDS: Benzonatate 100 MG Cap PO PRN (23:30)
--- NOTE | 2021-08-27 00:20 | PN ---
THC Physician - Brief Progress [id number]/11/2021 00:13[facility] Loving Hailee pinedoEVANS - MAGUI ([facility] - HORTENCIA ELIZONDODate of Service 08/27/2021 00:13HPI/Events o f Note Case discussed with RN. 71 year old F admitted with sepatic shock/UTI/PNA. Received large vo lume resuscitiaion, as well as abx, and now on levo for hemodynamic support.Recs include: hemodynamic monitoring, fluids, wean pressors as tolerated, consider echo when available, supplemental O2 PRN, G I and DVT prophylaxis, emperic abx, follow cultures, trend LA, trend Cr and I+Os, replace lytes as ne eded, glycemic monitoring, pain control, neuro checks.Interventions Minor-Communication with other he althcare providers and/or family
[2021-08-27] MEDS ORDERED: Doxycycline 100 MG in Sodium Chloride 0.9% 100 ML IV SCH ×3 (01:35→07:49)
[2021-08-27] MEDS: Ampicillin/Sulbactam Na 3 GM in Sodium Chloride 0.9% 100 ML IV SCH ×2 (06:25→18:02)
[2021-08-27 07:02] LABS: CARBON DIOXIDE,CO2 27.7 mmol/L (21.0-32.0)
[2021-08-27] MEDS: DESVENLAFAXINE 50 MG PO SCH (08:30)
[2021-08-27] MEDS: Pantoprazole 40 MG in Sodium Chloride 0.9% 10 ML IV SCH (08:54)
[2021-08-27] MEDS: Benzonatate 100 MG Cap PO PRN (08:54)
--- NOTE | 2021-08-27 11:20 | PCM.PN ---
- General Info Date of Service: 08/27/21 Subjective Update: The patient is a 71-year-old female, on day 2 of service, with a significant past medical history of hypertension, irritable bowel syndrome, and depression, who was admitted to the medical floor due to sepsis secondary to pneumonia as well as an ongoing urinary tract infection. Upon interview with the patient today, she says that she feels much better today than upon admission. She is complaining of cough productive of clear sputum devoid of any mucus or blood and that this cough has kept her up most of the night. She would like some treatment for this. We will start her on Robitussin cough syrup. Her hemodynamics are doing much better while on Levophed. She has no other health concerns at this time. - Review of Systems General: Reports: Fatigue. Denies: Fever HEENT: Denies: Headaches, Sore Throat Pulmonary: Reports: Shortness of Breath, Cough Cardiovascular: Denies: Chest Pain, Palpitations Gastrointestinal: Denies: Abdominal Pain, Nausea, Vomiting Genitourinary: Denies: Dysuria - Patient Data Vitals - Most Recent: Last Vital Signs Temp 98.2 F 08/27/21 08:00 Pulse 69 08/26/21 21:58 Resp 19 08/27/21 09:00 BP 116/56 L 08/27/21 09:00 Pulse Ox 95 08/27/21 09:00 Weight - Most Recent: 192 lb I&O - Last 24 Hours: Intake & Output 08/26/21 08/27/21 08/27/21 22:59 06:59 14:59 Intake Total 640 Output Total 350 Balance 290 Lab Results Last 24 Hours: Laboratory Results - last 24 hr 08/26/21 08/26/21 08/26/21 Range/Units 09: 11:20 14:51 WBC (4.0-11.0) K/uL RBC (4.30-5.90) M/uL Hgb (12.0-16.0) g/dL Hct (36.0-46.0) % MCV (80.0-98.0) fL MCH (27.0-32.0) pg MCHC (31.0-37.0) g/dL RDW Std Deviation (28.0-62.0) fl RDW Coeff of Samson (11.0-15.0) % Plt Count (150-400) K/uL MPV (7.40-12.00) fL Add Manual Diff Neutrophils % (Manual) (48.0-80.0) % Band Neutrophils % % Lymphocytes % (Manual) (16.0-40.0) % Monocytes % (Manual) (0.0-15.0) % Eosinophils % (Manual) (0.0-7.0) % Nucleated RBC % /100WBC Absolute Seg Neuts (1.4-5.7) Band Neutrophils # Lymphocytes # (Manual) (0.6-2.4) Monocytes # (Manual) (0.0-0.8) Eosinophils # (Manual) (0.0-0.7) Nucleated RBCs # K/uL Sodium (136-145) mmol/L Potassium (3.5-5.1) mmol/L Chloride (98-107) mmol/L Carbon Dioxide (21.0-32.0) mmol/L BUN (7.0-18.0) mg/dL Creatinine (0.6-1.0) mg/dL Est Cr Clr Drug Dosing mL/min Estimated GFR (MDRD) ml/min Glucose (74-106) mg/dL Lactic Acid 2.3 H* (0.4-2.0) mmol/L Calcium (8.5-10.1) mg/dL Total Bilirubin (0.2-1.0) mg/dL AST (15-37) IU/L ALT (14-63) IU/L Alkaline Phosphatase (46-116) U/L Total Protein (6.4-8.2) g/dL Albumin (3.4-5.0) g/dL Globulin (2.6-4.0) g/dL Albumin/Globulin Ratio (0.9-1.6) Urine Color YELLOW Urine Appearance CLOUDY Urine pH 5.5 (5.0-8.0) Ur Specific [place] 1.015 (1.001-1.035) Urine Protein NEGATIVE (NEGATIVE) mg/dL Urine Glucose (UA) NEGATIVE (NEGATIVE) mg/dL Urine Ketones NEGATIVE (NEGATIVE) mg/dL Urine Occult Blood TRACE-INTACT H (NEGATIVE) Urine Nitrite NEGATIVE (NEGATIVE) Urine Bilirubin NEGATIVE (NEGATIVE) Urine Urobilinogen 0.2 (<2.0) EU/dL Ur Leukocyte Esterase LARGE H (NEGATIVE) Urine RBC NONE SEEN (0-2/HPF) Urine WBC 12-17 (0-5/HPF) Ur Epithelial Cells FEW (NONE-FEW) Urine Bacteria 2+ H (NEGATIVE) Urine Mucus LIGHT (NONE-MOD) Influenza Type A RNA Cancelled RSV RNA (INAAT) Cancelled Influenza Type B RNA Cancelled SARS-CoV-2 RNA (LUIS) NEGATIVE (NEGATIVE) 08/26/21 08/27/21 08/27/21 Range/Units 19:07 01:25 05:40 WBC 17.80 H (4.0-11.0) K/uL RBC 4.31 (4.30-5.90) M/uL Hgb 12.7 (12.0-16.0) g/dL Hct 37.8 (36.0-46.0) % MCV 87.7 (80.0-98.0) fL MCH 29.5 (27.0-32.0) pg MCHC 33.6 (31.0-37.0) g/dL RDW Std Deviation 45.0 (28.0-62.0) fl RDW Coeff of Samson 14 (11.0-15.0) % Plt Count 96 L (150-400) K/uL MPV 10.60 (7.40-12.00) fL Add Manual Diff YES Neutrophils % (Manual) 75 (48.0-80.0) % Band Neutrophils % 4 % Lymphocytes % (Manual) 14 L (16.0-40.0) % Monocytes % (Manual) 5 (0.0-15.0) % Eosinophils % (Manual) 2 (0.0-7.0) % Nucleated RBC % 0.0 /100WBC Absolute Seg Neuts 13.4 H (1.4-5.7) Band Neutrophils # 0.7 Lymphocytes # (Manual) 2.5 H (0.6-2.4) Monocytes # (Manual) 0.9 H (0.0-0.8) Eosinophils # (Manual) 0.4 (0.0-0.7) Nucleated RBCs # 0 K/uL Sodium (136-145) mmol/L Potassium (3.5-5.1) mmol/L Chloride (98-107) mmol/L Carbon Dioxide (21.0-32.0) mmol/L BUN (7.0-18.0) mg/dL Creatinine (0.6-1.0) mg/dL Est Cr Clr Drug Dosing mL/min Estimated GFR (MDRD) ml/min Glucose (74-106) mg/dL Lactic Acid 0.7 0.6 (0.4-2.0) mmol/L Calcium (8.5-10.1) mg/dL Total Bilirubin (0.2-1.0) mg/dL AST (15-37) IU/L ALT (14-63) IU/L Alkaline Phosphatase (46-116) U/L Total Protein (6.4-8.2) g/dL Albumin (3.4-5.0) g/dL Globulin (2.6-4.0) g/dL Albumin/Globulin Ratio (0.9-1.6) Urine Color Urine Appearance Urine pH (5.0-8.0) Ur Specific [place] (1.001-1.035) Urine Protein (NEGATIVE) mg/dL Urine Glucose (UA) (NEGATIVE) mg/dL Urine Ketones (NEGATIVE) mg/dL Urine Occult Blood (NEGATIVE) Urine Nitrite (NEGATIVE) Urine Bilirubin (NEGATIVE) Urine Urobilinogen (<2.0) EU/dL Ur Leukocyte Esterase (NEGATIVE) Urine RBC (0-2/HPF) Urine WBC (0-5/HPF) Ur Epithelial Cells (NONE-FEW) Urine Bacteria (NEGATIVE) Urine Mucus (NONE-MOD) Influenza Type A RNA RSV RNA (INAAT) Influenza Type B RNA SARS-CoV-2 RNA (LUIS) (NEGATIVE) 08/27/21 Range/Units 05:40 WBC (4.0-11.0) K/uL RBC (4.30-5.90) M/uL Hgb (12.0-16.0) g/dL Hct (36.0-46.0) % MCV (80.0-98.0) fL MCH (27.0-32.0) pg MCHC (31.0-37.0) g/dL RDW Std Deviation (28.0-62.0) fl RDW Coeff of Samson (11.0-15.0) % Plt Count (150-400) K/uL MPV (7.40-12.00) fL Add Manual Diff Neutrophils % (Manual) (48.0-80.0) % Band Neutrophils % % Lymphocytes % (Manual) (16.0-40.0) % Monocytes % (Manual) (0.0-15.0) % Eosinophils % (Manual) (0.0-7.0) % Nucleated RBC % /100WBC Absolute Seg Neuts (1.4-5.7) Band Neutrophils # Lymphocytes # (Manual) (0.6-2.4) Monocytes # (Manual) (0.0-0.8) Eosinophils # (Manual) (0.0-0.7) Nucleated RBCs # K/uL Sodium 142 (136-145) mmol/L Potassium 4.0 (3.5-5.1) mmol/L Chloride 107 (98-107) mmol/L Carbon Dioxide 27.7 (21.0-32.0) mmol/L BUN 23 H (7.0-18.0) mg/dL Creatinine 1.3 H (0.6-1.0) mg/dL Est Cr Clr Drug Dosing 35.72 mL/min Estimated GFR (MDRD) 40.4 ml/min Glucose 109 H (74-106) mg/dL Lactic Acid (0.4-2.0) mmol/L Calcium 7.7 L (8.5-10.1) mg/dL Total Bilirubin 0.2 (0.2-1.0) mg/dL AST 11 L (15-37) IU/L ALT 18 (14-63) IU/L Alkaline Phosphatase 106 (46-116) U/L Total Protein 5.8 L (6.4-8.2) g/dL Albumin 2.0 L (3.4-5.0) g/dL Globulin 3.8 (2.6-4.0) g/dL Albumin/Globulin Ratio 0.5 L (0.9-1.6) Urine Color Urine Appearance Urine pH (5.0-8.0) Ur Specific [place] (1.001-1.035) Urine Protein (NEGATIVE) mg/dL Urine Glucose (UA) (NEGATIVE) mg/dL Urine Ketones (NEGATIVE) mg/dL Urine Occult Blood (NEGATIVE) Urine Nitrite (NEGATIVE) Urine Bilirubin (NEGATIVE) Urine Urobilinogen (<2.0) EU/dL Ur Leukocyte Esterase (NEGATIVE) Urine RBC (0-2/HPF) Urine WBC (0-5/HPF) Ur Epithelial Cells (NONE-FEW) Urine Bacteria (NEGATIVE) Urine Mucus (NONE-MOD) Influenza Type A RNA RSV RNA (INAAT) Influenza Type B RNA SARS-CoV-2 RNA (LUIS) (NEGATIVE) Michael Results Last 24 Hours: Microbiology 08/26/21 09:40 Aerobic Blood Culture - Preliminary Blood - Venous - Lab Draw NO GROWTH AFTER 1 DAY Anaerobic Blood Culture - Preliminary NO GROWTH AFTER 1 DAY 08/26/21 09:16 Aerobic Blood Culture - Preliminary Blood - Venous NO GROWTH AFTER 1 DAY Anaerobic Blood Culture - Preliminary NO GROWTH AFTER 1 DAY 08/27/21 09:21 Respiratory Syncytial Virus Ag Scrn - Final Nasopharyngeal Swab NEGATIVE RSV ANTIGEN REFERENCE RANGE: NEGATIVE Influenza Type A Antigen Screen - Final NEGATIVE INFLUENZA A VIRUS AG REFERENCE RANGE: NEGATIVE Influenza Type B Antigen Screen - Final NEGATIVE INFLUENZA B VIRUS AG REFERENCE RANGE: NEGATIVE 08/26/21 17:50 C. difficile Antigen & Toxins A,B - Final Stool / Feces Med Orders - Current: Current Medications Albuterol/Ipratropium (Albuterol/Ipratropium 3.0-0.5 Mg/3 Ml Neb Soln) 3 ml NEB Q6HRRT PRN PRN Reason: Shortness of Breath Last Admin: 08/26/21 23:30 Dose: 3 ml Documented by: Benzonatate (Benzonatate 100 Mg Cap) 200 mg PO Q6H PRN PRN Reason: cough Last Admin: 08/27/21 08:54 Dose: 200 mg Documented by: Enoxaparin Sodium (Enoxaparin 40 Mg/0.4 Ml Syringe) 40 mg SUBCUT Q24H TAY Last Admin: 08/26/21 18:04 Dose: 40 mg Documented by: Norepinephrine Bitartrate (Norepinephr-0.9% Nacl 4 Mg/250) 4 mg in 250 mls @ 7 .5 mls/hr IV TITRATE TAY; Protocol Last Titration: 08/27/21 08:10 Dose: 0.5 mcg/min, 1.875 mls/hr Documented by: Pantoprazole Sodium 40 mg/ (Sodium Chloride) 10 mls @ 300 mls/hr IV DAILY [facility] Last Infusion: 08/27/21 08:54 Dose: 300 mls/hr Documented by: Ampicillin Sodium/Sulbactam (Sodium 3 gm/ Sodium Chloride) 100 mls @ 200 mls/hr IV Q12H TAY Last Admin: 08/27/21 06:25 Dose: 200 mls/hr Documented by: Doxycycline Hyclate 100 mg/ (Sodium Chloride) 100 mls @ 100 mls/hr IV Q12H TAY Melatonin (Melatonin 3 Mg Tab) 6 mg PO BEDTIME PRN PRN Reason: Insomnia Last Admin: 08/26/21 23:29 Dose: 6 mg Documented by: Desvenlafacine Er (50mg Tab) 1 each PO DAILY TAY Sodium Chloride (Sodium Chloride 0.9% 10 Ml Syringe) 10 ml FLUSH ASDIRECTED PRN PRN Reason: Keep Vein Open Last Admin: 08/26/21 09:26 Dose: 10 ml Documented by: Sodium Chloride (Sodium Chloride 0.9% 2.5 Ml Syringe) 2.5 ml FLUSH ASDIRECTED PRN PRN Reason: Keep Vein Open Last Admin: 08/26/21 09:27 Dose: 2.5 ml Documented by: Discontinued Medications Acetaminophen (Acetaminophen 500 Mg Tab) 1,000 mg PO ONETIME ONE Stop: 08/26/21 13:19 Last Admin: 08/26/21 13:24 Dose: 1,000 mg Documented by: Lactated Ringer's (Ringers, Lactated) 1,000 mls @ 999 mls/hr IV .BOLUS ONE Stop: 08/26/21 10:19 Last Admin: 08/26/21 09:26 Dose: 999 mls/hr Documented by: Piperacillin Sod/Tazobactam (Sod 4.5 gm/ Sodium Chloride) 100 mls @ 100 mls/hr IV ONETIME ONE Stop: 08/26/21 10:18 Last Admin: 08/26/21 09:29 Dose: 100 mls/hr Documented by: Lactated Ringer's (Ringers, Lactated) 1,000 mls @ 999 mls/hr IV .BOLUS ONE Stop: 08/26/21 11:27 Last Admin: 08/26/21 10:38 Dose: 999 mls/hr Documented by: Lactated Ringer's (Ringers, Lactated) 500 mls @ 999 mls/hr IV .BOLUS ONE Stop: 08/26/21 10:59 Last Admin: 08/26/21 10:38 Dose: 999 mls/hr Documented by: Lactated Ringer's (Ringers, Lactated) 500 mls @ 999 mls/hr IV .BOLUS ONE Stop: 08/26/21 13:56 Last Admin: 08/26/21 14:00 Dose: 999 mls/hr Documented by: Doxycycline Hyclate 100 mg/ (Sodium Chloride) 100 mls @ 100 mls/hr IV Q12H [facility] Last Admin: 08/26/21 15:45 Dose: Not Given Documented by: Vancomycin HCl 1.25 gm/ Premix 250 mls @ 166.667 mls/hr IV ONETIME ONE Stop: 08/26/21 15:14 Vancomycin HCl 1.25 gm/ Premix 250 mls @ 166.667 mls/hr IV Q24H [facility] Last Admin: 08/26/21 14:30 Dose: 166.667 mls/hr Documented by: Doxycycline Hyclate 100 mg/ (Sodium Chloride) 100 mls @ 100 mls/hr IV Q12H [facility] Last Admin: 08/26/21 14:29 Dose: 100 mls/hr Documented by: Piperacillin Sod/Tazobactam (Sod 3.375 gm/ Sodium Chloride) 50 mls @ 100 mls/hr IV Q6H [facility] Last Admin: 08/26/21 17:59 Dose: 100 mls/hr Documented by: Piperacillin Sod/Tazobactam (Sod 4.5 gm/ Sodium Chloride) 100 mls @ 100 mls/hr IV Q8H [facility] Vancomycin HCl 1.25 gm/ Premix 250 mls @ 166.667 mls/hr IV Q24H [facility] Ampicillin Sodium/Sulbactam (Sodium 3 gm/ Sodium Chloride) 100 mls @ 200 mls/hr IV Q6H [facility] Doxycycline Hyclate 100 mg/ (Sodium Chloride) 100 mls @ 100 mls/hr IV Q12H [facility] Doxycycline Hyclate 100 mg/ (Sodium Chloride) 100 mls @ 100 mls/hr IV Q12H [facility] Last Admin: 08/27/21 03:04 Dose: 100 mls/hr Documented by: Vancomycin HCl (Vancomycin 125 Mg Cap) 250 mg PO QID [facility] Last Admin: 08/26/21 18:49 Dose: 250 mg Documented by: Vancomycin HCl (Pharmacy To Dose - Vancomycin) 1 dose .XX ONETIME ONE Stop: 08/26/21 13:28 Last Admin: 08/26/21 14:10 Dose: Not Given Documented by: Vancomycin HCl (Pharmacy To Dose - Vancomycin) 1 dose .XX ASDIRECTED TAY - Exam General: Alert, Oriented, Cooperative HEENT: Mucous Membr. Moist/[place] Neck: Trachea Midline. No: Lymphadenopathy Lungs: Clear to Auscultation, Wheezing Cardiovascular: Regular Rate, Regular Rhythm GI/Abdominal Exam: Normal Bowel Sounds, Soft, Non-Tender - Patient Data Lab Results Last 24 hrs: Laboratory Results - last 24 hr 08/26/21 08/26/21 08/26/21 Range/Units 09:21 11:20 14:51 WBC (4.0-11.0) K/uL RBC (4.30-5.90) M/uL Hgb (12.0-16.0) g/dL Hct (36.0-46.0) % MCV (80.0-98.0) fL MCH (27.0-32.0) pg MCHC (31.0-37.0) g/dL RDW Std Deviation (28.0-62.0) fl RDW Coeff of Samson (11.0-15.0) % Plt Count (150-400) K/uL MPV (7.40-12.00) fL Add Manual Diff Neutrophils % (Manual) (48.0-80.0) % Band Neutrophils % % Lymphocytes % (Manual) (16.0-40.0) % Monocytes % (Manual) (0.0-15.0) % Eosinophils % (Manual) (0.0-7.0) % Nucleated RBC % /100WBC Absolute Seg Neuts (1.4-5.7) Band Neutrophils # Lymphocytes # (Manual) (0.6-2.4) Monocytes # (Manual) (0.0-0.8) Eosinophils # (Manual) (0.0-0.7) Nucleated RBCs # K/uL Sodium (136-145) mmol/L Potassium (3.5-5.1) mmol/L Chloride (98-107) mmol/L Carbon Dioxide (21.0-32.0) mmol/L BUN (7.0-18.0) mg/dL Creatinine (0.6-1.0) mg/dL Est Cr Clr Drug Dosing mL/min Estimated GFR (MDRD) ml/min Glucose (74-106) mg/dL Lactic Acid 2.3 H* (0.4-2.0) mmol/L Calcium (8.5-10.1) mg/dL Total Bilirubin (0.2-1.0) mg/dL AST (15-37) IU/L ALT (14-63) IU/L Alkaline Phosphatase (46-116) U/L Total Protein (6.4-8.2) g/dL Albumin (3.4-5.0) g/dL Globulin (2.6-4.0) g/dL Albumin/Globulin Ratio (0.9-1.6) Urine Color YELLOW Urine Appearance CLOUDY Urine pH 5.5 (5.0-8.0) Ur Specific [place] 1.015 (1.001-1.035) Urine Protein NEGATIVE (NEGATIVE) mg/dL Urine Glucose (UA) NEGATIVE (NEGATIVE) mg/dL Urine Ketones NEGATIVE (NEGATIVE) mg/dL Urine Occult Blood TRACE-INTACT H (NEGATIVE) Urine Nitrite NEGATIVE (NEGATIVE) Urine Bilirubin NEGATIVE (NEGATIVE) Urine Urobilinogen 0.2 (<2.0) EU/dL Ur Leukocyte Esterase LARGE H (NEGATIVE) Urine RBC NONE SEEN (0-2/HPF) Urine WBC 12-17 (0-5/HPF) Ur Epithelial Cells FEW (NONE-FEW) Urine Bacteria 2+ H (NEGATIVE) Urine Mucus LIGHT (NONE-MOD) Influenza Type A RNA Cancelled RSV RNA (INAAT) Cancelled Influenza Type B RNA Cancelled SARS-CoV-2 RNA (LUIS) NEGATIVE (NEGATIVE) 08/26/21 08/27/21 08/27/21 Range/Units 19:07 01:25 05:40 WBC 17.80 H (4.0-11.0) K/uL RBC 4.31 (4.30-5.90) M/uL Hgb 12.7 (12.0-16.0) g/dL Hct 37.8 (36.0-46.0) % MCV 87.7 (80.0-98.0) fL MCH 29.5 (27.0-32.0) pg MCHC 33.6 (31.0-37.0) g/dL RDW Std Deviation 45.0 (28.0-62.0) fl RDW Coeff of Samson 14 (11.0-15.0) % Plt Count 96 L (150-400) K/uL MPV 10.60 (7.40-12.00) fL Add Manual Diff YES Neutrophils % (Manual) 75 (48.0-80.0) % Band Neutrophils % 4 % Lymphocytes % (Manual) 14 L (16.0-40.0) % Monocytes % (Manual) 5 (0.0-15.0) % Eosinophils % (Manual) 2 (0.0-7.0) % Nucleated RBC % 0.0 /100WBC Absolute Seg Neuts 13.4 H (1.4-5.7) Band Neutrophils # 0.7 Lymphocytes # (Manual) 2.5 H (0.6-2.4) Monocytes # (Manual) 0.9 H (0.0-0.8) Eosinophils # (Manual) 0.4 (0.0-0.7) Nucleated RBCs # 0 K/uL Sodium (136-145) mmol/L Potassium (3.5-5.1) mmol/L Chloride (98-107) mmol/L Carbon Dioxide (21.0-32.0) mmol/L BUN (7.0-18.0) mg/dL Creatinine (0.6-1.0) mg/dL Est Cr Clr Drug Dosing mL/min Estimated GFR (MDRD) ml/min Glucose (74-106) mg/dL Lactic Acid 0.7 0.6 (0.4-2.0) mmol/L Calcium (8.5-10.1) mg/dL Total Bilirubin (0.2-1.0) mg/dL AST (15-37) IU/L ALT (14-63) IU/L Alkaline Phosphatase (46-116) U/L Total Protein (6.4-8.2) g/dL Albumin (3.4-5.0) g/dL Globulin (2.6-4.0) g/dL Albumin/Globulin Ratio (0.9-1.6) Urine Color Urine Appearance Urine pH (5.0-8.0) Ur Specific [place] (1.001-1.035) Urine Protein (NEGATIVE) mg/dL Urine Glucose (UA) (NEGATIVE) mg/dL Urine Ketones (NEGATIVE) mg/dL Urine Occult Blood (NEGATIVE) Urine Nitrite (NEGATIVE) Urine Bilirubin (NEGATIVE) Urine Urobilinogen (<2.0) EU/dL Ur Leukocyte Esterase (NEGATIVE) Urine RBC (0-2/HPF) Urine WBC (0-5/HPF) Ur Epithelial Cells (NONE-FEW) Urine Bacteria (NEGATIVE) Urine Mucus (NONE-MOD) Influenza Type A RNA RSV RNA (INAAT) Influenza Type B RNA SARS-CoV-2 RNA (LUIS) (NEGATIVE) 08/27/21 Range/Units 05:40 WBC (4.0-11.0) K/uL RBC (4.30-5.90) M/uL Hgb (12.0-16.0) g/dL Hct (36.0-46.0) % MCV (80.0-98.0) fL MCH (27.0-32.0) pg MCHC (31.0-37.0) g/dL RDW Std Deviation (28.0-62.0) fl RDW Coeff of Samson (11.0-15.0) % Plt Count (150-400) K/uL MPV (7.40-12.00) fL Add Manual Diff Neutrophils % (Manual) (48.0-80.0) % Band Neutrophils % % Lymphocytes % (Manual) (16.0-40.0) % Monocytes % (Manual) (0.0-15.0) % Eosinophils % (Manual) (0.0-7.0) % Nucleated RBC % /100WBC Absolute Seg Neuts (1.4-5.7) Band Neutrophils # Lymphocytes # (Manual) (0.6-2.4) Monocytes # (Manual) (0.0-0.8) Eosinophils # (Manual) (0.0-0.7) Nucleated RBCs # K/uL Sodium 142 (136-145) mmol/L Potassium 4.0 (3.5-5.1) mmol/L Chloride 107 (98-107) mmol/L Carbon Dioxide 27.7 (21.0-32.0) mmol/L BUN 23 H (7.0-18.0) mg/dL Creatinine 1.3 H (0.6-1.0) mg/dL Est Cr Clr Drug Dosing 35.72 mL/min Estimated GFR (MDRD) 40.4 ml/min Glucose 109 H (74-106) mg/dL Lactic Acid (0.4-2.0) mmol/L Calcium 7.7 L (8.5-10.1) mg/dL Total Bilirubin 0.2 (0.2-1.0) mg/dL AST 11 L (15-37) IU/L ALT 18 (14-63) IU/L Alkaline Phosphatase 106 (46-116) U/L Total Protein 5.8 L (6.4-8.2) g/dL Albumin 2.0 L (3.4-5.0) g/dL Globulin 3.8 (2.6-4.0) g/dL Albumin/Globulin Ratio 0.5 L (0.9-1.6) Urine Color Urine Appearance Urine pH (5.0-8.0) Ur Specific [place] (1.001-1.035) Urine Protein (NEGATIVE) mg/dL Urine Glucose (UA) (NEGATIVE) mg/dL Urine Ketones (NEGATIVE) mg/dL Urine Occult Blood (NEGATIVE) Urine Nitrite (NEGATIVE) Urine Bilirubin (NEGATIVE) Urine Urobilinogen (<2.0) EU/dL Ur Leukocyte Esterase (NEGATIVE) Urine RBC (0-2/HPF) Urine WBC (0-5/HPF) Ur Epithelial Cells (NONE-FEW) Urine Bacteria (NEGATIVE) Urine Mucus (NONE-MOD) Influenza Type A RNA RSV RNA (INAAT) Influenza Type B RNA SARS-CoV-2 RNA (LUIS) (NEGATIVE) Result Diagrams: 08/27/21 05:40 08/27/21 05:40 Michael Results Last 24 hrs: Microbiology 08/26/21 09:40 Aerobic Blood Culture - Preliminary Blood - Venous - Lab Draw NO GROWTH AFTER 1 DAY Anaerobic Blood Culture - Preliminary NO GROWTH AFTER 1 DAY 08/26/21 09:16 Aerobic Blood Culture - Preliminary Blood - Venous NO GROWTH AFTER 1 DAY Anaerobic Blood Culture - Preliminary NO GROWTH AFTER 1 DAY 08/27/21 09:21 Respiratory Syncytial Virus Ag Scrn - Final Nasopharyngeal Swab NEGATIVE RSV ANTIGEN REFERENCE RANGE: NEGATIVE Influenza Type A Antigen Screen - Final NEGATIVE INFLUENZA A VIRUS AG REFERENCE RANGE: NEGATIVE Influenza Type B Antigen Screen - Final NEGATIVE INFLUENZA B VIRUS AG REFERENCE RANGE: NEGATIVE 08/26/21 17:50 C. difficile Antigen & Toxins A,B - Final Stool / Feces Sepsis Event Note - Evaluation Sepsis Screening Result: Possible Sepsis Risk - Focused Exam Vital Signs: Vital Signs Temp Resp BP Pulse Ox 08/27/21 09:00 19 116/56 L 95 08/27/21 08:00 98.2 F 14 117/54 L 97 08/27/21 07:00 15 97/49 L 94 L 08/27/21 06:00 16 101/52 L 93 L 08/27/21 05:00 17 108/52 L 94 L 08/27/21 04:00 98.4 F 21 H 105/55 L 96 08/27/21 03:00 15 109/47 L 96 08/27/21 02:00 20 122/64 96 08/27/21 01:00 22 H 122/64 96 08/27/21 00:00 22 H 111/62 93 L - Problem List & Annotations (1) Urinary tract infection SNOMED Code(s): 39027213 Code(s): N39.0 - URINARY TRACT INFECTION, SITE NOT SPECIFIED Status: Acute Current Visit: No Qualifiers: Urinary tract infection type: acute cystitis Hematuria presence: with hematuria Qualified Code(s): N30.01 - Acute cystitis with hematuria (2) History of Clostridium difficile colitis SNOMED Code(s): 528218837, 432333595934668 Code(s): Z86.19 - PERSONAL HISTORY OF OTHER INFECTIOUS AND PARASITIC DISEASES Status: Acute Current Visit: No (3) Sepsis SNOMED Code(s): 48966597 Code(s): A41.9 - SEPSIS, UNSPECIFIED ORGANISM Status: Acute Current Visit: Yes (4) Hypotension SNOMED Code(s): 84572368 Code(s): I95.9 - HYPOTENSION, UNSPECIFIED Status: Acute Current Visit: Yes (5) Pneumonia SNOMED Code(s): 588621815 Code(s): J18.9 - PNEUMONIA, UNSPECIFIED ORGANISM Status: Acute Priority: High Current Visit: Yes Qualifiers: Pneumonia type: due to unspecified organism Laterality: unspecified laterality Lung location: unspecified part of lung Qualified Code(s): J18.9 - Pneumonia, unspecified organism (6) DOROTHY (acute kidney injury) SNOMED Code(s): 85122779, 61528398 Code(s): N17.9 - ACUTE KIDNEY FAILURE, UNSPECIFIED Status: Acute Current Visit: Yes (7) Depression SNOMED Code(s): 28295670 Code(s): F32.A - DEPRESSION, UNSPECIFIED Status: Acute Current Visit: Yes - Problem List Review Problem List Initiated/Reviewed/Updated: Yes - My Orders Last 24 Hours: My Active Orders 08/26/21 Dinner Regular Diet [DIET] 08/26/21 17:00 Code Status [Resuscitation Status] Stat 08/26/21 17:15 Enoxaparin [Lovenox] 40 mg SUBCUT Q24H Pantoprazole [ProTONIX IV] 40 mg Sodium Chloride 0.9% [Normal Saline] 10 ml IV DAILY 08/26/21 19:00 Ampicillin/Sulbactam Na [Unasyn] 3 gm Sodium Chloride 0.9% [Normal Saline AdvBag] 100 ml IV Q12H 08/27/21 09:00 Patient's Own Medication [Ptom] 1 each PO DAILY 08/28/21 05:11 CBC WITH AUTO DIFF [HEME] AM CMP [COMPREHENSIVE METABOLIC PN,CMP] [CHEM] AM 08/29/21 05:11 CBC WITH AUTO DIFF [HEME] AM CMP [COMPREHENSIVE METABOLIC PN,CMP] [CHEM] AM - Plan Plan:: 1. Sepsis secondary to pneumonia -The patient is on Levophed, norepinephrine bitartrate drip in order to elevate blood pressure and reduce shock -T continue the patient on Unasyn 3 g per IV route every 12 hours -The patient is on doxycycline 100 mg per IV route every 12 hours -Robitussin cough syrup is on board for cough -We will continue to monitor the patient through daily CBC 2. Ongoing urinary tract infection -Nothing abnormal was seen on CT and as a result we will have the patient follow-up with a urologist on an outpatient basis upon discharge 3. DOROTHY -We will monitor kidney function through daily CMP and treat accordingly 4. Past medical history of depression -We will continue the patient on her home dosage of Desvenlafaxine
[2021-08-27] MEDS ORDERED: guaiFENesin 100 MG/5 ML Soln 5 ML UD Cup PO SCH (11:45)
[2021-08-27] MEDS: Doxycycline 100 MG in Sodium Chloride 0.9% 100 ML IV SCH (14:13)
[2021-08-27] MEDS: guaiFENesin 100 MG/5 ML Soln 5 ML UD Cup PO PRN ×2 (14:33→21:02)
[2021-08-27] MEDS: Acetaminophen 325 MG Tab PO PRN (14:33)
[2021-08-27] MEDS ORDERED: VANCOmycin 1.25 GM/250 ML 1.25 GM in Premix Bag 1 BAG IV SCH (14:45)
[2021-08-27] MEDS: Enoxaparin 40 MG/0.4 ML Syringe SUBCUT SCH (17:22)
[2021-08-27] MEDS: Gabapentin 300 MG Cap PO SCH (21:11)
[2021-08-27] MEDS: Melatonin 3 MG Tab PO PRN (21:54)
[2021-08-28] MEDS: Doxycycline 100 MG in Sodium Chloride 0.9% 100 ML IV SCH ×2 (01:17→13:46)
[2021-08-28] MEDS: Ampicillin/Sulbactam Na 3 GM in Sodium Chloride 0.9% 100 ML IV SCH ×2 (06:28→18:29)
[2021-08-28 06:59] LABS: BLOOD UREA NITROGEN,BUN 12 mg/dL (7.0-18.0); CARBON DIOXIDE,CO2 24.9 mmol/L (21.0-32.0); CHLORIDE,CL 107 mmol/L (98-107); GLUCOSE RANDOM 125 mg/dL (74-106); POTASSIUM,K 3.3 mmol/L (3.5-5.1); SODIUM,NA 142 mmol/L (136-145)
[2021-08-28] MEDS ORDERED: Potassium Chloride 20 MEQ Tab.ER PO ONE ×2 (07:31→11:00)
[2021-08-28] MEDS: Gabapentin 300 MG Cap PO SCH ×2 (11:01→20:00)
[2021-08-28] MEDS: Pantoprazole 40 MG in Sodium Chloride 0.9% 10 ML IV SCH (11:01)
[2021-08-28] MEDS: Acetaminophen 325 MG Tab PO PRN ×2 (11:11→20:02)
[2021-08-28] MEDS: Benzonatate 100 MG Cap PO PRN ×2 (11:11→20:00)
[2021-08-28] MEDS: DESVENLAFAXINE 50 MG PO SCH (13:08)
--- NOTE | 2021-08-28 16:05 | PCM.PN ---
- General Info Date of Service: 08/28/21 Subjective Update: The patient is a 71-year-old female, on day 3 of service, with a significant past medical history of hypertension, irritable bowel syndrome, and depression, who was admitted to the hospital due to sepsis secondary to pneumonia as well as an ongoing urinary tract infection. The patient is doing much better overall and will be transferred from the intensive care unit to the medical floor today as she is no longer on the norepinephrine drip and has a dequate blood pressures and other vital signs. She still continues to have diarrhea secondary to a history of IBS. She denies shortness of breath but still admits to cough. Her influenza A, influenza B, and RSV tests all came back negative. However she was found to have low levels of potassium in her blood upon her labs this morning. She is still being treated with antibiotic therapy for her sepsis. She has no other health concerns at this time. - Review of Systems General: Denies: Fever, Weakness, Fatigue HEENT: Denies: Headaches, Sore Throat Pulmonary: Reports: Cough. Denies: Shortness of Breath Cardiovascular: Denies: Chest Pain, Palpitations Gastrointestinal: Reports: Diarrhea. Denies: Abdominal Pain, Constipation, Vomiting Genitourinary: Reports: Dysuria - Patient Data Vitals - Most Recent: Last Vital Signs Temp 97.2 F 08/28/21 14:00 Pulse 86 08/28/21 14:00 Resp 18 08/28/21 14:00 BP 136/75 08/28/21 14:00 Pulse Ox 94 L 08/28/21 14:00 Weight - Most Recent: 193 lb 3.2 oz I&O - Last 24 Hours: Intake & Output 08/28/21 08/28/21 08/28/21 06:59 14:59 22:59 Intake Total 570 300 Balance 570 300 Lab Results Last 24 Hours: Laboratory Results - last 24 hr 08/28/21 08/28/21 Range/Units 05:45 05:45 WBC 13.48 H (4.0-11.0) K/uL RBC 4.06 L (4.30-5.90) M/uL Hgb 11.9 L (12.0-16.0) g/dL Hct 35.5 L (36.0-46.0) % MCV 87.4 (80.0-98.0) fL MCH 29.3 (27.0-32.0) pg MCHC 33.5 (31.0-37.0) g/dL RDW Std Deviation 45.2 (28.0-62.0) fl RDW Coeff of Samson 14 (11.0-15.0) % Plt Count 97 L (150-400) K/uL MPV 9.90 (7.40-12.00) fL Add Manual Diff YES Neutrophils % (Manual) 64 (48.0-80.0) % Band Neutrophils % 5 % Lymphocytes % (Manual) 21 (16.0-40.0) % Monocytes % (Manual) 4 (0.0-15.0) % Eosinophils % (Manual) 6 (0.0-7.0) % Nucleated RBC % 0.0 /100WBC Absolute Seg Neuts 8.6 H (1.4-5.7) Band Neutrophils # 0.7 Lymphocytes # (Manual) 2.8 H (0.6-2.4) Monocytes # (Manual) 0.5 (0.0-0.8) Eosinophils # (Manual) 0.8 H (0.0-0.7) Nucleated RBCs # 0 K/uL Sodium 142 (136-145) mmol/L Potassium 3.3 L (3.5-5.1) mmol/L Chloride 107 (98-107) mmol/L Carbon Dioxide 24.9 (21.0-32.0) mmol/L BUN 12 (7.0-18.0) mg/dL Creatinine 0.9 (0.6-1.0) mg/dL Est Cr Clr Drug Dosing 51.59 mL/min Estimated GFR (MDRD) > 60.0 ml/min Glucose 125 H (74-106) mg/dL Calcium 7.5 L (8.5-10.1) mg/dL Total Bilirubin 0.2 (0.2-1.0) mg/dL AST 11 L (15-37) IU/L ALT 20 (14-63) IU/L Alkaline Phosphatase 99 (46-116) U/L Total Protein 5.4 L (6.4-8.2) g/dL Albumin 2.0 L (3.4-5.0) g/dL Globulin 3.4 (2.6-4.0) g/dL Albumin/Globulin Ratio 0.6 L (0.9-1.6) Michael Results Last 24 Hours: Microbiology 08/26/21 09:40 Aerobic Blood Culture - Preliminary Blood - Venous - Lab Draw NO GROWTH AFTER 2 DAYS Anaerobic Blood Culture - Preliminary NO GROWTH AFTER 2 DAYS 08/26/21 09:16 Aerobic Blood Culture - Preliminary Blood - Venous NO GROWTH AFTER 2 DAYS Anaerobic Blood Culture - Preliminary NO GROWTH AFTER 2 DAYS Med Orders - Current: Current Medications Acetaminophen (Acetaminophen 325 Mg Tab) 650 mg PO Q6H PRN PRN Reason: Pain Last Admin: 08/28/21 11:11 Dose: 650 mg Documented by: Albuterol/Ipratropium (Albuterol/Ipratropium 3.0-0.5 Mg/3 Ml Neb Soln) 3 ml NEB Q6HRRT PRN PRN Reason: Shortness of Breath Last Admin: 08/26/21 23:30 Dose: 3 ml Documented by: Benzonatate (Benzonatate 100 Mg Cap) 200 mg PO Q6H PRN PRN Reason: cough Last Admin: 08/28/21 11:11 Dose: 200 mg Documented by: Enoxaparin Sodium (Enoxaparin 40 Mg/0.4 Ml Syringe) 40 mg SUBCUT Q24H TAY Last Admin: 08/27/21 17:22 Dose: 40 mg Documented by: Gabapentin (Gabapentin 300 Mg Cap) 300 mg PO BID [facility] Last Admin: 08/28/21 11:01 Dose: 300 mg Documented by: Guaifenesin (Guaifenesin 100 Mg/5 Ml Soln 5 Ml Ud Cup) 200 mg PO Q4H PRN PRN Reason: Cough Last Admin: 08/27/21 21:02 Dose: 200 mg Documented by: Norepinephrine Bitartrate (Norepinephr-0.9% Nacl 4 Mg/250) 4 mg in 250 mls @ 7.5 mls/hr IV TITRATE [facility]; Protocol Last Titration: 08/27/21 09:00 Dose: 0 mcg/min, 0 mls/hr Documented by: Pantoprazole Sodium 40 mg/ (Sodium Chloride) 10 mls @ 300 mls/hr IV DAILY [facility] Last Admin: 08/28/21 11:01 Dose: 300 mls/hr Documented by: Ampicillin Sodium/Sulbactam (Sodium 3 gm/ Sodium Chloride) 100 mls @ 200 mls/hr IV Q12H [facility] Last Admin: 08/28/21 06:28 Dose: 200 mls/hr Documented by: Doxycycline Hyclate 100 mg/ (Sodium Chloride) 100 mls @ 100 mls/hr IV Q12H [facility] Last Admin: 08/28/21 13:46 Dose: 100 mls/hr Documented by: Melatonin (Melatonin 3 Mg Tab) 6 mg PO BEDTIME PRN PRN Reason: Insomnia Last Admin: 08/27/21 21:54 Dose: 6 mg Documented by: Desvenlafacine Er (50mg Tab) 1 each PO DAILY [facility] Last Admin: 08/28/21 13:08 Dose: Not Given Documented by: Sodium Chloride (Sodium Chloride 0.9% 10 Ml Syringe) 10 ml FLUSH ASDIRECTED PRN PRN Reason: Keep Vein Open Last Admin: 08/26/21 09:26 Dose: 10 ml Documented by: Sodium Chloride (Sodium Chloride 0.9% 2.5 Ml Syringe) 2.5 ml FLUSH ASDIRECTED PRN PRN Reason: Keep Vein Open Last Admin: 08/26/21 09:27 Dose: 2.5 ml Documented by: Discontinued Medications Acetaminophen (Acetaminophen 500 Mg Tab) 1,000 mg PO ONETIME ONE Stop: 08/26/21 13:19 Last Admin: 08/26/21 13:24 Dose: 1,000 mg Documented by: Guaifenesin (Guaifenesin 100 Mg/5 Ml Soln 5 Ml Ud Cup) 200 mg PO Q4H [facility] Last Admin: 08/27/21 12:00 Dose: Not Given Documented by: Lactated Ringer's (Ringers, Lactated) 1,000 mls @ 999 mls/hr IV .BOLUS ONE Stop: 08/26/21 10:19 Last Admin: 08/26/21 09:26 Dose: 999 mls/hr Documented by: Piperacillin Sod/Tazobactam (Sod 4.5 gm/ Sodium Chloride) 100 mls @ 100 mls/hr IV ONETIME ONE Stop: 08/26/21 10:18 Last Admin: 08/26/21 09:29 Dose: 100 mls/hr Documented by: Lactated Ringer's (Ringers, Lactated) 1,000 mls @ 999 mls/hr IV .BOLUS ONE Stop: 08/26/21 11:27 Last Admin: 08/26/21 10:38 Dose: 999 mls/hr Documented by: Lactated Ringer's (Ringers, Lactated) 500 mls @ 999 mls/hr IV .BOLUS ONE Stop: 08/26/21 10:59 Last Admin: 08/26/21 10:38 Dose: 999 mls/hr Documented by: Lactated Ringer's (Ringers, Lactated) 500 mls @ 999 mls/hr IV .BOLUS ONE Stop: 08/26/21 13:56 Last Admin: 08/26/21 14:00 Dose: 999 mls/hr Documented by: Doxycycline Hyclate 100 mg/ (Sodium Chloride) 100 mls @ 100 mls/hr IV Q12H [facility] Last Admin: 08/26/21 15:45 Dose: Not Given Documented by: Vancomycin HCl 1.25 gm/ Premix 250 mls @ 166.667 mls/hr IV ONETIME ONE Stop: 08/26/21 15:14 Vancomycin HCl 1.25 gm/ Premix 250 mls @ 166.667 mls/hr IV Q24H [facility] Last Admin: 08/26/21 14:30 Dose: 166.667 mls/hr Documented by: Doxycycline Hyclate 100 mg/ (Sodium Chloride) 100 mls @ 100 mls/hr IV Q12H [facility] Last Admin: 08/26/21 14:29 Dose: 100 mls/hr Documented by: Piperacillin Sod/Tazobactam (Sod 3.375 gm/ Sodium Chloride) 50 mls @ 100 mls/hr IV Q6H [facility] Last Admin: 08/26/21 17:59 Dose: 100 mls/hr Documented by: Piperacillin Sod/Tazobactam (Sod 4.5 gm/ Sodium Chloride) 100 mls @ 100 mls/hr IV Q8H [facility] Vancomycin HCl 1.25 gm/ Premix 250 mls @ 166.667 mls/hr IV Q24H [facility] Ampicillin Sodium/Sulbactam (Sodium 3 gm/ Sodium Chloride) 100 mls @ 200 mls/hr IV Q6H [facility] Doxycycline Hyclate 100 mg/ (Sodium Chloride) 100 mls @ 100 mls/hr IV Q12H [facility] Doxycycline Hyclate 100 mg/ (Sodium Chloride) 100 mls @ 100 mls/hr IV Q12H [facility] Last Admin: 08/27/21 03:04 Dose: 100 mls/hr Documented by: Potassium Chloride (Potassium Chloride 20 Meq Tab.Er) 40 meq PO ONETIME ONE Stop: 08/28/21 07:32 Last Admin: 08/28/21 13:07 Dose: Not Given Documented by: Potassium Chloride (Potassium Chloride 20 Meq Tab.Er) 40 meq PO ONETIME ONE Stop: 08/28/21 11:01 Last Admin: 08/28/21 11:10 Dose: 40 meq Documented by: Vancomycin HCl (Vancomycin 125 Mg Cap) 250 mg PO QID [facility] Last Admin: 08/26/21 18:49 Dose: 250 mg Documented by: Vancomycin HCl (Pharmacy To Dose - Vancomycin) 1 dose .XX ONETIME ONE Stop: 08/26/21 13:28 Last Admin: 08/26/21 14:10 Dose: Not Given Documented by: Vancomycin HCl (Pharmacy To Dose - Vancomycin) 1 dose .XX ASDIRECTED TAY - Exam General: Alert, Oriented, Cooperative HEENT: Mucous Membr. Moist/[place] Neck: Trachea Midline Lungs: Clear to Auscultation, Normal Respiratory Effort Cardiovascular: Regular Rate, Regular Rhythm GI/Abdominal Exam: Normal Bowel Sounds, Soft, Non-Tender - Patient Data Lab Results Last 24 hrs: Laboratory Results - last 24 hr 08/28/21 08/28/21 Range/Units 05:45 05:45 WBC 13.48 H (4.0-11.0) K/uL RBC 4.06 L (4.30-5.90) M/uL Hgb 11.9 L (12.0-16.0) g/dL Hct 35.5 L (36.0-46.0) % MCV 87.4 (80.0-98.0) fL MCH 29.3 (27.0-32.0) pg MCHC 33.5 (31.0-37.0) g/dL RDW Std Deviation 45.2 (28.0-62.0) fl RDW Coeff of Samson 14 (11.0-15.0) % Plt Count 97 L (150-400) K/uL MPV 9.90 (7.40-12.00) fL Add Manual Diff YES Neutrophils % (Manual) 64 (48.0-80.0) % Band Neutrophils % 5 % Lymphocytes % (Manual) 21 (16.0-40.0) % Monocytes % (Manual) 4 (0.0-15.0) % Eosinophils % (Manual) 6 (0.0-7.0) % Nucleated RBC % 0.0 /100WBC Absolute Seg Neuts 8.6 H (1.4-5.7) Band Neutrophils # 0.7 Lymphocytes # (Manual) 2.8 H (0.6-2.4) Monocytes # (Manual) 0.5 (0.0-0.8) Eosinophils # (Manual) 0.8 H (0.0-0.7) Nucleated RBCs # 0 K/uL Sodium 142 (136-145) mmol/L Potassium 3.3 L (3.5-5.1) mmol/L Chloride 107 (98-107) mmol/L Carbon Dioxide 24.9 (21.0-32.0) mmol/L BUN 12 (7.0-18.0) mg/dL Creatinine 0.9 (0.6-1.0) mg/dL Est Cr Clr Drug Dosing 51.59 mL/min Estimated GFR (MDRD) > 60.0 ml/min Glucose 125 H (74-106) mg/dL Calcium 7.5 L (8.5-10.1) mg/dL Total Bilirubin 0.2 (0.2-1.0) mg/dL AST 11 L (15-37) IU/L ALT 20 (14-63) IU/L Alkaline Phosphatase 99 (46-116) U/L Total Protein 5.4 L (6.4-8.2) g/dL Albumin 2.0 L (3.4-5.0) g/dL Globulin 3.4 (2.6-4.0) g/dL Albumin/Globulin Ratio 0.6 L (0.9-1.6) Result Diagrams: 08/28/21 05:45 08/28/21 05:45 Michael Results Last 24 hrs: Microbiology 08/26/21 09:40 Aerobic Blood Culture - Preliminary Blood - Venous - Lab Draw NO GROWTH AFTER 2 DAYS Anaerobic Blood Culture - Preliminary NO GROWTH AFTER 2 DAYS 08/26/21 09:16 Aerobic Blood Culture - Preliminary Blood - Venous NO GROWTH AFTER 2 DAYS Anaerobic Blood Culture - Preliminary NO GROWTH AFTER 2 DAYS Sepsis Event Note - Evaluation Sepsis Screening Result: Possible Sepsis Risk - Focused Exam Vital Signs: Vital Signs Temp Pulse Resp BP Pulse Ox 11/12/21 14:00 97.2 F 86 18 136/75 94 L 08/28/21 06:00 18 139/62 93 L 08/28/21 05:00 19 145/74 H 93 L - Problem List & Annotations (1) Urinary tract infection SNOMED Code(s): 70003853 Code(s): N39.0 - URINARY TRACT INFECTION, SITE NOT SPECIFIED Status: Acute Current Visit: No Qualifiers: Urinary tract infection type: acute cystitis Hematuria presence: with hematuria Qualified Code(s): N30.01 - Acute cystitis with hematuria (2) Sepsis SNOMED Code(s): 33389592 Code(s): A41.9 - SEPSIS, UNSPECIFIED ORGANISM Status: Acute Current Visit: Yes (3) Hypotension SNOMED Code(s): 16481781 Code(s): I95.9 - HYPOTENSION, UNSPECIFIED Status: Acute Current Visit: Yes (4) Pneumonia SNOMED Code(s): 232551992 Code(s): J18.9 - PNEUMONIA, UNSPECIFIED ORGANISM Status: Acute Priority: High Current Visit: Yes Qualifiers: Pneumonia type: due to unspecified organism Laterality: unspecified laterality Lung location: unspecified part of lung Qualified Code(s): J18.9 - Pneumonia, unspecified organism (5) DOROTHY (acute kidney injury) SNOMED Code(s): 74286474, 88545886 Code(s): N17.9 - ACUTE KIDNEY FAILURE, UNSPECIFIED Status: Acute Current Visit: Yes (6) Depression SNOMED Code(s): 92858452 Code(s): F32.A - DEPRESSION, UNSPECIFIED Status: Acute Current Visit: Yes (7) Hypokalemia SNOMED Code(s): 33495402 Code(s): E87.6 - HYPOKALEMIA Status: Acute Current Visit: Yes (8) Diarrhea SNOMED Code(s): 22025168 Code(s): R19.7 - DIARRHEA, UNSPECIFIED Status: Acute Current Visit: No - Problem List Review Problem List Initiated/Reviewed/Updated: Yes - My Orders Last 24 Hours: My Active Orders 08/29/21 05:11 CBC WITH AUTO DIFF [HEME] AM CMP [COMPREHENSIVE METABOLIC PN,CMP] [CHEM] AM - Plan Plan:: 1. Sepsis secondary to pneumonia -The patient is no longer on a norepinephrine drip, and has been transferred from the ICU to the medical floor due to her improvements -Continue the patient on Unasyn 3 g per IV route every 12 hours -Continue with doxycycline 100 mg per IV route every 12 hours -Robitussin cough syrup is on board for cough -Tessalon Perles are also on board for congestion -We will continue to monitor the patient through daily CBC 2. Ongoing urinary tract infection -Upon discharge the patient will be advised to follow-up with a urologist on an outpatient basis 3. DOROTHY -Resolved 4. Past medical history of depression -We will continue the patient on her home dosage of Desvenlafaxine 5. Hypokalemia -The patient was given a dose of potassium chloride 40 mEq per oral route once, we will monitor the CMP in the morning 6. Insomnia -The patient has melatonin 6 mg per oral route on board at bedtime
[2021-08-28] MEDS: guaiFENesin 100 MG/5 ML Soln 5 ML UD Cup PO PRN ×2 (17:17→22:53)
[2021-08-28] MEDS: Enoxaparin 40 MG/0.4 ML Syringe SUBCUT SCH (17:17)
[2021-08-28] MEDS: Melatonin 3 MG Tab PO PRN (22:53)
[2021-08-28] MEDS: Loperamide 2 MG Cap PO PRN (22:53)
[2021-08-29] MEDS: Doxycycline 100 MG in Sodium Chloride 0.9% 100 ML IV SCH ×2 (01:38→13:47)
[2021-08-29] MEDS: Benzonatate 100 MG Cap PO PRN ×3 (02:08→20:09)
[2021-08-29] MEDS: Acetaminophen 325 MG Tab PO PRN ×3 (03:22→22:38)
[2021-08-29] MEDS: Ampicillin/Sulbactam Na 3 GM in Sodium Chloride 0.9% 100 ML IV SCH ×2 (06:14→18:33)
[2021-08-29 08:07] LABS: BLOOD UREA NITROGEN,BUN 10 mg/dL (7.0-18.0); CARBON DIOXIDE,CO2 26.4 mmol/L (21.0-32.0); CHLORIDE,CL 106 mmol/L (98-107); GLUCOSE RANDOM 126 mg/dL (74-106); POTASSIUM,K 3.6 mmol/L (3.5-5.1); SODIUM,NA 142 mmol/L (136-145)
[2021-08-29] MEDS: Pantoprazole 40 MG in Sodium Chloride 0.9% 10 ML IV SCH (09:03)
[2021-08-29] MEDS: Gabapentin 300 MG Cap PO SCH ×2 (09:03→21:12)
[2021-08-29] MEDS: DESVENLAFAXINE 50 MG PO SCH (12:08)
--- NOTE | 2021-08-29 13:56 | PCM.PN ---
- General Info Date of Service: 08/29/21 Subjective Update: The patient is a 71-year-old female, on day 4 of service, with a significant past medical history of hypertension, irritable bowel syndrome, and depression, who was admitted to the hospital due to sepsis secondary to pneumonia as well as an ongoing urinary tract infection. Today upon interview the patient admits that her cough and overall feeling of being unwell has significantly reduced. She did inquire about taking a shower and/or using a basin to clean herself off for which we will comply and talk to the nurses to help assist her. She was having some discomfort from removal of the central line. She is eating and drinking without any issues. She denies chest pain, fever, palpitations, abdominal pain, nausea, vomiting, feeling flushed, and any issues with urination and/or defecation. She has no other health concerns at this time. - Review of Systems General: Reports: Fatigue. Denies: Fever, Weakness HEENT: Denies: Headaches, Sore Throat Pulmonary: Denies: Shortness of Breath, Cough Cardiovascular: Denies: Chest Pain, Palpitations Gastrointestinal: Denies: Abdominal Pain, Constipation Genitourinary: Denies: Dysuria - Patient Data Vitals - Most Recent: Last Vital Signs Temp 98.2 F 08/29/21 12: Pulse 88 08/29/21 12:21 Resp 20 08/29/21 12:21 BP 165/87 H 08/29/21 12:21 Pulse Ox 92 L 08/29/21 12:21 Weight - Most Recent: 193 lb 3.2 oz I&O - Last 24 Hours: Intake & Output 08/28/21 08/29/21 08/29/21 22:59 06:59 14:59 Intake Total 300 1150 Output Total 1750 Balance 300 -600 Lab Results Last 24 Hours: Laboratory Results - last 24 hr 08/29/21 08/29/21 Range/Units 07:13 07:13 WBC 14.76 H (4.0-11.0) K/uL RBC 4.44 (4.30-5.90) M/uL Hgb 12.9 (12.0-16.0) g/dL Hct 38.4 (36.0-46.0) % MCV 86.5 (80.0-98.0) fL MCH 29.1 (27.0-32.0) pg MCHC 33.6 (31.0-37.0) g/dL RDW Std Deviation 44.1 (28.0-62.0) fl RDW Coeff of Samson 14 (11.0-15.0) % Plt Count 108 L (150-400) K/uL MPV 9.90 (7.40-12.00) fL Add Manual Diff YES Neutrophils % (Manual) 48 (48.0-80.0) % Band Neutrophils % 8 % Lymphocytes % (Manual) 33 (16.0-40.0) % Monocytes % (Manual) 5 (0.0-15.0) % Eosinophils % (Manual) 6 (0.0-7.0) % Nucleated RBC % 0.0 /100WBC Absolute Seg Neuts 7.1 H (1.4-5.7) Band Neutrophils # 1.2 Lymphocytes # (Manual) 4.9 H (0.6-2.4) Monocytes # (Manual) 0.7 (0.0-0.8) Eosinophils # (Manual) 0.9 H (0.0-0.7) Nucleated RBCs # 0 K/uL Reactive Lymphocytes FEW Sodium 142 (136-145) mmol/L Potassium 3.6 (3.5-5.1) mmol/L Chloride 106 (98-107) mmol/L Carbon Dioxide 26.4 (21.0-32.0) mmol/L BUN 10 (7.0-18.0) mg/dL Creatinine 0.9 (0.6-1.0) mg/dL Est Cr Clr Drug Dosing 51.59 mL/min Estimated GFR (MDRD) > 60.0 ml/min Glucose 126 H (74-106) mg/dL Calcium 7.8 L (8.5-10.1) mg/dL Total Bilirubin 0.3 (0.2-1.0) mg/dL AST 25 (15-37) IU/L ALT 26 (14-63) IU/L Alkaline Phosphatase 101 (46-116) U/L Total Protein 6.2 L (6.4-8.2) g/dL Albumin 2.3 L (3.4-5.0) g/dL Globulin 3.9 (2.6-4.0) g/dL Albumin/Globulin Ratio 0.6 L (0.9-1.6) Michael Results Last 24 Hours: Microbiology 08/26/21 09:40 Aerobic Blood Culture - Preliminary Blood - Venous - Lab Draw NO GROWTH AFTER 3 DAYS Anaerobic Blood Culture - Preliminary NO GROWTH AFTER 3 DAYS 08/26/21 09:16 Aerobic Blood Culture - Preliminary Blood - Venous NO GROWTH AFTER 3 DAYS Anaerobic Blood Culture - Preliminary NO GROWTH AFTER 3 DAYS Med Orders - Current: Current Medications Acetaminophen (Acetaminophen 325 Mg Tab) 650 mg PO Q6H PRN PRN Reason: Pain Last Admin: 08/29/21 03:22 Dose: 650 mg Documented by: Albuterol/Ipratropium (Albuterol/Ipratropium 3.0-0.5 Mg/3 Ml Neb Soln) 3 ml NEB Q6HRRT PRN PRN Reason: Shortness of Breath Last Admin: 08/26/21 23:30 Dose: 3 ml Documented by: Benzonatate (Benzonatate 100 Mg Cap) 200 mg PO Q6H PRN PRN Reason: cough Last Admin: 08/29/21 09:03 Dose: 200 mg Documented by: Enoxaparin Sodium (Enoxaparin 40 Mg/0.4 Ml Syringe) 40 mg SUBCUT Q24H TAY Last Admin: 08/28/21 17:17 Dose: 40 mg Documented by: Gabapentin (Gabapentin 300 Mg Cap) 300 mg PO BID [facility] Last Admin: 08/29/21 09:03 Dose: 300 mg Documented by: Guaifenesin (Guaifenesin 100 Mg/5 Ml Soln 5 Ml Ud Cup) 200 mg PO Q4H PRN PRN Reason: Cough Last Admin: 08/28/21 22:53 Dose: 200 mg Documented by: Norepinephrine Bitartrate (Norepinephr-0.9% Nacl 4 Mg/250) 4 mg in 250 mls @ 7.5 mls/hr IV TITRATE [facility]; Protocol Last Titration: 08/27/21 09:00 Dose: 0 mcg/min, 0 mls/hr Documented by: Pantoprazole Sodium 40 mg/ (Sodium Chloride) 10 mls @ 300 mls/hr IV DAILY [facility] Last Admin: 08/29/21 09:03 Dose: 300 mls/hr Documented by: Ampicillin Sodium/Sulbactam (Sodium 3 gm/ Sodium Chloride) 100 mls @ 200 mls/hr IV Q12H [facility] Last Admin: 08/29/21 06:14 Dose: 200 mls/hr Documented by: Doxycycline Hyclate 100 mg/ (Sodium Chloride) 100 mls @ 100 mls/hr IV Q12H [facility] Last Admin: 08/29/21 13:47 Dose: 100 mls/hr Documented by: Loperamide HCl (Loperamide 2 Mg Cap) 2 mg PO DAILY PRN PRN Reason: Diarrhea Last Admin: 08/28/21 22:53 Dose: 2 mg Documented by: Melatonin (Melatonin 3 Mg Tab) 6 mg PO BEDTIME PRN PRN Reason: Insomnia Last Admin: 08/28/21 22:53 Dose: 6 mg Documented by: Desvenlafacine Er (50mg Tab) 1 each PO DAILY [facility] Last Admin: 08/29/21 12:08 Dose: Not Given Documented by: Sodium Chloride (Sodium Chloride 0.9% 10 Ml Syringe) 10 ml FLUSH ASDIRECTED PRN PRN Reason: Keep Vein Open Last Admin: 08/26/21 09:26 Dose: 10 ml Documented by: Sodium Chloride (Sodium Chloride 0.9% 2.5 Ml Syringe) 2.5 ml FLUSH ASDIRECTED PRN PRN Reason: Keep Vein Open Last Admin: 08/26/21 09:27 Dose: 2.5 ml Documented by: Discontinued Medications Acetaminophen (Acetaminophen 500 Mg Tab) 1,000 mg PO ONETIME ONE Stop: 08/26/21 13:19 Last Admin: 08/26/21 13:24 Dose: 1,000 mg Documented by: Guaifenesin (Guaifenesin 100 Mg/5 Ml Soln 5 Ml Ud Cup) 200 mg PO Q4H [facility] Last Admin: 08/27/21 12:00 Dose: Not Given Documented by: Lactated Ringer's (Ringers, Lactated) 1,000 mls @ 999 mls/hr IV .BOLUS ONE Stop: 08/26/21 10:19 Last Admin: 08/26/21 09:26 Dose: 999 mls/hr Documented by: Piperacillin Sod/Tazobactam (Sod 4.5 gm/ Sodium Chloride) 100 mls @ 100 mls/hr IV ONETIME ONE Stop: 08/26/21 10:18 Last Admin: 08/26/21 09:29 Dose: 100 mls/hr Documented by: Lactated Ringer's (Ringers, Lactated) 1,000 mls @ 999 mls/hr IV .BOLUS ONE Stop: 08/26/21 11:27 Last Admin: 08/26/21 10:38 Dose: 999 mls/hr Documented by: Lactated Ringer's (Ringers, Lactated) 500 mls @ 999 mls/hr IV .BOLUS ONE Stop: 08/26/21 10:59 Last Admin: 08/26/21 10:38 Dose: 999 mls/hr Documented by: Lactated Ringer's (Ringers, Lactated) 500 mls @ 999 mls/hr IV .BOLUS ONE Stop: 08/26/21 13:56 Last Admin: 08/26/21 14:00 Dose: 999 mls/hr Documented by: Doxycycline Hyclate 100 mg/ (Sodium Chloride) 100 mls @ 100 mls/hr IV Q12H [facility] Last Admin: 08/26/21 15:45 Dose: Not Given Documented by: Vancomycin HCl 1.25 gm/ Premix 250 mls @ 166.667 mls/hr IV ONETIME ONE Stop: 08/26/21 15:14 Vancomycin HCl 1.25 gm/ Premix 250 mls @ 166.667 mls/hr IV Q24H [facility] Last Admin: 08/26/21 14:30 Dose: 166.667 mls/hr Documented by: Doxycycline Hyclate 100 mg/ (Sodium Chloride) 100 mls @ 100 mls/hr IV Q12H [facility] Last Admin: 08/26/21 14:29 Dose: 100 mls/hr Documented by: Piperacillin Sod/Tazobactam (Sod 3.375 gm/ Sodium Chloride) 50 mls @ 100 mls/hr IV Q6H [facility] Last Admin: 08/26/21 17:59 Dose: 100 mls/hr Documented by: Piperacillin Sod/Tazobactam (Sod 4.5 gm/ Sodium Chloride) 100 mls @ 100 mls/hr IV Q8H [facility] Vancomycin HCl 1.25 gm/ Premix 250 mls @ 166.667 mls/hr IV Q24H [facility] Ampicillin Sodium/Sulbactam (Sodium 3 gm/ Sodium Chloride) 100 mls @ 200 mls/hr IV Q6H [facility] Doxycycline Hyclate 100 mg/ (Sodium Chloride) 100 mls @ 100 mls/hr IV Q12H [facility] Doxycycline Hyclate 100 mg/ (Sodium Chloride) 100 mls @ 100 mls/hr IV Q12H [facility] Last Admin: 08/27/21 03:04 Dose: 100 mls/hr Documented by: Potassium Chloride (Potassium Chloride 20 Meq Tab.Er) 40 meq PO ONETIME ONE Stop: 08/28/21 07:32 Last Admin: 08/28/21 13:07 Dose: Not Given Documented by: Potassium Chloride (Potassium Chloride 20 Meq Tab.Er) 40 meq PO ONETIME ONE Stop: 08/28/21 11:01 Last Admin: 08/28/21 11:10 Dose: 40 meq Documented by: Vancomycin HCl (Vancomycin 125 Mg Cap) 250 mg PO QID [facility] Last Admin: 08/26/21 18:49 Dose: 250 mg Documented by: Vancomycin HCl (Pharmacy To Dose - Vancomycin) 1 dose .XX ONETIME ONE Stop: 08/26/21 13:28 Last Admin: 08/26/21 14:10 Dose: Not Given Documented by: Vancomycin HCl (Pharmacy To Dose - Vancomycin) 1 dose .XX ASDIRECTED [facility] - Exam General: Alert, Oriented, Cooperative HEENT: Pupils Equal, Pupils Reactive, Mucous Membr. Moist/[place] Neck: Trachea Midline Lungs: Clear to Auscultation, Normal Respiratory Effort Cardiovascular: Regular Rate, Regular Rhythm GI/Abdominal Exam: Normal Bowel Sounds - Patient Data Lab Results Last 24 hrs: Laboratory Results - last 24 hr 08/29/21 08/29/21 Range/Units 07:13 07:13 WBC 14.76 H (4.0-11.0) K/uL RBC 4.44 (4.30-5.90) M/uL Hgb 12.9 (12.0-16.0) g/dL Hct 38.4 (36.0-46.0) % MCV 86.5 (80.0-98.0) fL MCH 29.1 (27.0-32.0) pg MCHC 33.6 (31.0-37.0) g/dL RDW Std Deviation 44.1 (28.0-62.0) fl RDW Coeff of Samson 14 (11.0-15.0) % Plt Count 108 L (150-400) K/uL MPV 9.90 (7.40-12.00) fL Add Manual Diff YES Neutrophils % (Manual) 48 (48.0-80.0) % Band Neutrophils % 8 % Lymphocytes % (Manual) 33 (16.0-40.0) % Monocytes % (Manual) 5 (0.0-15.0) % Eosinophils % (Manual) 6 (0.0-7.0) % Nucleated RBC % 0.0 /100WBC Absolute Seg Neuts 7.1 H (1.4-5.7) Band Neutrophils # 1.2 Lymphocytes # (Manual) 4.9 H (0.6-2.4) Monocytes # (Manual) 0.7 (0.0-0.8) Eosinophils # (Manual) 0.9 H (0.0-0.7) Nucleated RBCs # 0 K/uL Reactive Lymphocytes FEW Sodium 142 (136-145) mmol/L Potassium 3.6 (3.5-5.1) mmol/L Chloride 106 (98-107) mmol/L Carbon Dioxide 26.4 (21.0-32.0) mmol/L BUN 10 (7.0-18.0) mg/dL Creatinine 0.9 (0.6-1.0) mg/dL Est Cr Clr Drug Dosing 51.59 mL/min Estimated GFR (MDRD) > 60.0 ml/min Glucose 126 H (74-106) mg/dL Calcium 7.8 L (8.5-10.1) mg/dL Total Bilirubin 0.3 (0.2-1.0) mg/dL AST 25 (15-37) IU/L ALT 26 (14-63) IU/L Alkaline Phosphatase 101 (46-116) U/L Total Protein 6.2 L (6.4-8.2) g/dL Albumin 2.3 L (3.4-5.0) g/dL Globulin 3.9 (2.6-4.0) g/dL Albumin/Globulin Ratio 0.6 L (0.9-1.6) Result Diagrams: 08/29/21 07:13 08/29/21 07:13 Michael Results Last 24 hrs: Microbiology 08/26/21 09:40 Aerobic Blood Culture - Preliminary Blood - Venous - Lab Draw NO GROWTH AFTER 3 DAYS Anaerobic Blood Culture - Preliminary NO GROWTH AFTER 3 DAYS 08/26/21 09:16 Aerobic Blood Culture - Preliminary Blood - Venous NO GROWTH AFTER 3 DAYS Anaerobic Blood Culture - Preliminary NO GROWTH AFTER 3 DAYS Sepsis Event Note - Evaluation Sepsis Screening Result: No Definite Risk - Focused Exam Vital Signs: Vital Signs Temp Pulse Resp BP Pulse Ox 08/29/21 12:21 98.2 F 88 20 165/87 H 92 L 08/29/21 09:20 97.1 F 80 20 131/71 93 L 08/29/21 03:23 97.3 F 79 17 149/70 H 93 L - Problem List & Annotations (1) Urinary tract infection SNOMED Code(s): 24744505 Code(s): N39.0 - URINARY TRACT INFECTION, SITE NOT SPECIFIED Status: Acute Current Visit: No Qualifiers: Urinary tract infection type: acute cystitis Hematuria presence: with hematuria Qualified Code(s): N30.01 - Acute cystitis with hematuria (2) Sepsis SNOMED Code(s): 93531538 Code(s): A41.9 - SEPSIS, UNSPECIFIED ORGANISM Status: Acute Current Visit: Yes (3) Hypotension SNOMED Code(s): 27900098 Code(s): I95.9 - HYPOTENSION, UNSPECIFIED Status: Acute Current Visit: Yes (4) Pneumonia SNOMED Code(s): 842921727 Code(s): J18.9 - PNEUMONIA, UNSPECIFIED ORGANISM Status: Acute Priority: High Current Visit: Yes Qualifiers: Pneumonia type: due to unspecified organism Laterality: unspecified laterality Lung location: unspecified part of lung Qualified Code(s): J18.9 - Pneumonia, unspecified organism (5) Depression SNOMED Code(s): 01963873 Code(s): F32.A - DEPRESSION, UNSPECIFIED Status: Acute Current Visit: Yes (6) Diarrhea SNOMED Code(s): 18969294 Code(s): R19.7 - DIARRHEA, UNSPECIFIED Status: Acute Current Visit: No - Problem List Review Problem List Initiated/Reviewed/Updated: Yes - My Orders Last 24 Hours: My Active Orders 08/28/21 18:22 Central Venous Line Discontinue [OM.PC] Routine 08/30/21 05:11 BASIC METABOLIC PANEL,BMP [CHEM] AM CBC WITH AUTO DIFF [HEME] AM 08/31/21 05:11 BASIC METABOLIC PANEL,BMP [CHEM] AM CBC WITH AUTO DIFF [HEME] AM - Plan Plan:: 1. Sepsis secondary to pneumonia (improving) -Continue the patient on Unasyn 3 g per IV route every 12 hours -Continue with doxycycline 100 mg per IV route every 12 hours -Robitussin cough syrup is on board for cough -Tessalon Perles are also on board for congestion -We will continue to monitor the patient through daily CBC/CMP 2. Ongoing urinary tract infection -Upon discharge the patient will be advised to follow-up with a urologist on an outpatient basis 3. Past medical history of depression -We will continue the patient on her home dosage of Desvenlafaxine 4. Insomnia -The patient has melatonin 6 mg per oral route on board at bedtime
[2021-08-29] MEDS: guaiFENesin 100 MG/5 ML Soln 5 ML UD Cup PO PRN ×2 (15:25→21:12)
[2021-08-29] MEDS: Enoxaparin 40 MG/0.4 ML Syringe SUBCUT SCH (16:53)
[2021-08-29] MEDS: Loperamide 2 MG Cap PO PRN (20:20)
[2021-08-29] MEDS: Melatonin 3 MG Tab PO PRN (21:12)
[2021-08-30] MEDS: Doxycycline 100 MG in Sodium Chloride 0.9% 100 ML IV SCH ×2 (01:34→14:30)
[2021-08-30] MEDS: Benzonatate 100 MG Cap PO PRN ×3 (06:22→21:05)
[2021-08-30] MEDS: Ampicillin/Sulbactam Na 3 GM in Sodium Chloride 0.9% 100 ML IV SCH ×2 (06:26→19:46)
[2021-08-30 07:36] LABS: BLOOD UREA NITROGEN,BUN 9 mg/dL (7.0-18.0); CARBON DIOXIDE,CO2 32.1 mmol/L (21.0-32.0); CHLORIDE,CL 101 mmol/L (98-107); GLUCOSE RANDOM 110 mg/dL (74-106); POTASSIUM,K 3.5 mmol/L (3.5-5.1); SODIUM,NA 139 mmol/L (136-145)
[2021-08-30] MEDS: Gabapentin 300 MG Cap PO SCH ×2 (08:32→21:05)
[2021-08-30] MEDS: Pantoprazole 40 MG in Sodium Chloride 0.9% 10 ML IV SCH (08:33)
[2021-08-30] MEDS: DESVENLAFAXINE 50 MG PO SCH (08:57)
[2021-08-30] MEDS: guaiFENesin 100 MG/5 ML Soln 5 ML UD Cup PO PRN ×2 (09:07→17:26)
[2021-08-30] MEDS: Acetaminophen 325 MG Tab PO PRN (09:08)
[2021-08-30] MEDS ORDERED: Loperamide 2 MG Cap PO ONE (09:17)
--- NOTE | 2021-08-30 10:04 | PCM.PN ---
- General Info Date of Service: 08/30/21 - Review of Systems Systems Review Comment:: feeling better, cough improving - Patient Data Vitals - Most Recent: Last Vital Signs Temp 36.2 C 08/30/21 08:41 Pulse 89 08/30/21 08:41 Resp 18 08/30/21 08:41 BP 113/57 L 08/30/21 08:41 Pulse Ox 95 08/30/21 08:41 Weight - Most Recent: 83.5 kg I&O - Last 24 Hours: Intake & Output 08/29/21 08/30/21 08/30/21 22:59 06:59 14:59 Intake Total 900 950 Output Total 900 Balance 0 950 Lab Results Last 24 Hours: Laboratory Results - last 24 hr 08/30/21 08/30/21 Range/Units 06:59 06:59 WBC 16.43 H (4.0-11.0) K/uL RBC 4.80 (4.30-5.90) M/uL Hgb 14.0 (12.0-16.0) g/dL Hct 42.1 (36.0-46.0) % MCV 87.7 (80.0-98.0) fL MCH 29.2 (27.0-32.0) pg MCHC 33.3 (31.0-37.0) g/dL RDW Std Deviation 45.2 (28.0-62.0) fl RDW Coeff of Samson 14 (11.0-15.0) % Plt Count 120 L (150-400) K/uL MPV 9.70 (7.40-12.00) fL Add Manual Diff YES Neutrophils % (Manual) 44 L (48.0-80.0) % Band Neutrophils % 7 % Lymphocytes % (Manual) 24 (16.0-40.0) % Monocytes % (Manual) 9 (0.0-15.0) % Eosinophils % (Manual) 7 (0.0-7.0) % Metamyelocytes % 7 % Myelocytes % 2 % Nucleated RBC % 0.3 /100WBC Absolute Seg Neuts 7.2 H (1.4-5.7) Band Neutrophils # 1.2 Lymphocytes # (Manual) 3.9 H (0.6-2.4) Monocytes # (Manual) 1.5 H (0.0-0.8) Eosinophils # (Manual) 1.2 H (0.0-0.7) Absolute Metamyelocyte 1.2 Absolute Myelocytes 0.3 Nucleated RBCs # 0 K/uL Sodium 139 (136-145) mmol/L Potassium 3.5 (3.5-5.1) mmol/L Chloride 101 (98-107) mmol/L Carbon Dioxide 32.1 H (21.0-32.0) mmol/L BUN 9 (7.0-18.0) mg/dL Creatinine 0.9 (0.6-1.0) mg/dL Est Cr Clr Drug Dosing 51.59 mL/min Estimated GFR (MDRD) > 60.0 ml/min Glucose 110 H (74-106) mg/dL Calcium 8.3 L (8.5-10.1) mg/dL Michael Results Last 24 Hours: Microbiology 08/26/21 09:40 Aerobic Blood Culture - Preliminary Blood - Venous - Lab Draw NO GROWTH AFTER 4 DAYS Anaerobic Blood Culture - Preliminary NO GROWTH AFTER 4 DAYS 08/26/21 09:16 Aerobic Blood Culture - Preliminary Blood - Venous NO GROWTH AFTER 4 DAYS Anaerobic Blood Culture - Preliminary NO GROWTH AFTER 4 DAYS 08/26/21 11:20 Urine Culture - Final Urine Alicja Albicans Med Orders - Current: Current Medications Acetaminophen (Acetaminophen 325 Mg Tab) 650 mg PO Q6H PRN PRN Reason: Pain Last Admin: 08/30/21 09:08 Dose: 650 mg Documented by: Albuterol/Ipratropium (Albuterol/Ipratropium 3.0-0.5 Mg/3 Ml Neb Soln) 3 ml NEB Q6HRRT PRN PRN Reason: Shortness of Breath Last Admin: 08/26/21 23:30 Dose: 3 ml Documented by: Benzonatate (Benzonatate 100 Mg Cap) 200 mg PO Q6H PRN PRN Reason: cough Last Admin: 08/30/21 06:22 Dose: 200 mg Documented by: Enoxaparin Sodium (Enoxaparin 40 Mg/0.4 Ml Syringe) 40 mg SUBCUT Q24H [facility] Last Admin: 08/29/21 16:53 Dose: 40 mg Documented by: Gabapentin (Gabapentin 300 Mg Cap) 300 mg PO BID [facility] Last Admin: 08/30/21 08:32 Dose: 300 mg Documented by: Guaifenesin (Guaifenesin 100 Mg/5 Ml Soln 5 Ml Ud Cup) 200 mg PO Q4H PRN PRN Reason: Cough Last Admin: 08/30/21 09:07 Dose: 200 mg Documented by: Norepinephrine Bitartrate (Norepinephr-0.9% Nacl 4 Mg/250) 4 mg in 250 mls @ 7.5 mls/hr IV TITRATE [facility]; Protocol Last Titration: 08/27/21 09:00 Dose: 0 mcg/min, 0 mls/hr Documented by: Pantoprazole Sodium 40 mg/ (Sodium Chloride) 10 mls @ 300 mls/hr IV DAILY [facility] Last Admin: 08/30/21 08:33 Dose: 300 mls/hr Documented by: Ampicillin Sodium/Sulbactam (Sodium 3 gm/ Sodium Chloride) 100 mls @ 200 mls/hr IV Q12H [facility] Last Admin: 08/30/21 06:26 Dose: 200 mls/hr Documented by: Doxycycline Hyclate 100 mg/ (Sodium Chloride) 100 mls @ 100 mls/hr IV Q12H [facility] Last Admin: 08/30/21 01:34 Dose: 100 mls/hr Documented by: Loperamide HCl (Loperamide 2 Mg Cap) 2 mg PO DAILY PRN PRN Reason: Diarrhea Last Admin: 08/29/21 20:20 Dose: 2 mg Documented by: Melatonin (Melatonin 3 Mg Tab) 6 mg PO BEDTIME PRN PRN Reason: Insomnia Last Admin: 08/29/21 21:12 Dose: 6 mg Documented by: Desvenlafacine Er (50mg Tab) 1 each PO DAILY [facility] Last Admin: 08/30/21 08:57 Dose: Not Given Documented by: Sodium Chloride (Sodium Chloride 0.9% 10 Ml Syringe) 10 ml FLUSH ASDIRECTED PRN PRN Reason: Keep Vein Open Last Admin: 08/26/21 09:26 Dose: 10 ml Documented by: Sodium Chloride (Sodium Chloride 0.9% 2.5 Ml Syringe) 2.5 ml FLUSH ASDIRECTED PRN PRN Reason: Keep Vein Open Last Admin: 08/26/21 09:27 Dose: 2.5 ml Documented by: Discontinued Medications Acetaminophen (Acetaminophen 500 Mg Tab) 1,000 mg PO ONETIME ONE Stop: 08/26/21 13:19 Last Admin: 08/26/21 13:24 Dose: 1,000 mg Documented by: Guaifenesin (Guaifenesin 100 Mg/5 Ml Soln 5 Ml Ud Cup) 200 mg PO Q4H [facility] Last Admin: 08/27/21 12:00 Dose: Not Given Documented by: Lactated Ringer's (Ringers, Lactated) 1,000 mls @ 999 mls/hr IV .BOLUS ONE Stop: 08/26/21 10:19 Last Admin: 08/26/21 09:26 Dose: 999 mls/hr Documented by: Piperacillin Sod/Tazobactam (Sod 4.5 gm/ Sodium Chloride) 100 mls @ 100 mls/hr IV ONETIME ONE Stop: 08/26/21 10:18 Last Admin: 08/26/21 09:29 Dose: 100 mls/hr Documented by: Lactated Ringer's (Ringers, Lactated) 1,000 mls @ 999 mls/hr IV .BOLUS ONE Stop: 08/26/21 11:27 Last Admin: 08/26/21 10:38 Dose: 999 mls/hr Documented by: Lactated Ringer's (Ringers, Lactated) 500 mls @ 999 mls/hr IV .BOLUS ONE Stop: 08/26/21 10:59 Last Admin: 08/26/21 10:38 Dose: 999 mls/hr Documented by: Lactated Ringer's (Ringers, Lactated) 500 mls @ 999 mls/hr IV .BOLUS ONE Stop: 08/26/21 13:56 Last Admin: 08/26/21 14:00 Dose: 999 mls/hr Documented by: Doxycycline Hyclate 100 mg/ (Sodium Chloride) 100 mls @ 100 mls/hr IV Q12H [facility] Last Admin: 08/26/21 15:45 Dose: Not Given Documented by: Vancomycin HCl 1.25 gm/ Premix 250 mls @ 166.667 mls/hr IV ONETIME ONE Stop: 08/26/21 15:14 Vancomycin HCl 1.25 gm/ Premix 250 mls @ 166.667 mls/hr IV Q24H [facility] Last Admin: 08/26/21 14:30 Dose: 166.667 mls/hr Documented by: Doxycycline Hyclate 100 mg/ (Sodium Chloride) 100 mls @ 100 mls/hr IV Q12H [facility] Last Admin: 08/26/21 14:29 Dose: 100 mls/hr Documented by: Piperacillin Sod/Tazobactam (Sod 3.375 gm/ Sodium Chloride) 50 mls @ 100 mls/hr IV Q6H [facility] Last Admin: 08/26/21 17:59 Dose: 100 mls/hr Documented by: Piperacillin Sod/Tazobactam (Sod 4.5 gm/ Sodium Chloride) 100 mls @ 100 mls/hr IV Q8H [facility] Vancomycin HCl 1.25 gm/ Premix 250 mls @ 166.667 mls/hr IV Q24H [facility] Ampicillin Sodium/Sulbactam (Sodium 3 gm/ Sodium Chloride) 100 mls @ 200 mls/hr IV Q6H [facility] Doxycycline Hyclate 100 mg/ (Sodium Chloride) 100 mls @ 100 mls/hr IV Q12H [facility] Doxycycline Hyclate 100 mg/ (Sodium Chloride) 100 mls @ 100 mls/hr IV Q12H [facility] Last Admin: 08/27/21 03:04 Dose: 100 mls/hr Documented by: Loperamide HCl (Loperamide 2 Mg Cap) 4 mg PO ONETIME ONE Stop: 08/30/21 09:18 Potassium Chloride (Potassium Chloride 20 Meq Tab.Er) 40 meq PO ONETIME ONE Stop: 08/28/21 07:32 Last Admin: 08/28/21 13:07 Dose: Not Given Documented by: Potassium Chloride (Potassium Chloride 20 Meq Tab.Er) 40 meq PO ONETIME ONE Stop: 08/28/21 11:01 Last Admin: 08/28/21 11:10 Dose: 40 meq Documented by: Vancomycin HCl (Vancomycin 125 Mg Cap) 250 mg PO QID [facility] Last Admin: 08/26/21 18:49 Dose: 250 mg Documented by: Vancomycin HCl (Pharmacy To Dose - Vancomycin) 1 dose .XX ONETIME ONE Stop: 08/26/21 13:28 Last Admin: 08/26/21 14:10 Dose: Not Given Documented by: Vancomycin HCl (Pharmacy To Dose - Vancomycin) 1 dose .XX ASDIRECTED [facility] - Exam General: Alert, Oriented Neck: Supple Lungs: Clear to Auscultation, Normal Respiratory Effort Cardiovascular: Regular Rate, Regular Rhythm GI/Abdominal Exam: Soft, Non-Tender Extremities: Non-Tender, No Pedal Edema Skin: Warm, Dry, Intact Neurological: No New Focal Deficit - Patient Data Lab Results Last 24 hrs: Laboratory Results - last 24 hr 08/30/21 08/30/21 Range/Units 06:59 06:59 WBC 16.43 H (4.0-11.0) K/uL RBC 4.80 (4.30-5.90) M/uL Hgb 14.0 (12.0-16.0) g/dL Hct 42.1 (36.0-46.0) % MCV 87.7 (80.0-98.0) fL MCH 29.2 (27.0-32.0) pg MCHC 33.3 (31.0-37.0) g/dL RDW Std Deviation 45.2 (28.0-62.0) fl RDW Coeff of Samson 14 (11.0-15.0) % Plt Count 120 L (150-400) K/uL MPV 9.70 (7.40-12.00) fL Add Manual Diff YES Neutrophils % (Manual) 44 L (48.0-80.0) % Band Neutrophils % 7 % Lymphocytes % (Manual) 24 (16.0-40.0) % Monocytes % (Manual) 9 (0.0-15.0) % Eosinophils % (Manual) 7 (0.0-7.0) % Metamyelocytes % 7 % Myelocytes % 2 % Nucleated RBC % 0.3 /100WBC Absolute Seg Neuts 7.2 H (1.4-5.7) Band Neutrophils # 1.2 Lymphocytes # (Manual) 3.9 H (0.6-2.4) Monocytes # (Manual) 1.5 H (0.0-0.8) Eosinophils # (Manual) 1.2 H (0.0-0.7) Absolute Metamyelocyte 1.2 Absolute Myelocytes 0.3 Nucleated RBCs # 0 K/uL Sodium 139 (136-145) mmol/L Potassium 3.5 (3.5-5.1) mmol/L Chloride 101 (98-107) mmol/L Carbon Dioxide 32.1 H (21.0-32.0) mmol/L BUN 9 (7.0-18.0) mg/dL Creatinine 0.9 (0.6-1.0) mg/dL Est Cr Clr Drug Dosing 51.59 mL/min Estimated GFR (MDRD) > 60.0 ml/min Glucose 110 H (74-106) mg/dL Calcium 8.3 L (8.5-10.1) mg/dL Result Diagrams: 08/30/21 06:59 08/30/21 06:59 Michael Results Last 24 hrs: Microbiology 08/26/21 09:40 Aerobic Blood Culture - Preliminary Blood - Venous - Lab Draw NO GROWTH AFTER 4 DAYS Anaerobic Blood Culture - Preliminary NO GROWTH AFTER 4 DAYS 08/26/21 09:16 Aerobic Blood Culture - Preliminary Blood - Venous NO GROWTH AFTER 4 DAYS Anaerobic Blood Culture - Preliminary NO GROWTH AFTER 4 DAYS 08/26/21 11:20 Urine Culture - Final Urine Alicja Albicans Sepsis Event Note - Evaluation Sepsis Screening Result: No Definite Risk - Focused Exam Vital Signs: Vital Signs Temp Pulse Resp BP Pulse Ox 08/30/21 08:41 36.2 C 89 18 113/57 L 95 08/30/21 04:00 36.1 C 79 18 124/63 91 L 08/30/21 00:00 36.2 C 81 18 144/82 H 93 L - Problem List & Annotations (1) Pneumonia SNOMED Code(s): 182612607 Code(s): J18.9 - PNEUMONIA, UNSPECIFIED ORGANISM Status: Acute Priority: High Current Visit: Yes Qualifiers: Pneumonia type: due to unspecified organism Laterality: unspecified laterality Lung location: unspecified part of lung Qualified Code(s): J18.9 - Pneumonia, unspecified organism - Problem List Review Problem List Initiated/Reviewed/Updated: Yes - Plan Plan:: 71 yo female admitted for pneumonia with septic shock that has now been weened off pressors Pneumonia (improving) -Continue unasyn and doxycylcine \ Possible Urinary tract infection -Upon discharge the patient will be advised to follow-up with a urologist on an outpatient basis likely home tomorrow
[2021-08-30] MEDS: Enoxaparin 40 MG/0.4 ML Syringe SUBCUT SCH (16:49)
[2021-08-30] MEDS: Melatonin 3 MG Tab PO PRN (21:05)
[2021-08-30] MEDS: Loperamide 2 MG Cap PO PRN (21:05)
[2021-08-31] MEDS: guaiFENesin 100 MG/5 ML Soln 5 ML UD Cup PO PRN ×2 (00:22→06:19)
[2021-08-31] MEDS: Doxycycline 100 MG in Sodium Chloride 0.9% 100 ML IV SCH ×2 (01:55→13:45)
[2021-08-31] MEDS: Ampicillin/Sulbactam Na 3 GM in Sodium Chloride 0.9% 100 ML IV SCH ×2 (06:20→19:33)
[2021-08-31 07:24] LABS: BLOOD UREA NITROGEN,BUN 14 mg/dL (7.0-18.0); CARBON DIOXIDE,CO2 25.4 mmol/L (21.0-32.0); CHLORIDE,CL 104 mmol/L (98-107); GLUCOSE RANDOM 88 mg/dL (74-106); POTASSIUM,K 3.9 mmol/L (3.5-5.1); SODIUM,NA 141 mmol/L (136-145)
[2021-08-31] MEDS: Pantoprazole 40 MG in Sodium Chloride 0.9% 10 ML IV SCH (08:00)
[2021-08-31] MEDS: Gabapentin 300 MG Cap PO SCH ×2 (08:00→20:52)
--- NOTE | 2021-08-31 11:00 | PCM.PN ---
- General Info Date of Service: 08/31/21 Subjective Update: The patient is a 71-year-old female, on day 6 of service, with a significant past medical history of hypertension, irritable bowel syndrome, and depression, who was admitted to the hospital due to sepsis secondary to pneumonia as well as an ongoing urinary tract infection. Upon interview with the patient today, the patient admits that she has no shortness of breath, but continues to have a slight cough productive of clear sputum. Overall she says she feels much better than when she was first admitted to the hospital and she addressed concerns of when she could go home. It will be explained to her that her white blood cell count is still markedly elevated and that she will continue to be treated and monitored until these levels fall. She will be able to be discharged home safely from a medical point of view when these levels are in the normal range. She has no other health concerns at this time. - Review of Systems General: Denies: Fever, Weakness, Fatigue HEENT: Denies: Headaches, Sore Throat Pulmonary: Reports: Cough. Denies: Shortness of Breath Cardiovascular: Denies: Chest Pain, Palpitations Gastrointestinal: Denies: Abdominal Pain Genitourinary: Denies: Dysuria - Patient Data Vitals - Most Recent: Last Vital Signs Temp 96.6 F L 08/31/21 07:55 Pulse 78 08/31/21 07:55 Resp 18 08/31/21 07:55 BP 125/67 08/31/21 07:55 Pulse Ox 91 L 08/31/21 07:55 Weight - Most Recent: 184 lb 1.376 oz I&O - Last 24 Hours: Intake & Output 08/30/21 08/31/21 08/31/21 22:59 06:59 14:59 Intake Total 900 750 Output Total 800 450 Balance 100 300 Lab Results Last 24 Hours: Laboratory Results - last 24 hr 08/31/21 08/31/21 Range/Units 05:36 05:36 WBC 19.79 H (4.0-11.0) K/uL RBC 4.81 (4.30-5.90) M/uL Hgb 14.1 (12.0-16.0) g/dL Hct 42.6 (36.0-46.0) % MCV 88.6 (80.0-98.0) fL MCH 29.3 (27.0-32.0) pg MCHC 33.1 (31.0-37.0) g/dL RDW Std Deviation 45.4 (28.0-62.0) fl RDW Coeff of Samson 14 (11.0-15.0) % Plt Count 124 L (150-400) K/uL MPV 10.40 (7.40-12.00) fL Add Manual Diff YES Neutrophils % (Manual) 61 (48.0-80.0) % Band Neutrophils % 1 % Lymphocytes % (Manual) 20 (16.0-40.0) % Monocytes % (Manual) 7 (0.0-15.0) % Eosinophils % (Manual) 5 (0.0-7.0) % Basophils % (Manual) 1 (0.0-1.5) % Metamyelocytes % 2 % Myelocytes % 3 % Nucleated RBC % 0.2 /100WBC Absolute Seg Neuts 12.1 H (1.4-5.7) Band Neutrophils # 0.2 Lymphocytes # (Manual) 4.0 H (0.6-2.4) Monocytes # (Manual) 1.4 H (0.0-0.8) Eosinophils # (Manual) 1.0 H (0.0-0.7) Basophils # (Manual) 0.2 H (0.0-0.1) Absolute Metamyelocyte 0.4 Absolute Myelocytes 0.6 Nucleated RBCs # 0 K/uL Sodium 141 (136-145) mmol/L Potassium 3.9 (3.5-5.1) mmol/L Chloride 104 (98-107) mmol/L Carbon Dioxide 25.4 (21.0-32.0) mmol/L BUN 14 (7.0-18.0) mg/dL Creatinine 0.8 (0.6-1.0) mg/dL Est Cr Clr Drug Dosing 58.04 mL/min Estimated GFR (MDRD) > 60.0 ml/min Glucose 88 (74-106) mg/dL Calcium 8.0 L (8.5-10.1) mg/dL Michael Results Last 24 Hours: Microbiology 08/26/21 09:40 Aerobic Blood Culture - Final Blood - Venous - Lab Draw NO GROWTH AFTER 5 DAYS Anaerobic Blood Culture - Final NO GROWTH AFTER 5 DAYS 08/26/21 09:16 Aerobic Blood Culture - Final Blood - Venous NO GROWTH AFTER 5 DAYS Anaerobic Blood Culture - Final NO GROWTH AFTER 5 DAYS 08/26/21 11:20 Urine Culture - Final Urine Alicja Albicans Med Orders - Current: Current Medications Acetaminophen (Acetaminophen 325 Mg Tab) 650 mg PO Q6H PRN PRN Reason: Pain Last Admin: 08/30/21 09:08 Dose: 650 mg Documented by: Albuterol/Ipratropium (Albuterol/Ipratropium 3.0-0.5 Mg/3 Ml Neb Soln) 3 ml NEB Q6HRRT PRN PRN Reason: Shortness of Breath Last Admin: 08/26/21 23:30 Dose: 3 ml Documented by: Benzonatate (Benzonatate 100 Mg Cap) 200 mg PO Q6H PRN PRN Reason: cough Last Admin: 08/30/21 21:05 Dose: 200 mg Documented by: Enoxaparin Sodium (Enoxaparin 40 Mg/0.4 Ml Syringe) 40 mg SUBCUT Q24H [facility] Last Admin: 08/30/21 16:49 Dose: 40 mg Documented by: Gabapentin (Gabapentin 300 Mg Cap) 300 mg PO BID [facility] Last Admin: 08/31/21 08:00 Dose: 300 mg Documented by: Guaifenesin (Guaifenesin 100 Mg/5 Ml Soln 5 Ml Ud Cup) 200 mg PO Q4H PRN PRN Reason: Cough Last Admin: 08/31/21 06:19 Dose: 200 mg Documented by: Norepinephrine Bitartrate (Norepinephr-0.9% Nacl 4 Mg/250) 4 mg in 250 mls @ 7.5 mls/hr IV TITRATE [facility]; Protocol Last Titration: 08/27/21 09:00 Dose: 0 mcg/min, 0 mls/hr Documented by: Pantoprazole Sodium 40 mg/ (Sodium Chloride) 10 mls @ 300 mls/hr IV DAILY [facility] Last Admin: 08/31/21 08:00 Dose: 300 mls/hr Documented by: Ampicillin Sodium/Sulbactam (Sodium 3 gm/ Sodium Chloride) 100 mls @ 200 mls/hr IV Q12H [facility] Last Admin: 08/31/21 06:20 Dose: 200 mls/hr Documented by: Doxycycline Hyclate 100 mg/ (Sodium Chloride) 100 mls @ 100 mls/hr IV Q12H [facility] Last Admin: 08/31/21 01:55 Dose: 100 mls/hr Documented by: Loperamide HCl (Loperamide 2 Mg Cap) 2 mg PO DAILY PRN PRN Reason: Diarrhea Last Admin: 08/30/21 21:05 Dose: 2 mg Documented by: Melatonin (Melatonin 3 Mg Tab) 6 mg PO BEDTIME PRN PRN Reason: Insomnia Last Admin: 08/30/21 21:05 Dose: 6 mg Documented by: Desvenlafacine Er (50mg Tab) 1 each PO DAILY [facility] Last Admin: 08/30/21 08:57 Dose: Not Given Documented by: Sodium Chloride (Sodium Chloride 0.9% 10 Ml Syringe) 10 ml FLUSH ASDIRECTED PRN PRN Reason: Keep Vein Open Last Admin: 08/26/21 09:26 Dose: 10 ml Documented by: Sodium Chloride (Sodium Chloride 0.9% 2.5 Ml Syringe) 2.5 ml FLUSH ASDIRECTED PRN PRN Reason: Keep Vein Open Last Admin: 08/26/21 09:27 Dose: 2.5 ml Documented by: Discontinued Medications Acetaminophen (Acetaminophen 500 Mg Tab) 1,000 mg PO ONETIME ONE Stop: 08/26/21 13:19 Last Admin: 08/26/21 13:24 Dose: 1,000 mg Documented by: Guaifenesin (Guaifenesin 100 Mg/5 Ml Soln 5 Ml Ud Cup) 200 mg PO Q4H [facility] Last Admin: 08/27/21 12:00 Dose: Not Given Documented by: Lactated Ringer's (Ringers, Lactated) 1,000 mls @ 999 mls/hr IV .BOLUS ONE Stop: 08/26/21 10:19 Last Admin: 08/26/21 09:26 Dose: 999 mls/hr Documented by: Piperacillin Sod/Tazobactam (Sod 4.5 gm/ Sodium Chloride) 100 mls @ 100 mls/hr IV ONETIME ONE Stop: 08/26/21 10:18 Last Admin: 08/26/21 09:29 Dose: 100 mls/hr Documented by: Lactated Ringer's (Ringers, Lactated) 1,000 mls @ 999 mls/hr IV .BOLUS ONE Stop: 08/26/21 11:27 Last Admin: 08/26/21 10:38 Dose: 999 mls/hr Documented by: Lactated Ringer's (Ringers, Lactated) 500 mls @ 999 mls/hr IV .BOLUS ONE Stop: 08/26/21 10:59 Last Admin: 08/26/21 10:38 Dose: 999 mls/hr Documented by: Lactated Ringer's (Ringers, Lactated) 500 mls @ 999 mls/hr IV .BOLUS ONE Stop: 08/26/21 13:56 Last Admin: 08/26/21 14:00 Dose: 999 mls/hr Documented by: Doxycycline Hyclate 100 mg/ (Sodium Chloride) 100 mls @ 100 mls/hr IV Q12H [facility] Last Admin: 08/26/21 15:45 Dose: Not Given Documented by: Vancomycin HCl 1.25 gm/ Premix 250 mls @ 166.667 mls/hr IV ONETIME ONE Stop: 08/26/21 15:14 Vancomycin HCl 1.25 gm/ Premix 250 mls @ 166.667 mls/hr IV Q24H [facility] Last Admin: 08/26/21 14:30 Dose: 166.667 mls/hr Documented by: Doxycycline Hyclate 100 mg/ (Sodium Chloride) 100 mls @ 100 mls/hr IV Q12H [facility] Last Admin: 08/26/21 14:29 Dose: 100 mls/hr Documented by: Piperacillin Sod/Tazobactam (Sod 3.375 gm/ Sodium Chloride) 50 mls @ 100 mls/hr IV Q6H [facility] Last Admin: 08/26/21 17:59 Dose: 100 mls/hr Documented by: Piperacillin Sod/Tazobactam (Sod 4.5 gm/ Sodium Chloride) 100 mls @ 100 mls/hr IV Q8H [facility] Vancomycin HCl 1.25 gm/ Premix 250 mls @ 166.667 mls/hr IV Q24H [facility] Ampicillin Sodium/Sulbactam (Sodium 3 gm/ Sodium Chloride) 100 mls @ 200 mls/hr IV Q6H [facility] Doxycycline Hyclate 100 mg/ (Sodium Chloride) 100 mls @ 100 mls/hr IV Q12H [facility] Doxycycline Hyclate 100 mg/ (Sodium Chloride) 100 mls @ 100 mls/hr IV Q12H [facility] Last Admin: 08/27/21 03:04 Dose: 100 mls/hr Documented by: Loperamide HCl (Loperamide 2 Mg Cap) 4 mg PO ONETIME ONE Stop: 08/30/21 09:18 Last Admin: 08/30/21 10:34 Dose: 4 mg Documented by: Potassium Chloride (Potassium Chloride 20 Meq Tab.Er) 40 meq PO ONETIME ONE Stop: 08/28/21 07:32 Last Admin: 08/28/21 13:07 Dose: Not Given Documented by: Potassium Chloride (Potassium Chloride 20 Meq Tab.Er) 40 meq PO ONETIME ONE Stop: 08/28/21 11:01 Last Admin: 08/28/21 11:10 Dose: 40 meq Documented by: Vancomycin HCl (Vancomycin 125 Mg Cap) 250 mg PO QID [facility] Last Admin: 08/26/21 18:49 Dose: 250 mg Documented by: Vancomycin HCl (Pharmacy To Dose - Vancomycin) 1 dose .XX ONETIME ONE Stop: 08/26/21 13:28 Last Admin: 08/26/21 14:10 Dose: Not Given Documented by: Vancomycin HCl (Pharmacy To Dose - Vancomycin) 1 dose .XX ASDIRECTED [facility] - Exam General: Alert, Oriented, Cooperative HEENT: Mucous Membr. Moist/[place] Neck: Trachea Midline Lungs: Clear to Auscultation, Normal Respiratory Effort Cardiovascular: Regular Rate, Regular Rhythm GI/Abdominal Exam: Normal Bowel Sounds, Soft, Non-Tender, No Organomegaly - Patient Data Lab Results Last 24 hrs: Laboratory Results - last 24 hr 08/31/21 08/31/21 Range/Units 05:36 05:36 WBC 19.79 H (4.0-11.0) K/uL RBC 4.81 (4.30-5.90) M/uL Hgb 14.1 (12.0-16.0) g/dL Hct 42.6 (36.0-46.0) % MCV 88.6 (80.0-98.0) fL MCH 29.3 (27.0-32.0) pg MCHC 33.1 (31.0-37.0) g/dL RDW Std Deviation 45.4 (28.0-62.0) fl RDW Coeff of Samson 14 (11.0-15.0) % Plt Count 124 L (150-400) K/uL MPV 10.40 (7.40-12.00) fL Add Manual Diff YES Neutrophils % (Manual) 61 (48.0-80.0) % Band Neutrophils % 1 % Lymphocytes % (Manual) 20 (16.0-40.0) % Monocytes % (Manual) 7 (0.0-15.0) % Eosinophils % (Manual) 5 (0.0-7.0) % Basophils % (Manual) 1 (0.0-1.5) % Metamyelocytes % 2 % Myelocytes % 3 % Nucleated RBC % 0.2 /100WBC Absolute Seg Neuts 12.1 H (1.4-5.7) Band Neutrophils # 0.2 Lymphocytes # (Manual) 4.0 H (0.6-2.4) Monocytes # (Manual) 1.4 H (0.0-0.8) Eosinophils # (Manual) 1.0 H (0.0-0.7) Basophils # (Manual) 0.2 H (0.0-0.1) Absolute Metamyelocyte 0.4 Absolute Myelocytes 0.6 Nucleated RBCs # 0 K/uL Sodium 141 (136-145) mmol/L Potassium 3.9 (3.5-5.1) mmol/L Chloride 104 (98-107) mmol/L Carbon Dioxide 25.4 (21.0-32.0) mmol/L BUN 14 (7.0-18.0) mg/dL Creatinine 0.8 (0.6-1.0) mg/dL Est Cr Clr Drug Dosing 58.04 mL/min Estimated GFR (MDRD) > 60.0 ml/min Glucose 88 (74-106) mg/dL Calcium 8.0 L (8.5-10.1) mg/dL Result Diagrams: 08/31/21 05:36 08/31/21 05:36 Michael Results Last 24 hrs: Microbiology 08/26/21 09:40 Aerobic Blood Culture - Final Blood - Venous - Lab Draw NO GROWTH AFTER 5 DAYS Anaerobic Blood Culture - Final NO GROWTH AFTER 5 DAYS 08/26/21 09:16 Aerobic Blood Culture - Final Blood - Venous NO GROWTH AFTER 5 DAYS Anaerobic Blood Culture - Final NO GROWTH AFTER 5 DAYS 08/26/21 11:20 Urine Culture - Final Urine Alicja Albicans Sepsis Event Note - Evaluation Sepsis Screening Result: No Definite Risk - Focused Exam Vital Signs: Vital Signs Temp Pulse Resp BP Pulse Ox 08/31/21 07:55 96.6 F L 78 18 125/67 91 L 08/31/21 02:59 96.5 F L 76 18 133/63 90 L 08/30/21 23:45 97.0 F 88 18 125/63 90 L - Problem List & Annotations (1) Urinary tract infection SNOMED Code(s): 06290446 Code(s): N39.0 - URINARY TRACT INFECTION, SITE NOT SPECIFIED Status: Acute Current Visit: No Qualifiers: Urinary tract infection type: acute cystitis Hematuria presence: with hematuria Qualified Code(s): N30.01 - Acute cystitis with hematuria (2) Sepsis SNOMED Code(s): 94210877 Code(s): A41.9 - SEPSIS, UNSPECIFIED ORGANISM Status: Acute Current Visit: Yes (3) Hypotension SNOMED Code(s): 20245109 Code(s): I95.9 - HYPOTENSION, UNSPECIFIED Status: Acute Current Visit: Yes (4) Pneumonia SNOMED Code(s): 603354746 Code(s): J18.9 - PNEUMONIA, UNSPECIFIED ORGANISM Status: Acute Priority: High Current Visit: Yes Qualifiers: Pneumonia type: due to unspecified organism Laterality: unspecified laterality Lung location: unspecified part of lung Qualified Code(s): J18.9 - Pneumonia, unspecified organism (5) Depression SNOMED Code(s): 64726494 Code(s): F32.A - DEPRESSION, UNSPECIFIED Status: Acute Current Visit: Yes (6) Diarrhea SNOMED Code(s): 72477710 Code(s): R19.7 - DIARRHEA, UNSPECIFIED Status: Acute Current Visit: No - Problem List Review Problem List Initiated/Reviewed/Updated: Yes - Assessment Assessment:: 1. Sepsis secondary to pneumonia -Continue the patient on Unasyn 3 g per IV route every 12 hours and Doxycycline 100 mg per IV route every 12 hours -Robitussin cough syrup is on board for cough -Tessalon Perles are also on board for congestion -We will continue to monitor the patient through daily CBC/CMP 2. Ongoing urinary tract infection -Upon discharge the patient will be advised to follow-up with a urologist on an outpatient basis 3. Past medical history of depression -We will continue the patient on her home dosage of Desvenlafaxine 4. Diarrhea -The patient has Imodium on board
[2021-08-31] MEDS: DESVENLAFAXINE 50 MG PO SCH (12:59)
[2021-08-31] MEDS: Enoxaparin 40 MG/0.4 ML Syringe SUBCUT SCH (16:25)
[2021-08-31] MEDS ORDERED: Calcium Carbonate 500 MG Tab.Chew PO PRN (21:41)
[2021-09-01] MEDS: Doxycycline 100 MG in Sodium Chloride 0.9% 100 ML IV SCH ×2 (02:57→14:04)
[2021-09-01] MEDS: Ampicillin/Sulbactam Na 3 GM in Sodium Chloride 0.9% 100 ML IV SCH ×2 (06:43→19:53)
[2021-09-01 07:41] LABS: BLOOD UREA NITROGEN,BUN 17 mg/dL (7.0-18.0); CARBON DIOXIDE,CO2 27.3 mmol/L (21.0-32.0); CHLORIDE,CL 105 mmol/L (98-107); GLUCOSE RANDOM 115 mg/dL (74-106); POTASSIUM,K 3.6 mmol/L (3.5-5.1); SODIUM,NA 139 mmol/L (136-145)
[2021-09-01] MEDS: Gabapentin 300 MG Cap PO SCH ×2 (09:37→20:03)
[2021-09-01] MEDS: Pantoprazole 40 MG in Sodium Chloride 0.9% 10 ML IV SCH (09:37)
--- NOTE | 2021-09-01 10:09 | PCM.PN ---
- General Info Date of Service: 09/01/21 Subjective Update: The patient is a 71-year-old female, on day 7 of service, with a significant past medical history of hypertension, irritable bowel syndrome, and depression, who was admitted to the hospital due to sepsis secondary to pneumonia as well as an ongoing urinary tract infection. The patient has no complaints upon interview today other than the fact that she would like to walk around in order to build her strength and feels that she is getting weaker; as a result we will order physical therapy to work with her today. She has no other complaints but due to her elevated white blood cell count of 17.24 we will continue to keep her in the hospital until these levels fall. She has no issues with eating and drinking, and is urinating and defecating without any problems. She denies fever, chills, chest pain, palpitation, dizziness. - Review of Systems General: Reports: Weakness. Denies: Fever, Fatigue HEENT: Denies: Headaches, Sore Throat Pulmonary: Denies: Shortness of Breath, Cough Cardiovascular: Denies: Chest Pain, Palpitations Gastrointestinal: Denies: Abdominal Pain Genitourinary: Denies: Dysuria - Patient Data Vitals - Most Recent: Last Vital Signs Temp 97.2 F 09/01/21 07:00 Pulse 73 09/01/21 07:00 Resp 16 09/01/21 07:00 BP 134/61 09/01/21 07:00 Pulse Ox 94 L 09/01/21 07:00 Weight - Most Recent: 184 lb 1.376 oz I&O - Last 24 Hours: Intake & Output 08/31/21 09/01/21 09/01/21 22:59 06:59 14:59 Intake Total 100 700 100 Output Total 0 Balance 100 700 100 Lab Results Last 24 Hours: Laboratory Results - last 24 hr 09/01/21 09/01/21 Range/Units 06:08 06:08 WBC 17.24 H (4.0-11.0) K/uL RBC 4.37 (4.30-5.90) M/uL Hgb 12.7 (12.0-16.0) g/dL Hct 38.7 (36.0-46.0) % MCV 88.6 (80.0-98.0) fL MCH 29.1 (27.0-32.0) pg MCHC 32.8 (31.0-37.0) g/dL RDW Std Deviation 45.7 (28.0-62.0) fl RDW Coeff of Samson 14 (11.0-15.0) % Plt Count 105 L (150-400) K/uL MPV 10.30 (7.40-12.00) fL Add Manual Diff YES Neutrophils % (Manual) 52 (48.0-80.0) % Band Neutrophils % 7 % Lymphocytes % (Manual) 26 (16.0-40.0) % Monocytes % (Manual) 2 (0.0-15.0) % Eosinophils % (Manual) 12 H (0.0-7.0) % Basophils % (Manual) 1 (0.0-1.5) % Nucleated RBC % 0.0 /100WBC Absolute Seg Neuts 9.0 H (1.4-5.7) Band Neutrophils # 1.2 Lymphocytes # (Manual) 4.5 H (0.6-2.4) Monocytes # (Manual) 0.3 (0.0-0.8) Eosinophils # (Manual) 2.1 H (0.0-0.7) Basophils # (Manual) 0.2 H (0.0-0.1) Nucleated RBCs # 0 K/uL Sodium 139 (136-145) mmol/L Potassium 3.6 (3.5-5.1) mmol/L Chloride 105 (98-107) mmol/L Carbon Dioxide 27.3 (21.0-32.0) mmol/L BUN 17 (7.0-18.0) mg/dL Creatinine 0.8 (0.6-1.0) mg/dL Est Cr Clr Drug Dosing 58.04 mL/min Estimated GFR (MDRD) > 60.0 ml/min Glucose 115 H (74-106) mg/dL Calcium 8.6 (8.5-10.1) mg/dL Michael Results Last 24 Hours: Microbiology 08/26/21 09:40 Aerobic Blood Culture - Final Blood - Venous - Lab Draw NO GROWTH AFTER 5 DAYS Anaerobic Blood Culture - Final NO GROWTH AFTER 5 DAYS 08/26/21 09:16 Aerobic Blood Culture - Final Blood - Venous NO GROWTH AFTER 5 DAYS Anaerobic Blood Culture - Final NO GROWTH AFTER 5 DAYS Med Orders - Current: Current Medications Acetaminophen (Acetaminophen 325 Mg Tab) 650 mg PO Q6H PRN PRN Reason: Pain Last Admin: 08/30/21 09:08 Dose: 650 mg Documented by: Albuterol/Ipratropium (Albuterol/Ipratropium 3.0-0.5 Mg/3 Ml Neb Soln) 3 ml NEB Q6HRRT PRN PRN Reason: Shortness of Breath Last Admin: 08/26/21 23:30 Dose: 3 ml Documented by: Benzonatate (Benzonatate 100 Mg Cap) 200 mg PO Q6H PRN PRN Reason: cough Last Admin: 08/30/21 21:05 Dose: 200 mg Documented by: Calcium Carbonate/Glycine (Calcium Carbonate 500 Mg Tab.Chew) 500 mg PO TID PRN PRN Reason: Indigestion Last Admin: 08/31/21 22:21 Dose: 500 mg Documented by: Enoxaparin Sodium (Enoxaparin 40 Mg/0.4 Ml Syringe) 40 mg SUBCUT Q24H [facility] Last Admin: 08/31/21 16:25 Dose: 40 mg Documented by: Gabapentin (Gabapentin 300 Mg Cap) 300 mg PO BID [facility] Last Admin: 09/01/21 09:37 Dose: 300 mg Documented by: Guaifenesin (Guaifenesin 100 Mg/5 Ml Soln 5 Ml Ud Cup) 200 mg PO Q4H PRN PRN Reason: Cough Last Admin: 08/31/21 06:19 Dose: 200 mg Documented by: Norepinephrine Bitartrate (Norepinephr-0.9% Nacl 4 Mg/250) 4 mg in 250 mls @ 7.5 mls/hr IV TITRATE [facility]; Protocol Last Titration: 08/27/21 09:00 Dose: 0 mcg/min, 0 mls/hr Documented by: Pantoprazole Sodium 40 mg/ (Sodium Chloride) 10 mls @ 300 mls/hr IV DAILY [facility] Last Admin: 09/01/21 09:37 Dose: 300 mls/hr Documented by: Ampicillin Sodium/Sulbactam (Sodium 3 gm/ Sodium Chloride) 100 mls @ 200 mls/hr IV Q12H [facility] Last Admin: 09/01/21 06:43 Dose: 200 mls/hr Documented by: Doxycycline Hyclate 100 mg/ (Sodium Chloride) 100 mls @ 100 mls/hr IV Q12H [facility] Last Admin: 09/01/21 02:57 Dose: 100 mls/hr Documented by: Loperamide HCl (Loperamide 2 Mg Cap) 2 mg PO DAILY PRN PRN Reason: Diarrhea Last Admin: 08/30/21 21:05 Dose: 2 mg Documented by: Melatonin (Melatonin 3 Mg Tab) 6 mg PO BEDTIME PRN PRN Reason: Insomnia Last Admin: 08/30/21 21:05 Dose: 6 mg Documented by: Desvenlafacine Er (50mg Tab) 1 each PO DAILY [facility] Last Admin: 08/31/21 12:59 Dose: Not Given Documented by: Sodium Chloride (Sodium Chloride 0.9% 10 Ml Syringe) 10 ml FLUSH ASDIRECTED PRN PRN Reason: Keep Vein Open Last Admin: 08/26/21 09:26 Dose: 10 ml Documented by: Sodium Chloride (Sodium Chloride 0.9% 2.5 Ml Syringe) 2.5 ml FLUSH ASDIRECTED PRN PRN Reason: Keep Vein Open Last Admin: 08/26/21 09:27 Dose: 2.5 ml Documented by: Discontinued Medications Acetaminophen (Acetaminophen 500 Mg Tab) 1,000 mg PO ONETIME ONE Stop: 08/26/21 13:19 Last Admin: 08/26/21 13:24 Dose: 1,000 mg Documented by: Guaifenesin (Guaifenesin 100 Mg/5 Ml Soln 5 Ml Ud Cup) 200 mg PO Q4H [facility] Last Admin: 08/27/21 12:00 Dose: Not Given Documented by: Lactated Ringer's (Ringers, Lactated) 1,000 mls @ 999 mls/hr IV .BOLUS ONE Stop: 08/26/21 10:19 Last Admin: 08/26/21 09:26 Dose: 999 mls/hr Documented by: Piperacillin Sod/Tazobactam (Sod 4.5 gm/ Sodium Chloride) 100 mls @ 100 mls/hr IV ONETIME ONE Stop: 08/26/21 10:18 Last Admin: 08/26/21 09:29 Dose: 100 mls/hr Documented by: Lactated Ringer's (Ringers, Lactated) 1,000 mls @ 999 mls/hr IV .BOLUS ONE Stop: 08/26/21 11:27 Last Admin: 08/26/21 10:38 Dose: 999 mls/hr Documented by: Lactated Ringer's (Ringers, Lactated) 500 mls @ 999 mls/hr IV .BOLUS ONE Stop: 08/26/21 10:59 Last Admin: 08/26/21 10:38 Dose: 999 mls/hr Documented by: Lactated Ringer's (Ringers, Lactated) 500 mls @ 999 mls/hr IV .BOLUS ONE Stop: 08/26/21 13:56 Last Admin: 08/26/21 14:00 Dose: 999 mls/hr Documented by: Doxycycline Hyclate 100 mg/ (Sodium Chloride) 100 mls @ 100 mls/hr IV Q12H [facility] Last Admin: 08/26/21 15:45 Dose: Not Given Documented by: Vancomycin HCl 1.25 gm/ Premix 250 mls @ 166.667 mls/hr IV ONETIME ONE Stop: 08/26/21 15:14 Vancomycin HCl 1.25 gm/ Premix 250 mls @ 166.667 mls/hr IV Q24H [facility] Last Admin: 08/26/21 14:30 Dose: 166.667 mls/hr Documented by: Doxycycline Hyclate 100 mg/ (Sodium Chloride) 100 mls @ 100 mls/hr IV Q12H [facility] Last Admin: 08/26/21 14:29 Dose: 100 mls/hr Documented by: Piperacillin Sod/Tazobactam (Sod 3.375 gm/ Sodium Chloride) 50 mls @ 100 mls/hr IV Q6H [facility] Last Admin: 08/26/21 17:59 Dose: 100 mls/hr Documented by: Piperacillin Sod/Tazobactam (Sod 4.5 gm/ Sodium Chloride) 100 mls @ 100 mls/hr IV Q8H [facility] Vancomycin HCl 1.25 gm/ Premix 250 mls @ 166.667 mls/hr IV Q24H [facility] Ampicillin Sodium/Sulbactam (Sodium 3 gm/ Sodium Chloride) 100 mls @ 200 mls/hr IV Q6H [facility] Doxycycline Hyclate 100 mg/ (Sodium Chloride) 100 mls @ 100 mls/hr IV Q12H [facility] Doxycycline Hyclate 100 mg/ (Sodium Chloride) 100 mls @ 100 mls/hr IV Q12H [facility] Last Admin: 08/27/21 03:04 Dose: 100 mls/hr Documented by: Loperamide HCl (Loperamide 2 Mg Cap) 4 mg PO ONETIME ONE Stop: 08/30/21 09:18 Last Admin: 08/30/21 10:34 Dose: 4 mg Documented by: Potassium Chloride (Potassium Chloride 20 Meq Tab.Er) 40 meq PO ONETIME ONE Stop: 08/28/21 07:32 Last Admin: 08/28/21 13:07 Dose: Not Given Documented by: Potassium Chloride (Potassium Chloride 20 Meq Tab.Er) 40 meq PO ONETIME ONE Stop: 08/28/21 11:01 Last Admin: 08/28/21 11:10 Dose: 40 meq Documented by: Vancomycin HCl (Vancomycin 125 Mg Cap) 250 mg PO QID [facility] Last Admin: 08/26/21 18:49 Dose: 250 mg Documented by: Vancomycin HCl (Pharmacy To Dose - Vancomycin) 1 dose .XX ONETIME ONE Stop: 08/26/21 13:28 Last Admin: 08/26/21 14:10 Dose: Not Given Documented by: Vancomycin HCl (Pharmacy To Dose - Vancomycin) 1 dose .XX ASDIRECTED [facility] - Exam General: Alert, Oriented, Cooperative HEENT: Mucous Membr. Moist/[place] Neck: Trachea Midline Lungs: Clear to Auscultation, Normal Respiratory Effort Cardiovascular: Regular Rate, Regular Rhythm GI/Abdominal Exam: Normal Bowel Sounds, Soft Extremities: No Pedal Edema - Patient Data Lab Results Last 24 hrs: Laboratory Results - last 24 hr 09/01/21 09/01/21 Range/Units 06:08 06:08 WBC 17.24 H (4.0-11.0) K/uL RBC 4.37 (4.30-5.90) M/uL Hgb 12.7 (12.0-16.0) g/dL Hct 38.7 (36.0-46.0) % MCV 88.6 (80.0-98.0) fL MCH 29.1 (27.0-32.0) pg MCHC 32.8 (31.0-37.0) g/dL RDW Std Deviation 45.7 (28.0-62.0) fl RDW Coeff of Samson 14 (11.0-15.0) % Plt Count 105 L (150-400) K/uL MPV 10.30 (7.40-12.00) fL Add Manual Diff YES Neutrophils % (Manual) 52 (48.0-80.0) % Band Neutrophils % 7 % Lymphocytes % (Manual) 26 (16.0-40.0) % Monocytes % (Manual) 2 (0.0-15.0) % Eosinophils % (Manual) 12 H (0.0-7.0) % Basophils % (Manual) 1 (0.0-1.5) % Nucleated RBC % 0.0 /100WBC Absolute Seg Neuts 9.0 H (1.4-5.7) Band Neutrophils # 1.2 Lymphocytes # (Manual) 4.5 H (0.6-2.4) Monocytes # (Manual) 0.3 (0.0-0.8) Eosinophils # (Manual) 2.1 H (0.0-0.7) Basophils # (Manual) 0.2 H (0.0-0.1) Nucleated RBCs # 0 K/uL Sodium 139 (136-145) mmol/L Potassium 3.6 (3.5-5.1) mmol/L Chloride 105 (98-107) mmol/L Carbon Dioxide 27.3 (21.0-32.0) mmol/L BUN 17 (7.0-18.0) mg/dL Creatinine 0.8 (0.6-1.0) mg/dL Est Cr Clr Drug Dosing 58.04 mL/min Estimated GFR (MDRD) > 60.0 ml/min Glucose 115 H (74-106) mg/dL Calcium 8.6 (8.5-10.1) mg/dL Result Diagrams: 09/01/21 06:08 09/01/21 06:08 Michael Results Last 24 hrs: Microbiology 08/26/21 09:40 Aerobic Blood Culture - Final Blood - Venous - Lab Draw NO GROWTH AFTER 5 DAYS Anaerobic Blood Culture - Final NO GROWTH AFTER 5 DAYS 08/26/21 09:16 Aerobic Blood Culture - Final Blood - Venous NO GROWTH AFTER 5 DAYS Anaerobic Blood Culture - Final NO GROWTH AFTER 5 DAYS Sepsis Event Note - Evaluation Sepsis Screening Result: No Definite Risk - Focused Exam Vital Signs: Vital Signs Temp Pulse Resp BP BP Pulse Ox 09/01/21 07:00 97.2 F 73 16 134/61 94 L 09/01/21 03:00 97.9 F 85 18 132/60 91 L 08/31/21 23:22 96.9 F 82 16 134/62 91 L - Problem List & Annotations (1) Urinary tract infection SNOMED Code(s): 17420138 Code(s): N39.0 - URINARY TRACT INFECTION, SITE NOT SPECIFIED Status: Acute Current Visit: No Qualifiers: Urinary tract infection type: acute cystitis Hematuria presence: with hematuria Qualified Code(s): N30.01 - Acute cystitis with hematuria (2) Sepsis SNOMED Code(s): 01932103 Code(s): A41.9 - SEPSIS, UNSPECIFIED ORGANISM Status: Acute Current Visit: Yes (3) Hypotension SNOMED Code(s): 27479006 Code(s): I95.9 - HYPOTENSION, UNSPECIFIED Status: Acute Current Visit: Yes (4) Pneumonia SNOMED Code(s): 098740580 Code(s): J18.9 - PNEUMONIA, UNSPECIFIED ORGANISM Status: Acute Priority: High Current Visit: Yes Qualifiers: Pneumonia type: due to unspecified organism Laterality: unspecified laterality Lung location: unspecified part of lung Qualified Code(s): J18.9 - Pneumonia, unspecified organism (5) Depression SNOMED Code(s): 53722894 Code(s): F32.A - DEPRESSION, UNSPECIFIED Status: Acute Current Visit: Yes (6) Diarrhea SNOMED Code(s): 93561982 Code(s): R19.7 - DIARRHEA, UNSPECIFIED Status: Acute Current Visit: No - Problem List Review Problem List Initiated/Reviewed/Updated: Yes - My Orders Last 24 Hours: My Active Orders 09/01/21 10:03 PT Evaluation and Treatment [CONS] Routine 09/02/21 05:11 BASIC METABOLIC PANEL,BMP [CHEM] AM CBC WITH AUTO DIFF [HEME] AM 09/03/21 05:11 BASIC METABOLIC PANEL,BMP [CHEM] AM CBC WITH AUTO DIFF [HEME] AM - Assessment Assessment:: 1. Sepsis secondary to pneumonia -Patient continues to have elevated white blood cell count of 17.24, we will wait for these levels to fall before we can discuss discharge -Continue the patient on Unasyn 3 g per IV route every 12 hours and Doxycycline 100 mg per IV route every 12 hours -Robitussin cough syrup is on board for cough -Tessalon Perles are also on board for congestion -We will continue to monitor the patient through daily CBC/CMP 2. Ongoing urinary tract infection -Upon discharge the patient will be advised to follow-up with a urologist on an outpatient basis 3. Past medical history of depression -We will continue the patient on her home dosage of Desvenlafaxine 4. Diarrhea -The patient has Imodium on board 5. Weakness -Physical therapy will come work with the patient today in order to build her strength
[2021-09-01] MEDS: Enoxaparin 40 MG/0.4 ML Syringe SUBCUT SCH (17:40)
[2021-09-01] MEDS: DESVENLAFAXINE 50 MG PO SCH (19:33)
[2021-09-02] MEDS: Doxycycline 100 MG in Sodium Chloride 0.9% 100 ML IV SCH (01:25)
[2021-09-02] MEDS: Ampicillin/Sulbactam Na 3 GM in Sodium Chloride 0.9% 100 ML IV SCH (07:00)
[2021-09-02 07:47] LABS: BLOOD UREA NITROGEN,BUN 14 mg/dL (7.0-18.0); CARBON DIOXIDE,CO2 26.3 mmol/L (21.0-32.0); CHLORIDE,CL 106 mmol/L (98-107); GLUCOSE RANDOM 77 mg/dL (74-106); POTASSIUM,K 3.8 mmol/L (3.5-5.1); SODIUM,NA 140 mmol/L (136-145)
[2021-09-02 08:32] VITALS: BP 135/79; PULSE 72
[2021-09-02] MEDS: Pantoprazole 40 MG in Sodium Chloride 0.9% 10 ML IV SCH (08:55)
[2021-09-02] MEDS: Gabapentin 300 MG Cap PO SCH (08:55)
[2021-09-02] MEDS: DESVENLAFAXINE 50 MG PO SCH (08:56)
--- NOTE | 2021-09-02 10:22 | PCM.PN ---
- General Info Date of Service: 09/02/21 Subjective Update: The patient is a 71-year-old female, on day 8 of service, with a significant past medical history of hypertension, irritable bowel syndrome, and depression, who was admitted to the hospital due to sepsis secondary to pneumonia as well as an ongoing urinary tract infection. Throughout the patient's hospital course she was treated for her pneumonia with 2 different antibiotics, Unasyn 3 g per IV route every 12 hours, and doxycycline 100 mg per IV route every 12 hours. This antibiotic regimen improved the patient's symptoms to where she no longer exhibited shortness of breath or cough, however she still continues to have an elevated white blood cell count. The white blood cell count will need to be checked on an outpatient basis by the patient's PCP to see if it is decreasing. The patient will be sent home on oral doxycycline 100 mg per oral route twice a day and oral Augmentin 875-125 mg to be taken twice a day as well. Along with this, the patient has been advised to obtain a urology referral from her PCP in order to address her chronic UTIs. The patient has been educated on the different side effects of the medications she will be taking, and to be compliant with them and take them at scheduled times. The patient has also been counseled to return to the hospital if she experiences worsening fever, respiratory difficulty, chest pain, and/or palpitations. The patient is now stable and can be discharged home. - Review of Systems General: Denies: Fever, Weakness, Fatigue HEENT: Denies: Headaches, Sore Throat Pulmonary: Denies: Shortness of Breath, Cough Cardiovascular: Denies: Chest Pain, Palpitations Gastrointestinal: Denies: Abdominal Pain Genitourinary: Denies: Dysuria - Patient Data Vitals - Most Recent: Last Vital Signs Temp 96.1 F L 09/02/21 08:30 Pulse 72 09/02/21 08:30 Resp 20 09/02/21 08:30 BP 135/79 09/02/21 08:30 Pulse Ox 93 L 09/02/21 08:30 Weight - Most Recent: 184 lb 1.376 oz I&O - Last 24 Hours: Intake & Output 09/01/21 09/02/21 09/02/21 22:59 06:59 14:59 Intake Total 940 Balance 940 Lab Results Last 24 Hours: Laboratory Results - last 24 hr 09/02/21 09/02/21 Range/Units 05:52 05:52 WBC 17.68 H (4.0-11.0) K/uL RBC 4.26 L (4.30-5.90) M/uL Hgb 12.5 (12.0-16.0) g/dL Hct 37.5 (36.0-46.0) % MCV 88.0 (80.0-98.0) fL MCH 29.3 (27.0-32.0) pg MCHC 33.3 (31.0-37.0) g/dL RDW Std Deviation 45.3 (28.0-62.0) fl RDW Coeff of Samson 14 (11.0-15.0) % Plt Count 101 L (150-400) K/uL MPV 10.40 (7.40-12.00) fL Add Manual Diff YES Neutrophils % (Manual) 70 (48.0-80.0) % Band Neutrophils % 2 % Lymphocytes % (Manual) 14 L (16.0-40.0) % Monocytes % (Manual) 2 (0.0-15.0) % Eosinophils % (Manual) 11 H (0.0-7.0) % Basophils % (Manual) 1 (0.0-1.5) % Nucleated RBC % 0.0 /100WBC Absolute Seg Neuts 12.4 H (1.4-5.7) Band Neutrophils # 0.4 Lymphocytes # (Manual) 2.5 H (0.6-2.4) Monocytes # (Manual) 0.4 (0.0-0.8) Eosinophils # (Manual) 1.9 H (0.0-0.7) Basophils # (Manual) 0.2 H (0.0-0.1) Nucleated RBCs # 0 K/uL Platelet Estimate DECREASED Sodium 140 (136-145) mmol/L Potassium 3.8 (3.5-5.1) mmol/L Chloride 106 (98-107) mmol/L Carbon Dioxide 26.3 (21.0-32.0) mmol/L BUN 14 (7.0-18.0) mg/dL Creatinine 0.8 (0.6-1.0) mg/dL Est Cr Clr Drug Dosing 58.04 mL/min Estimated GFR (MDRD) > 60.0 ml/min Glucose 77 (74-106) mg/dL Calcium 8.4 L (8.5-10.1) mg/dL Med Orders - Current: Current Medications Acetaminophen (Acetaminophen 325 Mg Tab) 650 mg PO Q6H PRN PRN Reason: Pain Last Admin: 08/30/21 09:08 Dose: 650 mg Documented by: Albuterol/Ipratropium (Albuterol/Ipratropium 3.0-0.5 Mg/3 Ml Neb Soln) 3 ml NEB Q6HRRT PRN PRN Reason: Shortness of Breath Last Admin: 08/26/21 23:30 Dose: 3 ml Documented by: Benzonatate (Benzonatate 100 Mg Cap) 200 mg PO Q6H PRN PRN Reason: cough Last Admin: 08/30/21 21:05 Dose: 200 mg Documented by: Calcium Carbonate/Glycine (Calcium Carbonate 500 Mg Tab.Chew) 500 mg PO TID PRN PRN Reason: Indigestion Last Admin: 08/31/21 22:21 Dose: 500 mg Documented by: Enoxaparin Sodium (Enoxaparin 40 Mg/0.4 Ml Syringe) 40 mg SUBCUT Q24H [facility] Last Admin: 09/01/21 17:40 Dose: 40 mg Documented by: Gabapentin (Gabapentin 300 Mg Cap) 300 mg PO BID [facility] Last Admin: 09/02/21 08:55 Dose: 300 mg Documented by: Guaifenesin (Guaifenesin 100 Mg/5 Ml Soln 5 Ml Ud Cup) 200 mg PO Q4H PRN PRN Reason: Cough Last Admin: 08/31/21 06:19 Dose: 200 mg Documented by: Norepinephrine Bitartrate (Norepinephr-0.9% Nacl 4 Mg/250) 4 mg in 250 mls @ 7.5 mls/hr IV TITRATE [facility]; Protocol Last Titration: 08/27/21 09:00 Dose: 0 mcg/min, 0 mls/hr Documented by: Pantoprazole Sodium 40 mg/ (Sodium Chloride) 10 mls @ 300 mls/hr IV DAILY [facility] Last Admin: 09/02/21 08:55 Dose: 300 mls/hr Documented by: Doxycycline Hyclate 100 mg/ (Sodium Chloride) 100 mls @ 100 mls/hr IV Q12H [facility] Last Admin: 09/02/21 01:25 Dose: 100 mls/hr Documented by: Ampicillin Sodium/Sulbactam (Sodium 3 gm/ Sodium Chloride) 100 mls @ 200 mls/hr IV Q6H [facility] Loperamide HCl (Loperamide 2 Mg Cap) 2 mg PO DAILY PRN PRN Reason: Diarrhea Last Admin: 08/30/21 21:05 Dose: 2 mg Documented by: Melatonin (Melatonin 3 Mg Tab) 6 mg PO BEDTIME PRN PRN Reason: Insomnia Last Admin: 08/30/21 21:05 Dose: 6 mg Documented by: Desvenlafacine Er (50mg Tab) 1 each PO DAILY [facility] Last Admin: 09/02/21 08:56 Dose: Not Given Documented by: Sodium Chloride (Sodium Chloride 0.9% 10 Ml Syringe) 10 ml FLUSH ASDIRECTED PRN PRN Reason: Keep Vein Open Last Admin: 08/26/21 09:26 Dose: 10 ml Documented by: Sodium Chloride (Sodium Chloride 0.9% 2.5 Ml Syringe) 2.5 ml FLUSH ASDIRECTED PRN PRN Reason: Keep Vein Open Last Admin: 08/26/21 09:27 Dose: 2.5 ml Documented by: Discontinued Medications Acetaminophen (Acetaminophen 500 Mg Tab) 1,000 mg PO ONETIME ONE Stop: 08/26/21 13:19 Last Admin: 08/26/21 13:24 Dose: 1,000 mg Documented by: Guaifenesin (Guaifenesin 100 Mg/5 Ml Soln 5 Ml Ud Cup) 200 mg PO Q4H [facility] Last Admin: 08/27/21 12:00 Dose: Not Given Documented by: Lactated Ringer's (Ringers, Lactated) 1,000 mls @ 999 mls/hr IV .BOLUS ONE Stop: 08/26/21 10:19 Last Admin: 08/26/21 09:26 Dose: 999 mls/hr Documented by: Piperacillin Sod/Tazobactam (Sod 4.5 gm/ Sodium Chloride) 100 mls @ 100 mls/hr IV ONETIME ONE Stop: 08/26/21 10:18 Last Admin: 08/26/21 09:29 Dose: 100 mls/hr Documented by: Lactated Ringer's (Ringers, Lactated) 1,000 mls @ 999 mls/hr IV .BOLUS ONE Stop: 08/26/21 11:27 Last Admin: 08/26/21 10:38 Dose: 999 mls/hr Documented by: Lactated Ringer's (Ringers, Lactated) 500 mls @ 999 mls/hr IV .BOLUS ONE Stop: 08/26/21 10:59 Last Admin: 08/26/21 10:38 Dose: 999 mls/hr Documented by: Lactated Ringer's (Ringers, Lactated) 500 mls @ 999 mls/hr IV .BOLUS ONE Stop: 08/26/21 13:56 Last Admin: 08/26/21 14:00 Dose: 999 mls/hr Documented by: Doxycycline Hyclate 100 mg/ (Sodium Chloride) 100 mls @ 100 mls/hr IV Q12H [facility] Last Admin: 08/26/21 15:45 Dose: Not Given Documented by: Vancomycin HCl 1.25 gm/ Premix 250 mls @ 166.667 mls/hr IV ONETIME ONE Stop: 08/26/21 15:14 Vancomycin HCl 1.25 gm/ Premix 250 mls @ 166.667 mls/hr IV Q24H [facility] Last Admin: 08/26/21 14:30 Dose: 166.667 mls/hr Documented by: Doxycycline Hyclate 100 mg/ (Sodium Chloride) 100 mls @ 100 mls/hr IV Q12H [facility] Last Admin: 08/26/21 14:29 Dose: 100 mls/hr Documented by: Piperacillin Sod/Tazobactam (Sod 3.375 gm/ Sodium Chloride) 50 mls @ 100 mls/hr IV Q6H [facility] Last Admin: 08/26/21 17:59 Dose: 100 mls/hr Documented by: Piperacillin Sod/Tazobactam (Sod 4.5 gm/ Sodium Chloride) 100 mls @ 100 mls/hr IV Q8H [facility] Vancomycin HCl 1.25 gm/ Premix 250 mls @ 166.667 mls/hr IV Q24H [facility] Ampicillin Sodium/Sulbactam (Sodium 3 gm/ Sodium Chloride) 100 mls @ 200 mls/hr IV Q6H [facility] Ampicillin Sodium/Sulbactam (Sodium 3 gm/ Sodium Chloride) 100 mls @ 200 mls/hr IV Q12H [facility] Last Admin: 09/02/21 07:00 Dose: 200 mls/hr Documented by: Doxycycline Hyclate 100 mg/ (Sodium Chloride) 100 mls @ 100 mls/hr IV Q12H [facility] Doxycycline Hyclate 100 mg/ (Sodium Chloride) 100 mls @ 100 mls/hr IV Q12H [facility] Last Admin: 08/27/21 03:04 Dose: 100 mls/hr Documented by: Loperamide HCl (Loperamide 2 Mg Cap) 4 mg PO ONETIME ONE Stop: 08/30/21 09:18 Last Admin: 08/30/21 10:34 Dose: 4 mg Documented by: Potassium Chloride (Potassium Chloride 20 Meq Tab.Er) 40 meq PO ONETIME ONE Stop: 08/28/21 07:32 Last Admin: 08/28/21 13:07 Dose: Not Given Documented by: Potassium Chloride (Potassium Chloride 20 Meq Tab.Er) 40 meq PO ONETIME ONE Stop: 08/28/21 11:01 Last Admin: 08/28/21 11:10 Dose: 40 meq Documented by: Vancomycin HCl (Vancomycin 125 Mg Cap) 250 mg PO QID [facility] Last Admin: 08/26/21 18:49 Dose: 250 mg Documented by: Vancomycin HCl (Pharmacy To Dose - Vancomycin) 1 dose .XX ONETIME ONE Stop: 08/26/21 13:28 Last Admin: 08/26/21 14:10 Dose: Not Given Documented by: Vancomycin HCl (Pharmacy To Dose - Vancomycin) 1 dose .XX ASDIRECTED [facility] - Exam General: Alert, Oriented, Cooperative HEENT: Mucous Membr. Moist/[place] Neck: Trachea Midline Lungs: Clear to Auscultation, Normal Respiratory Effort Cardiovascular: Regular Rate, Regular Rhythm, No Murmurs GI/Abdominal Exam: Normal Bowel Sounds, Soft, Non-Tender, No Organomegaly - Patient Data Lab Results Last 24 hrs: Laboratory Results - last 24 hr 09/02/21 09/02/21 Range/Units 05:52 05:52 WBC 17.68 H (4.0-11.0) K/uL RBC 4.26 L (4.30-5.90) M/uL Hgb 12.5 (12.0-16.0) g/dL Hct 37.5 (36.0-46.0) % MCV 88.0 (80.0-98.0) fL MCH 29.3 (27.0-32.0) pg MCHC 33.3 (31.0-37.0) g/dL RDW Std Deviation 45.3 (28.0-62.0) fl RDW Coeff of Samson 14 (11.0-15.0) % Plt Count 101 L (150-400) K/uL MPV 10.40 (7.40-12.00) fL Add Manual Diff YES Neutrophils % (Manual) 70 (48.0-80.0) % Band Neutrophils % 2 % Lymphocytes % (Manual) 14 L (16.0-40.0) % Monocytes % (Manual) 2 (0.0-15.0) % Eosinophils % (Manual) 11 H (0.0-7.0) % Basophils % (Manual) 1 (0.0-1.5) % Nucleated RBC % 0.0 /100WBC Absolute Seg Neuts 12.4 H (1.4-5.7) Band Neutrophils # 0.4 Lymphocytes # (Manual) 2.5 H (0.6-2.4) Monocytes # (Manual) 0.4 (0.0-0.8) Eosinophils # (Manual) 1.9 H (0.0-0.7) Basophils # (Manual) 0.2 H (0.0-0.1) Nucleated RBCs # 0 K/uL Platelet Estimate DECREASED Sodium 140 (136-145) mmol/L Potassium 3.8 (3.5-5.1) mmol/L Chloride 106 (98-107) mmol/L Carbon Dioxide 26.3 (21.0-32.0) mmol/L BUN 14 (7.0-18.0) mg/dL Creatinine 0.8 (0.6-1.0) mg/dL Est Cr Clr Drug Dosing 58.04 mL/min Estimated GFR (MDRD) > 60.0 ml/min Glucose 77 (74-106) mg/dL Calcium 8.4 L (8.5-10.1) mg/dL Result Diagrams: 09/02/21 05:52 09/02/21 05:52 Sepsis Event Note - Evaluation Sepsis Screening Result: No Definite Risk - Focused Exam Vital Signs: Vital Signs Temp Pulse Resp BP Pulse Ox 09/02/21 08:30 96.1 F L 72 20 135/79 93 L 09/02/21 03:00 96.8 F L 76 18 114/62 92 L 09/01/21 23:38 98.1 F 75 18 158/70 H 93 L - Problem List & Annotations (1) Urinary tract infection SNOMED Code(s): 27484590 Code(s): N39.0 - URINARY TRACT INFECTION, SITE NOT SPECIFIED Status: Acute Current Visit: No Qualifiers: Urinary tract infection type: acute cystitis Hematuria presence: with hematuria Qualified Code(s): N30.01 - Acute cystitis with hematuria (2) Sepsis SNOMED Code(s): 08565160 Code(s): A41.9 - SEPSIS, UNSPECIFIED ORGANISM Status: Acute Current Visit: Yes (3) Hypotension SNOMED Code(s): 13113412 Code(s): I95.9 - HYPOTENSION, UNSPECIFIED Status: Acute Current Visit: Y es (4) Pneumonia SNOMED Code(s): 579902988 Code(s): J18.9 - PNEUMONIA, UNSPECIFIED ORGANISM Status: Acute Priority: High Current Visit: Yes Qualifiers: Pneumonia type: due to unspecified organism Laterality: unspecified laterality Lung location: unspecified part of lung Qualified Code(s): J18.9 - Pneumonia, unspecified organism (5) Depression SNOMED Code(s): 33121923 Code(s): F32.A - DEPRESSION, UNSPECIFIED Status: Acute Current Visit: Yes (6) Diarrhea SNOMED Code(s): 69493475 Code(s): R19.7 - DIARRHEA, UNSPECIFIED Status: Acute Current Visit: No - Problem List Review Problem List Initiated/Reviewed/Updated: Yes - My Orders Last 24 Hours: My Active Orders 09/01/21 10:03 PT Evaluation and Treatment [CONS] Routine 09/02/21 10:16 Ready for Discharge [RC] PER UNIT ROUTINE 09/02/21 13:00 Ampicillin/Sulbactam Na [Unasyn] 3 gm Sodium Chloride 0.9% [Normal Saline AdvBag] 100 ml IV Q6H 09/03/21 05:11 BASIC METABOLIC PANEL,BMP [CHEM] AM CBC WITH AUTO DIFF [HEME] AM - Assessment Assessment:: 1. Sepsis secondary to pneumonia -Patient continues to have elevated white blood cell count of 17.24, we will wait for these levels to fall before we can discuss discharge -Continue the patient on Unasyn 3 g per IV route every 12 hours and Doxycycline 100 mg per IV route every 12 hours -Robitussin cough syrup is on board for cough -Tessalon Perles are also on board for congestion -We will continue to monitor the patient through daily CBC/CMP 2. Ongoing urinary tract infection -Upon discharge the patient will be advised to follow-up with a urologist on an outpatient basis 3. Past medical history of depression -We will continue the patient on her home dosage of Desvenlafaxine 4. Diarrhea -The patient has Imodium on board 5. Weakness -Physical therapy will come work with the patient today in order to build her strength - Plan Plan:: 71 yo female admitted for pneumonia with septic shock that has now been weened off pressors Pneumonia (improving) -Continue unasyn and doxycylcine \ Possible Urinary tract infection -Upon discharge the patient will be advised to follow-up with a urologist on an outpatient basis likely home tomorrow
--- NOTE | 2021-09-02 10:23 | PCM.DCSUM1 ---
<Cassidy Chase - Last Filed: 09/02/21 10:23> Discharge Summary - Hospital Course Free Text/Narrative:: The patient is a 71-year-old female, on day 8 of service, with a significant past medical history of hypertension, irritable bowel syndrome, and depression, who was admitted to the hospital due to sepsis secondary to pneumonia as well as an ongoing urinary tract infection. Throughout the patient's hospital course she was treated for her pneumonia with 2 different antibiotics, Unasyn 3 g per IV route every 12 hours, and doxycycline 100 mg per IV route every 12 hours. This antibiotic regimen improved the patient's symptoms to where she no longer exhibited shortness of breath or cough, however she still continues to have an elevated white blood cell count. The white blood cell count will need to be checked on an outpatient basis by the patient's PCP to see if it is decreasing. The patient will be sent home on oral doxycycline 100 mg per oral route twice a day and oral Augmentin 875-125 mg to be taken twice a day as well. Along with this, the patient has been advised to obtain a urology referral from her PCP in order to address her chronic UTIs. The patient has been educated on the different side effects of the medications she will be taking, and to be compliant with them and take them at scheduled times. The patient has also been counseled to return to the hospital if she experiences worsening fever, respiratory difficulty, chest pain, and/or palpitations. The patient is now stable and can be discharged home. - Discharge Data Discharge Date: 09/02/21 Discharge Disposition: Home, Self-Care 01 Condition: Good - Referral to Home Health Primary Care Physician: Yanni Alcocer NP - Discharge Diagnosis/Problem(s) (1) Urinary tract infection SNOMED Code(s): 60260164 ICD Code: N39.0 - URINARY TRACT INFECTION, SITE NOT SPECIFIED Status: Acute Qualifiers: Urinary tract infection type: acute cystitis Hematuria presence: with hematuria Qualified Code(s): N30.01 - Acute cystitis with hematuria (2) Sepsis SNOMED Code(s): 63199874 ICD Code: A41.9 - SEPSIS, UNSPECIFIED ORGANISM Status: Acute (3) Hypotension SNOMED Code(s): 43971585 ICD Code: I95.9 - HYPOTENSION, UNSPECIFIED Status: Acute (4) Pneumonia SNOMED Code(s): 984737721 ICD Code: J18.9 - PNEUMONIA, UNSPECIFIED ORGANISM Status: Acute Priority: High Qualifiers: Pneumonia type: due to unspecified organism Laterality: unspecified laterality Lung location: unspecified part of lung Qualified Code(s): J18.9 - Pneumonia, unspecified organism (5) Depression SNOMED Code(s): 09360862 ICD Code: F32.A - DEPRESSION, UNSPECIFIED Status: Acute (6) Diarrhea SNOMED Code(s): 07879583 ICD Code: R19.7 - DIARRHEA, UNSPECIFIED Status: Acute - Patient Summary/Data Consults: Consultations 09/01/21 10:03 PT Evaluation and Treatment [CONS] Routine - Patient Instructions Diet: Regular Diet as Tolerated Activity: As Tolerated Showering/Bathing: May Shower Notify Provider of: Fever, Nausea and/or Vomiting Other/Special Instructions: -Follow-up with your PCP on 09/07/2021 at 1 PM, while there obtain CBC to check your white blood cell count, and discuss urology referral for your chronic UTIs. -You will be discharged with 2 antibiotics, Augmentin and Doxycycline, if you experience esophagitis stop the medication and contact your PCP. Also be compliant with your medications and take them at scheduled times. -Return to the hospital if you have worsening respiratory difficulty, chest pain, palpitations, and/or fever. - Discharge Plan Prescriptions/Med Rec: Amoxicillin/Potassium Clav [Augmentin 875-125 Tablet] 1 each PO BID 7 Days #14 tablet Doxycycline [Vibramycin] 100 mg PO BID 7 Days #14 cap Home Medications: Home Meds Desvenlafaxine [Desvenlafaxine ER] 50 mg PO DAILY 01/25/19 [History] Diclofenac Sodium [Voltaren 1% Gel] 1 gram TOP QID PRN 01/25/19 [History] Meloxicam 15 mg PO DAILY 01/25/19 [History] Zolpidem [Ambien] 5 mg PO BEDTIME PRN 01/25/19 [History] traMADol [Ultram] 50 mg PO QID PRN 01/25/19 [History] Betamethasone Valerate [Valisone 0.1% Crm] 15 gm TOP BID PRN MDD to affected area for irritatio 04/04/19 [History] Ciclopirox Olamine [Ciclopirox] 15 gm TP DAILY 04/04/19 [History] Cyclobenzaprine [Flexeril] 10 mg PO Q8H PRN 08/26/21 [History] DULoxetine HCl [Cymbalta] 30 mg PO DAILY 08/27/21 [History] Fluticasone Propionate 2 sprays NASBOTH DAILY PRN 08/27/21 [History] Gabapentin [Neurontin] 300 mg PO BID 08/27/21 [History] Losartan [Cozaar] 100 mg PO DAILY 08/27/21 [History] Sulindac [Clinoril] 150 mg PO BID 08/27/21 [History] Amoxicillin/Potassium Clav [Augmentin 875-125 Tablet] 1 each PO BID 7 Days #14 tablet 09/02/21 [Rx] Doxycycline [Vibramycin] 100 mg PO BID 7 Days #14 cap 09/02/21 [Rx] Patient Handouts: Hypoxia, Amoxicillin; Clavulanic Acid Tablets, Managing Depression, Adult, Hypotension, [id number], Doxycycline tablets or capsules, Urosepsis, Adult, Community-Acquired Pneumonia, Adult Referrals: Yanni Alcocer [employer] OPERATOR [Primary Care Provider] - 09/07/21 1:00 pm - Discharge Summary/Plan Comment DC Time >30 min.: Yes Total # of Minutes for Discharge Time: 35 minutes - Review of Systems General: Denies: Fever, Weakness, Fatigue HEENT: Denies: Headaches, Sore Throat Pulmonary: Denies: Shortness of Breath, Cough Cardiovascular: Denies: Chest Pain, Palpitations Gastrointestinal: Denies: Abdominal Pain Genitourinary: Denies: Dysuria - Patient Data Vitals - Most Recent: Last Vital Signs Temp 96.1 F L 09/02/21 08:30 Pulse 72 09/02/21 08:30 Resp 20 09/02/21 08:30 BP 135/79 09/02/21 08:30 Pulse Ox 93 L 09/02/21 08:30 Weight - Most Recent: 83.5 kg I&O - Last 24 hours: Intake & Output 09/01/21 09/02/21 09/02/21 22:59 06:59 14:59 Intake Total 940 Balance 940 Lab Results - Last 24 hrs: Laboratory Results - last 24 hr 11/17/21 11/17/21 Range/Units 05:52 05:52 WBC 17.68 H (4.0-11.0) K/uL RBC 4.26 L (4.30-5.90) M/uL Hgb 12.5 (12.0-16.0) g/dL Hct 37.5 (36.0-46.0) % MCV 88.0 (80.0-98.0) fL MCH 29.3 (27.0-32.0) pg MCHC 33.3 (31.0-37.0) g/dL RDW Std Deviation 45.3 (28.0-62.0) fl RDW Coeff of Samson 14 (11.0-15.0) % Plt Count 101 L (150-400) K/uL MPV 10.40 (7.40-12.00) fL Add Manual Diff YES Neutrophils % (Manual) 70 (48.0-80.0) % Band Neutrophils % 2 % Lymphocytes % (Manual) 14 L (16.0-40.0) % Monocytes % (Manual) 2 (0.0-15.0) % Eosinophils % (Manual) 11 H (0.0-7.0) % Basophils % (Manual) 1 (0.0-1.5) % Nucleated RBC % 0.0 /100WBC Absolute Seg Neuts 12.4 H (1.4-5.7) Band Neutrophils # 0.4 Lymphocytes # (Manual) 2.5 H (0.6-2.4) Monocytes # (Manual) 0.4 (0.0-0.8) Eosinophils # (Manual) 1.9 H (0.0-0.7) Basophils # (Manual) 0.2 H (0.0-0.1) Nucleated RBCs # 0 K/uL Platelet Estimate DECREASED Sodium 140 (136-145) mmol/L Potassium 3.8 (3.5-5.1) mmol/L Chloride 106 (98-107) mmol/L Carbon Dioxide 26.3 (21.0-32.0) mmol/L BUN 14 (7.0-18.0) mg/dL Creatinine 0.8 (0.6-1.0) mg/dL Est Cr Clr Drug Dosing 58.04 mL/min Estimated GFR (MDRD) > 60.0 ml/min Glucose 77 (74-106) mg/dL Calcium 8.4 L (8.5-10.1) mg/dL Med Orders - Current: Current Medications Acetaminophen (Acetaminophen 325 Mg Tab) 650 mg PO Q6H PRN PRN Reason: Pain Last Admin: 08/30/21 09:08 Dose: 650 mg Documented by: Albuterol/Ipratropium (Albuterol/Ipratropium 3.0-0.5 Mg/3 Ml Neb Soln) 3 ml NEB Q6HRRT PRN PRN Reason: Shortness of Breath Last Admin: 08/26/21 23:30 Dose: 3 ml Documented by: Benzonatate (Benzonatate 100 Mg Cap) 200 mg PO Q6H PRN PRN Reason: cough Last Admin: 08/30/21 21:05 Dose: 200 mg Documented by: Calcium Carbonate/Glycine (Calcium Carbonate 500 Mg Tab.Chew) 500 mg PO TID PRN PRN Reason: Indigestion Last Admin: 08/31/21 22:21 Dose: 500 mg Documented by: Enoxaparin Sodium (Enoxaparin 40 Mg/0.4 Ml Syringe) 40 mg SUBCUT Q24H [facility] Last Admin: 09/01/21 17:40 Dose: 40 mg Documented by: Gabapentin (Gabapentin 300 Mg Cap) 300 mg PO BID [facility] Last Admin: 09/02/21 08:55 Dose: 300 mg Documented by: Guaifenesin (Guaifenesin 100 Mg/5 Ml Soln 5 Ml Ud Cup) 200 mg PO Q4H PRN PRN Reason: Cough Last Admin: 08/31/21 06:19 Dose: 200 mg Documented by: Norepinephrine Bitartrate (Norepinephr-0.9% Nacl 4 Mg/250) 4 mg in 250 mls @ 7.5 mls/hr IV TITRATE [facility]; Protocol Last Titration: 08/27/21 09:00 Dose: 0 mcg/min, 0 mls/hr Documented by: Pantoprazole Sodium 40 mg/ (Sodium Chloride) 10 mls @ 300 mls/hr IV DAILY [facility] Last Admin: 09/02/21 08:55 Dose: 300 mls/hr Documented by: Doxycycline Hyclate 100 mg/ (Sodium Chloride) 100 mls @ 100 mls/hr IV Q12H [facility] Last Admin: 09/02/21 01:25 Dose: 100 mls/hr Documented by: Ampicillin Sodium/Sulbactam (Sodium 3 gm/ Sodium Chloride) 100 mls @ 200 mls/hr IV Q6H [facility] Loperamide HCl (Loperamide 2 Mg Cap) 2 mg PO DAILY PRN PRN Reason: Diarrhea Last Admin: 08/30/21 21:05 Dose: 2 mg Documented by: Melatonin (Melatonin 3 Mg Tab) 6 mg PO BEDTIME PRN PRN Reason: Insomnia Last Admin: 08/30/21 21:05 Dose: 6 mg Documented by: Desvenlafacine Er (50mg Tab) 1 each PO DAILY [facility] Last Admin: 09/02/21 08:56 Dose: Not Given Documented by: Sodium Chloride (Sodium Chloride 0.9% 10 Ml Syringe) 10 ml FLUSH ASDIRECTED PRN PRN Reason: Keep Vein Open Last Admin: 08/26/21 09:26 Dose: 10 ml Documented by: Sodium Chloride (Sodium Chloride 0.9% 2.5 Ml Syringe) 2.5 ml FLUSH ASDIRECTED PRN PRN Reason: Keep Vein Open Last Admin: 08/26/21 09:27 Dose: 2.5 ml Documented by: Discontinued Medications Acetaminophen (Acetaminophen 500 Mg Tab) 1,000 mg PO ONETIME ONE Stop: 08/26/21 13:19 Last Admin: 08/26/21 13:24 Dose: 1,000 mg Documented by: Guaifenesin (Guaifenesin 100 Mg/5 Ml Soln 5 Ml Ud Cup) 200 mg PO Q4H [facility] Last Admin: 08/27/21 12:00 Dose: Not Given Documented by: Lactated Ringer's (Ringers, Lactated) 1,000 mls @ 999 mls/hr IV .BOLUS ONE Stop: 08/26/21 10:19 Last Admin: 08/26/21 09:26 Dose: 999 mls/hr Documented by: Piperacillin Sod/Tazobactam (Sod 4.5 gm/ Sodium Chloride) 100 mls @ 100 mls/hr IV ONETIME ONE Stop: 08/26/21 10:18 Last Admin: 08/26/21 09:29 Dose: 100 mls/hr Documented by: Lactated Ringer's (Ringers, Lactated) 1,000 mls @ 999 mls/hr IV .BOLUS ONE Stop: 08/26/21 11:27 Last Admin: 08/26/21 10:38 Dose: 999 mls/hr Documented by: Lactated Ringer's (Ringers, Lactated) 500 mls @ 999 mls/hr IV .BOLUS ONE Stop: 08/26/21 10:59 Last Admin: 08/26/21 10:38 Dose: 999 mls/hr Documented by: Lactated Ringer's (Ringers, Lactated) 500 mls @ 999 mls/hr IV .BOLUS ONE Stop: 08/26/21 13:56 Last Admin: 08/26/21 14:00 Dose: 999 mls/hr Documented by: Doxycycline Hyclate 100 mg/ (Sodium Chloride) 100 mls @ 100 mls/hr IV Q12H [facility] Last Admin: 08/26/21 15:45 Dose: Not Given Documented by: Vancomycin HCl 1.25 gm/ Premix 250 mls @ 166.667 mls/hr IV ONETIME ONE Stop: 08/26/21 15:14 Vancomycin HCl 1.25 gm/ Premix 250 mls @ 166.667 mls/hr IV Q24H [facility] Last Admin: 08/26/21 14:30 Dose: 166.667 mls/hr Documented by: Doxycycline Hyclate 100 mg/ (Sodium Chloride) 100 mls @ 100 mls/hr IV Q12H [facility] Last Admin: 08/26/21 14:29 Dose: 100 mls/hr Documented by: Piperacillin Sod/Tazobactam (Sod 3.375 gm/ Sodium Chloride) 50 mls @ 100 mls/hr IV Q6H [facility] Last Admin: 08/26/21 17:59 Dose: 100 mls/hr Documented by: Piperacillin Sod/Tazobactam (Sod 4.5 gm/ Sodium Chloride) 100 mls @ 100 mls/hr IV Q8H [facility] Vancomycin HCl 1.25 gm/ Premix 250 mls @ 166.667 mls/hr IV Q24H [facility] Ampicillin Sodium/Sulbactam (Sodium 3 gm/ Sodium Chloride) 100 mls @ 200 mls/hr IV Q6H [facility] Ampicillin Sodium/Sulbactam (Sodium 3 gm/ Sodium Chloride) 100 mls @ 200 mls/hr IV Q12H [facility] Last Admin: 09/02/21 07:00 Dose: 200 mls/hr Documented by: Doxycycline Hyclate 100 mg/ (Sodium Chloride) 100 mls @ 100 mls/hr IV Q12H [facility] Doxycycline Hyclate 100 mg/ (Sodium Chloride) 100 mls @ 100 mls/hr IV Q12H [facility] Last Admin: 08/27/21 03:04 Dose: 100 mls/hr Documented by: Loperamide HCl (Loperamide 2 Mg Cap) 4 mg PO ONETIME ONE Stop: 08/30/21 09:18 Last Admin: 08/30/21 10:34 Dose: 4 mg Documented by: Potassium Chloride (Potassium Chloride 20 Meq Tab.Er) 40 meq PO ONETIME ONE Stop: 08/28/21 07:32 Last Admin: 08/28/21 13:07 Dose: Not Given Documented by: Potassium Chloride (Potassium Chloride 20 Meq Tab.Er) 40 meq PO ONETIME ONE Stop: 08/28/21 11:01 Last Admin: 08/28/21 11:10 Dose: 40 meq Documented by: Vancomycin HCl (Vancomycin 125 Mg Cap) 250 mg PO QID [facility] Last Admin: 08/26/21 18:49 Dose: 250 mg Documented by: Vancomycin HCl (Pharmacy To Dose - Vancomycin) 1 dose .XX ONETIME ONE Stop: 08/26/21 13:28 Last Admin: 08/26/21 14:10 Dose: Not Given Documented by: Vancomycin HCl (Pharmacy To Dose - Vancomycin) 1 dose .XX ASDIRECTED [facility] - Exam General: Reports: Alert, Oriented, Cooperative HEENT: Reports: Mucous Membr. Moist/[place] Neck: Reports: Trachea Midline Lungs: Reports: Clear to Auscultation, Normal Respiratory Effort Cardiovascular: Reports: Regular Rate, Regular Rhythm GI/Abdominal Exam: Normal Bowel Sounds, Soft, Non-Tender <Michoacano Valdez - Last Filed: 09/02/21 20:19> Discharge Summary - Referral to Home Health Primary Care Physician: Yanni Alcocer NP - Discharge Diagnosis/Problem(s) (1) Pneumonia SNOMED Code(s): 594435978 ICD Code: J18.9 - PNEUMONIA, UNSPECIFIED ORGANISM Status: Acute Priority: High Qualifiers: Pneumonia type: due to unspecified organism Laterality: unspecified laterality Lung location: unspecified part of lung Qualified Code(s): J18.9 - Pneumonia, unspecified organism - Patient Summary/Data Consults: Consultations 09/01/21 10:03 PT Evaluation and Treatment [CONS] Routine - Patient Data Vitals - Most Recent: Last Vital Signs Temp 35.6 C L 09/02/21 08:30 Pulse 72 09/02/21 08:30 Resp 20 09/02/21 08:30 BP 135/79 09/02/21 08:30 Pulse Ox 93 L 09/02/21 08:30 I&O - Last 24 hours: Intake & Output 09/02/21 09/02/21 09/02/21 06:59 14:59 22:59 Intake Total 940 Balance 940 Lab Results - Last 24 hrs: Laboratory Results - last 24 hr 09/02/21 09/02/21 Range/Units 05:52 05:52 WBC 17.68 H (4.0-11.0) K/uL RBC 4.26 L (4.30-5.90) M/uL Hgb 12.5 (12.0-16.0) g/dL Hct 37.5 (36.0-46.0) % MCV 88.0 (80.0-98.0) fL MCH 29.3 (27.0-32.0) pg MCHC 33.3 (31.0-37.0) g/dL RDW Std Deviation 45.3 (28.0-62.0) fl RDW Coeff of Samson 14 (11.0-15.0) % Plt Count 101 L (150-400) K/uL MPV 10.40 (7.40-12.00) fL Add Manual Diff YES Neutrophils % (Manual) 70 (48.0-80.0) % Band Neutrophils % 2 % Lymphocytes % (Manual) 14 L (16.0-40.0) % Monocytes % (Manual) 2 (0.0-15.0) % Eosinophils % (Manual) 11 H (0.0-7.0) % Basophils % (Manual) 1 (0.0-1.5) % Nucleated RBC % 0.0 /100WBC Absolute Seg Neuts 12.4 H (1.4-5.7) Band Neutrophils # 0.4 Lymphocytes # (Manual) 2.5 H (0.6-2.4) Monocytes # (Manual) 0.4 (0.0-0.8) Eosinophils # (Manual) 1.9 H (0.0-0.7) Basophils # (Manual) 0.2 H (0.0-0.1) Nucleated RBCs # 0 K/uL Platelet Estimate DECREASED Sodium 140 (136-145) mmol/L Potassium 3.8 (3.5-5.1) mmol/L Chloride 106 (98-107) mmol/L Carbon Dioxide 26.3 (21.0-32.0) mmol/L BUN 14 (7.0-18.0) mg/dL Creatinine 0.8 (0.6-1.0) mg/dL Est Cr Clr Drug Dosing 58.04 mL/min Estimated GFR (MDRD) > 60.0 ml/min Glucose 77 (74-106) mg/dL Calcium 8.4 L (8.5-10.1) mg/dL Med Orders - Current: Current Medications Discontinued Medications Acetaminophen (Acetaminophen 500 Mg Tab) 1,000 mg PO ONETIME ONE Stop: 08/26/21 13:19 Last Admin: 08/26/21 13:24 Dose: 1,000 mg Documented by: Acetaminophen (Acetaminophen 325 Mg Tab) 650 mg PO Q6H PRN PRN Reason: Pain Last Admin: 08/30/21 09:08 Dose: 650 mg Documented by: Albuterol/Ipratropium (Albuterol/Ipratropium 3.0-0.5 Mg/3 Ml Neb Soln) 3 ml NEB Q6HRRT PRN PRN Reason: Shortness of Breath Last Admin: 08/26/21 23:30 Dose: 3 ml Documented by: Benzonatate (Benzonatate 100 Mg Cap) 200 mg PO Q6H PRN PRN Reason: cough Last Admin: 08/30/21 21:05 Dose: 200 mg Documented by: Calcium Carbonate/Glycine (Calcium Carbonate 500 Mg Tab.Chew) 500 mg PO TID PRN PRN Reason: Indigestion Last Admin: 08/31/21 22:21 Dose: 500 mg Documented by: Enoxaparin Sodium (Enoxaparin 40 Mg/0.4 Ml Syringe) 40 mg SUBCUT Q24H [facility] Last Admin: 09/01/21 17:40 Dose: 40 mg Documented by: Gabapentin (Gabapentin 300 Mg Cap) 300 mg PO BID [facility] Last Admin: 09/02/21 08:55 Dose: 300 mg Documented by: Guaifenesin (Guaifenesin 100 Mg/5 Ml Soln 5 Ml Ud Cup) 200 mg PO Q4H [facility] Last Admin: 08/27/21 12:00 Dose: Not Given Documented by: Guaifenesin (Guaifenesin 100 Mg/5 Ml Soln 5 Ml Ud Cup) 200 mg PO Q4H PRN PRN Reason: Cough Last Admin: 08/31/21 06:19 Dose: 200 mg Documented by: Lactated Ringer's (Ringers, Lactated) 1,000 mls @ 999 mls/hr IV .BOLUS ONE Stop: 08/26/21 10:19 Last Admin: 08/26/21 09:26 Dose: 999 mls/hr Documented by: Piperacillin Sod/Tazobactam (Sod 4.5 gm/ Sodium Chloride) 100 mls @ 100 mls/hr IV ONETIME ONE Stop: 08/26/21 10:18 Last Admin: 08/26/21 09:29 Dose: 100 mls/hr Documented by: Lactated Ringer's (Ringers, Lactated) 1,000 mls @ 999 mls/hr IV .BOLUS ONE Stop: 08/26/21 11:27 Last Admin: 08/26/21 10:38 Dose: 999 mls/hr Documented by: Lactated Ringer's (Ringers, Lactated) 500 mls @ 999 mls/hr IV .BOLUS ONE Stop: 08/26/21 10:59 Last Admin: 08/26/21 10:38 Dose: 999 mls/hr Documented by: Lactated Ringer's (Ringers, Lactated) 500 mls @ 999 mls/hr IV .BOLUS ONE Stop: 08/26/21 13:56 Last Admin: 08/26/21 14:00 Dose: 999 mls/hr Documented by: Doxycycline Hyclate 100 mg/ (Sodium Chloride) 100 mls @ 100 mls/hr IV Q12H [facility] Last Admin: 08/26/21 15:45 Dose: Not Given Documented by: Vancomycin HCl 1.25 gm/ Premix 250 mls @ 166.667 mls/hr IV ONETIME ONE Stop: 08/26/21 15:14 Vancomycin HCl 1.25 gm/ Premix 250 mls @ 166.667 mls/hr IV Q24H [facility] Last Admin: 08/26/21 14:30 Dose: 166.667 mls/hr Documented by: Doxycycline Hyclate 100 mg/ (Sodium Chloride) 100 mls @ 100 mls/hr IV Q12H [facility] Last Admin: 08/26/21 14:29 Dose: 100 mls/hr Documented by: Norepinephrine Bitartrate (Norepinephr-0.9% Nacl 4 Mg/250) 4 mg in 250 mls @ 7.5 mls/hr IV TITRATE [facility]; Protocol Last Titration: 08/27/21 09:00 Dose: 0 mcg/min, 0 mls/hr Documented by: Piperacillin Sod/Tazobactam (Sod 3.375 gm/ Sodium Chloride) 50 mls @ 100 mls/hr IV Q6H [facility] Last Admin: 08/26/21 17:59 Dose: 100 mls/hr Documented by: Pantoprazole Sodium 40 mg/ (Sodium Chloride) 10 mls @ 300 mls/hr IV DAILY [facility] Last Admin: 09/02/21 08:55 Dose: 300 mls/hr Documented by: Piperacillin Sod/Tazobactam (Sod 4.5 gm/ Sodium Chloride) 100 mls @ 100 mls/hr IV Q8H [facility] Vancomycin HCl 1.25 gm/ Premix 250 mls @ 166.667 mls/hr IV Q24H [facility] Ampicillin Sodium/Sulbactam (Sodium 3 gm/ Sodium Chloride) 100 mls @ 200 mls/hr IV Q6H [facility] Ampicillin Sodium/Sulbactam (Sodium 3 gm/ Sodium Chloride) 100 mls @ 200 mls/hr IV Q12H [facility] Last Admin: 09/02/21 07:00 Dose: 200 mls/hr Documented by: Doxycycline Hyclate 100 mg/ (Sodium Chloride) 100 mls @ 100 mls/hr IV Q12H [facility] Doxycycline Hyclate 100 mg/ (Sodium Chloride) 100 mls @ 100 mls/hr IV Q12H [facility] Last Admin: 08/27/21 03:04 Dose: 100 mls/hr Documented by: Doxycycline Hyclate 100 mg/ (Sodium Chloride) 100 mls @ 100 mls/hr IV Q12H [facility] Last Admin: 09/02/21 01:25 Dose: 100 mls/hr Documented by: Ampicillin Sodium/Sulbactam (Sodium 3 gm/ Sodium Chloride) 100 mls @ 200 mls/hr IV Q6H [facility] Loperamide HCl (Loperamide 2 Mg Cap) 2 mg PO DAILY PRN PRN Reason: Diarrhea Last Admin: 08/30/21 21:05 Dose: 2 mg Documented by: Loperamide HCl (Loperamide 2 Mg Cap) 4 mg PO ONETIME ONE Stop: 08/30/21 09:18 Last Admin: 08/30/21 10:34 Dose: 4 mg Documented by: Melatonin (Melatonin 3 Mg Tab) 6 mg PO BEDTIME PRN PRN Reason: Insomnia Last Admin: 08/30/21 21:05 Dose: 6 mg Documented by: Desvenlafacine Er (50mg Tab) 1 each PO DAILY [facility] Last Admin: 09/02/21 08:56 Dose: Not Given Documented by: Potassium Chloride (Potassium Chloride 20 Meq Tab.Er) 40 meq PO ONETIME ONE Stop: 08/28/21 07:32 Last Admin: 08/28/21 13:07 Dose: Not Given Documented by: Potassium Chloride (Potassium Chloride 20 Meq Tab.Er) 40 meq PO ONETIME ONE Stop: 08/28/21 11:01 Last Admin: 08/28/21 11:10 Dose: 40 meq Documented by: Sodium Chloride (Sodium Chloride 0.9% 10 Ml Syringe) 10 ml FLUSH ASDIRECTED PRN PRN Reason: Keep Vein Open Last Admin: 08/26/21 09:26 Dose: 10 ml Documented by: Sodium Chloride (Sodium Chloride 0.9% 2.5 Ml Syringe) 2.5 ml FLUSH ASDIRECTED PRN PRN Reason: Keep Vein Open Last Admin: 08/26/21 09:27 Dose: 2.5 ml Documented by: Vancomycin HCl (Vancomycin 125 Mg Cap) 250 mg PO QID [facility] Last Admin: 08/26/21 18:49 Dose: 250 mg Documented by: Vancomycin HCl (Pharmacy To Dose - Vancomycin) 1 dose .XX ONETIME ONE Stop: 08/26/21 13:28 Last Admin: 08/26/21 14:10 Dose: Not Given Documented by: Vancomycin HCl (Pharmacy To Dose - Vancomycin) 1 dose .XX ASDIRECTED [facility] - Free Text/Narrative Note: I have seen and examined the patient. I have discussed findings and treatment plan with the resident. I agree with the assessment and plan outlined in the following note.
[2021-09-02] MEDS ORDERED: Ampicillin/Sulbactam Na 3 GM in Sodium Chloride 0.9% 100 ML IV SCH (13:00)
== END 2021-09-02 12:30 | disposition home or self-care (01) | DRG 871 ==
LOC: MW.ED 08:49 → MW.ICU 15:48 → MW.MS 08-28 13:40
PROVIDERS: ADMIT Internal Medicine; ATTEND Internal Medicine
PROC: 3E033XZ Introduction of Vasopressor into Peripheral Vein, Percutaneous Approach (ICD-10-PCS; principal; 2021-08-26)
DX: A41.9 Sepsis, unspecified organism (principal); A41.89 Other specified sepsis; J18.9 Pneumonia, unspecified organism; R09.02 Hypoxemia; Z97.3 Presence of spectacles and contact lenses; N30.01 Acute cystitis with hematuria; K58.9 Irritable bowel syndrome, unspecified; N17.9 Acute kidney failure, unspecified; I95.9 Hypotension, unspecified; F32.A Depression, unspecified; G62.9 Polyneuropathy, unspecified; M54.9 Dorsalgia, unspecified; Z20.822 Contact with and (suspected) exposure to COVID-19; G89.29 Other chronic pain; Z91.048 Other nonmedicinal substance allergy status; F41.9 Anxiety disorder, unspecified; I10 Essential (primary) hypertension; K58.0 Irritable bowel syndrome with diarrhea; Z88.1 Allergy status to other antibiotic agents; Z88.5 Allergy status to narcotic agent; Z88.8 Allergy status to other drugs, medicaments and biological substances; Z79.899 Other long term (current) drug therapy; Z90.49 Acquired absence of other specified parts of digestive tract; Z90.710 Acquired absence of both cervix and uterus; Z87.891 Personal history of nicotine dependence
CPT/HCPCS: 36415; 36556; 71045; 71045-26; 71250; 71250-26; 74176; 74176-26; 80048; 80053; 81001; 83605; 83690; 83880; 84484; 85025; 85610; 87040; 87086; 87324; 87804; 87807; 93005; 96365; 96367; 96368; 96375; 97161-GP; 99285-25; A9270-GY; C9113; J0295; J1650; J2543; J3370; J3490; J7120; J7620-GY; U0002

== ENCOUNTER 2022-03-12 20:53 | Inpatient (IN) | payer MEDICARE, BC ==
[2022-03-12] MEDS ORDERED: Sodium Chloride 0.9% 1,000 ML IV ONE (21:04)
[2022-03-12 21:51] LABS: BLOOD UREA NITROGEN,BUN 18 mg/dL (7.0-18.0); CARBON DIOXIDE,CO2 28.1 mmol/L (21.0-32.0); CHLORIDE,CL 101 mmol/L (98-107); GLUCOSE RANDOM 86 mg/dL (74-106); POTASSIUM,K 2.9 mmol/L (3.5-5.1); SODIUM,NA 138 mmol/L (136-145)
[2022-03-13] MEDS ORDERED: Potassium Chloride 20 MEQ Tab.ER PO STA (00:18)
[2022-03-13] MEDS ORDERED: Ampicillin/Sulbactam Na 3 GM in Sodium Chloride 0.9% 100 ML IV STA (00:59)
[2022-03-13] MEDS ORDERED: Potassium Chloride Riders 40 MEQ in Premix Bag 1 BAG IV ONE (04:12)
[2022-03-13] MEDS ORDERED: Lactated Ringers 1,500 ML IV SCH (04:30)
[2022-03-13] MEDS: Piperacillin/Tazobactam 3.375 GM in Sodium Chloride 0.9% 50 ML IV SCH ×3 (04:47→20:40)
[2022-03-13] MEDS: Acetaminophen 325 MG Tab PO PRN ×2 (04:55→08:47)
[2022-03-13] MEDS ORDERED: VANCOmycin 2 GM/400 ML 2 GM in Premix Bag 1 BAG IV ONE (05:00)
[2022-03-13] MEDS: Pantoprazole 40 MG in Sodium Chloride 0.9% 10 ML IVPUSH SCH (05:02)
[2022-03-13] MEDS: Ondansetron 4 MG/2 ML SDV IVPUSH PRN (06:29)
[2022-03-13 06:52] LABS: CARBON DIOXIDE,CO2 27.2 mmol/L (21.0-32.0); POTASSIUM,K 3.6 mmol/L (3.5-5.1)
[2022-03-13] MEDS ORDERED: LORazepam 2 MG/ML SDV ONE (07:12)
[2022-03-13] MEDS ORDERED: LORazepam 2 MG/ML SDV IVPUSH ONE (07:13)
[2022-03-13] MEDS: Gabapentin 300 MG Cap PO SCH ×3 (08:08→20:40)
[2022-03-13] MEDS: DULoxetine 30 MG Cap PO SCH ×2 (08:08→08:24)
[2022-03-13] MEDS ORDERED: Lactated Ringers 1,000 ML IV SCH ×2 (08:45→14:45)
[2022-03-13] MEDS ORDERED: Magnesium Sulfate/Water 2 GM in Premix Bag 1 BAG IV ONE (09:40)
[2022-03-13] MEDS ORDERED: Azithromycin 500 MG in Sodium Chloride 0.9% 250 ML IV SCH (09:45)
[2022-03-13] MEDS: Lactated Ringers 1,000 ML IV SCH ×2 (10:00→16:00)
[2022-03-13] MEDS ORDERED: Doxycycline 200 MG in Sodium Chloride 0.9% 250 ML IV SCH ×2 (11:30→12:15)
[2022-03-13] MEDS: Doxycycline 200 MG in Sodium Chloride 0.9% 250 ML IV SCH (13:04)
[2022-03-13] MEDS ORDERED: Lidocaine 2% 5 ML SDV ONE (19:00)
[2022-03-13] MEDS: Cyclobenzaprine 10 MG Tab PO PRN (22:16)
[2022-03-13] MEDS: traMADol 50 MG Tab PO PRN (22:17)
[2022-03-14] MEDS: Doxycycline 200 MG in Sodium Chloride 0.9% 250 ML IV SCH ×2 (00:21→11:55)
[2022-03-14] MEDS: Piperacillin/Tazobactam 3.375 GM in Sodium Chloride 0.9% 50 ML IV SCH ×3 (04:08→20:35)
[2022-03-14] MEDS: Pantoprazole 40 MG in Sodium Chloride 0.9% 10 ML IVPUSH SCH (04:49)
[2022-03-14 06:01] LABS: BLOOD UREA NITROGEN,BUN 10 mg/dL (7.0-18.0); CHLORIDE,CL 110 mmol/L (98-107); GLUCOSE RANDOM 94 mg/dL (74-106); SODIUM,NA 142 mmol/L (136-145)
[2022-03-14] MEDS: Gabapentin 300 MG Cap PO SCH ×2 (08:51→20:35)
[2022-03-14] MEDS: DULoxetine 30 MG Cap PO SCH (09:33)
[2022-03-14] MEDS: Albuterol/Ipratropium 3.0-0.5 MG/3 ML Neb Soln NEB PRN ×2 (09:56→15:11)
[2022-03-14] MEDS: Lactated Ringers 1,000 ML IV SCH ×2 (10:32→16:09)
[2022-03-14] MEDS ORDERED: Lactated Ringers 500 ML IV ONE (11:20)
[2022-03-14] MEDS: Enoxaparin 40 MG/0.4 ML Syringe SUBCUT SCH (13:33)
[2022-03-14] MEDS: Cyclobenzaprine 10 MG Tab PO PRN (15:09)
[2022-03-14] MEDS: traMADol 50 MG Tab PO PRN (15:11)
[2022-03-14] MEDS: Acetaminophen 325 MG Tab PO PRN (20:53)
[2022-03-15] MEDS: Doxycycline 200 MG in Sodium Chloride 0.9% 250 ML IV SCH ×2 (00:06→12:24)
[2022-03-15] MEDS: Lactated Ringers 1,000 ML IV SCH ×3 (00:10→18:13)
[2022-03-15] MEDS: Cyclobenzaprine 10 MG Tab PO PRN ×3 (00:16→20:20)
[2022-03-15] MEDS: traMADol 50 MG Tab PO PRN ×3 (00:17→20:33)
[2022-03-15] MEDS: Piperacillin/Tazobactam 3.375 GM in Sodium Chloride 0.9% 50 ML IV SCH ×3 (04:08→20:23)
[2022-03-15] MEDS: Pantoprazole 40 MG in Sodium Chloride 0.9% 10 ML IVPUSH SCH (04:08)
[2022-03-15] MEDS: Albuterol/Ipratropium 3.0-0.5 MG/3 ML Neb Soln NEB PRN ×2 (04:20→20:42)
[2022-03-15 05:56] LABS: BLOOD UREA NITROGEN,BUN 10 mg/dL (7.0-18.0); CARBON DIOXIDE,CO2 25.7 mmol/L (21.0-32.0); CHLORIDE,CL 107 mmol/L (98-107); GLUCOSE RANDOM 89 mg/dL (74-106); POTASSIUM,K 3.8 mmol/L (3.5-5.1); SODIUM,NA 139 mmol/L (136-145)
[2022-03-15] MEDS: DULoxetine 30 MG Cap PO SCH (08:48)
[2022-03-15] MEDS: Gabapentin 300 MG Cap PO SCH ×2 (08:48→20:20)
[2022-03-15] MEDS: Enoxaparin 40 MG/0.4 ML Syringe SUBCUT SCH (12:58)
[2022-03-15] MEDS: Ondansetron 4 MG/2 ML SDV IVPUSH PRN (19:51)
[2022-03-16] MEDS: Doxycycline 200 MG in Sodium Chloride 0.9% 250 ML IV SCH (00:05)
[2022-03-16] MEDS: Lactated Ringers 1,000 ML IV SCH ×3 (03:46→20:21)
[2022-03-16] MEDS: Piperacillin/Tazobactam 3.375 GM in Sodium Chloride 0.9% 50 ML IV SCH (04:19)
[2022-03-16] MEDS: Pantoprazole 40 MG in Sodium Chloride 0.9% 10 ML IVPUSH SCH (04:20)
[2022-03-16] MEDS: Albuterol/Ipratropium 3.0-0.5 MG/3 ML Neb Soln NEB PRN (04:40)
[2022-03-16 07:12] LABS: BLOOD UREA NITROGEN,BUN 8 mg/dL (7.0-18.0); CARBON DIOXIDE,CO2 27.6 mmol/L (21.0-32.0); CHLORIDE,CL 106 mmol/L (98-107); GLUCOSE RANDOM 82 mg/dL (74-106); POTASSIUM,K 3.9 mmol/L (3.5-5.1); SODIUM,NA 142 mmol/L (136-145)
[2022-03-16] MEDS: DULoxetine 30 MG Cap PO SCH (08:08)
[2022-03-16] MEDS: Gabapentin 300 MG Cap PO SCH ×2 (08:08→21:52)
[2022-03-16] MEDS: Piperacillin/Tazobactam 3.375 GM in Sodium Chloride 0.9% 100 ML IV SCH ×3 (09:29→21:52)
[2022-03-16] MEDS: Doxycycline 100 MG in Sodium Chloride 0.9% 100 ML IV SCH (11:00)
[2022-03-16] MEDS: Enoxaparin 40 MG/0.4 ML Syringe SUBCUT SCH (14:13)
[2022-03-17] MEDS: Doxycycline 100 MG in Sodium Chloride 0.9% 100 ML IV SCH ×2 (00:09→12:49)
[2022-03-17] MEDS: Piperacillin/Tazobactam 3.375 GM in Sodium Chloride 0.9% 100 ML IV SCH ×2 (04:22→10:40)
[2022-03-17] MEDS: Lactated Ringers 1,000 ML IV SCH (04:22)
[2022-03-17 07:18] LABS: BLOOD UREA NITROGEN,BUN 10 mg/dL (7.0-18.0); CARBON DIOXIDE,CO2 34.5 mmol/L (21.0-32.0); CHLORIDE,CL 103 mmol/L (98-107); GLUCOSE RANDOM 92 mg/dL (74-106); POTASSIUM,K 3.6 mmol/L (3.5-5.1); SODIUM,NA 143 mmol/L (136-145)
[2022-03-17] MEDS: Gabapentin 300 MG Cap PO SCH (08:38)
[2022-03-17] MEDS: DULoxetine 30 MG Cap PO SCH (08:38)
[2022-03-17] MEDS ORDERED: Loperamide 2 MG Cap PO PRN (09:12)
[2022-03-17 09:13] VITALS: BP 153/87; PULSE 76
[2022-03-17] MEDS: Enoxaparin 40 MG/0.4 ML Syringe SUBCUT SCH (14:03)
== END 2022-03-17 16:30 | disposition home or self-care (01) | DRG 871 ==
LOC: MW.ED 20:53 → MW.MS 03-13 01:14 → MW.ICU 03-13 15:04 → MW.MS 03-16 12:59
PROVIDERS: ADMIT Student in an Organized Health Care Education/Training Program; ATTEND Student in an Organized Health Care Education/Training Program
PROC: 3E033XZ Introduction of Vasopressor into Peripheral Vein, Percutaneous Approach (ICD-10-PCS; 2022-03-12)
PROC: 3E03329 Introduction of Other Anti-infective into Peripheral Vein, Percutaneous Approach (ICD-10-PCS; 2022-03-12)
PROC: 05HN33Z Insertion of Infusion Device into Left Internal Jugular Vein, Percutaneous Approach (ICD-10-PCS; principal; 2022-03-13)
PROC: 03HB33Z Insertion of Infusion Device into Right Radial Artery, Percutaneous Approach (ICD-10-PCS; 2022-03-13)
DX: R78.81 Bacteremia (principal); N30.01 Acute cystitis with hematuria; A41.9 Sepsis, unspecified organism; J18.9 Pneumonia, unspecified organism; J96.01 Acute respiratory failure with hypoxia; N30.00 Acute cystitis without hematuria; Z20.822 Contact with and (suspected) exposure to COVID-19; I10 Essential (primary) hypertension; K58.9 Irritable bowel syndrome, unspecified; F41.9 Anxiety disorder, unspecified; G62.9 Polyneuropathy, unspecified; Z79.899 Other long term (current) drug therapy; M54.9 Dorsalgia, unspecified; G89.29 Other chronic pain; Z90.49 Acquired absence of other specified parts of digestive tract; Z88.1 Allergy status to other antibiotic agents; Z88.5 Allergy status to narcotic agent; Z88.8 Allergy status to other drugs, medicaments and biological substances; Z90.710 Acquired absence of both cervix and uterus; Z98.51 Tubal ligation status; Z87.891 Personal history of nicotine dependence
CPT/HCPCS: 36415; 71045; 80053; 81001; 83605; 85025; 85610; 87040 ×2; 93005; 99285; A9270; J7030; U0002; 36620; 80048; 80202; 83735; 84100; 85027; 93010; 97110-GP; 97116-GP; 97162-GP; 97530-GP; 99100; C9113; J0295; J1650; J2060; J2405; J2543; J3370; J3475; J3480; J3490; J7050; J7120; J7620-GY

== ENCOUNTER 2022-03-18 12:36 | Observation (INO) | payer MEDICARE, BC ==
[2022-03-18] MEDS ORDERED: Ondansetron 4 MG/2 ML SDV IVPUSH ONE (12:44)
[2022-03-18 13:27] LABS: CARBON DIOXIDE,CO2 32.1 mmol/L (21.0-32.0); POTASSIUM,K 2.9 mmol/L (3.5-5.1)
[2022-03-18] MEDS ORDERED: Potassium Chloride 20 MEQ Tab.ER PO ONE (13:32)
[2022-03-18] MEDS ORDERED: metroNIDAZOLE/Normal Saline 500 MG in Premix Bag 1 BAG IV ONE (13:44)
[2022-03-18] MEDS ORDERED: Levofloxacin/Dextrose 5%-Water 500 MG in Premix Bag 1 BAG IV ONE (13:44)
[2022-03-18] MEDS ORDERED: Iopamidol 755 MG/ML 500 ML Multipack Bottle IVPUSH STA (15:44)
[2022-03-18] MEDS ORDERED: Albuterol/Ipratropium 3.0-0.5 MG/3 ML Neb Soln NEB PRN (18:05)
[2022-03-18] MEDS ORDERED: Ondansetron 4 MG/2 ML SDV IVPUSH PRN (18:05)
[2022-03-18] MEDS ORDERED: Lactated Ringers 1,000 ML IV SCH (18:15)
[2022-03-18] MEDS ORDERED: VANCOmycin 2 GM/400 ML 2 GM in Premix Bag 1 BAG IV ONE ×2 (19:00→21:00)
[2022-03-18] MEDS: Piperacillin/Tazobactam 3.375 GM in Sodium Chloride 0.9% 50 ML IV SCH (19:40)
[2022-03-18] MEDS: Gabapentin 300 MG Cap PO SCH ×2 (19:40→21:11)
[2022-03-18] MEDS: Potassium Chloride 20 MEQ Tab.ER PO SCH (21:02)
[2022-03-18] MEDS: Enoxaparin 40 MG/0.4 ML Syringe SUBCUT SCH (21:03)
[2022-03-18] MEDS: Acetaminophen 325 MG Tab PO PRN (21:20)
[2022-03-18] MEDS ORDERED: traZODone 50 MG Tab PO ONE (23:54)
[2022-03-19] MEDS: Doxycycline 100 MG in Sodium Chloride 0.9% 100 ML IV SCH ×3 (00:12→22:51)
[2022-03-19] MEDS: Piperacillin/Tazobactam 3.375 GM in Sodium Chloride 0.9% 50 ML IV SCH (02:35)
[2022-03-19 07:49] LABS: BLOOD UREA NITROGEN,BUN 11 mg/dL (7.0-18.0); CARBON DIOXIDE,CO2 28.9 mmol/L (21.0-32.0); CHLORIDE,CL 106 mmol/L (98-107); GLUCOSE RANDOM 93 mg/dL (74-106); POTASSIUM,K 3.5 mmol/L (3.5-5.1); SODIUM,NA 142 mmol/L (136-145)
[2022-03-19] MEDS: Pantoprazole 40 MG in Sodium Chloride 0.9% 10 ML IVPUSH SCH (08:16)
[2022-03-19] MEDS: Gabapentin 300 MG Cap PO SCH ×2 (08:20→20:37)
[2022-03-19] MEDS: DULoxetine 30 MG Cap PO SCH (08:20)
[2022-03-19] MEDS: Potassium Chloride 20 MEQ Tab.ER PO SCH ×2 (08:20→20:37)
[2022-03-19] MEDS: Piperacillin/Tazobactam 4.5 GM in Sodium Chloride 0.9% 100 ML IV SCH ×3 (08:39→22:07)
[2022-03-19] MEDS: Magnesium Oxide 400 MG Tab PO SCH ×2 (10:25→20:37)
[2022-03-19] MEDS: Enoxaparin 40 MG/0.4 ML Syringe SUBCUT SCH (20:37)
[2022-03-19] MEDS: Acetaminophen 325 MG Tab PO PRN (23:44)
[2022-03-20] MEDS ORDERED: traZODone 50 MG Tab PO ONE (01:48)
[2022-03-20] MEDS: Piperacillin/Tazobactam 4.5 GM in Sodium Chloride 0.9% 100 ML IV SCH ×4 (02:02→22:42)
[2022-03-20] MEDS: Pantoprazole 40 MG in Sodium Chloride 0.9% 10 ML IVPUSH SCH (08:02)
[2022-03-20] MEDS: Gabapentin 300 MG Cap PO SCH ×2 (08:11→20:46)
[2022-03-20] MEDS: DULoxetine 30 MG Cap PO SCH (08:11)
[2022-03-20] MEDS: Magnesium Oxide 400 MG Tab PO SCH ×2 (08:11→20:47)
[2022-03-20] MEDS: Potassium Chloride 20 MEQ Tab.ER PO SCH ×2 (08:11→20:45)
[2022-03-20 08:12] LABS: BLOOD UREA NITROGEN,BUN 17 mg/dL (7.0-18.0); CARBON DIOXIDE,CO2 26.8 mmol/L (21.0-32.0); CHLORIDE,CL 108 mmol/L (98-107); GLUCOSE RANDOM 93 mg/dL (74-106); POTASSIUM,K 4.2 mmol/L (3.5-5.1); SODIUM,NA 140 mmol/L (136-145)
[2022-03-20] MEDS: Doxycycline 100 MG in Sodium Chloride 0.9% 100 ML IV SCH ×2 (08:56→20:48)
[2022-03-20] MEDS: Enoxaparin 40 MG/0.4 ML Syringe SUBCUT SCH (20:44)
[2022-03-21] MEDS: Acetaminophen 325 MG Tab PO PRN (00:59)
[2022-03-21] MEDS ORDERED: Piperacillin/Tazobactam 4.5 GM in Sodium Chloride 0.9% 100 ML IV SCH (03:45)
[2022-03-21] MEDS ORDERED: traZODone 50 MG Tab PO ONE (04:06)
[2022-03-21] MEDS: Piperacillin/Tazobactam 4.5 GM in Sodium Chloride 0.9% 100 ML IV SCH ×3 (04:13→10:35)
[2022-03-21 07:26] LABS: BLOOD UREA NITROGEN,BUN 16 mg/dL (7.0-18.0); CARBON DIOXIDE,CO2 27.9 mmol/L (21.0-32.0); CHLORIDE,CL 104 mmol/L (98-107); GLUCOSE RANDOM 87 mg/dL (74-106); POTASSIUM,K 3.8 mmol/L (3.5-5.1); SODIUM,NA 139 mmol/L (136-145)
[2022-03-21] MEDS: Doxycycline 100 MG in Sodium Chloride 0.9% 100 ML IV SCH (07:42)
[2022-03-21] MEDS: Magnesium Oxide 400 MG Tab PO SCH (08:00)
[2022-03-21] MEDS: Gabapentin 300 MG Cap PO SCH (08:00)
[2022-03-21] MEDS: Pantoprazole 40 MG in Sodium Chloride 0.9% 10 ML IVPUSH SCH (08:00)
[2022-03-21] MEDS: Potassium Chloride 20 MEQ Tab.ER PO SCH (08:00)
[2022-03-21] MEDS: DULoxetine 30 MG Cap PO SCH (08:00)
[2022-03-21 13:05] VITALS: BP 118/60; PULSE 68
== END 2022-03-21 12:15 | disposition home or self-care (01) ==
LOC: MW.ED 12:36 → MW.MS 16:19 → OBSVTOIN 21:53 → INTOOBSV 21:53
PROVIDERS: ADMIT Internal Medicine; ATTEND Internal Medicine
DX: J18.9 Pneumonia, unspecified organism (principal); I10 Essential (primary) hypertension; F41.9 Anxiety disorder, unspecified; R11.10 Vomiting, unspecified; N39.0 Urinary tract infection, site not specified; R19.7 Diarrhea, unspecified; R09.02 Hypoxemia; E87.6 Hypokalemia; Z88.1 Allergy status to other antibiotic agents; Z88.6 Allergy status to analgesic agent; Z88.5 Allergy status to narcotic agent; Z91.048 Other nonmedicinal substance allergy status; Z79.899 Other long term (current) drug therapy; Z20.822 Contact with and (suspected) exposure to COVID-19
CPT/HCPCS: 36415; 71045; 71275; 80053; 81001; 82803; 83605; 83735; 84100; 84484; 85025; 85027; 85379; 85610; 85730; 87040; 87324; 93005; 96365; 96366; 96367; 96372; 96375; 96376; 97110; 97112; 97116; 97161; 97530; 99285; A9270; C9113; G0378; J1650; J1956; J2405; J2543; J3370; J3490; J7050; J7120; Q9967; U0002; 93010; 99284

== ENCOUNTER 2022-05-07 13:03 | Inpatient (IN) | payer MEDICARE, BC ==
[2022-05-07] MEDS ORDERED: Sodium Chloride 0.9% 500 ML IV SCH (15:00)
[2022-05-07 16:11] LABS: CARBON DIOXIDE,CO2 27.6 mmol/L (21.0-32.0); POTASSIUM,K 3.8 mmol/L (3.5-5.1)
[2022-05-07] MEDS ORDERED: cefTRIAXone 1 GM in Sodium Chloride 0.9% 50 ML IV ONE (16:46)
[2022-05-07] MEDS ORDERED: traMADol 50 MG Tab PO ONE (16:48)
[2022-05-07] MEDS ORDERED: Ondansetron 4 MG/2 ML SDV IVPUSH PRN (19:37)
[2022-05-07] MEDS ORDERED: Lactated Ringers 1,000 ML IV ONE (19:37)
[2022-05-07] MEDS ORDERED: Albuterol/Ipratropium 3.0-0.5 MG/3 ML Neb Soln NEB PRN (19:37)
[2022-05-07] MEDS ORDERED: Heparin Sodium 5,000 Units/ML Vial SUBCUT SCH (19:45)
[2022-05-07] MEDS: Lactated Ringers 1,000 ML IV SCH (21:27)
[2022-05-07] MEDS: Gabapentin 300 MG Cap PO PRN (21:36)
[2022-05-07] MEDS ORDERED: LORazepam 2 MG/ML SDV IVPUSH ONE (23:15)
[2022-05-08] MEDS: Acetaminophen 325 MG Tab PO PRN ×2 (05:48→23:47)
[2022-05-08] MEDS: Lactated Ringers 1,000 ML IV SCH ×2 (07:36→16:16)
[2022-05-08 08:03] LABS: CARBON DIOXIDE,CO2 28.6 mmol/L (21.0-32.0); POTASSIUM,K 3.7 mmol/L (3.5-5.1)
[2022-05-08] MEDS: Azelastine [Astelin Nasal Soln] 30 ML Bottle NASBOTH SCH ×3 (09:17→21:04)
[2022-05-08] MEDS: Fluticasone NASAL Spray 16 GM Bottle NASBOTH SCH (09:18)
[2022-05-08] MEDS: DULoxetine 30 MG Cap PO SCH (09:18)
[2022-05-08] MEDS: cefTRIAXone 1 GM in Sodium Chloride 0.9% 50 ML IV SCH (15:17)
[2022-05-08] MEDS: Gabapentin 300 MG Cap PO PRN (21:13)
[2022-05-09] MEDS: Lactated Ringers 1,000 ML IV SCH ×2 (00:52→08:26)
[2022-05-09 06:25] LABS: POTASSIUM,K 3.4 mmol/L (3.5-5.1)
[2022-05-09 08:15] VITALS: PULSE 66
[2022-05-09] MEDS: DULoxetine 30 MG Cap PO SCH (08:21)
[2022-05-09] MEDS: Fluticasone NASAL Spray 16 GM Bottle NASBOTH SCH (08:22)
[2022-05-09] MEDS: Azelastine [Astelin Nasal Soln] 30 ML Bottle NASBOTH SCH (08:22)
[2022-05-09] MEDS ORDERED: Potassium Chloride 20 MEQ Tab.ER PO ONE (10:08)
[2022-05-09 12:14] VITALS: BP 149/75
[2022-05-09] MEDS ORDERED: Levofloxacin 500 MG Tab PO ONE (13:39)
[2022-05-09] MEDS: cefTRIAXone 1 GM in Sodium Chloride 0.9% 50 ML IV SCH (14:07)
== END 2022-05-09 16:00 | disposition home or self-care (01) | DRG 690 ==
LOC: MW.ED 13:03 → MW.MS 16:48
PROVIDERS: ADMIT Student in an Organized Health Care Education/Training Program; ATTEND Student in an Organized Health Care Education/Training Program
DX: N39.0 Urinary tract infection, site not specified (principal); N30.00 Acute cystitis without hematuria; F02.81 Dementia in other diseases classified elsewhere, unspecified severity, with behavioral disturbance; I10 Essential (primary) hypertension; F32.A Depression, unspecified; D72.829 Elevated white blood cell count, unspecified; Z88.8 Allergy status to other drugs, medicaments and biological substances; R74.01 Elevation of levels of liver transaminase levels; H54.7 Unspecified visual loss; K21.9 Gastro-esophageal reflux disease without esophagitis; K58.9 Irritable bowel syndrome, unspecified; G89.29 Other chronic pain; Z20.822 Contact with and (suspected) exposure to COVID-19; M54.59 Other low back pain; G62.9 Polyneuropathy, unspecified; F41.9 Anxiety disorder, unspecified; E66.9 Obesity, unspecified; Z86.19 Personal history of other infectious and parasitic diseases; Z90.89 Acquired absence of other organs; Z79.899 Other long term (current) drug therapy; Z87.440 Personal history of urinary (tract) infections; Z87.01 Personal history of pneumonia (recurrent); Z88.1 Allergy status to other antibiotic agents; Z88.5 Allergy status to narcotic agent; Z91.09 Other allergy status, other than to drugs and biological substances; Z98.49 Cataract extraction status, unspecified eye; Z90.49 Acquired absence of other specified parts of digestive tract; Z90.710 Acquired absence of both cervix and uterus; Z98.51 Tubal ligation status; Z68.30 Body mass index [BMI] 30.0-30.9, adult
CPT/HCPCS: 36415; 80053; 81001; 83605; 85025; 87086; J7040; U0002; 80048; 83735; 84100; 87040; 96360; 99221; 99231; 99238; 99284-25; A9270-GY; J0696; J2060; J7120

== ENCOUNTER 2022-09-16 10:54 | Emergency (ER) | payer MEDICARE, BC ==
[2022-09-16] MEDS ORDERED: Sodium Chloride 0.9% 1,000 ML IV ONE ×2 (11:05→12:40)
[2022-09-16] MEDS ORDERED: Sodium Chloride 0.9% 2.5 ML Syringe FLUSH PRN (11:05)
[2022-09-16] MEDS ORDERED: Sodium Chloride 0.9% 10 ML Syringe FLUSH PRN (11:05)
[2022-09-16 12:12] LABS: CARBON DIOXIDE,CO2 27.8 mmol/L (21.0-32.0); POTASSIUM,K 3.9 mmol/L (3.5-5.1)
[2022-09-16] MEDS ORDERED: Meclizine 25 MG Tab PO ONE (12:39)
[2022-09-16 14:18] VITALS: BP 132/78; PULSE 76
== END 2022-09-16 14:38 | disposition home or self-care (01) ==
LOC: MW.ED 10:54
DX: R42 Dizziness and giddiness (principal); I10 Essential (primary) hypertension; E66.9 Obesity, unspecified; Z68.24 Body mass index [BMI] 24.0-24.9, adult; Z88.1 Allergy status to other antibiotic agents; Z88.8 Allergy status to other drugs, medicaments and biological substances; Z88.5 Allergy status to narcotic agent; Z91.048 Other nonmedicinal substance allergy status; Z79.899 Other long term (current) drug therapy
CPT/HCPCS: 36415; 70450; 71045; 80053; 81001; 83735; 84484; 85025; 93005; 96360; 96361; 99284; A9270; J3490; J7030

== ENCOUNTER 2023-02-02 10:06 | Emergency (ER) | payer MEDICARE, BC ==
[2023-02-02 10:31] VITALS: BP 149/61; PULSE 63
[2023-02-02] MEDS ORDERED: Sodium Chloride 0.9% 2.5 ML Syringe FLUSH PRN (10:32)
[2023-02-02] MEDS ORDERED: Sodium Chloride 0.9% 10 ML Syringe FLUSH PRN (10:32)
[2023-02-02] MEDS ORDERED: Sodium Chloride 0.9% 1,000 ML IV STA (10:33)
[2023-02-02] MEDS ORDERED: Piperacillin/Tazobactam 3.375 GM in Sodium Chloride 0.9% 100 ML IV STA (10:42)
[2023-02-02] MEDS ORDERED: Oseltamivir 75 MG Cap PO STA (10:43)
[2023-02-02 11:19] LABS: CARBON DIOXIDE,CO2 26.4 mmol/L (21.0-32.0); POTASSIUM,K 3.9 mmol/L (3.5-5.1)
[2023-02-02 11:56] LABS: CORONAVIRUS COVID-19 NAA NEGATIVE (NEGATIVE); INFLUENZA A NAA NEGATIVE (NEGATIVE); INFLUENZA B NAA NEGATIVE (NEGATIVE); RESPIRATORY SYNCYTIAL VIR NAA NEGATIVE (NEGATIVE)
== END 2023-02-02 12:29 | disposition home or self-care (01) ==
LOC: MW.ED 10:06
DX: N39.0 Urinary tract infection, site not specified (principal); D69.6 Thrombocytopenia, unspecified; I10 Essential (primary) hypertension; E66.9 Obesity, unspecified; Z68.29 Body mass index [BMI] 29.0-29.9, adult; Z88.1 Allergy status to other antibiotic agents; Z88.5 Allergy status to narcotic agent; Z91.048 Other nonmedicinal substance allergy status; Z88.8 Allergy status to other drugs, medicaments and biological substances; Z79.899 Other long term (current) drug therapy; Z20.822 Contact with and (suspected) exposure to COVID-19
CPT/HCPCS: 0241U; 36415; 71045; 80053; 81001; 83735; 85025; 87086; 93005; 96365; 99285; A9270; J2543; J3490; J7030; 93010; 99284

== ENCOUNTER 2023-05-05 07:42 | Day surgery (SDC) | payer MEDICARE, BC ==
[~2023-05-05 07:42] MED LIST: Lactated Ringers 1,000 ML IV SCH; Sodium Chloride 0.9% 10 ML Syringe FLUSH PRN; Sodium Chloride 0.9% 2.5 ML Syringe FLUSH PRN; Sodium Chloride 0.9% 20 ML SDV IV PRN
[2023-05-05] MEDS ORDERED: Lidocaine 2% 5 ML SDV ONE (09:35)
[2023-05-05] MEDS ORDERED: fentaNYL 100 MCG/2 ML SDV ONE (09:35)
[2023-05-05] MEDS ORDERED: Propofol 200 MG/20 ML SDV ONE ×2 (09:35→10:39)
[2023-05-05 12:33] VITALS: BP 147/75; PULSE 60
== END 2023-05-05 11:45 | disposition home or self-care (01) ==
LOC: MW.SDS 07:42
PROVIDERS: ATTEND Surgery
DX: D12.2 Benign neoplasm of ascending colon (principal); D12.4 Benign neoplasm of descending colon; D12.5 Benign neoplasm of sigmoid colon; K29.50 Unspecified chronic gastritis without bleeding; K20.90 Esophagitis, unspecified without bleeding; K57.30 Diverticulosis of large intestine without perforation or abscess without bleeding; K31.89 Other diseases of stomach and duodenum; F41.9 Anxiety disorder, unspecified; M19.90 Unspecified osteoarthritis, unspecified site; F32.A Depression, unspecified; K58.0 Irritable bowel syndrome with diarrhea; I10 Essential (primary) hypertension; Z88.1 Allergy status to other antibiotic agents; Z88.5 Allergy status to narcotic agent; Z88.8 Allergy status to other drugs, medicaments and biological substances; Z79.899 Other long term (current) drug therapy; Z79.1 Long term (current) use of non-steroidal anti-inflammatories (NSAID); Z90.710 Acquired absence of both cervix and uterus; Z98.890 Other specified postprocedural states; Z87.891 Personal history of nicotine dependence; Z98.51 Tubal ligation status; Z90.49 Acquired absence of other specified parts of digestive tract
CPT/HCPCS: 43239; 45380; 45385; 88305; J2704; J3010; J7120; 00813; 99100; J3490

== ENCOUNTER 2025-01-09 14:33 | Emergency (ER) | payer MEDICARE, BC ==
[2025-01-09] MEDS: Atropine 0.1 MG/ML 10 ML Syringe IVPUSH STA (14:42)
[2025-01-09] MEDS ORDERED: Sodium Chloride 0.9% 10 ML Syringe FLUSH PRN (14:46)
[2025-01-09 15:00] LABS: BASOPHILS ABSOLUTE AUTO 0.18 K/uL (0.00-0.20); BASOPHILS PERCENT AUTO 1.2 % (0.0-1.0); EOSINOPHILS ABSOLUTE AUTO 0.61 K/uL (0.00-0.45); HEMATOCRIT 46.5 % (37.0-47.0); HEMOGLOBIN 15.6 g/dL (12.0-16.0); IMMATURE GRAN ABSOLUTE AUTO 0.04 K/uL (0.00-0.05); IMMATURE GRAN PERCENT AUTO 0.3 % (0.0-0.4); LYMPHOCYTES ABSOLUTE AUTO 4.58 K/uL (1.00-4.80); LYMPHOCYTES PERCENT AUTO 29.7 % (24.0-44.0); MEAN CORPUSCULAR HEMOGLOBIN 28.1 pg (28.0-32.0); MEAN CORPUSCULAR HGB CONC 33.5 g/dL (32.0-36.0); MEAN CORPUSCULAR VOLUME 83.8 fL (83.0-99.0); MEAN PLATELET VOLUME 10.5 fL (9.4-12.3); MONOCYTES ABSOLUTE AUTO 0.81 K/uL (0.00-0.80); MONOCYTES PERCENT AUTO 5.2 % (0.0-8.0); NEUTROPHILS ABSOLUTE AUTO 9.21 K/uL (1.80-7.70); NEUTROPHILS PERCENT AUTO 59.6 % (41.0-71.0); PLATELET COUNT,PLT 196 K/uL (150-400); RED BLOOD CELL COUNT 5.55 M/uL (4.10-5.30); WHITE BLOOD CELL COUNT,WBC 15.43 K/uL (3.9-11.3)
[2025-01-09] MEDS: Sodium Chloride 0.9% 1,000 ML IV ONE (15:05)
[2025-01-09 15:10] LABS: INR 1.07 (0.86-1.11)
[2025-01-09 15:25] LABS: ALANINE AMINOTRANSFERASE,ALT 12 IU/L (14-63); ALBUMIN 3.2 g/dL (3.4-5.0); ALKALINE PHOSPHATASE 114 U/L (46-116); ASPARTATE AMNIOTRANSFERASE,AST 15 IU/L (15-37); BILIRUBIN TOTAL 0.7 mg/dL (0.2-1.0); BLOOD UREA NITROGEN,BUN 11 mg/dL (7.0-18.0); CALCIUM 8.8 mg/dL (8.5-10.1); CARBON DIOXIDE,CO2 27.2 mmol/L (21.0-32.0); CHLORIDE,CL 105 mmol/L (98-107); CREATININE 1.2 mg/dL (0.6-1.0); GLUCOSE RANDOM 135 mg/dL (74-106); MAGNESIUM 1.9 mg/dL (1.8-2.4); POTASSIUM,K 2.9 mmol/L (3.5-5.1); PROTEIN TOTAL,TP 6.5 g/dL (6.4-8.2); SODIUM,NA 141 mmol/L (136-145); TSH ULTRASENSITIVE 5.96 uIU/mL (0.36-3.74)
[2025-01-09 15:26] LABS: ESTIMATED GFR 48 mL/min (>60); ETHANOL BLOOD MEDICAL < 3.0 mg/dL; PRO B-TYPE NATRIUR PEPT,BNPPRO 87 pg/mL (0-125)
[2025-01-09] MEDS: Iopamidol 755 MG/ML 500 ML Multipack Bottle IVPUSH STA (15:27)
[2025-01-09 15:42] LABS: T4 FREE 1.14 ng/dL (0.76-1.46)
[2025-01-09] MEDS: EPINEPHrine in 0.9 %/Sod Chlor 250 ML ONE (17:08)
[2025-01-09] MEDS: Piperacillin/Tazobactam 3.375 GM in Sodium Chloride 0.9% 100 ML IV ONE (17:10)
[2025-01-09 17:28] LABS: APPEARANCE,URINE CLEAR; BILIRUBIN,URINE NEGATIVE (NEGATIVE); COLOR,URINE YELLOW; GLUCOSE,URINE NEGATIVE (NEGATIVE); KETONES,URINE NEGATIVE (NEGATIVE); LEUKOCYTE ESTERASE,URINE NEGATIVE (NEGATIVE); NITRITE,URINE NEGATIVE (NEGATIVE); OCCULT BLOOD,URINE NEGATIVE (NEGATIVE); PROTEIN,URINE NEGATIVE (NEGATIVE); UROBILINOGEN,URINE 0.2 EU/dL (<2.0)
[2025-01-09 17:38] LABS: AMPHETAMINES SCREEN, URINE NEGATIVE (CUTOFF=500); BARBITURATE SCREEN,URINE NEGATIVE (CUTOFF=200); BENZODIAZEPINES SCREEN,URINE NEGATIVE (CUTOFF=150); BUPRENORPHINE SCREEN,URINE NEGATIVE (CUTOFF=10); METHADONE SCREEN, URINE NEGATIVE (CUTOFF=200); METHAMPHETAMINES SCREEN, URINE NEGATIVE (CUTOFF=500); OXYCODONE SCREEN,URINE NEGATIVE (CUT0FF=100); PCP SCREEN,URINE NEGATIVE (CUTOFF=25); THC SCREEN,URINE 20 NG/ML NEGATIVE (CUTOFF=50)
[2025-01-09] MEDS: Potassium Chloride 10 MEQ in Premix Bag 1 BAG IV SCH (18:11)
[2025-01-09] MEDS: Sodium Chloride 0.9% 500 ML IV STA (18:13)
[2025-01-09 18:14] VITALS: BP 111/71; PULSE 66
== END 2025-01-09 21:08 ==
LOC: MW.ED 14:33
DX: R55 Syncope and collapse (principal); R00.1 Bradycardia, unspecified; I10 Essential (primary) hypertension; E66.9 Obesity, unspecified; Z90.710 Acquired absence of both cervix and uterus; Z79.899 Other long term (current) drug therapy; Z88.5 Allergy status to narcotic agent; Z91.048 Other nonmedicinal substance allergy status; Z88.1 Allergy status to other antibiotic agents; Z88.8 Allergy status to other drugs, medicaments and biological substances; Z68.29 Body mass index [BMI] 29.0-29.9, adult
CPT/HCPCS: 36415; 70450; 70496; 70498; 71045; 71275; 80053; 80305; 80307; 81003; 83605; 83735; 83880; 84439; 84443; 84484; 85025; 85610; 87040; 87428; 93005; 96361; 96365; 96366; 96367; 96375; 99285; J0461; J2543; J3480; J3490; J7030; J7040; Q9967; 93010

== ENCOUNTER 2025-04-24 11:03 | Emergency (ER) | payer MEDICARE, BC ==
[2025-04-24] MEDS ORDERED: Sodium Chloride 0.9% 2.5 ML Syringe FLUSH PRN (11:05)
[2025-04-24] MEDS ORDERED: Sodium Chloride 0.9% 10 ML Syringe FLUSH PRN (11:05)
[2025-04-24 11:20] LABS: BASOPHILS ABSOLUTE AUTO 0.11 K/uL (0.00-0.20); BASOPHILS PERCENT AUTO 1.1 % (0.0-1.0); EOSINOPHILS ABSOLUTE AUTO 0.29 K/uL (0.00-0.45); EOSINOPHILS PERCENT AUTO 2.8 % (0.0-6.0); IMMATURE GRAN ABSOLUTE AUTO 0.03 K/uL (0.00-0.05); IMMATURE GRAN PERCENT AUTO 0.3 % (0.0-0.4); LYMPHOCYTES ABSOLUTE AUTO 2.27 K/uL (1.00-4.80); LYMPHOCYTES PERCENT AUTO 22.1 % (24.0-44.0); MEAN PLATELET VOLUME 10.3 fL (9.4-12.3); MONOCYTES ABSOLUTE AUTO 0.59 K/uL (0.00-0.80); MONOCYTES PERCENT AUTO 5.7 % (0.0-8.0); NEUTROPHILS ABSOLUTE AUTO 6.98 K/uL (1.80-7.70); NEUTROPHILS PERCENT AUTO 68.0 % (41.0-71.0); NRBC ABSOLUTE 0.00 K/uL (0.00-0.02); NRBC PERCENT 0.0 /100WBC (0.0-0.2); PLATELET COUNT,PLT 125 K/uL (150-400); RED BLOOD CELL COUNT 5.33 M/uL (4.10-5.30); WHITE BLOOD CELL COUNT,WBC 10.27 K/uL (3.9-11.3)
[2025-04-24 11:32] LABS: INR 1.05 (0.86-1.11); PTT,PARTIAL THROMBOPLSTIN TIME 25.9 SEC (23.9-30.7)
[2025-04-24 11:49] LABS: A/G RATIO 1.1 (0.9-1.6); ALANINE AMINOTRANSFERASE,ALT 11 IU/L (14-63); ASPARTATE AMNIOTRANSFERASE,AST 15 IU/L (15-37); BILIRUBIN TOTAL 0.5 mg/dL (0.2-1.0); BLOOD UREA NITROGEN,BUN 20 mg/dL (7.0-18.0); CHLORIDE,CL 103 mmol/L (98-107); CREATININE 1.3 mg/dL (0.6-1.0); EST CRCL DRUG DOSING (CG) 35.54 mL/min; GLUCOSE RANDOM 126 mg/dL (74-106); POTASSIUM,K 3.9 mmol/L (3.5-5.1); PRO B-TYPE NATRIUR PEPT,BNPPRO 80 pg/mL (0-125); PROTEIN TOTAL,TP 6.2 g/dL (6.4-8.2); SODIUM,NA 140 mmol/L (136-145)
[2025-04-24 11:52] LABS: ESTIMATED GFR 43 mL/min (>60)
[2025-04-24 11:58] LABS: CARBON DIOXIDE,CO2 27.9 mmol/L (21.0-32.0)
[2025-04-24 12:33] LABS: APPEARANCE,URINE CLOUDY; GLUCOSE,URINE NEGATIVE (NEGATIVE); OCCULT BLOOD,URINE TRACE-INTACT (NEGATIVE)
[2025-04-24 12:42] LABS: EPITHELIAL CELLS,URINE MANY (NONE-FEW)
[2025-04-24 14:27] VITALS: BP 112/68; PULSE 63
[2025-04-24] MEDS: Nitrofurantoin Monohydrate/Macrocrystalline 100 MG Cap PO ONE (14:38)
== END 2025-04-24 14:38 | disposition home or self-care (01) ==
LOC: MW.ED 11:03
DX: R55 Syncope and collapse (principal); N30.00 Acute cystitis without hematuria; I10 Essential (primary) hypertension; E66.9 Obesity, unspecified; M19.90 Unspecified osteoarthritis, unspecified site; Z88.1 Allergy status to other antibiotic agents; Z88.8 Allergy status to other drugs, medicaments and biological substances; Z88.5 Allergy status to narcotic agent; Z79.899 Other long term (current) drug therapy; Z79.51 Long term (current) use of inhaled steroids; Z90.49 Acquired absence of other specified parts of digestive tract; Z90.710 Acquired absence of both cervix and uterus; Z68.30 Body mass index [BMI] 30.0-30.9, adult
CPT/HCPCS: 36415; 71045; 80053; 81001; 83735; 83880; 84484; 85025; 85610; 85730; 87086; 93005; 99285; A9270; 87088; 87186; 93010; 99284